=== PATIENT | male | born 1930 | race Caucasian/White ===

== ENCOUNTER 2017-07-10 10:04 | Inpatient (IN) | payer MEDICARE ==
[2017-07-10] MEDS ORDERED: Sodium Chloride 0.9% 2,000 ML IV ONE (10:42)
[2017-07-10] MEDS ORDERED: cefTRIAXone 2 GM in Sodium Chloride 0.9% 100 ML IV ONE (10:49)
--- NOTE | 2017-07-10 10:51 | ED Physician Chart ---
ED Chief Complaint/HPI - Patient Information Date Seen:: 07/10/17 Time Seen:: 10:18 Chief Complaint:: SWELLING, WARMTH AND DISCOLORATION LEFT LOWER EXTREMITY History of Present Illness:: THIS 86-YEAR-OLD MALE WAS BROUGHT TO THE EMERGENCY DEPARTMENT FOR EVALUATION OF PAIN, EDEMA, AND WARMTH IN THE LEFT LOWER EXTREMITY BELOW THE KNEE EXTENDING INTO THE FOOT. THE PATIENT IS CONFUSED AND UNABLE TO PROVIDE ANY ADDITIONAL INFORMATION REGARDING HIS CONDITION. ADDITIONAL INFORMATION WAS OBTAINED FROM A COMPANY PAPERWORK. Family MD/PCP:: SUPPLEMENTAL INFORMATION WAS OBTAINED FROM DR. SONI AND ACCOMPANYING PAPERWORK. Review:: Transfer documents Reviewed ( NURSING NOTES WHICH WERE ENTERED ONTO THE TRIAGE FORM WERE REVIEWED.) ED Past Medical History - Past Medical History Past Medical History: HTN, DM, CAD, CHF, Dementia Social History: Non Smoker, No Alcohol, No Drug Use, Single, Care Facility, Other ( INFORMATION OBTAINED FROM PAPERWORK WHICH ACCOMPANIED PATIENT.) Surgical History: None Psychiatricy History: Schizophrenia, Dementia Medication Reviewed:: SEE NURSING. Family Medical History - Family Member Father History Unknown: Yes ED Physical Exam - Physical Examination General/Constitutional: Awake, Well-developed, well-nourished, Alert Other Gen/Cons comments:: THE PATIENT HAS GENERALIZED WEAKNESS. IS NONAMBULATORY AND BARELY ABLE TO SIT UP IN BED WITH ASSISTANCE. HE DOES NOT APPEAR TO BE IN ANY ACUTE DISTRESS. Head: Atraumatic Eyes: Lids, conjuctiva normal, PERRL Other Skin comments:: THE SKIN OVER THE LOWER EXTREMITIES IS EDEMATOUS BELOW THE KNEES BILATERALLY. THERE IS SIGNIFICANT DISCOLORATION,WARMTH AND OOZING OF EDEMATOUS FLUID WHICH IS MUCH MORE PROMINENT IN THE LEFT LEG THAN THE RIGHT. THERE IS A DEFINITE INCREASE IN WARMTH OVER THE LEFT LEG THAN THE RIGHT. ON THE LEFT FOOT THERE IS A PRESSURE SORE BELOW THE HEEL. ENMT: External ears, nose nl, Nasal exam nl, Oropharynx nl, Tonsils nl Neck: Nontender, No nuchal rigidity, No mass, No stridor Other Neck comments:: JVD WAS PRESENT ON BOTH THE RIGHT AND THE LEFT SIDES OF THE NECK NO MASSES OR THYROMEGALY. +2 CAROTIDS BILATERALLY. Respiratory: Nl effort/Exclusion ( PATIENT HAD PROMINENT RALES WITH WI-FI IN THE RIGHT BASAL REGION. THE SOUNDS WERE NORMAL ELSEWHERE.) Cardio Vascular: RRR, No murmur, gallop, rubs Other Cardio Vascular comments:: DECREASED PEDAL PULSES MORE PROMINENT ON THE LEFT SIDE. GI: No tenderness/rebounding/guarding, No organomegaly, No hernia, Normal BS's, Nondistended, No mass/bruits, No McBurney tenderness Other GI comments:: RECTAL EXAMINATION DEFERRED AT MY DISCRETION. : No CVA tenderness Other Extremities comments:: MENTIONED ABOVE THE PATIENT HAS SIGNIFICANT DISCOLORATION, EDEMA, ALSO RATIONS, AND TENDERNESS IN THE LEFT LOWER EXTREMITY. THE ABNORMALITIES ARE MORE PRONOUNCED ON THE LEFT SIDE AND SUGGESTIVE OF ACUTE CELLULITIS. Neuro/Psych: Mood normal Other Neuro/Psych comments:: THE PATIENT WAS AWAKE BUT NOT A WORD FOR ORIENTED. PATIENT WAS NOT AMBULATORY AND DID NOT FOLLOW COMMANDS TO SQUEEZE MY FINGERS OR LIFT HIS LEGS OFF THE BED. ED Labs/Radiology/EKG Results - Lab Results Results: ED Visit Data Last Name: GARY Status: Transferred to Floor First Name: KATEY Priority: Middle: Condition: Stable Birthdate: 1930 Arrival Date/Time: 07/10/17 10:04 Age: 86 Arrival Mode: Ambulance Sex: M Triaged At: 07/10/17 10:21 Language: Time Seen by Provider: Stated Complaint: LEG PAIN Chief Complaint: Leg Pain ED Location: Emergency Department Area: Station: Group: ED Provider: Ray Fernandez ED Midlevel Provider: ED Nurse: Primary Care Provider: Wu Soni Other Provider: Reginald Suarez; Maximo Altamirano; Solo Agudelo; Bryant Agudelo; Julia Staley Clinical Data Date arrived to the unit 07/10/17 Time arrived to the unit 12:45 Primary Diagnosis left lower extremity cellulitis Weight (lbs) 87.543 kg Weight Source Bedscale Height 1.65 m BP 125/68 Code Status Full Code(Full Treatment) Isolation History No Hx Tuberculosis No Hx MRSA No Condition Stable Visit Reason SEPSIS, SECONDARY TO CELLULITIS Home Medications and Prescriptions Medication Instructions Recorded Confirmed Last Taken Type Acetaminophen [Tylenol Extra 500 mg PO Q6HR PRN 07/10/17 07/10/17 Unknown History Strength] Acetaminophen [Tylenol] 650 mg PO Q6HR PRN 07/10/17 07/10/17 Unknown History Aspirin [Aspirin Chewable] 81 mg PO DAILY 07/10/17 07/10/17 1 Day Ago History ~07/09/17 Benazepril [Lotensin*] 10 mg PO DAILY 07/10/17 07/10/17 1 Day Ago History ~07/09/17 Citalopram Hydrobromide 20 mg PO DAILY 07/10/17 07/10/17 1 Day Ago History [Citalopram HBr] ~07/09/17 Clonazepam [Clonazepam*] 1 mg PO HS 07/10/17 07/10/17 1 Day Ago History ~07/09/17 D10w 250 ml IV PRN PRN 07/10/17 07/10/17 Unknown History Dextrose [Glucose Gel] 15 gm PO PRN PRN 07/10/17 07/10/17 Unknown History GLUCAGON HCl [Glucagen] 1 mg IM PRN PRN 07/10/17 07/10/17 Unknown History Ibuprofen 800 mg PO BID 07/10/17 07/10/17 1 Day Ago History ~07/09/17 Insulin Glargine,Hum.rec.anlog 35 unit SQ DAILY 07/10/17 07/10/17 1 Day Ago History [Lantus Solostar] ~07/09/17 Insulin Human Regular [NovoLIN R] 0 units SUBQ DAILY 07/10/17 07/10/17 1 Day Ago History ~07/09/17 Metformin HCl [Fortamet] 850 mg PO TID 07/10/17 07/10/17 1 Day Ago History ~07/09/17 Omeprazole Magnesium [Prilosec Otc] 20 mg PO DAILY 07/10/17 07/10/17 1 Day Ago History ~07/09/17 QUEtiapine Fumarate [SEROquel] 50 mg PO HS 07/10/17 07/10/17 1 Day Ago History ~07/09/17 Sulfamethoxazole/TMP [Bactrim Ds] 1 tab PO BID 07/10/17 07/10/17 1 Day Ago History ~07/09/17 Tamsulosin [Flomax] 0.8 mg PO HS 07/10/17 07/10/17 1 Day Ago History ~07/09/17 Allergies/Adverse Reactions Allergy/AdvReac Type Severity Reaction Status Date / Time No Known Allergies Allergy Verified 07/10/17 10:20 Vital Signs Temp Pulse Resp BP Pulse Ox 03/18/18 14:40 117 22 95 07/11/17 08:05 109 130/66 07/11/17 08:00 97.8 F 109 20 130/66 94 07/11/17 06:53 98.3 F 84 97 07/11/17 04:00 98.2 F 106 18 102/61 93 07/11/17 00:00 99.2 F 96 114/67 99 07/10/17 20:00 98.4 F 98 20 116/63 96 07/10/17 16:29 97.8 F 73 20 123/72 97 07/10/17 15:54 125/68 07/10/17 14:51 20 07/10/17 13:55 98.0 F 75 20 125/68 95 07/10/17 13:00 98.0 F 75 20 125/68 95 07/10/17 12:23 98.9 F 108 16 139/85 07/10/17 10:21 98.6 F 108 23 126/64 94 Interventions Alteration GI Problem Start: 07/10/17 14: 43 Freq: QSHIFT Status: Active Document 07/10/17 14:48 RADAME (Rec: 07/10/17 14:49 RADAME [id number]) Alteration in Bowel Elimination/ GI Problems Patient Problem Identifier Actual Alteration in Bowel Elimination/ GI Incontinence Problems Alteration in Bowel Elimination/ GI Incontinence care Problems Document 07/10/17 20:00 SKURIAN (Rec: 07/10/17 22:38 SKURIAN [id number]) Alteration in Bowel Elimination/ GI Problems Patient Problem Identifier Actual Alteration in Bowel Elimination/ GI Incontinence Problems Alteration in Bowel Elimination/ GI Intake and Output Problems Skin turgor Lab results Weight Alteration in Bowel Elimination/ GI Incontinence care Problems Document 07/11/17 08:00 RADAME (Rec: 07/11/17 09:53 RADAME [id number]) Alteration in Bowel Elimination/ GI Problems Patient Problem Identifier Actual Alteration in Bowel Elimination/ GI Incontinence Problems Alteration in Bowel Elimination/ GI Intake and Output Problems Skin turgor Lab results Weight Alteration in Bowel Elimination/ GI Incontinence care Problems Altered Mental Status Start: 07/10/17 14: 43 Freq: QSHIFT Status: Active Document 07/10/17 14:48 RADAME (Rec: 07/10/17 14:49 RADAME [email or web address]) Altered Mental Status/ Psychological Concerns Patient Problem Identifier Actual Altered Mental Status/ Psychological Confusion Concerns Dementia Altered Mental Status/Psychological Alzheimer's disease Concerns Problem Comment Altered Mental Status/ Psychological [place] to reality Concerns Observe for patterns of confusion and behavior Identify possible aggravating factors Monitor neuro status Utilize items for reality Evaluate extensive sensory alteration Obtain other means of communication Document 07/10/17 20:00 SKURIAN (Rec: 07/10/17 22:38 SKURIAN [id number]) Altered Mental Status/ Psychological Concerns Patient Problem Identifier Actual Altered Mental Status/ Psychological Confusion Concerns Dementia Altered Mental Status/Psychological Alzheimer's disease Concerns Problem Comment Altered Mental Status/ Psychological [place] to reality Concerns Observe for patterns of confusion and behavior Identify possible aggravating factors Monitor neuro status Utilize items for reality Evaluate extensive sensory alteration Obtain other means of communication Document 07/11/17 08:00 RADAME (Rec: 07/11/17 09:53 RADAME [id number]) Altered Mental Status/ Psychological Concerns Patient Problem Identifier Actual Altered Mental Status/ Psychological Confusion Concerns Dementia Altered Mental Status/Psychological Alzheimer's disease Concerns Problem Comment Altered Mental Status/ Psychological [place] to reality Concerns Observe for patterns of confusion and behavior Identify possible aggravating factors Monitor neuro status Utilize items for reality Evaluate extensive sensory alteration Obtain other means of communication Anxiety Start: 07/10/17 14: 43 Freq: QSHIFT Status: Active Document 07/10/17 14:48 RADAME (Rec: 07/10/17 14:49 RADAME [email or web address]) Anxiety Patient Problem Identifier Potential Anxiety Disease Process Hospitalization Procedure(s) Anxiety Encourage to verbalize feeling and concerns Provide information regarding tests and procedures Answer questions appropriately and concisely Offer encouragement/ reassurance as appropriate Document 07/10/17 20:00 SKURIAN (Rec: 07/10/17 22:38 SKURIAN [email or web address]) Anxiety Patient Problem Identifier Potential Anxiety Disease Process Hospitalization Procedure(s) Anxiety Encourage to verbalize feeling and concerns Provide information regarding tests and procedures Answer questions appropriately and concisely Offer encouragement/ reassurance as appropriate Document 07/11/17 08:00 RADAME (Rec: 07/11/17 09:53 RADAME [email or web address]) Anxiety Patient Problem Identifier Potential Anxiety Disease Process Hospitalization Procedure(s) Anxiety Encourage to verbalize feeling and concerns Provide information regarding tests and procedures Answer questions appropriately and concisely Offer encouragement/ reassurance as appropriate CP: HIGH FALL RISK Start: 07/10/17 14: 43 Freq: QSHIFT Status: Active Document 07/10/17 14:48 TRISTAN (Rec: 07/10/17 14:49 JOANNHAILY [id number]) HIGH FALL RISK CARE PLAN Patient Problem Identifier Actual HIGH FALL RISK PROBLEMS Impaired Mobility Confusion HIGH FALL RISK INTERVENTIONS Inititate care plan [place] pt to the environment, bathroom location & use of call light Keep the hospital bed in low position when patient is resting in bed Keep top 2 side rails up Keep hospital bed brakes locked Keep nonslip, comfortable, well-fitting footwear on the patient Encourage patient/family to call for assistance as needed Keep floor surfaces clear and dry. Clean up all spills promptly Perform hourly rounds ( separate from Q15min rounds) Answer call light promptly Keep Bed in lowest position during use unless impractical Coil and secure excess electrical and telephone wires /cords Keep assistive devices within patient safe reach Identify and document patient' s fall risk factors Use SBAR sheet anytime handing off patient to someone else Apply fall risk arm band on patient Activate bed alarm when patient is resting in bed Reorient confused patient as needed Document 07/10/17 20:00 HORTENSIA (Rec: 07/10/17 22:38 SKURIAN [id number]) HIGH FALL RISK CARE PLAN Patient Problem Identifier Actual HIGH FALL RISK PROBLEMS Impaired Mobility Confusion HIGH FALL RISK INTERVENTIONS Inititate care plan [place] pt to the environment, bathroom location & use of call light Keep the hospital bed in low position when patient is resting in bed Keep top 2 side rails up Keep hospital bed brakes locked Keep nonslip, comfortable, well-fitting footwear on the patient Encourage patient/family to call for assistance as needed Keep floor surfaces clear and dry. Clean up all spills promptly Perform hourly rounds ( separate from Q15min rounds) Answer call light promptly Keep Bed in lowest position during use unless impractical Coil and secure excess electrical and telephone wires /cords Keep assistive devices within patient safe reach Identify and document patient' s fall risk factors Use SBAR sheet anytime handing off patient to someone else Apply fall risk arm band on patient Activate bed alarm when patient is resting in bed Reorient confused patient as needed Document 07/11/17 08:00 TRISTAN (Rec: 07/11/17 09:53 TRISTAN [email or web address]) HIGH FALL RISK CARE PLAN Patient Problem Identifier Actual HIGH FALL RISK PROBLEMS Impaired Mobility Confusion HIGH FALL RISK INTERVENTIONS Inititate care plan [place] pt to the environment, bathroom location & use of call light Keep the hospital bed in low position when patient is resting in bed Keep top 2 side rails up Keep hospital bed brakes locked Keep nonslip, comfortable, well-fitting footwear on the patient Encourage patient/family to call for assistance as needed Keep floor surfaces clear and dry. Clean up all spills promptly Perform hourly rounds ( separate from Q15min rounds) Answer call light promptly Keep Bed in lowest position during use unless impractical Coil and secure excess electrical and telephone wires /cords Keep assistive devices within patient safe reach Identify and document patient' s fall risk factors Use SBAR sheet anytime handing off patient to someone else Apply fall risk arm band on patient Activate bed alarm when patient is resting in bed Reorient confused patient as needed Cardio-Respiratory Assessment Start: 07/11/17 14: 06 Freq: Status: Active Document 07/11/17 14:40 PWONG (Rec: 07/11/17 14:44 PWONG [id number]) Cardio-Respiratory Assessment Diagnosis LEG SWELL Level of Consciouness Disoriented,fol command Level of Activity Non-ambulatory Respiratory Pattern Inc RR 20-25 Breath Sounds Wheezing Cough Stong,spont,non-prod Color of Secretions None/Clear Respiratory History Non Smoker Surgery History No Surgery Chest Xray Unavailable Total Points 9 Class Class 3 HR 117 Respiratory Rate 22 SaO2 95 FiO2 28 Cardio-Respiratory Notes Start: 07/11/17 14: 06 Freq: PRN Status: Active Document 07/11/17 14:40 PWONG (Rec: 07/11/17 14:44 PWONG [id number]) Cardio-Respiratory Notes Respiratory Rate 22 Pulse Rate 117 O2 Sat % 95 Post Respiratory Rate 22 Post Pulse Rate 115 Post O2 Sat % 98 Breath Sounds Wheezes Post Treatment Breath Sounds Wheezes Oxygen Delivery NC Flow LPM 2 FiO2 28 Treatment Mode HHN Respiratory Medications Duoneb Neb 3 ml Patient Assessment Confused Semi-Pichardo Pain Assessment No Adverse Reaction No Respiratory Comment HHN GIVEN VIA MASK AND TOLERATED WELL. INCREASED AERATION. Cardio-Respiratory Plan of Care Start: 07/11/17 14: 06 Freq: Q 3DAYS Status: Active Document 07/11/17 14:40 PWONG (Rec: 07/11/17 14:44 PWONG [id number]) Cardio-Respiratory Care Plan Impaired Gas Exchange Decreased SaO2 or SpO2 Ineffectived Airway Clearance Ineffective cough Abnormal breath sounds Other Patient Problems Activity Intolerance Dyspnea Knowledge Deficit Other Patient Problems Comments LEG SWELL Assess/Monitor Oxygen Saturation Oxygen Therapy Delivery Device Oxygen Dellivery Comment NC 2L Volume Expansion Therapy HHN Frequency Q6+Q2PRN Aerosolized Meds Duoneb Neb 3 ml Patient Education Patient able to understand teaching Expected Outcome Maintain adeq ventilation Establish eff breathing pattern (dec effort) and mobilize secretions Imp oxygenation as evidenced by imp dx data & clinical assessment Expected Outcome Comment RETURN TO ADL Outcome Status Improved Change of Shift Start: 07/10/17 12: 36 Freq: QSHIFT Status: Active Document 07/10/17 16:25 KTADIJE (Rec: 07/10/17 16:25 KTADIJE [email or web address]) Change of Shift Nurse TERENCE Document 07/10/17 18:23 KTADIJE (Rec: 07/10/17 18:23 KTADIJE [email or web address]) Change of Shift Nurse JENNIFER Document 07/11/17 06:07 APEREZ (Rec: 07/11/17 06:07 APEREZ [email or web address]) Change of Shift Nurse TERENCE ED Acuity Level Charge Form Start: 07/10/17 10: 14 Freq: Status: Active Document 07/10/17 12:23 CFAILLA (Rec: 07/10/17 12:26 CFAILLA [email or web address]) ED Acuity Level Charging ED Acuity Level - Point Value 5 Initial Vital Signs Labs Neuro Checks X-Ray Or Ultrasound ED Acuity Level - Point Value 10 Admit Regular Room BP Monitor Nurse EKG IV Insertion Simple IV Fluids Orders From Attending Pulse Ox(Count Only Once) Grand Total Level 115 ED Disposition & Discharge Instructions Start: 07/10/17 10: 14 Freq: Status: Active Document 07/10/17 12:23 CFAILLA (Rec: 07/10/17 12:26 CFAILLA [id number]) ED Disposition & ED Discharge Instructions Is patient going to be discharged? No Is patient going to be transferred? No Is patient going to be admitted? Yes Temperature: 98.9 F Temperature Source: Temporal Artery Scan Pulse Rate: 108 Respiratory Rate: 16 Blood Pressure: 139/85 Blood Pressure Source: Automatic Cuff Blood Pressure Position: Sitting Pain Scale Level: No Pain Pain Medications Given: No IV End Time Documented in eMAR? No Admitting Diagnosis: sepsis, cellulitis Admitting Physician: Wu Soni Admitted to Room #: 11-2 Admit Date: 07/10/17 Admit Time: 12:00 Physician Order for Admit-Date: 07/10/17 Physician Order for Admit-Time: 12:00 Taken to Room With: IV Accompanied By: RN Report Given To: RN Nursing ED Disposition Date: 07/10/17 Nursing ED Disposition Time: 12:00 Was patient education provided? 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 : ED Family Medical History Start: 07/10/17 10: 14 Freq: Status: Active Document 07/10/17 10:39 CFAILLA (Rec: 07/10/17 10:40 CFAILLA [email or web address]) Family Medical History Father History Unknown Yes ED Intake and Output Start: 07/10/17 10: 21 Freq: Status: Active Document 07/10/17 12:23 CFAILLA (Rec: 07/10/17 12:26 CFAILLA [email or web address]) Intake and Output Intake, Oral Amount 500 Intake, IV Total Amount 1,000 Total, Intake Amount 1500 Output, Urine Amount 0 Total, Output Amount 0 Weight (lbs) 97.522 kg Weight Source Estimated ED Pain Reassessment Start: 07/10/17 10: 14 Freq: Status: Active Document 07/10/17 12:23 CFAILLA (Rec: 07/10/17 12:26 CFAILLA [id number]) ED Pain Reassessment Pain Reasssessment Time 12:24 Pain Scale Level No Pain Pain Scale Used Numeric ED Physical Assessment (New) Start: 07/10/17 10: 14 Freq: Status: Active Document 07/10/17 10:35 CFAILLA (Rec: 07/10/17 10:39 CFAILLA [email or web address]) ED Physical Assessment (New) MRSA: MRSA screen done in ER Unit Is this Acute Myocardial Infarction (AMI No ) patient? Is Fibrinolytic Therapy given? No Is patient diagnosis of cardiopulmonary No arrest? Is the Patient Homeless? No Is the Patient on Restraints? No Pain Scale Level 5 Comprehension Ability Unable to Comprehend Speech Pattern Inappropriate Patient Behavior Cooperative Passive Psych WNL No Extremities WNL No Neuro Vascular Complaints left leg swelling and redness Left Leg Weak Pulse Cardiac WNL No Cardiac Symptoms Tachycardia Respiratory WNL No Respiratory Complaints rales noted in the right lobes Rales Right Middle Lobe Gastrointestinal WNL Yes Urinary WNL Yes Eyes WNL Yes Ears WNL Yes Nose WNL Yes Throat WNL Yes Dental WNL Yes Skin WNL No Skin Complaints left leg Skin Color Erythema Skin Temperature Warm Musculoskeletal WNL No Pediatric patient? 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 Altered Fluid Balance 9. Potential Infection 13. Impaired Mobility 14. Impaired Skin Integrity 16. Altered Tissue Perfusion ED Assessment Notes pt is from a SNF , sent via BLS. total assist given into the bed 3. pt is confused, and left leg r/o DVT, possible cellulitis. ED Sepsis Reassessment Screening Tool Start: 07/10/17 10: 21 Freq: Status: Active Document 07/10/17 10:21 LUTHER (Rec: 07/10/17 10:28 LUTHER [email or web address]) Sepsis Screening Tool (18 yrs & above) Does patient have documented or No confirmed infection OR compromised immune system? Select one or more of the following: Recent procedure Two (2) or more New signs of SIRS ( Yes Systemic Immune Response Syndrome)? Does patient have 1 or more NEW or ACUTE No ONSET signs of organ system dysfunction or organ failure? Severe Sepsis/Septic Shock Screen NEGATIVE Screen for Severe Sepsis or Septic Shock ED Suicide Risk/ Lethality Admission Amt Start: 07/10/17 10: 14 Freq: Status: Active Document 07/10/17 10:40 OSMANI (Rec: 07/10/17 10:40 [email or web address] ED Suicide Risk/ Lethality Admission Assessment Is there a plan? How specific are the None details of the plan and time frame? Are there means available to carry out N/A their plan? Is there a diagnosis of a serious mental No significant medical illness or significant medical illness? problems; no diagnosed mental illness Is there a diagnosis of chronic or acute None depression? How many previous attempts have been None or one with low lethality made? Are they alone? Do they have a support Friends/family present most of system? Are they alone right now? Are time;help available, they communicating their feelings? significant others Is there evidence of a significant loss No significant stress (job, significant other, health)? Is there abuse of substances? Is there Relationships, personality and current or chronic use? 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 How specific are the None details of the plan and time frame? Are there means available to carry out N/A their plan? Is there a diagnosis of a serious mental No significant medical illness or significant medical illness? problems; no diagnosed mental illness Is there a diagnosis of chronic or acute None depression? How many previous attempts have been None or one with low lethality made? Are they alone? Do they have a support Friends/family present most of system? Are they alone right now? Are time;help available, they communicating their feelings? significant others Is there evidence of a significant loss No significant stress (job, significant other, health)? Grand Total Level of Suicide 0 ED Teaching Record Start: 07/10/17 10: 14 Freq: Status: Active Document 07/10/17 12:23 OSMANI (Rec: 07/10/17 12:26 [facility] ED Teaching Teaching (Emergency Department) pt given teaching p/t the ER and admission process Teaching Recipient Patient ED Triage Assessment (New) Start: 07/10/17 10: 05 Freq: Status: Active Document 07/10/17 10:21 LUTHER (Rec: 07/10/17 10:28 LUTHER [facility]) ED Triage Assessment (New) HAVE YOU BEEN SEEN HERE WITHIN THE LAST No 48 HOURS Arrival Mode BCLS ACLS/BCLS Squad care Arrived From [facility] Facility Arrived From [facility] Mental Status Comment NA Accompanied by EMS Pre Hospital Treatment None Dressing Pre Hospital Treatment Comment PATIENT IS DIAPERED, LEFT HEEL ULCER WITH DRESSING Primary Language KOREAN Triage Level 3 - Urgent Chief Complaint Leg Pain Code Status Full Code Subjective/Objective Complaints PATIENT PRESENTS TO THE ER WITH HX OF LEFT LOWER EXTREMITY REDNESS, PAIN AND SWELLING TO TWO DAYS; NO TRAUMA, NO OTHER REMARKABLE S/ S Have you recently traveled outside the No country Have you recently traveled to the No [place], [place], and to Central or [place]? Have you recently traveled to any part No of [place]? Where did you travel to/from Coma Scale Eye Opening Spontaneous Coma Scale Motor Response Obeys Commands Coma Scale Verbal Response Confused Coma Scale Total 14 BP 126/64 BP Location Right Arm Capillary Refill < 3 seconds HR 108 RR 23 Temp 98.6 F Temperature Source Oral O2 Sat % 94 O2 Flow rate/Fio2 21 O2 Delivery Method Room Air Pain Scale Level 8 Pain Scale Used Numeric Pain Description Dull Throbbing Pain Radiation Location NA Sepsis Result 2 - High Risk for Sepsis Height 4.72 m Weight (lbs) 2.325 kg Weight (Calculated Kilograms) 2.3 Weight Source Estimated Infection Criteria Present Suspected New Infection Recent Fever No Patient Intubated No Clinical Trial Participant During This No Visit? Initial Screen Time 10:00 Suspected Infection Yes Recent Procedure No Antibiotic Therapy No Temp < 36 C (98.6 F) or > 38.8 C (101 F) No Respiratory Rate > 20 Yes Heart rate > 90 Yes SBP < 90 mmHg or > 40 mmHg Drop from No Baseline New, Acute Mental Status Changes No Time Reported to Physician 10:00 Name of Provider Notified Ray Fernandez Smoking Status Never smoker Hx Alcohol Use No Hx Drug Use No History of Chronic Illness Yes Hx Hypertension Yes Hx Diabetes Yes Hx Gastroesophageal Reflux Disease Yes Hx Surgeries Yes: UNK Other Medical History ALZHEIMERS, DYSPHAGIA, PARKINSONS, DIFFICULTY WALKING , MUSCLE WEAKNESS, BPH, DEPRESSION, ANXIETY Hx Diphtheria, Pertussis, Tetanus No Vaccination Hx Pneumococcal Vaccination No Hx Influenza Vaccination No Hx Immunizations Up to Date No Immunizations Comment NO RECORD Verbalization of intent to harm self or No others? Suspected Abuse No Controlling or Dominant Behavior No Triage Note ER #3 Ischemic Stroke-thrombolytic thpy for pts arrive w/ 2hrs of symptom onset Is this an Neurologic/Stroke patient? No Baseline State Baseline state End of Shift Review Start: 07/10/17 12: 36 Freq: QSHIFT.EOS Status: Active Document 07/10/17 18:00 TRISTAN (Rec: 07/10/17 20:05 TRISTAN [id number] ) End of Shift Review Have you reviewed/acknowledged all Yes orders? Does patient have any IV/IVPB/TITR Yes medications? Did you document IV Start/Stop/Infused Yes in eMAR? Did patient have any interventions for No Pain? Did patient fall during the shift? No Does patient have restraint? No Did any physicians seen the patient Yes during your shift? Is there any Surgical Procedure ordered No for the patient? Bed alarm checked and activated? Yes Document 07/11/17 05:42 HORTENSIA (Rec: 07/11/17 05:43 SKSARAH [id number]) End of Shift Review Have you reviewed/acknowledged all Yes orders? Does patient have any IV/IVPB/TITR Yes medications? Did you document IV Start/Stop/Infused Yes in eMAR? Did patient have any interventions for No Pain? Did you complete the Pain Reassessment? No Did patient fall during the shift? No Did you complete the Post Fall No Assessment? Does patient have restraint? No Is there an Active Restraint order? No Did you document Restraint on Care Plan No and Flowsheet? Did any physicians seen the patient No during your shift? Is there any Surgical Procedure ordered No for the patient? Was consent obtain for the Surgical No Procedure? Bed alarm checked and activated? Yes Family Medical History Start: 07/10/17 12: 36 Freq: ONCE Status: Active Document 07/10/17 14:06 RADAME (Rec: 07/10/17 14:06 RADAME [id number]) Family Medical History Father History Unknown Yes Fluid Volume/ Electrolyte Start: 07/10/17 14: 43 Freq: QSHIFT Status: Active Document 07/10/17 14:50 RADAME (Rec: 07/10/17 14:51 RADAME [id number]) Fluid Volume/ Electrolyte Balance Excess Patient Problem Identifier Actual Fluid Volume Deficit Incontinence Document 07/10/17 20:00 SKURIAN (Rec: 07/10/17 22:38 SKURIAN [id number]) Fluid Volume/ Electrolyte Balance Excess Patient Problem Identifier Actual Fluid Volume Deficit Incontinence Fluid Volume/ Electrolyte Balance Excess Vital signs Intake and Output Respiratory status Edema Lab values Daily weight Hemodynamic parameters Document 07/11/17 08:00 RADAME (Rec: 07/11/17 09:53 RADAME [email or web address]) Fluid Volume/ Electrolyte Balance Excess Patient Problem Identifier Actual Fluid Volume Deficit Incontinence Fluid Volume/ Electrolyte Balance Excess Vital signs Intake and Output Respiratory status Edema Lab values Daily weight Hemodynamic parameters IV Intake Spreadsheet Start: 07/10/17 10: 05 Freq: Status: Active Document 07/10/17 12:26 CFAILLA (Rec: 07/10/17 12:26 CFAILLA [id number]) IV Intake Spreadsheet [id number] 2 gm In Sodium Chloride 0.9% 100 ml @ 100 mls/hr IV X1 ONE Rx#: [id number] Intake, IV Amount 100 Sodium Chloride 0.9% 2,000 ml @ Wide Open IV .Q0M ONE Rx#:[id number] Intake, IV Amount 1,000 IV/invasive line Assessment Start: 07/10/17 12: 36 Freq: Q4H Status: Active Document 07/10/17 13:00 RADAME (Rec: 07/10/17 14:08 RADAME [id number]) IV/Invasive Line Assessment LEFT FOREARM Type Peripheral Gauge 20 Observation Asymptomatic Intact Patent Line Care Saline Flush Document 07/10/17 18:00 RADAME (Rec: 07/10/17 20:05 RADAME [id number] ) IV/Invasive Line Assessment LEFT FOREARM Type Peripheral Gauge 20 Observation Asymptomatic Intact Patent Line Care Saline Flush Document 07/10/17 22:00 SKURIAN (Rec: 07/10/17 22:52 SKURIAN [email or web address]) IV/Invasive Line Assessment LEFT FOREARM Type Peripheral Gauge 20 Observation Asymptomatic Intact Patent Line Care Saline Flush Document 07/11/17 02:00 SKURIAN (Rec: 07/11/17 05:38 SKURIAN [email or web address]) IV/Invasive Line Assessment LEFT FOREARM Type Peripheral Gauge 20 Observation Asymptomatic Intact Patent Line Care Saline Flush Document 07/11/17 05:37 SKURIAN (Rec: 07/11/17 05:38 SKURIAN [email or web address]) IV/Invasive Line Assessment LEFT FOREARM Type Peripheral Gauge 20 Observation Asymptomatic Intact Patent Line Care Saline Flush Document 07/11/17 10:00 RADAME (Rec: 07/11/17 10:20 RADAME [email or web address]) IV/Invasive Line Assessment LEFT FOREARM Type Peripheral Gauge 20 Observation Asymptomatic Intact Patent Line Care Saline Flush Impaired Communication Start: 07/10/17 14: 43 Freq: QSHIFT Status: Active Document 07/10/17 14:50 RADAME (Rec: 07/10/17 14:51 RADAME [email or web address]) Impaired Communication Patient Problem Identifier Actual Impaired Communication Language barrier Physical Impairment Impaired Communication Provide bilingual interpreter assistance Document 07/10/17 20:00 SKURIAN (Rec: 07/10/17 22:38 SKURIAN [email or web address]) Impaired Communication Patient Problem Identifier Actual Impaired Communication Language barrier Physical Impairment Impaired Communication Provide bilingual interpreter assistance Document 07/11/17 08:00 RADAME (Rec: 07/11/17 09:53 RADAME [id number]) Impaired Communication Patient Problem Identifier Actual Impaired Communication Language barrier Physical Impairment Impaired Communication Provide bilingual interpreter assistance Impaired Physical Mobility Start: 07/10/17 14: 43 Freq: QSHIFT Status: Active Document 07/10/17 14:50 RADAME (Rec: 07/10/17 14:51 RADAME [email or web address]) Impaired Physical Mobility Patient Problem Identifier Actual Impaired Physical Mobility Unsteady gait Weakness Mental Status Impaired Physical Mobility Assist patient with ADLs, transfers and repositioning Re-enforce instruction Administer pain meds as needed Document 07/10/17 20:00 SKURIAN (Rec: 07/10/17 22:38 SKURIAN [email or web address]) Impaired Physical Mobility Impaired Physical Mobility Unsteady gait Weakness Mental Status Impaired Physical Mobility Assist patient with ADLs, transfers and repositioning Re-enforce instruction Administer pain meds as needed Document 07/11/17 08:00 RADAME (Rec: 07/11/17 09:53 RADAME [email or web address]) Impaired Physical Mobility Patient Problem Identifier Actual Impaired Physical Mobility Unsteady gait Weakness Mental Status Impaired Physical Mobility Assist patient with ADLs, transfers and repositioning Re-enforce instruction Administer pain meds as needed Infection Start: 07/10/17 14: 43 Freq: QSHIFT Status: Active Document 07/10/17 14:50 RADAME (Rec: 07/10/17 14:51 RADAME [email or web address]) Infection Patient Problem Identifier Actual Infection Problem Comment left lower extremity cellulitis Infection Obtain Culture Perineal Care Dressing change Site change Infection Lab results Vital signs S/S of infection Document 07/10/17 20:00 SKURIAN (Rec: 07/10/17 22:38 SKURIAN [email or web address]) Infection Patient Problem Identifier Actual Infection Problem Comment left lower extremity cellulitis Infection Obtain Culture Perineal Care Dressing change Site change Infection Lab results Vital signs S/S of infection Document 07/11/17 08:00 RADAME (Rec: 07/11/17 09:53 RADAME [email or web address]) Infection Patient Problem Identifier Actual Infection Problem Comment left lower extremity cellulitis Infection Obtain Culture Perineal Care Dressing change Site change Infection Lab results Vital signs S/S of infection Intake and Output Start: 07/10/17 12: 36 Freq: QSHIFT Status: Active Document 07/10/17 13:54 SKURIAN (Rec: 07/10/17 21:43 SKURIAN [id number]) Intake and Output Piperacillin Sodium/Tazobact 3.375 gm In Sodium Chloride 0.9% 50 ml @ 100 mls/hr IV Q8HR [facility] Rx#:[id number] Intake, IV Amount 50 Total, Intake Amount 50 Document 07/10/17 18:24 RADAME (Rec: 07/10/17 20:08 RADAME [id number] ) Intake and Output Intake, Oral Amount 450 Total, Intake Amount 450 Number of Voids 2 Number of Bowel Movements 0 Weight (lbs) 87.725 kg Weight Source Bedscale Document 07/10/17 22:10 SKURIAN (Rec: 07/11/17 05:55 SKURIAN [id number]) Intake and Output Piperacillin Sodium/Tazobact 3.375 gm In Sodium Chloride 0.9% 50 ml @ 100 mls/hr IV Q8HR [facility] Rx#:[id number] Intake, IV Amount 50 Total, Intake Amount 50 Document 07/11/17 00:31 SKURIAN (Rec: 07/11/17 02:56 SKURIAN [id number]) Intake and Output Sodium Chloride 0.9% 1,000 ml @ 90 mls/hr IV .Q11H7M [facility] Rx#:[id number] Intake, IV Amount 1,000 Total, Intake Amount 1000 Document 07/11/17 05:43 SKURIAN (Rec: 07/11/17 05:44 SKURIAN [email or web address]) Intake and Output Intake, Oral Amount 100 Intake, IV Total Amount 1,080 Total, Intake Amount 1180 Number of Voids 3 Number of Bowel Movements 0 Weight (lbs) 87.543 kg Weight Source Bedscale Document 07/11/17 11:23 RADAME (Rec: 07/11/17 11:24 RADAME [id number] ) Intake and Output Piperacillin Sodium/Tazobact 3.375 gm In Sodium Chloride 0.9% 50 ml @ 100 mls/hr IV Q8HR [facility] Rx#:[id number] Intake, IV Amount 50 Total, Intake Amount 50 Knowledge Deficit Start: 07/10/17 14: 43 Freq: QSHIFT Status: Active Document 07/10/17 14:50 TRISTAN (Rec: 07/10/17 14:51 TRISTAN [email or web address]) Knowledge Deficit Patient Problem Identifier Actual Knowledge Deficit Health or disease process: Orientation of environment Patient care routine/ADLs Procedures/ Treatments: Medications/food drug interactions Pain management Equipment Wound Care Knowledge Deficit Assess pt/SO readiness to learn [place] pt/SO to room and unit Encourage pt/SO to verbalize questions and concerns Explain impending tests and / or procedures Teach medications/ food drug interactions Teach wound care Teach use of equipment Provide educational materials Document 07/10/17 20:00 HORTENSIA (Rec: 07/10/17 22:39 HORTENSIA [id number]) Knowledge Deficit Patient Problem Identifier Actual Knowledge Deficit Health or disease process: Orientation of environment Patient care routine/ADLs Procedures/ Treatments: Medications/food drug interactions Pain management Equipment Wound Care Knowledge Deficit Assess pt/SO readiness to learn [place] pt/SO to room and unit Encourage pt/SO to verbalize questions and concerns Explain impending tests and / or procedures Teach medications/ food drug interactions Teach wound care Teach use of equipment Provide educational materials Document 07/11/17 08:00 TRISTAN (Rec: 07/11/17 09:53 TRISTAN [email or web address]) Knowledge Deficit Patient Problem Identifier Actual Knowledge Deficit Health or disease process: Orientation of environment Patient care routine/ADLs Procedures/ Treatments: Medications/food drug interactions Pain management Equipment Wound Care Knowledge Deficit Assess pt/SO readiness to learn [place] pt/SO to room and unit Encourage pt/SO to verbalize questions and concerns Explain impending tests and / or procedures Teach medications/ food drug interactions Teach wound care Teach use of equipment Provide educational materials Lethality Assessment - Admission Start: 07/10/17 12: 36 Freq: ONCE Status: Active Document 07/10/17 13:00 TRISTAN (Rec: 07/10/17 14:06 TRISTAN [email or web address]) Suicide Risk/ Lethality Admission Assessment Is there a plan? How specific are the None details of the plan and time frame? Are there means available to carry out N/A their plan? Is there a diagnosis of a serious mental No significant medical illness or significant medical illness? problems; no diagnosed mental illness Is there a diagnosis of chronic or acute None depression? How many previous attempts have been None or one with low lethality made? Are they alone? Do they have a support Friends/family present most of system? Are they alone right now? Are time;help available, they communicating their feelings? significant others Is there evidence of a significant loss Daily activities continue as (job, significant other, health)? usual with little change Is there abuse of substances? Is there Relationships, personality and current or chronic use? 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 Grand Total Level of Suicide 1 Risk Level of Suicide LOW RISK Low Air-Loss Mattress Start: 07/10/17 18: 24 Freq: ONCE Status: Active Document 07/10/17 18:24 RADAME (Rec: 07/10/17 20:09 RADAME [id number] ) MRSA Screening Tool Start: 07/10/17 12: 36 Freq: ONCE Status: Active Document 07/10/17 13:00 RADAME (Rec: 07/10/17 14:06 RADAME [id number]) MRSA Screening Tool MRSA Screening Tool Patient transferred from SNF Screen per hospital policy [facility] Physical Assessment Start: 07/10/17 12: 36 Freq: Q4H Status: Active Document 07/10/17 14:51 RADAME (Rec: 07/10/17 15:05 RADAME [id number]) Critical Alarm - MSI/TELE Bed alarm checked and activated? Yes Is this patient with critical alarm? Yes MSI/TELE critical alarm: Bed alarm Neurological Assessment - [facility] Neurological System Within Normal Limits No Eye Opening Spontaneous Motor Obeys Commands Verbal Confused Coma Scale Total 14 Level Of Consciousness Awake Lethargic Disoriented Patient Orientation Person Arousable To Name Bilateral Reaction Brisk [place] PERRL bilateral lower extremity Strength Severe Weakness bilateral upper extremity Strength Mild Weakness Comprehension Ability Unable to Comprehend Speech Pattern Inappropriate Patient Behavior Cooperative Passive Asleep Mood Description Calm Relaxed HEENT Assessment HEENT Within Normal Limits No HEENT Symptoms Limited Movement Bilateral Hearing Ability Normal Ability to Follow Directions Fair Facial Expression Alert/Appropriate Facial Symmetry Symmetrical Cardiovascular Assessment: [facility] Cardiovascular Within Normal Limits Yes Left Dorsalis Pedis Rhythm Regular Strength Normal Method Palpation Right Dorsalis Pedis Rhythm Regular Strength Normal Method Palpation Right Radial Rhythm Regular Strength Normal Method Palpation Left Radial Rhythm Regular Strength Normal Method Palpation Apical Rhythm Regular Strength Normal Method Auscultation Heart Sounds S1 & S2 Patient on Telemetry No Capillary Refill < 3 seconds left leg Type Non-pitting Chest Pain Complaint No Respiratory Assessment: [facility] Respiratory System Within Normal Limits Yes Respiratory Rate 20 Effort Normal Non-Labored Retraction Type N/A Depth Normal Pattern Normal Bilateral Throughout Breath Sounds Diminished Oxygen Delivery Method Room Air FIO2 (% Oxygen) 95 Cough Present No Sputum Amount None Gastrointestinal Assessment Gastrointestinal System Within Normal No Limits All Quadrants Bowel Sound Active Abdomen Description Flat Soft Non-Tender Large Round Bowel Pattern Incontinent Gastric Tube Assessment Gastric/NG Tube Present No Tubefeeding Assessment Tube Feeding Present No Bowel Diversion (Colostomy/Ileostomy) Stoma Assessment Bowel Diversion Present No Genitourinary Assessment Genitourinary System Within Normal No Limits Genitourinary Symptoms Incontinent Bladder Pattern Incontinent Voiding Method Incontinent Urinary Catheter Assessment Urinary Catheter Present No Peritoneal/Hemodialysis Patient on Dialysis No Integumentary Assessment Integumentary System Within Normal No Limits Skin Color Normal Skin Temperature Warm Skin Moisture Dry Skin Turgor Loose Integumentary Symptoms Area of Concern right foot Problem Pressure Area Problem Stage Reddened Photo Taken of Skin Problem Yes left foot Problem Maceration Problem Stage Reddened Photo Taken of Skin Problem Yes left lower extremity Problem Stage Reddened Photo Taken of Skin Problem Yes left heel Problem Scar Decubitus Pressure Area Problem Stage Ulceration Photo Taken of Skin Problem Yes Integumentary System Comment cellulitis on the left lower extremity Document 07/10/17 20:00 HORTENSIA (Rec: 07/10/17 22:48 HORTENSIA [id number]) Critical Alarm - MSI/TELE Bed alarm checked and activated? Yes Is this patient with critical alarm? No MSI/TELE critical alarm: Bed alarm Neurological Assessment - [facility] Neurological System Within Normal Limits No Eye Opening Spontaneous Motor Obeys Commands Verbal Confused Coma Scale Total 14 Level Of Consciousness Awake Lethargic Disoriented Patient Orientation Person Arousable To Name Bilateral Reaction Brisk [place] PERRL bilateral lower extremity Strength Severe Weakness bilateral upper extremity Strength Mild Weakness Comprehension Ability Unable to Comprehend Speech Pattern Inappropriate Patient Behavior Cooperative Passive Mood Description Calm Relaxed HEENT Assessment HEENT Within Normal Limits No HEENT Symptoms Limited Movement Bilateral Visual Difficulty Far Sighted Bilateral Hearing Ability Normal Ability to Follow Directions Fair Facial Expression Alert/Appropriate Facial Symmetry Symmetrical Cardiovascular Assessment: [facility] Cardiovascular Within Normal Limits Yes Left Dorsalis Pedis Rhythm Regular Strength Normal Method Palpation Right Dorsalis Pedis Rhythm Regular Strength Normal Method Palpation Right Radial Rhythm Regular Strength Normal Method Palpation Left Radial Rhythm Regular Strength Normal Method Palpation Apical Rhythm Regular Strength Normal Method Auscultation Heart Sounds S1 & S2 Patient on Telemetry No Capillary Refill < 3 seconds left leg Type Non-pitting Chest Pain Complaint No Respiratory Assessment: [facility] Respiratory System Within Normal Limits Yes Respiratory Rate 19 Effort Normal Non-Labored Retraction Type N/A Depth Normal Pattern Normal Bilateral Throughout Breath Sounds Diminished Oxygen Delivery Method Room Air FIO2 (% Oxygen) 95 Cough Present No Sputum Amount None Gastrointestinal Assessment Gastrointestinal System Within Normal No Limits All Quadrants Bowel Sound Active Abdomen Description Flat Soft Non-Tender Large Round Bowel Pattern Incontinent Date of Last Bowel Movement 07/10/17 Gastric Tube Assessment Gastric/NG Tube Present No Tubefeeding Assessment Tube Feeding Present No Bowel Diversion (Colostomy/Ileostomy) Stoma Assessment Bowel Diversion Present No Genitourinary Assessment Genitourinary System Within Normal No Limits Genitourinary Symptoms Incontinent Bladder Pattern Incontinent Voiding Method Incontinent Urinary Catheter Assessment Urinary Catheter Present No Peritoneal/Hemodialysis Patient on Dialysis No Integumentary Assessment Integumentary System Within Normal No Limits Skin Color Normal Skin Temperature Warm Skin Moisture Dry Skin Turgor Loose Integumentary Symptoms Area of Concern right foot Problem Pressure Area Problem Stage Reddened Photo Taken of Skin Problem Yes left foot Problem Maceration Problem Stage Reddened Photo Taken of Skin Problem Yes left lower extremity Problem Stage Reddened Photo Taken of Skin Problem Yes left heel Problem Scar Decubitus Pressure Area Problem Stage Ulceration Photo Taken of Skin Problem Yes Integumentary System Comment cellulitis on the left lower extremity Document 07/11/17 08:00 TRISTAN (Rec: 07/11/17 09:57 TRISTAN [id number]) Critical Alarm - MSI/TELE Bed alarm checked and activated? Yes Is this patient with critical alarm? No MSI/TELE critical alarm: Bed alarm Neurological Assessment - [facility] Neurological System Within Normal Limits No Eye Opening Spontaneous Motor Obeys Commands Verbal Confused Coma Scale Total 14 Level Of Consciousness Awake Lethargic Disoriented Patient Orientation Person Arousable To Name Bilateral Reaction Brisk [place] PERRL bilateral lower extremity Strength Severe Weakness bilateral upper extremity Strength Mild Weakness Comprehension Ability Unable to Comprehend Speech Pattern Inappropriate Patient Behavior Cooperative Passive Mood Description Calm Relaxed HEENT Assessment HEENT Within Normal Limits No HEENT Symptoms Limited Movement Bilateral Visual Difficulty Far Sighted Bilateral Hearing Ability Normal Ability to Follow Directions Fair Facial Expression Alert/Appropriate Facial Symmetry Symmetrical Cardiovascular Assessment: [facility] Cardiovascular Within Normal Limits Yes Left Dorsalis Pedis Rhythm Regular Strength Normal Method Palpation Right Dorsalis Pedis Rhythm Regular Strength Normal Method Palpation Right Radial Rhythm Regular Strength Normal Method Palpation Left Radial Rhythm Regular Strength Normal Method Palpation Apical Rhythm Regular Strength Normal Method Auscultation Heart Sounds S1 & S2 Patient on Telemetry Yes EKG Method Telemetry EKG Rhythm Sinus Tachycardia Atrial Fibrillation Capillary Refill < 3 seconds left leg Type Non-pitting Chest Pain Complaint No Respiratory Assessment: [facility] Respiratory System Within Normal Limits Yes Respiratory Rate 20 Effort Normal Non-Labored Retraction Type N/A Depth Normal Pattern Normal Bilateral Throughout Breath Sounds Diminished Oxygen Delivery Method Room Air FIO2 (% Oxygen) 95 Cough Present No Sputum Amount None Gastrointestinal Assessment Gastrointestinal System Within Normal No Limits All Quadrants Bowel Sound Active Abdomen Description Flat Soft Non-Tender Large Round Bowel Pattern Incontinent Date of Last Bowel Movement 07/10/17 Gastric Tube Assessment Gastric/NG Tube Present No Tubefeeding Assessment Tube Feeding Present No Bowel Diversion (Colostomy/Ileostomy) Stoma Assessment Bowel Diversion Present No Genitourinary Assessment Genitourinary System Within Normal No Limits Genitourinary Symptoms Incontinent Bladder Pattern Incontinent Voiding Method Incontinent Urinary Catheter Assessment Urinary Catheter Present No Peritoneal/Hemodialysis Patient on Dialysis No Integumentary Assessment Integumentary System Within Normal No Limits Skin Color Normal Skin Temperature Warm Skin Moisture Dry Skin Turgor Loose Integumentary Symptoms Area of Concern right foot Problem Pressure Area Problem Stage Reddened Photo Taken of Skin Problem Yes left foot Problem Maceration Problem Stage Reddened Photo Taken of Skin Problem Yes left lower extremity Problem Stage Reddened Photo Taken of Skin Problem Yes left heel Problem Scar Decubitus Pressure Area Problem Stage Ulceration Photo Taken of Skin Problem Yes Integumentary System Comment cellulitis on the left lower extremity Meal/Nutrition Activity Start: 07/10/17 12: 36 Freq: QSHIFT Status: Active Document 07/10/17 18:24 TRISTAN (Rec: 07/10/17 20:08 TRISTAN [id number] ) Meal/Nutrition Activity Diet Type ccho 75 gm, mechanical soft chopped diet Lunch Yes Percent Lunch Consumed 75% Dinner Yes Percent Dinner Consumed 75% Fluids With Assist Food Taken Per With Assist Tube Feeding N/A Aspiration Risk Potential Document 07/10/17 20:00 HORTENSIA (Rec: 07/10/17 22:39 HORTENSIA [id number]) Meal/Nutrition Activity Diet Type ccho 75 gm, mechanical soft chopped diet Snack Yes Percent Snacks Consumed 75% Fluids With Assist Food Taken Per With Assist Aspiration Risk Potential Document 07/11/17 08:00 RADAME (Rec: 07/11/17 11:39 RADHAILY [id number]) Meal/Nutrition Activity Diet Type ccho 75 gm, mechanical soft chopped diet Breakfast Yes Percent Breakfast Consumed 50% Fluids With Assist Food Taken Per With Assist Aspiration Risk Potential Cortez Fall Risk Scale Start: 07/10/17 12: 36 Freq: QSHIFT Status: Active Document 07/10/17 14:26 RADAME (Rec: 07/10/17 14:30 RADHAILY [id number]) Cortez Fall Risk Scale History Of Falls No Presence of a Secondary Diagnosis Yes Use of Ambulatory Aids None/Bedrest/Nurse Assist IV Therapy or Peripheral IV Lock Yes Type Of Gait Impaired Patient Receiving Diuretics/Narcotics/ Yes Sedatives/Anesthetics Mental Status Disoriented/Forgets Cortez Fall Scale/Risk Score 70 - High Fall Risk Action Plan High Fall Risk Action Initiated (If low to high risk, Fall Prevention Initiated initiate) Document 07/10/17 20:00 LILIANURIALida (Rec: 07/10/17 22:39 HORTENSIA [id number]) Cortez Fall Risk Scale History Of Falls No Presence of a Secondary Diagnosis Yes Use of Ambulatory Aids None/Bedrest/Nurse Assist IV Therapy or Peripheral IV Lock Yes Type Of Gait Impaired Patient Receiving Diuretics/Narcotics/ Yes Sedatives/Anesthetics Mental Status Disoriented/Forgets Cortez Fall Scale/Risk Score 70 - High Fall Risk Action Plan High Fall Risk Action Initiated (If low to high risk, Fall Prevention Initiated initiate) Document 07/11/17 08:00 RADAME (Rec: 07/11/17 09:54 RADHAILY [email or web address]) Cortez Fall Risk Scale History Of Falls No Presence of a Secondary Diagnosis Yes Use of Ambulatory Aids None/Bedrest/Nurse Assist IV Therapy or Peripheral IV Lock Yes Type Of Gait Impaired Patient Receiving Diuretics/Narcotics/ Yes Sedatives/Anesthetics Mental Status Disoriented/Forgets Cortez Fall Scale/Risk Score 70 - High Fall Risk Action Plan High Fall Risk Action Initiated (If low to high risk, Fall Prevention Initiated initiate) Nursing Services - Patient Care Plan Start: 07/10/17 12: 36 Freq: QSHIFT Status: Active Document 07/10/17 14:26 RADAME (Rec: 07/10/17 14:30 RADAME [id number]) Nursing Services - Patient Care Plan Patient Problem Pain Risk for Safety/ Injury Knowledge Deficit Anxiety Impaired Communication Fluid Volume/Electrolyte Balance Excess & Fluid Volume Deficit Skin Integrity Altered Mental Status/ Psychological Concerns Altered in Bowel Elimination/ GI Problems Infection Impaired Physical Mobility Severe Sepsis/ Septic Shock High Fall Risk Document 07/10/17 20:00 SKURIAN (Rec: 07/10/17 22:48 SKURIAN [id number]) Nursing Services - Patient Care Plan Patient Problem Pain Risk for Safety/ Injury Knowledge Deficit Anxiety Impaired Communication Fluid Volume/Electrolyte Balance Excess & Fluid Volume Deficit Skin Integrity Altered Mental Status/ Psychological Concerns Altered in Bowel Elimination/ GI Problems Infection Impaired Physical Mobility Severe Sepsis/ Septic Shock High Fall Risk Document 07/11/17 08:00 RADAME (Rec: 07/11/17 09:55 RADAME [id number]) Nursing Services - Patient Care Plan Patient Problem Pain Risk for Safety/ Injury Knowledge Deficit Anxiety Impaired Communication Fluid Volume/Electrolyte Balance Excess & Fluid Volume Deficit Skin Integrity Altered Mental Status/ Psychological Concerns Altered in Bowel Elimination/ GI Problems Infection Impaired Physical Mobility Severe Sepsis/ Septic Shock High Fall Risk Nursing Services Admission Data - [facility] Start: 07/10/17 12: 36 Freq: ONCE Status: Active Document 07/10/17 13:55 RADAME (Rec: 07/10/17 14:03 RADAME [id number]) Vital Signs Temperature 98.0 F Temperature Source Temporal Artery Scan Pulse Rate 75 Respiratory Rate 20 Pulse Oximetry 95 Blood Pressure 125/68 Blood Pressure Mean 87 Source Automatic Cuff Position Supine Pain Scale Level No Pain Pain Scale Used Lea-Larson Sepsis Result 1 - Low Risk for Sepsis WBC - Last Result 16.0 Th/cmm (4.8-10.8) H Patient Admission Data Date of Arrival on Unit 07/10/17 Time of Arrival on Unit 12:45 Is this a direct admission? No Admitted blood glucose level? 326 Blood Glucose Orders 1. Save assessment 2. Click Ok to order DIETARY CONS and A1C per Hospital Protocol. 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 Is patient diagnosis of cardiopulmonary No arrest? Clinical Trial Participant During This No Visit? Management of Environment of Care ID Band Side Rails/Safety Call Light Bathroom Visiting Hours TV Bed Control Telephone Clinical Data Information Completed Yes Is there any home medications No highlighted in PURPLE from Clinical Data ? MRSA screening done w/in 24 hours of Yes admission to facility? Where was MRSA screen done? ER What was the MRSA screening result? Result unknown at this time Is it Flu Season (Jan - Jun)? Yes Influenza Inclusion/Exclusion Criteria: Patient has received influenza vaccine within the current flu season Influenza vaccine date (MM/Y) 02/09 Influenza Score 1 Is the Influenza Score equal to 0? No Pneumococcal Inclusion/Exclusion Vaccinated since 67 yrs old Criteria Pneumococcal vaccine date (MM/Y) 02/09 Age 5 - 64 yrs: High Risk Conditions Diabetes Pneumococcal Score 1 Is the Pneumococcal Score equal to 0? 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 2 - 13 lbs Have you lost weight in the last 3 No months without trying? Have you eaten poorly >1 week because of No decreased appetite? Score 2 points triggers referral to 0 Dietitian? Severe sepsis Yes Dialysis No New onset diabetes No Identified Functional Limitations Yes Physical Therapy Screening Bed-ridden Change In Gait Change In Balance Transferring Difficulties Refer To Physical Therapy Yes Refer To Speech Therapy No Vision/Hearing/Other Physical No Limitations Sleep Symptoms None Advance Directives Yes Advanced Directive on File Yes Advance Directives Information Provided Yes Mental Condition Hx of Mental Illness Are You Able To [place] With This Yes Hospitilaization? Mood/Affect Cooperative Major Life Event In Past Year None Do You Have Special Concerns During Your No Hospitialization? 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 Reading Discussion Demonstration Educational level No Formal Schooling Sensory/Cognitive Factors Cognitive Impairment Health Beliefs/Social Factors Cultural/Spiritual Belief Difficulty Reading Language Barrier Financial Barrier Age Limits Readiness To Learn Motivated To Learn Education Needs (Check All That Apply) Community Resources Diet Disease/Condition Follow-Up Care Health Maintenance Infection Control Medications Medical Equipment Rehabilitation Techniques Safety Other Past Medical History Anxiety No Depression No Significant Medical History Yes Hx Asthma No Hx Arthritis No Hx Blood Transfusion Reaction No Hx Cardiac Disease Yes Hx COPD No Hx Diabetes Yes Hx Dizziness No Hx Fainting/Syncope No Hx Eating Disorder No Hx GI Problems/Ulcer Yes Hx HTN Yes Hx Renal Disease No Hx Seizure No Hx Stroke No Bleeding Problems No TB Diagnosis In Past 2 Years No Hepatitis No MRSA No VRE No Alcohol Use No Drug Use No Hx Hospitalization Yes Hx Surgeries Yes Hx Anesthesia Reactions No Readmission Screening Patient reported literacy level: No formal schooling 1. Patient has hospitalized within the Yes 30 days or has at least one ER visit within the last 6 months. 2. Patient has some cognitive deficits, Yes such as mental retardation or dementia, which may require supervision or assist with ADLS. 3. Patient has a disease or injury which Yes significantly impacts his/her ability to perform ADLs. 4. Patient has limited or no support No system should there be a need for assistance. 5. Patient is a resident of a licensed Yes care facility such as [facility], Assisted Living, or SNF. 6. Patient has difficulty accessing No needed resources such as medical care, prescription or transportation. 7. Patient has limited means to access No food or housing, or patient is homeless. 8. Patient has Hx of substance abuse and Yes /or mental health issues. 9. Patient has a terminal or life No threatening illness. Readmission Screening Score 9 No new needs/concerns identified. Pt is No medically stable and functionally capable to return to prior living arrangements. Pt is high risk for failure per the Yes above indicated factors and/or as determined by the physician. Additional discharge planning prior to Referred to Discharge Planning discharge referred to / Case Management Pain Start: 07/10/17 14: 43 Freq: QSHIFT Status: Active Document 07/10/17 15:48 TRISTAN (Rec: 07/10/17 15:52 TRISTAN [email or web address]) Pain Patient Problem Identifier Actual Pain Immobility Other Pain Problem Comment left lower extremity cellulitis and swelling Pain Assess causative factor Monitor vital signs Assess for discomfort using pain assessment tool, as appropriate Administer PRN meds as ordered Instruct patient in pain relief options: breathing exercises Instruct patient in pain relief options: relaxation exercises Document 07/10/17 20:00 HORTENSIA (Rec: 07/10/17 22:51 SKURIAN [id number]) Pain Patient Problem Identifier Actual Pain Immobility Other Pain Problem Comment left lower extremity cellulitis and swelling Pain Assess causative factor Monitor vital signs Assess for discomfort using pain assessment tool, as appropriate Administer PRN meds as ordered Instruct patient in pain relief options: breathing exercises Instruct patient in pain relief options: relaxation exercises Document 07/11/17 08:00 RADAME (Rec: 07/11/17 09:54 RADAME [email or web address]) Pain Patient Problem Identifier Actual Pain Immobility Other Pain Problem Comment left lower extremity cellulitis and swelling Pain Assess causative factor Monitor vital signs Assess for discomfort using pain assessment tool, as appropriate Administer PRN meds as ordered Instruct patient in pain relief options: breathing exercises Instruct patient in pain relief options: relaxation exercises Pain Assessment Start: 07/10/17 12: 36 Freq: QSHIFT Status: Active Document 07/10/17 14:26 RADAME (Rec: 07/10/17 14:30 RADAME [email or web address]) Pain Assessment Pain Present No Document 07/10/17 20:00 SKURIAN (Rec: 07/10/17 22:51 SKURIAN [email or web address]) Pain Assessment Pain Present No Document 07/11/17 08:00 RADAME (Rec: 07/11/17 09:54 RADAME [email or web address]) Pain Assessment Pain Present No Pain Reassessment Start: 07/10/17 12: 36 Freq: PRN Status: Active Document 07/10/17 13:00 RADAME (Rec: 07/10/17 14:06 RADAME [email or web address]) Pain Reassessment Pain Reasssessment Time 13:00 Pain Scale Level No Pain Pain Scale Used Lea-Larson Patient Acuity System Start: 07/10/17 12: 36 Freq: QSHIFT.AL Status: Active Document 07/10/17 13:00 RADAME (Rec: 07/10/17 14:08 RADAME [email or web address]) Patient Acuity System Activity of Daily Living Complete assistance required with ADLs; frequently incontinent; Medications Moderate=PO+IM or IVPB 2/shift + IV infusion Monitoring Moderate=Vital Signs 4x daily, I & O and [place]uc[place] Treatment Routine=any 1-2 listed below Psychosocial Support/ Teaching Routine=Need behavioral, emotional support. Independent milieu Total Points 11 Acuity Level Level 2 Document 07/10/17 15:00 RADAME (Rec: 07/10/17 17:40 RADHAILY [id number] ) Patient Acuity System Activity of Daily Living Complete assistance required with ADLs; frequently incontinent; Medications Moderate=PO+IM or IVPB 2/shift + IV infusion Monitoring Moderate=Vital Signs 4x daily, I & O and Gluc[place] Treatment Moderate=3-5 listed below Psychosocial Support/ Teaching Routine=Need behavioral, emotional support. Independent milieu Total Points 12 Acuity Level Level 2 Document 07/10/17 23:59 HORTENSIA (Rec: 07/11/17 00:00 HORTENSIA JOAOJIM [facility] [email or web address]) Patient Acuity System Activity of Daily Living Complete assistance required with ADLs; frequently incontinent; Medications Moderate=PO+IM or IVPB 2/shift + IV infusion Treatment Moderate=3-5 listed below Psychosocial Support/ Teaching Complex=Need behavioral, emotional support. Moderate direction for Total Points 11 Acuity Level Level 2 Document 07/11/17 03:12 HORTENSIA (Rec: 07/11/17 03:13 HORTENSIA JOAOJIM [facility] [email or web address]) Patient Acuity System Activity of Daily Living Complete assistance required with ADLs; frequently incontinent; Medications Moderate=PO+IM or IVPB 2/shift + IV infusion Monitoring Moderate=Vital Signs 4x daily, I & O and Gluc[place] Treatment Moderate=3-5 listed below Psychosocial Support/ Teaching Complex=Need behavioral, emotional support. Moderate direction for Total Points 14 Acuity Level Level 3 Document 07/11/17 15:00 TRISTAN (Rec: 07/11/17 15:29 TRISTAN [id number] ) Patient Acuity System Activity of Daily Living Complete assistance required with ADLs; frequently incontinent; Medications Moderate=PO+IM or IVPB 2/shift + IV infusion Monitoring Complex=Vital signs Q4hr, I & O, [place]uc[place] + Cardiac or Telemetry Treatment Routine=any 1-2 listed below Psychosocial Support/ Teaching Routine=Need behavioral, emotional support. Independent milieu Total Points 12 Acuity Level Level 2 Patient Hygiene & Activity Start: 07/10/17 12: 36 Freq: QSHIFT Status: Active Document 07/10/17 14:26 TRISTAN (Rec: 07/10/17 14:30 TRISTAN JOAOJIM [facility] [email or web address]) Patient Hygiene & Activity Hygiene Care Performed PM Care Jeana Care Back Rub Bathing Type Sponge Denture Type N/A Linens changed No: new admission Patient Activity Bedrest Activity Ability 1 person assist Maximum Assistance Total Assistance Tolerates Activity Fair Document 07/10/17 20:00 HORTENSIA (Rec: 07/10/17 22:51 HORTENSIA [id number]) Patient Hygiene & Activity Hygiene Care Performed PM Care Jeana Care Back Rub Bathing Type Sponge Denture Type N/A Linens changed No: new admission Patient Activity Bedrest Activity Ability 1 person assist Maximum Assistance Total Assistance Tolerates Activity Fair Document 07/11/17 08:00 RADAME (Rec: 07/11/17 09:54 RADHAILY [email or web address]) Patient Hygiene & Activity Hygiene Care Performed AM Care Jeana Care Back Rub Bathing Type Sponge Denture Type N/A Linens changed Yes Patient Activity Bedrest Activity Ability 1 person assist Maximum Assistance Total Assistance Tolerates Activity Fair Patient Teaching Record Start: 07/10/17 12: 36 Freq: QSHIFT Status: Active Document 07/10/17 14:26 RADHAILY (Rec: 07/10/17 14:30 RADHAILY [email or web address]) Patient Teaching Record Barriers To Learning Cognitive/Verbal Cognitive/Written Physical Age related Language Cultural Learning Preferences One-on-One Instruction Group Instruction Demonstration Discussion Education Topic Diagnosis/Plan of Care Unit Orientation/Activity Fall Prevention Pain Management Hygiene/Grooming Safe Equipment Use Diet/Nutrition Medication Infection Control DC Planning Hair Assistant Community Resources Coping Skills DC Instruction Exercise/Activity Procedures/Tests Relaxation Techniques Signs & Symptoms Weight Monitoring Pertinence Diabetes Methods Discussion Demonstration Response Return demonstration Reinforcement needed Readiness To Learn Fair Recipient Patient Document 07/10/17 20:00 HORTENSIA (Rec: 07/10/17 22:51 HORTENSIA SHEPHERDJIM [facility] [email or web address]) Patient Teaching Record Barriers To Learning Cognitive/Verbal Cognitive/Written Physical Age related Language Cultural Learning Preferences One-on-One Instruction Group Instruction Demonstration Discussion Education Topic Diagnosis/Plan of Care Unit Orientation/Activity Fall Prevention Pain Management Hygiene/Grooming Safe Equipment Use Diet/Nutrition Medication Infection Control DC Planning Hair Assistant Community Resources Coping Skills DC Instruction Exercise/Activity Procedures/Tests Relaxation Techniques Signs & Symptoms Weight Monitoring Pertinence Diabetes Methods Discussion Demonstration Response Return demonstration Reinforcement needed Readiness To Learn Fair Recipient Patient Document 07/11/17 08:00 RADAME (Rec: 07/11/17 09:54 RADHAILY [email or web address]) Patient Teaching Record Barriers To Learning Cognitive/Verbal Cognitive/Written Physical Age related Language Cultural Learning Preferences One-on-One Instruction Group Instruction Demonstration Discussion Education Topic Diagnosis/Plan of Care Unit Orientation/Activity Fall Prevention Pain Management Hygiene/Grooming Safe Equipment Use Diet/Nutrition Medication Infection Control DC Planning Hair Assistant Community Resources Coping Skills DC Instruction Exercise/Activity Procedures/Tests Relaxation Techniques Signs & Symptoms Weight Monitoring Pertinence Diabetes Methods Discussion Demonstration Response Return demonstration Reinforcement needed Readiness To Learn Fair Recipient Patient Document 07/11/17 14:40 PWONG (Rec: 07/11/17 14:44 PWONG [id number]) Patient Teaching Record Barriers To Learning Auditory Cognitive/Verbal Cognitive/Written Motivation Learning Preferences One-on-One Instruction Group Instruction Education Topic Medication Treatment - RT Oxygen Therapy Methods Discussion Demonstration Response Reinforcement needed Readiness To Learn Poor Recipient Patient Family Review of Medication Renewals Start: 07/10/17 12: 36 Freq: QSHIFT Status: Active Document 07/10/17 14:26 TRISTAN (Rec: 07/10/17 14:30 TRISTAN [email or web address]) Review of Medication Renewals Any orders that need to be renewed? No Notified physician (i.e. verbal/ No telephone/written)? Document 07/10/17 20:00 HORTENSIA (Rec: 07/10/17 22:51 HORTENSIA [email or web address]) Review of Medication Renewals Any orders that need to be renewed? No Notified physician (i.e. verbal/ No telephone/written)? Document 07/11/17 08:00 TRISTAN (Rec: 07/11/17 09:54 TRISTAN [email or web address]) Review of Medication Renewals Any orders that need to be renewed? No Notified physician (i.e. verbal/ No telephone/written)? Risk for Safety/ Injury Start: 07/10/17 14: 43 Freq: QSHIFT Status: Active Document 07/10/17 15:48 RADHAILY (Rec: 07/10/17 15:52 TRISTAN [email or web address]) Risk for Safety/ Injury Patient Problem Identifier Actual Risk for Safety/ Injury Altered mobility Impaired mental status High risk for falls Risk for Safety/ Injury Assess patient's orientation to name,place,time, comprehensive ability [place] patient x4 [place] fall precaution Post "Falling Leaves" Sign Document 07/10/17 20:00 HORTENSIA (Rec: 07/10/17 22:51 SKURIAN [email or web address]) Risk for Safety/ Injury Patient Problem Identifier Actual Risk for Safety/ Injury Altered mobility Impaired mental status High risk for falls Risk for Safety/ Injury Assess patient's orientation to name,place,time, comprehensive ability [place] patient x4 [place] fall precaution Post "Falling Leaves" Sign Document 07/11/17 08:00 RADAME (Rec: 07/11/17 09:54 RADAME [email or web address]) Risk for Safety/ Injury Patient Problem Identifier Actual Risk for Safety/ Injury Altered mobility Impaired mental status High risk for falls Risk for Safety/ Injury Assess patient's orientation to name,place,time, comprehensive ability [place] patient x4 [place] fall precaution Post "Falling Leaves" Sign Safety Assessment Start: 07/10/17 12: 36 Freq: QSHIFT Status: Active Document 07/10/17 14:26 RADAME (Rec: 07/10/17 14:30 RADAME [email or web address]) Safety Assessment Name/Allergy Band Yes Bed Position Bed-Low position/Locked Call light within reach Fall Precautions Fall Risk [place] Non-skid footwear Is patient currently on Isolation? No Current Isolation Type N/A Equipment IV Pump Document 07/10/17 20:00 SKURIAN (Rec: 07/10/17 22:51 SKURIAN [email or web address]) Safety Assessment Name/Allergy Band Yes Bed Position Bed-Low position/Locked Call light within reach Fall Precautions Fall Risk [place] Non-skid footwear Is patient currently on Isolation? No Current Isolation Type N/A Equipment IV Pump Document 07/11/17 08:00 RADAME (Rec: 07/11/17 09:54 RADAME [email or web address]) Safety Assessment Name/Allergy Band Yes Bed Position Bed-Low position/Locked Call light within reach Fall Precautions Fall Risk [place] Non-skid footwear Is patient currently on Isolation? No Current Isolation Type N/A Equipment IV Pump Sepsis Screening Tool Start: 07/10/17 12: 36 Freq: QSHIFT Status: Active Document 07/10/17 14:26 RADAME (Rec: 07/10/17 14:30 RADAME [email or web address]) Sepsis Screening Tool (18 yrs & above) Does patient have documented or Yes confirmed infection OR compromised immune system? Select one or more of the following: Antibiotic therapy Two (2) or more New signs of SIRS ( No Systemic Immune Response Syndrome)? Does patient have 1 or more NEW or ACUTE No ONSET signs of organ system dysfunction or organ failure? Severe Sepsis/Septic Shock Screen POSITIVE Screen for Severe Sepsis or Septic Shock Document 07/10/17 20:00 SKURIAN (Rec: 07/10/17 22:51 HORTENSIA [email or web address]) Sepsis Screening Tool (18 yrs & above) Does patient have documented or Yes confirmed infection OR compromised immune system? Select one or more of the following: Antibiotic therapy Two (2) or more New signs of SIRS ( No Systemic Immune Response Syndrome)? Does patient have 1 or more NEW or ACUTE No ONSET signs of organ system dysfunction or organ failure? Severe Sepsis/Septic Shock Screen NEGATIVE Screen for Severe Sepsis or Septic Shock Document 07/11/17 08:00 RADAME (Rec: 07/11/17 09:54 RADAME [email or web address]) Sepsis Screening Tool (18 yrs & above) Does patient have documented or Yes confirmed infection OR compromised immune system? Select one or more of the following: Antibiotic therapy Two (2) or more New signs of SIRS ( No Systemic Immune Response Syndrome)? Does patient have 1 or more NEW or ACUTE No ONSET signs of organ system dysfunction or organ failure? Severe Sepsis/Septic Shock Screen NEGATIVE Screen for Severe Sepsis or Septic Shock Severe Sepsis/Septic Shock Start: 07/10/17 14: 43 Freq: QSHIFT Status: Active Document 07/10/17 15:48 RADAME (Rec: 07/10/17 15:52 RADAME [email or web address]) Severe Sepsis/Septic Shock Patient Problem Identifier Potential Severe Sepsis/Septic Shock Suspected infection Severe Sepsis/Septic Shock Problem high lactate Comment Severe Sepsis/Septic Shock Wash hands before and after each patient care activity Obtain cultures before initiate antibiotics Use strict aseptic technique when handling invasive lines & equipment Assess patient's HR, BP, hemodynamic parameters as needed Obtain serum lactate levels Document 07/10/17 20:00 SKURIAN (Rec: 07/10/17 22:51 SKURIAN [email or web address]) Severe Sepsis/Septic Shock Patient Problem Identifier Potential Severe Sepsis/Septic Shock Suspected infection Severe Sepsis/Septic Shock Problem high lactate Comment Severe Sepsis/Septic Shock Wash hands before and after each patient care activity Obtain cultures before initiate antibiotics Use strict aseptic technique when handling invasive lines & equipment Assess patient's HR, BP, hemodynamic parameters as needed Obtain serum lactate levels Document 07/11/17 08:00 RADAME (Rec: 07/11/17 09:54 RADAME [email or web address]) Severe Sepsis/Septic Shock Patient Problem Identifier Potential Severe Sepsis/Septic Shock Suspected infection Heart rate > 90 beats/min Severe Sepsis/Septic Shock Wash hands before and after each patient care activity Obtain cultures before initiate antibiotics Use strict aseptic technique when handling invasive lines & equipment Assess patient's HR, BP, hemodynamic parameters as needed Obtain serum lactate levels Skin Integrity Start: 07/10/17 14: 43 Freq: QSHIFT Status: Active Document 07/10/17 15:48 RADAME (Rec: 07/10/17 15:52 RADAME [email or web address]) Skin Integrity Patient Problem Identifier Actual Skin Integrity Decubitus Ulcer Wound Immobility Nutrition Skin Integrity Inititate Pre-Printed Decub Order Skin Care Wound Care Turn/Repositioning Hydration Document 07/10/17 20:00 SKURIAN (Rec: 07/10/17 22:51 SKURIAN [email or web address]) Skin Integrity Patient Problem Identifier Actual Skin Integrity Decubitus Ulcer Wound Immobility Nutrition Skin Integrity Inititate Pre-Printed Decub Order Skin Care Wound Care Turn/Repositioning Hydration Document 07/11/17 08:00 RADAME (Rec: 07/11/17 09:54 RADAME [email or web address]) Skin Integrity Patient Problem Identifier Actual Skin Integrity Decubitus Ulcer Wound Immobility Nutrition Skin Integrity Inititate Pre-Printed Decub Order Skin Care Wound Care Turn/Repositioning Hydration Skin Risk Yeyo Scale Start: 07/10/17 12: 36 Freq: QSHIFT Status: Active Document 07/10/17 14:26 RADAME (Rec: 07/10/17 14:30 RADAME [id number]) Skin Risk Yeyo Scale Moisture Risk Constantly Moist Sensory Perception Very Limited Activity Risk Bedfast Mobility Risk Very Limited Nutrition Risk Excellent Friction & Shear Risk Potential Problem Skin Risk Total Score 12 Document 07/10/17 20:00 SKURIAN (Rec: 07/10/17 22:51 SKURIAN [id number]) Skin Risk Yeyo Scale Moisture Risk Constantly Moist Sensory Perception Very Limited Activity Risk Bedfast Mobility Risk Very Limited Nutrition Risk Excellent Friction & Shear Risk Potential Problem Skin Risk Total Score 12 Document 07/11/17 08:00 RADAME (Rec: 07/11/17 09:54 RADAME [id number]) Skin Risk Yeyo Scale Moisture Risk Constantly Moist Sensory Perception Very Limited Activity Risk Bedfast Mobility Risk Very Limited Nutrition Risk Excellent Friction & Shear Risk Potential Problem Skin Risk Total Score 12 Straight Catheter Start: 07/10/17 18: 57 Freq: ONCE Status: Active Document 07/10/17 18:57 RADAME (Rec: 07/10/17 20:09 RADAME [id number] ) Turning & Reposition Start: 07/10/17 18: 23 Freq: Q2H Status: Active Document 07/10/17 13:00 RADAME (Rec: 07/10/17 20:06 RADAME [id number] ) Turning & Reposition Turning & Repositioning Supine Document 07/10/17 15:00 RADAME (Rec: 07/10/17 20:06 RADAME [id number] ) Turning & Reposition Turning & Repositioning Right Document 07/10/17 17:00 RADAME (Rec: 07/10/17 20:07 RADAME [id number] ) Turning & Reposition Turning & Repositioning Left Document 07/10/17 19:00 RADAME (Rec: 07/10/17 20:07 RADAME [id number] ) Turning & Reposition Turning & Repositioning Supine Document 07/10/17 21:00 SKURIAN (Rec: 07/10/17 22:52 SKURIAN [id number]) Turning & Reposition Turning & Repositioning Right Document 07/10/17 22:52 SKURIAN (Rec: 07/10/17 22:52 SKURIAN [id number]) Turning & Reposition Turning & Repositioning Left Document 07/11/17 01:00 SKURIAN (Rec: 07/11/17 05:37 SKURIAN [id number]) Turning & Reposition Turning & Repositioning Right Document 07/11/17 03:00 SKURIAN (Rec: 07/11/17 05:37 SKURIAN [id number]) Turning & Reposition Turning & Repositioning Left Document 07/11/17 05:00 SKURIAN (Rec: 07/11/17 05:37 SKURIAN [id number]) Turning & Reposition Turning & Repositioning Right Document 07/11/17 06:56 SKURIAN (Rec: 07/11/17 06:56 SKURIAN [id number]) Turning & Reposition Turning & Repositioning Left Document 07/11/17 07:00 RADAME (Rec: 07/11/17 09:55 RADAME [id number]) Turning & Reposition Turning & Repositioning Supine Document 07/11/17 11:00 RADAME (Rec: 07/11/17 11:02 RADAME [id number]) Turning & Reposition Turning & Repositioning Right VTE Documentation of Mechanical Device Start: 07/10/17 14: 09 Freq: ONCE Status: Active Document 07/10/17 14:09 RADAME (Rec: 07/10/17 20:09 RADAME [id number] ) Documentation of Sequential Compression Device Reason Mechanical Device Not Applied Not indicated VTE Risk Assessment Start: 07/10/17 12: 36 Freq: ONCE Status: Active Document 07/10/17 13:00 RADAME (Rec: 07/10/17 14:08 RADAME [id number]) VTE Risk Assessment Each Risk Factor represents 1 point. Arm/leg swelling,ulcers,stasis ,varicose veins Each Risk Factor represents 3 points Age 75 years or over VTE Risk Total Score ((points)) 4 VTE Risk Level High Currently Receiving Anticoagulants No Is patient having contraindication for No SCD? Reason Mechanical Device Not Applied Not indicated Vital Signs Start: 07/10/17 12: 36 Freq: Q4H Status: Active Document 07/10/17 13:00 RADAME (Rec: 07/10/17 14:06 RADAME [id number]) Vital Signs Temperature 98.0 F Temperature Source Temporal Artery Scan Pulse Rate 75 Respiratory Rate 20 Pulse Oximetry 95 Blood Pressure 125/68 Blood Pressure Mean 87 Source Manual Cuff/Doppler Position Supine Pain Scale Level No Pain Pain Scale Used Lea-Larson Sepsis Result 1 - Low Risk for Sepsis WBC - Last Result 16.0 Th/cmm (4.8-10.8) H Document 07/10/17 16:29 CWEISBROD (Rec: 07/10/17 16:30 CWEISBROD JOAO- [id number]) Vital Signs Temperature 97.8 F Temperature Source Skin Pulse Rate 73 Respiratory Rate 20 Pulse Oximetry 97 BP Location rt arm Blood Pressure 123/72 Blood Pressure Mean 89 Source Automatic Cuff Position Supine Pain Scale Level No Pain Pain Scale Used Numeric Sepsis Result 1 - Low Risk for Sepsis WBC - Last Result 16.0 Th/cmm (4.8-10.8) H Document 07/10/17 20:00 SKALISTAIRN (Rec: 07/10/17 22:52 SKURIAN [id number]) Vital Signs Temperature 98.4 F Temperature Source Temporal Artery Scan Pulse Rate 98 Respiratory Rate 20 Pulse Oximetry 96 Blood Pressure 116/63 Blood Pressure Mean 80 Source Automatic Cuff Position Supine Pain Scale Level No Pain Pain Scale Used Verbal Sepsis Result 2 - High Risk for Sepsis WBC - Last Result 16.0 Th/cmm (4.8-10.8) H Document 07/11/17 00:00 SKURIAN (Rec: 07/11/17 01:36 SKURIAN [id number]) Vital Signs Temperature 99.2 F Temperature Source Temporal Artery Scan Pulse Rate 96 Pulse Oximetry 99 Blood Pressure 114/67 Blood Pressure Mean 82 Source Automatic Cuff Position Supine Pain Scale Level No Pain Pain Scale Used Verbal Sepsis Result 2 - High Risk for Sepsis WBC - Last Result 16.0 Th/cmm (4.8-10.8) H Document 07/11/17 04:00 SKURIAN (Rec: 07/11/17 05:39 SKURIAN [id number]) Vital Signs Temperature 98.2 F Temperature Source Temporal Artery Scan Pulse Rate 106 Respiratory Rate 18 Pulse Oximetry 93 Blood Pressure 102/61 Blood Pressure Mean 74 Source Automatic Cuff Position Supine Pain Scale Level No Pain Pain Scale Used Verbal Sepsis Result 2 - High Risk for Sepsis WBC - Last Result 16.0 Th/cmm (4.8-10.8) H Document 07/11/17 06:53 SKURIAN (Rec: 07/11/17 06:53 SKURIAN [id number]) Vital Signs Temperature 98.3 F Temperature Source Temporal Artery Scan Pulse Rate 84 Pulse Oximetry 97 Pain Scale Level No Pain Pain Scale Used Verbal Sepsis Result 1 - Low Risk for Sepsis WBC - Last Result 16.0 Th/cmm (4.8-10.8) H Document 07/11/17 08:00 RADAME (Rec: 07/11/17 09:58 RADAME [id number]) Vital Signs Temperature 97.8 F Temperature Source Temporal Artery Scan Pulse Rate 109 Respiratory Rate 20 Pulse Oximetry 94 Blood Pressure 130/66 Blood Pressure Mean 87 Source Automatic Cuff Position Supine Pain Scale Level No Pain Pain Scale Used Verbal Sepsis Result 2 - High Risk for Sepsis WBC - Last Result 16.0 Th/cmm (4.8-10.8) H Nursing Notes 07/11/17 15:12 Nurse Notes by Terence Price RN notes: Seen and examined by Dr. Suarez with new orders to do a CT of the head w/o contrast, U/s venous bilateral lower extremities, chest xray, and labs. Orders noted and carried out. Bonnie charge nurse stated patient was wheezing while i was on lunch, she called Dr. Soni and he ordered a chest xray, swallow evaluation, duoneb q2hrs prn , and duoneb q6hrt, patient was put on 2L nasal cannula. patient oxygen saturation currently is 96%. and family members are at the bedside. Will continue to monitor. Initialized on 07/11/17 15:12 - END OF NOTE 07/11/17 14:43 Nurse Notes by Cody Rooney CHEST XRAY STAT WAS DUPLICATE DR. SONI MADE AWARE AND D/C CHEST XRAY STAT. PRIMARY NURSE MADE AWARE. Initialized on 07/11/17 14:43 - END OF NOTE 07/11/17 14:06 Nurse Notes by Cody Rooney Noted patient coughing and with wheezing, Head of the elevated at this time. Patient family member at bedside, requesting to be check by the speech therapist. Oxygen therapy was started, oxygen saturation of 94% noted at this time. Called Dr. Soni today and notified him regarding patient condition, ordered oxygen 2l/min, swallow eval in am, chest xray stat, albuterol and atrovent q 6 hrs and q2 hrs prn. Informed patient and family member. order noted and carried out. Initialized on 07/11/17 14:06 - END OF NOTE 07/11/17 12:50 Nurse Notes by Terence Price RN notes: Seen and examined by Dr. Staley, saw the patient with no new orders. Seen and examined by Dr. Bryant Agudelo, notify him about the tele monitor showing A fib and high pulse, he ordered an echo, ekg x2, diltiazem and start the patient on warfarin. Orders noted and carried out. Initialized on 07/11/17 12:50 - END OF NOTE 07/11/17 09:46 Nurse Notes by Terence Price Addendum entered by Terence Price 07/11/17 12:00: All consults were paged and aware that they have to see the patient. Original Note: RN notes: Seen and examined by Dr. Soni, notified him about the elevated hr and irregular rhythm, he ordered a consult with Dr. Bryant Agudelo, consult with Dr. Solo Agudelo for cellulitis and sepsis, consult with Dr. Staley, he ordered to change the patient to a telemetry status, he also signed the consent [facility]. Orders noted and carried out. Initialized on 07/11/17 09:46 - END OF NOTE 07/11/17 07:40 Nurse Notes by Terence Price Initial RN note: Received bedside report from Jennifer RN. Patient is awake, alert, confused, oriented x 2, reoriented to time and place. Lung sounds are clear, respirations are normal and unlabored on room air, no signs of cardiac or respiratory distress, no complaints of pain, IV is patent and intact infusing fluids per MD order. 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 blood sugar this morning was 207. Will give insulin. Safety precautions were implemented, bed locked and in low position, call light within reach, bed alarm on, will continue to monitor the patient. Initialized on 07/11/17 07:40 - END OF NOTE 07/11/17 06:53 Nurse Notes by Jennifer Gomez pt slept well. not in pain or distress, iv is intact and patent, morning care given, made him, comfortable,position changed, both legs elevated off load floating on pillows. . safety measures nesured, call lightwithin reach, will continue monitoring and endorse to day shift nurse. Initialized on 07/11/17 06:53 - END OF NOTE 07/10/17 23:49 Nurse Notes by Jennifer Gomez due meds given, cleane dhim, elevated both heels offload on pillows,. head end of bed raised, , pt had bed time snacks, made him comfortable on bed. will continue monitoring Initialized on 07/10/17 23:49 - END OF NOTE 07/10/17 19:55 Nurse Notes by Terence Price RN closing note: Report given to Jennifer RN. Patient remained stable throughout shift; no changes in mentation. No episodes of pain, labored breaths or cardiac distress. IV remained patent and infusing per MD's orders; dressing clean dry and intact. Safety precautions remained in place: bed locked and in low position, call light within reach; no episodes of falls, vietnamese speaking. Patient was on a mechanical soft chopped diet ccho 75 gm, tolerating foods well. All orders acknowledged. Pending urine collection for ua, straight catheter x1 ordered, endorsed to Jennifer to collect it, wound and dietary consult ordered and low air loss mattress. Medications acknowledged by Dr. Soni. Initialized on 07/10/17 19:55 - END OF NOTE 07/10/17 19:30 (created 07/10/17 23:45) Nurse Notes by Jennifer Gomez Received bed side report from Terence Li, pt is vietnamese speaking, alert awake, , iv is intact an dpatent, pt has left lower extrmity swelling and redness, also gangernes noted inbetween the toes of right leg, , also on the heels has some gangrene , pt denied pain., , safety measures ensured, call light within reach , will ocntinue monitoring Initialized on 07/10/17 23:45 - END OF NOTE 07/10/17 13:00 (created 07/10/17 16:02) Nurse Notes by Terence Price Addendum entered by Terence Price 07/10/17 19:54: Spoke with Dr. soni to ask him if he wanted to do a straight catheter to collect urine for ua, he ordered a straight catheter, he also reconciled the patient's home medications. Original Note: RN notes: Spoke with Dr. Soni to inform him about the condition of the patient, and about the elevated lactic acid and wbc, and high blood glucose, he ordered to start the patient on IV fluids normal saline at 90 cc/hr, moderate sliding scale insulin coverage, and he stated he will reconcile the medications for the patient. Orders noted and carried out. Initialized on 07/10/17 16:02 - END OF NOTE 07/10/17 12:45 (created 07/10/17 15:54) Nurse Notes by Terence Price Admission note: Received report from ER nurse Iraj. Patient admitted under Dr. Soni for sepsis 2ary to cellulitis. Patient is awake, alert, confused, oriented x 2, reoriented to time and place. Lung sounds are clear, respirations are normal and unlabored on room air, no signs of cardiac or respiratory distress, no complaints of pain, IV is patent and intact on the left forearm 20 gauge. 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 Safety precautions were implemented, bed locked and in low position, call light within reach, bed alarm on, will continue to monitor the patient. Initialized on 07/10/17 15:54 - END OF NOTE 07/10/17 11:43 Nurse Notes by Iraj Hernandez RN has spoken with MD Soni and received orders to admit. Noted and carried out. Initialized on 07/10/17 11:43 - END OF NOTE 07/10/17 11:29 Nurse Notes by Iraj Hernandez RN placed a 20g in the left forearm. RN is infusing IV fluids and Rocephin 2gm. Initialized on 07/10/17 11:29 - END OF NOTE 07/10/17 11:18 Nurse Notes by Dejah Blackwood [id number] FERNANDEZ WBC-16.0 RELAYED BY OSIEL FROM LAB. Initialized on 07/10/17 11:18 - END OF NOTE Intake and Output 07/09/17 07/10/17 07/11/17 07/12/17 06:59 06:59 06:59 06:59 Intake Total 3250 50 Output Total 0 Balance 3250 50 Weight (lbs) 87.543 kg Intake: Intake, IV Amount 2200 50 Piperacillin Sodium/ 100 50 Tazobact 3.375 gm In Sodium Chloride 0.9% 50 ml @ 100 mls/hr IV Q8HR [facility] Rx#:[id number] Sodium Chloride 0.9% 1, 1000 000 ml @ 90 mls/hr IV . Q11H7M DELORES Rx#:[id number] Sodium Chloride 0.9% 2, 1000 000 ml @ Wide Open IV . Q0M ONE Rx#:[id number] cefTRIAXone 2 gm In 100 Sodium Chloride 0.9% 100 ml @ 100 mls/hr IV X1 ONE Rx#:[id number] Oral 1050 Output: Urine 0 Other: # Voids 3 # Bowel Movements 0 Orders Category Date Time Status ADMIT ORDERS ONCE Admit 07/10/17 12:36 Active TRANSFER TO TELE ONCE Admit/[place] 07/11/17 08:33 Ordered Sequential Compression Device ONCE Care 07/10/17 14:09 Active Straight Catheter ONCE Care 07/10/17 18:57 Active DIETARY/NUTRITION [CONS] ONCE Cons 07/10/17 14:03 Active PHYSICIAN [CONS] ONCE Cons 07/10/17 19:05 Ordered PHYSICIAN [CONS] ONCE Cons 07/11/17 08:28 Ordered PHYSICIAN [CONS] ONCE Cons 07/11/17 08:37 Ordered PHYSICIAN [CONS] ONCE Cons 07/11/17 08:41 Ordered WOUND CARE [CONS] ONCE Cons 07/11/17 03:35 Ordered CCHO-75 GM [DIET] DIET 07/10/17 Lunch Active CHEST, 1 VIEW [RAD] Routine Exams 07/11/17 14:[address] HEAD W/O CONTRAST [CT] Urgent Exams 07/11/17 14:05 Ordered U/S VENOUS, BL LOWER EXTREMITY [US] Urgent Exams 07/11/17 14:09 Ordered A1C PANEL Routine Lab 07/10/17 10:49 Completed BLOOD CULTURE-JANIS Stat Lab 07/10/17 11:15 Results CBC /W AUTO DIFF Routine Lab 07/11/17 06:19 Completed CBC /W AUTO DIFF Routine Lab 07/12/17 06:00 Ordered CBC /W AUTO DIFF Stat Lab 07/10/17 10:49 Completed CBC WITH MANUAL DIFF Routine Lab 07/11/17 06:19 Completed CBC WITH MANUAL DIFF Stat Lab 07/10/17 10:49 Completed CMP (COMPLETE METABOLIC) Routine Lab 07/11/17 06:19 Completed CMP (COMPLETE METABOLIC) Routine Lab 07/12/17 06:00 Ordered CMP (COMPLETE METABOLIC) Stat Lab 07/10/17 10:49 Completed CREATININE RANDOM URINE Routine Lab 07/11/17 14:13 Uncollected EOSINOPHIL, URINE Routine Lab 07/11/17 14:13 Uncollected GLUCOSE ACCUCHECK NOVA Routine Lab 07/10/17 13:01 Completed GLUCOSE ACCUCHECK NOVA Routine Lab 07/10/17 16:43 Completed GLUCOSE ACCUCHECK NOVA Routine Lab 07/10/17 20:50 Completed GLUCOSE ACCUCHECK NOVA Routine Lab 07/11/17 06:19 Completed GLUCOSE ACCUCHECK NOVA Routine Lab 07/11/17 11:15 Completed LACTIC ACID 2 Stat Lab 07/10/17 12:55 Completed LACTIC ACID Routine Lab 07/11/17 14:30 Completed LACTIC ACID Stat Lab 07/10/17 10:49 Completed MAGNESIUM Routine Lab 07/12/17 06:00 Ordered MICROALBUMIN CREATININE PANEL Routine Lab 07/11/17 06:00 Received MRSA SCREEN [facility] Routine Lab 07/11/17 07:27 Received PHOSPHOROUS Routine Lab 07/12/17 06:00 Ordered PT [PROTIME WITH INR] DAILY Lab 07/11/17 06:19 Completed PT [PROTIME WITH INR] DAILY Lab 07/12/17 13:00 Ordered PT [PROTIME WITH INR] DAILY Lab 07/13/17 13:00 Ordered PT [PROTIME WITH INR] DAILY Lab 07/14/17 13:00 Ordered PT [PROTIME WITH INR] DAILY Lab 07/15/17 13:00 Ordered PT [PROTIME WITH INR] Stat Lab 07/10/17 20:20 Completed PT [PROTIME WITH INR] Stat Lab 07/12/17 06:00 Ordered PTT Routine Lab 07/11/17 06:19 Completed SODIUM RANDOM URINE Routine Lab 07/11/17 14:13 Uncollected TSH Routine Lab 07/11/17 06:19 Completed URINALYSIS W/ MICROSCOPIC Stat Lab 07/11/17 06:00 Completed VANCOMYCIN RANDOM Routine Lab 07/11/17 06:19 Completed VANCOMYCIN RANDOM Timed Lab 07/12/17 06:00 Ordered Acetaminophen [Tylenol] Med 07/10/17 19:01 Active 650 mg PO Q6HR PRN Albuterol/Ipratropium Neb [Duoneb Neb] Med 07/11/17 14:25 Discontinued 3 ml HHN .STK-MED ONE Albuterol/Ipratropium Neb [Duoneb Neb] Med 07/11/17 14:05 Active 3 ml HHN Q2H PRN Albuterol/Ipratropium Neb [Duoneb Neb] Med 07/11/17 19:00 Active 3 ml HHN Q6HRT Aspirin [Aspirin Chewable] Med 07/11/17 09:00 Active 81 mg PO DAILY Benazepril [Lotensin] Med 07/11/17 09:00 Active 10 mg PO DAILY Citalopram Hydrobromide [celeXA] Med 07/11/17 09:00 Active 20 mg PO DAILY Diltiazem [Cardizem] Med 07/11/17 18:00 Active 60 mg PO Q6HR Heparin Sodium [Heparin] Med 07/10/17 21:00 Discontinued 5,000 units SUBQ Q12HR Insulin Aspart Sliding Scale [NovoLOG INSULIN SLIDING Med 07/10/17 16:30 Active SCALE] 0 units SUBQ ACHS Pantoprazole [Protonix] Med 07/11/17 09:00 Active 40 mg PO DAILY Piperacillin Sodium/Tazobact [Zosyn] 3.375 gm Med 07/10/17 13:00 Active Sodium Chloride 0.9% [NaCL 0.9%] 50 ml IV Q8HR QUEtiapine Fumarate [SEROquel] Med 07/10/17 21:00 Active 50 mg PO HS Sodium Chloride 0.9% [NaCL 0.9%] 1,000 ml Med 07/10/17 13:15 Active IV 90 mls/hr Sodium Chloride 0.9% [NaCL 0.9%] 2,000 ml Med 07/10/17 10:42 Discontinued IV Wide Open Tamsulosin [Flomax] Med 07/10/17 21:00 Active 0.8 mg PO HS VTE Chem. Proph. Screen@Admit [VTE Chemical Prophylaxis Med 07/10/17 15:15 Active Screen/ Admission] 1 ea MC PRN PRN Vancomycin HCl [Vancomycin] 1.5 gm Med 07/11/17 10:00 Discontinued Sodium Chloride 0.9% [NaCL 0.9%] 500 ml IV 1000 Vancomycin HCl [Vancomycin] 1.5 gm Med 07/10/17 14:00 Discontinued Sodium Chloride 0.9% [NaCL 0.9%] 500 ml IV ONCE Vancomycin IV per Pharmacy Med 07/10/17 12:36 Active 1 ea MC PRN PRN Warfarin Sodium [Coumadin] Med 07/11/17 14:00 Discontinued 5 mg PO 1400 ONE Warfarin per Pharmacy [Coumadin per Pharmacy] Med 07/11/17 12:40 Active 1 ea MC PRN PRN cefTRIAXone [Rocephin] Med 07/10/17 11:20 Discontinued 2 gm .ROUTE .STK-MED ONE cefTRIAXone [Rocephin] 2 gm Med 07/10/17 10:49 Discontinued Sodium Chloride 0.9% [NaCL 0.9%] 100 ml IV X1 clonazePAM [klonoPIN] Med 07/10/17 21:00 Active 1 mg PO HS ECHOCARDIOGRAM Routine RT 07/12/17 09:00 Ordered EKG-ELECTROCARDIOGRAM Q8H RT 07/11/17 12:45 Completed EKG-ELECTROCARDIOGRAM Q8H RT 07/11/17 20:45 Ordered HANDHELD NEBULIZER INITIAL [RT] Routine RT 07/11/17 Completed OXYGEN SET UP INITIAL [RT] Routine RT 07/11/17 14:19 Completed PULSE OXIMETRY CHECK [RT] Routine RT 07/11/17 Completed Swallow [SWALLOW/SPEECH EVALUATION] Routine Therapy 07/11/17 14:06 Stop Req Swallow [SWALLOW/SPEECH EVALUATION] Routine Therapy 07/12/17 09:00 Ordered Transfer Order Routine Transfer 07/10/17 11:34 Completed Low Air-Loss Mattress ONCE Wound Care 07/10/17 18:24 Active Medications Generic Name Dose Route Start Last Admin Trade Name Freq PRN Reason Stop Dose Admin Aspirin 81 mg 07/11/17 09:00 07/11/17 08:05 Aspirin Chewable PO 09/09/17 08:59 81 mg DAILY DELORES Administration Benazepril HCl 10 mg 07/11/17 09:00 07/11/17 08:05 Lotensin PO 09/09/17 08:59 10 mg DAILY DELORES Administration Citalopram Hydrobromide 20 mg 07/11/17 09:00 07/11/17 08:06 Celexa PO 09/09/17 08:59 20 mg DAILY DELORES Administration Protocol Clonazepam 1 mg 07/10/17 21:00 07/10/17 22:30 Klonopin PO 09/08/17 20:59 1 mg HS DELORES Administration Piperacillin Sod/Tazobactam 50 mls @ 100 mls/hr 07/10/17 13:00 07/11/17 13:33 Sod 3.375 gm/ Sodium Chloride IV 09/08/17 12:59 100 mls/hr Q8HR DELOERS Administration Sodium Chloride 1,000 mls @ 90 mls/hr 07/10/17 13:15 07/11/17 02:56 Nacl 0.9% IV 09/08/17 13:14 90 mls/hr .Q11H7M DELORES Administration Insulin Aspart 0 units 07/10/17 16:30 07/11/17 12:23 Novolog Insulin Sliding Scale SUBQ 09/08/17 16:29 7 units ACHS DELORES Administration Protocol Pantoprazole Sodium 40 mg 07/11/17 09:00 07/11/17 08:05 Protonix PO 09/09/17 08:59 40 mg DAILY DELORES Administration Quetiapine Fumarate 50 mg 07/10/17 21:00 07/10/17 22:30 Seroquel PO 09/08/17 20:59 50 mg HS DELORES Administration Protocol Tamsulosin HCl 0.8 mg 07/10/17 21:00 07/10/17 21:40 Flomax PO 09/08/17 20:59 0.8 mg HS DELORES Administration Discontinued Medications Generic Name Dose Route Start Last Admin Trade Name Freq PRN Reason Stop Dose Admin Heparin Sodium (Porcine) 5,000 units 07/10/17 21:00 07/11/17 08:06 Heparin SUBQ 09/08/17 20:59 5,000 units Q12HR DELORES Administration Sodium Chloride 2,000 mls @ 0 mls/hr 07/10/17 10:42 07/10/17 11:19 Nacl 0.9% IV 07/10/17 10:43 999 mls/hr .Q0M ONE Administration Wide Open Ceftriaxone Sodium 2 gm/ 100 mls @ 100 mls/hr 07/10/17 10:49 07/10/17 11:21 Sodium Chloride IV 07/10/17 11:48 100 mls/hr X1 ONE Administration Vancomycin HCl 1.5 gm/ Sodium 500 mls @ 250 mls/hr 07/10/17 14:00 07/10/17 14 :13 Chloride IV 07/10/17 15:59 250 mls/hr ONCE ONE Administration Vancomycin HCl 1.5 gm/ Sodium 500 mls @ 250 mls/hr 07/11/17 10:00 07/11/17 10 :14 Chloride IV 07/11/17 11:59 250 mls/hr 1000 ONE Administration Warfarin Sodium 5 mg 07/11/17 14:00 07/11/17 13:34 Coumadin PO 07/11/17 14:01 5 mg 1400 ONE Administration Discharge ED Provider: Ray Fernandez Status: Transferred to Floor Time Seen by Provider: Condition: Stable Triaged At: 07/10/17 10:21 Other ED Providers: Reginald Suarez,Maximo Agudelo,Solo Agudelo,Julia Manning Emergency Discharge Date/Time: 07/10/17 12:26 Emergency Discharge Disposition: Acute Care w/in this hosp Clinical Impression Emergency Discharge Comment: Admit Intervention Last Done Inpatient Discharge Date/Time: Inpatient Discharge Disposition: Inpatient Discharge Comment: Instructions: Stand-Alone Forms: Patient Info and Choice Letter Prescriptions: Visit Report - Forms: - Referrals: Wu Soni (Primary Care Provider) Patient Problems Problem Status Onset Code LEFT LOWER LEG REDNESS, SWELLING PAIN Acute CBC/BMP 07/11/17 06:19 07/11/17 06:19 Laboratory 07/10/17 07/10/17 07/10/17 Range/Units 10:49 10:49 10:49 WBC 16.0 H (4.8-10.8) Th/cmm RBC 3.55 L (3.80-5.80) Mil/cmm Hgb 11.7 L (12-16) gm/dL Hct 33.2 L (41.0-60) % MCV 93.6 (80-99) fl MCH 33.0 H (27.0-31.0) pg MCHC Differential 35.2 (28.0-36.0) pg RDW 13.4 (11.5-20.0) % Plt Count 165 (150-400) Th/cmm MPV 9.5 fl Band Neutrophils % (0-10) % Neutrophils (Manual) 89 H (40-80) % Lymphocytes 9 L (20-50) % Monocytes 1 L (2-10) % Basophils 1 (0-3) % Platelet Estimate ADEQUATE (NORMAL) PT (9.5-11.5) SECONDS INR (0.5-1.4) PTT (Actin FS) (26.0-38.0) SECONDS Sodium 131 L (136-145) mEq/L Potassium 4.0 (3.5-5.1) mEq/L Chloride 102 (98-107) mEq/L Carbon Dioxide 23.1 (21.0-31.0) mEq/L Anion Gap 9.9 (7.0-16.0) BUN 49 H (7-25) mg/dL Creatinine 1.6 H (0.7-1.3) mg/dL Est GFR ( Amer) TNP Est GFR (Non-Af Amer) TNP BUN/Creatinine Ratio 30.6 Glucose 370 H (70-105) mg/dL POC Glucose (70 - 105) MG/DL Hemoglobin A1c % (4.0-6.0) % Whole Bld Lactic Acid 2.34 H* (0.60-1.99) mmol/L Calcium 9.3 (8.6-10.3) mg/dL Total Bilirubin 0.4 (0.3-1.0) mg/dL AST 12 L (13-39) U/L ALT 13 (7-52) U/L Alkaline Phosphatase 118 H (34-104) U/L Total Protein 6.8 (6.0-8.3) gm/dL Albumin 3.1 L (4.2-5.5) gm/dL Globulin 3.7 gm/dL Albumin/Globulin Ratio 0.8 L (1.0-1.8) TSH (0.34-5.60) uIU/ml Urine Source Urine Color Urine Clarity (CLEAR) Urine pH (4.6 - 8.0) Ur Specific [place] (1.005-1.030) Urine Protein (NEGATIVE) mg/dL Urine Glucose (UA) (NEGATIVE) mg/dL Urine Ketones (NEGATIVE) mg/dL Urine Blood (NEGATIVE) Urine Nitrate (NEGATIVE) Urine Bilirubin (NEGATIVE) Urine Urobilinogen (0.2 - 1.0) E.U./dL Ur Leukocyte Esterase (NEGATIVE) Urine RBC (0-5) /hpf Urine WBC (0-5) /hpf Ur Epithelial Cells (FEW) /lpf Urine Bacteria (NONE SEEN) /hpf Random Vancomycin (5.0-40.0) ug/mL 07/10/17 07/10/17 07/10/17 Range/Units 10:49 12:55 13:01 WBC (4.8-10.8) Th/cmm RBC (3.80-5.80) Mil/cmm Hgb (12-16) gm/dL Hct (41.0-60) % MCV (80-99) fl MCH (27.0-31.0) pg MCHC Differential (28.0-36.0) pg RDW (11.5-20.0) % Plt Count (150-400) Th/cmm MPV fl Band Neutrophils % (0-10) % Neutrophils (Manual) (40-80) % Lymphocytes (20-50) % Monocytes (2-10) % Basophils (0-3) % Platelet Estimate (NORMAL) PT (9.5-11.5) SECONDS INR (0.5-1.4) PTT (Actin FS) (26.0-38.0) SECONDS Sodium (136-145) mEq/L Potassium (3.5-5.1) mEq/L Chloride (98-107) mEq/L Carbon Dioxide (21.0-31.0) mEq/L Anion Gap (7.0-16.0) BUN (7-25) mg/dL Creatinine (0.7-1.3) mg/dL Est GFR ( Amer) Est GFR (Non-Af Amer) BUN/Creatinine Ratio Glucose (70-105) mg/dL POC Glucose 326 H (70 - 105) MG/DL Hemoglobin A1c % 7.6 H (4.0-6.0) % Whole Bld Lactic Acid 1.61 (0.60-1.99) mmol/L Calcium (8.6-10.3) mg/dL Total Bilirubin (0.3-1.0) mg/dL AST (13-39) U/L ALT (7-52) U/L Alkaline Phosphatase (34-104) U/L Total Protein (6.0-8.3) gm/dL Albumin (4.2-5.5) gm/dL Globulin gm/dL Albumin/Globulin Ratio (1.0-1.8) TSH (0.34-5.60) uIU/ml Urine Source Urine Color Urine Clarity (CLEAR) Urine pH (4.6 - 8.0) Ur Specific [place] (1.005-1.030) Urine Protein (NEGATIVE) mg/dL Urine Glucose (UA) (NEGATIVE) mg/dL Urine Ketones (NEGATIVE) mg/dL Urine Blood (NEGATIVE) Urine Nitrate (NEGATIVE) Urine Bilirubin (NEGATIVE) Urine Urobilinogen (0.2 - 1.0) E.U./dL Ur Leukocyte Esterase (NEGATIVE) Urine RBC (0-5) /hpf Urine WBC (0-5) /hpf Ur Epithelial Cells (FEW) /lpf Urine Bacteria (NONE SEEN) /hpf Random Vancomycin (5.0-40.0) ug/mL 07/10/17 07/10/17 07/10/17 Range/Units 16:43 20:20 20:50 WBC (4.8-10.8) Th/cmm RBC (3.80-5.80) Mil/cmm Hgb (12-16) gm/dL Hct (41.0-60) % MCV (80-99) fl MCH (27.0-31.0) pg MCHC Differential (28.0-36.0) pg RDW (11.5-20.0) % Plt Count (150-400) Th/cmm MPV fl Band Neutrophils % (0-10) % Neutrophils (Manual) (40-80) % Lymphocytes (20-50) % Monocytes (2-10) % Basophils (0-3) % Platelet Estimate (NORMAL) PT 9.2 L (9.5-11.5) SECONDS INR 0.89 (0.5-1.4) PTT (Actin FS) (26.0-38.0) SECONDS Sodium (136-145) mEq/L Potassium (3.5-5.1) mEq/L Chloride (98-107) mEq/L Carbon Dioxide (21.0-31.0) mEq/L Anion Gap (7.0-16.0) BUN (7-25) mg/dL Creatinine (0.7-1.3) mg/dL Est GFR ( Amer) Est GFR (Non-Af Amer) BUN/Creatinine Ratio Glucose (70-105) mg/dL POC Glucose 336 H 263 H (70 - 105) MG/DL Hemoglobin A1c % (4.0-6.0) % Whole Bld Lactic Acid (0.60-1.99) mmol/L Calcium (8.6-10.3) mg/dL Total Bilirubin (0.3-1.0) mg/dL AST (13-39) U/L ALT (7-52) U/L Alkaline Phosphatase (34-104) U/L Total Protein (6.0-8.3) gm/dL Albumin (4.2-5.5) gm/dL Globulin gm/dL Albumin/Globulin Ratio (1.0-1.8) TSH (0.34-5.60) uIU/ml Urine Source Urine Color Urine Clarity (CLEAR) Urine pH (4.6 - 8.0) Ur Specific [place] (1.005-1.030) Urine Protein (NEGATIVE) mg/dL Urine Glucose (UA) (NEGATIVE) mg/dL Urine Ketones (NEGATIVE) mg/dL Urine Blood (NEGATIVE) Urine Nitrate (NEGATIVE) Urine Bilirubin (NEGATIVE) Urine Urobilinogen (0.2 - 1.0) E.U./dL Ur Leukocyte Esterase (NEGATIVE) Urine RBC (0-5) /hpf Urine WBC (0-5) /hpf Ur Epithelial Cells (FEW) /lpf Urine Bacteria (NONE SEEN) /hpf Random Vancomycin (5.0-40.0) ug/mL 07/11/17 07/11/17 07/11/17 Range/Units 06:00 06:19 06:19 WBC 16.0 H (4.8-10.8) Th/cmm RBC 3.46 L (3.80-5.80) Mil/cmm Hgb 10.9 L (12-16) gm/dL Hct 33.0 L (41.0-60) % MCV 95.5 (80-99) fl MCH 31.6 H (27.0-31.0) pg MCHC Differential 33.1 (28.0-36.0) pg RDW 13.9 (11.5-20.0) % Plt Count 177 (150-400) Th/cmm MPV 9.2 fl Band Neutrophils % 4 (0-10) % Neutrophils (Manual) 88 H (40-80) % Lymphocytes 7 L (20-50) % Monocytes 1 L (2-10) % Basophils (0-3) % Platelet Estimate ADEQUATE (NORMAL) PT (9.5-11.5) SECONDS INR (0.5-1.4) PTT (Actin FS) (26.0-38.0) SECONDS Sodium (136-145) mEq/L Potassium (3.5-5.1) mEq/L Chloride (98-107) mEq/L Carbon Dioxide (21.0-31.0) mEq/L Anion Gap (7.0-16.0) BUN (7-25) mg/dL Creatinine (0.7-1.3) mg/dL Est GFR ( Amer) Est GFR (Non-Af Amer) BUN/Creatinine Ratio Glucose (70-105) mg/dL POC Glucose (70 - 105) MG/DL Hemoglobin A1c % (4.0-6.0) % Whole Bld Lactic Acid (0.60-1.99) mmol/L Calcium (8.6-10.3) mg/dL Total Bilirubin (0.3-1.0) mg/dL AST (13-39) U/L ALT (7-52) U/L Alkaline Phosphatase (34-104) U/L Total Protein (6.0-8.3) gm/dL Albumin (4.2-5.5) gm/dL Globulin gm/dL Albumin/Globulin Ratio (1.0-1.8) TSH (0.34-5.60) uIU/ml Urine Source [place] Urine Color YELLOW Urine Clarity HAZY (CLEAR) Urine pH 6.0 (4.6 - 8.0) Ur Specific [place] 1.015 (1.005-1.030) Urine Protein 100 H (NEGATIVE) mg/dL Urine Glucose (UA) NEGATIVE (NEGATIVE) mg/dL Urine Ketones TRACE (NEGATIVE) mg/dL Urine Blood TRACE (NEGATIVE) Urine Nitrate NEGATIVE (NEGATIVE) Urine Bilirubin NEGATIVE (NEGATIVE) Urine Urobilinogen 2.0 (0.2 - 1.0) E.U./dL Ur Leukocyte Esterase NEGATIVE (NEGATIVE) Urine RBC 0-2 H (0-5) /hpf Urine WBC 0-2 (0-5) /hpf Ur Epithelial Cells OCCASIONAL (FEW) /lpf Urine Bacteria FEW (NONE SEEN) /hpf Random Vancomycin 8.1 (5.0-40.0) ug/mL 07/11/17 07/11/17 07/11/17 Range/Units 06:19 06:19 06:19 WBC (4.8-10.8) Th/cmm RBC (3.80-5.80) Mil/cmm Hgb (12-16) gm/dL Hct (41.0-60) % MCV (80-99) fl MCH (27.0-31.0) pg MCHC Differential (28.0-36.0) pg RDW (11.5-20.0) % Plt Count (150-400) Th/cmm MPV fl Band Neutrophils % (0-10) % Neutrophils (Manual) (40-80) % Lymphocytes (20-50) % Monocytes (2-10) % Basophils (0-3) % Platelet Estimate (NORMAL) PT (9.5-11.5) SECONDS INR (0.5-1.4) PTT (Actin FS) 30.8 (26.0-38.0) SECONDS Sodium 137 (136-145) mEq/L Potassium 3.8 (3.5-5.1) mEq/L Chloride 106 (98-107) mEq/L Carbon Dioxide 23.9 (21.0-31.0) mEq/L Anion Gap 10.9 (7.0-16.0) BUN 37 H (7-25) mg/dL Creatinine 1.2 (0.7-1.3) mg/dL Est GFR ( Amer) TNP Est GFR (Non-Af Amer) TNP BUN/Creatinine Ratio 30.8 Glucose 208 H D (70-105) mg/dL POC Glucose (70 - 105) MG/DL Hemoglobin A1c % (4.0-6.0) % Whole Bld Lactic Acid (0.60-1.99) mmol/L Calcium 9.2 (8.6-10.3) mg/dL Total Bilirubin 0.7 (0.3-1.0) mg/dL AST 15 (13-39) U/L ALT 15 (7-52) U/L Alkaline Phosphatase 165 H (34-104) U/L Total Protein 6.6 (6.0-8.3) gm/dL Albumin 3.0 L (4.2-5.5) gm/dL Globulin 3.6 gm/dL Albumin/Globulin Ratio 0.8 L (1.0-1.8) TSH 0.20 L (0.34-5.60) uIU/ml Urine Source Urine Color Urine Clarity (CLEAR) Urine pH (4.6 - 8.0) Ur Specific [place] (1.005-1.030) Urine Protein (NEGATIVE) mg/dL Urine Glucose (UA) (NEGATIVE) mg/dL Urine Ketones (NEGATIVE) mg/dL Urine Blood (NEGATIVE) Urine Nitrate (NEGATIVE) Urine Bilirubin (NEGATIVE) Urine Urobilinogen (0.2 - 1.0) E.U./dL Ur Leukocyte Esterase (NEGATIVE) Urine RBC (0-5) /hpf Urine WBC (0-5) /hpf Ur Epithelial Cells (FEW) /lpf Urine Bacteria (NONE SEEN) /hpf Random Vancomycin (5.0-40.0) ug/mL 07/11/17 07/11/17 07/11/17 Range/Units 06:19 06:19 11:15 WBC (4.8-10.8) Th/cmm RBC (3.80-5.80) Mil/cmm Hgb (12-16) gm/dL Hct (41.0-60) % MCV (80-99) fl MCH (27.0-31.0) pg MCHC Differential (28.0-36.0) pg RDW (11.5-20.0) % Plt Count (150-400) Th/cmm MPV fl Band Neutrophils % (0-10) % Neutrophils (Manual) (40-80) % Lymphocytes (20-50) % Monocytes (2-10) % Basophils (0-3) % Platelet Estimate (NORMAL) PT 9.5 (9.5-11.5) SECONDS INR 0.91 (0.5-1.4) PTT (Actin FS) (26.0-38.0) SECONDS Sodium (136-145) mEq/L Potassium (3.5-5.1) mEq/L Chloride (98-107) mEq/L Carbon Dioxide (21.0-31.0) mEq/L Anion Gap (7.0-16.0) BUN (7-25) mg/dL Creatinine (0.7-1.3) mg/dL Est GFR ( Amer) Est GFR (Non-Af Amer) BUN/Creatinine Ratio Glucose (70-105) mg/dL POC Glucose 207 H 292 H (70 - 105) MG/DL Hemoglobin A1c % (4.0-6.0) % Whole Bld Lactic Acid (0.60-1.99) mmol/L Calcium (8.6-10.3) mg/dL Total Bilirubin (0.3-1.0) mg/dL AST (13-39) U/L ALT (7-52) U/L Alkaline Phosphatase (34-104) U/L Total Protein (6.0-8.3) gm/dL Albumin (4.2-5.5) gm/dL Globulin gm/dL Albumin/Globulin Ratio (1.0-1.8) TSH (0.34-5.60) uIU/ml Urine Source Urine Color Urine Clarity (CLEAR) Urine pH (4.6 - 8.0) Ur Specific [place] (1.005-1.030) Urine Protein (NEGATIVE) mg/dL Urine Glucose (UA) (NEGATIVE) mg/dL Urine Ketones (NEGATIVE) mg/dL Urine Blood (NEGATIVE) Urine Nitrate (NEGATIVE) Urine Bilirubin (NEGATIVE) Urine Urobilinogen (0.2 - 1.0) E.U./dL Ur Leukocyte Esterase (NEGATIVE) Urine RBC (0-5) /hpf Urine WBC (0-5) /hpf Ur Epithelial Cells (FEW) /lpf Urine Bacteria (NONE SEEN) /hpf Random Vancomycin (5.0-40.0) ug/mL 07/11/17 Range/Units 14:30 WBC (4.8-10.8) Th/cmm RBC (3.80-5.80) Mil/cmm Hgb (12-16) gm/dL Hct (41.0-60) % MCV (80-99) fl MCH (27.0-31.0) pg MCHC Differential (28.0-36.0) pg RDW (11.5-20.0) % Plt Count (150-400) Th/cmm MPV fl Band Neutrophils % (0-10) % Neutrophils (Manual) (40-80) % Lymphocytes (20-50) % Monocytes (2-10) % Basophils (0-3) % Platelet Estimate (NORMAL) PT (9.5-11.5) SECONDS INR (0.5-1.4) PTT (Actin FS) (26.0-38.0) SECONDS Sodium (136-145) mEq/L Potassium (3.5-5.1) mEq/L Chloride (98-107) mEq/L Carbon Dioxide (21.0-31.0) mEq/L Anion Gap (7.0-16.0) BUN (7-25) mg/dL Creatinine (0.7-1.3) mg/dL Est GFR ( Amer) Est GFR (Non-Af Amer) BUN/Creatinine Ratio Glucose (70-105) mg/dL POC Glucose (70 - 105) MG/DL Hemoglobin A1c % (4.0-6.0) % Whole Bld Lactic Acid 1.12 (0.60-1.99) mmol/L Calcium (8.6-10.3) mg/dL Total Bilirubin (0.3-1.0) mg/dL AST (13-39) U/L ALT (7-52) U/L Alkaline Phosphatase (34-104) U/L Total Protein (6.0-8.3) gm/dL Albumin (4.2-5.5) gm/dL Globulin gm/dL Albumin/Globulin Ratio (1.0-1.8) TSH (0.34-5.60) uIU/ml Urine Source Urine Color Urine Clarity (CLEAR) Urine pH (4.6 - 8.0) Ur Specific [place] (1.005-1.030) Urine Protein (NEGATIVE) mg/dL Urine Glucose (UA) (NEGATIVE) mg/dL Urine Ketones (NEGATIVE) mg/dL Urine Blood (NEGATIVE) Urine Nitrate (NEGATIVE) Urine Bilirubin (NEGATIVE) Urine Urobilinogen (0.2 - 1.0) E.U./dL Ur Leukocyte Esterase (NEGATIVE) Urine RBC (0-5) /hpf Urine WBC (0-5) /hpf Ur Epithelial Cells (FEW) /lpf Urine Bacteria (NONE SEEN) /hpf Random Vancomycin (5.0-40.0) ug/mL Microbiology 07/10/17 11:15 - Preliminary Blood NO GROWTH AFTER 24 HOURS 07/10/17 10:49 - Preliminary Blood NO GROWTH AFTER 24 HOURS Laboratory Results - last 24 hr 07/10/17 07/10/17 07/10/17 10:49 16:43 20:20 WBC RBC Hgb Hct MCV MCH MCHC Differential RDW Plt Count MPV Band Neutrophils % Neutrophils (Manual) Lymphocytes Monocytes Platelet Estimate PT 9.2 L INR 0.89 PTT (Actin FS) Sodium Potassium Chloride Carbon Dioxide Anion Gap BUN Creatinine Est GFR ( Amer) Est GFR (Non-Af Amer) BUN/Creatinine Ratio Glucose POC Glucose 336 H Hemoglobin A1c % 7.6 H Whole Bld Lactic Acid Calcium Total Bilirubin AST ALT Alkaline Phosphatase Total Protein Albumin Globulin Albumin/Globulin Ratio TSH Urine Source Urine Color Urine Clarity Urine pH Ur Specific [place] Urine Protein Urine Glucose (UA) Urine Ketones Urine Blood Urine Nitrate Urine Bilirubin Urine Urobilinogen Ur Leukocyte Esterase Urine RBC Urine WBC Ur Epithelial Cells Urine Bacteria Random Vancomycin 07/10/17 07/11/17 07/11/17 20:50 06:00 06:19 WBC RBC Hgb Hct MCV MCH MCHC Differential RDW Plt Count MPV Band Neutrophils % Neutrophils (Manual) Lymphocytes Monocytes Platelet Estimate PT INR PTT (Actin FS) Sodium Potassium Chloride Carbon Dioxide Anion Gap BUN Creatinine Est GFR ( Amer) Est GFR (Non-Af Amer) BUN/Creatinine Ratio Glucose POC Glucose 263 H Hemoglobin A1c % Whole Bld Lactic Acid Calcium Total Bilirubin AST ALT Alkaline Phosphatase Total Protein Albumin Globulin Albumin/Globulin Ratio TSH Urine Source [place] Urine Color YELLOW Urine Clarity HAZY Urine pH 6.0 Ur Specific [place] 1.015 Urine Protein 100 H Urine Glucose (UA) NEGATIVE Urine Ketones TRACE Urine Blood TRACE Urine Nitrate NEGATIVE Urine Bilirubin NEGATIVE Urine Urobilinogen 2.0 Ur Leukocyte Esterase NEGATIVE Urine RBC 0-2 H Urine WBC 0-2 Ur Epithelial Cells OCCASIONAL Urine Bacteria FEW Random Vancomycin 8.1 07/11/17 07/11/17 07/11/17 06:19 06:19 06:19 WBC 16.0 H RBC 3.46 L Hgb 10.9 L Hct 33.0 L MCV 95.5 MCH 31.6 H MCHC Differential 33.1 RDW 13.9 Plt Count 177 MPV 9.2 Band Neutrophils % 4 Neutrophils (Manual) 88 H Lymphocytes 7 L Monocytes 1 L Platelet Estimate ADEQUATE PT INR PTT (Actin FS) Sodium 137 Potassium 3.8 Chloride 106 Carbon Dioxide 23.9 Anion Gap 10.9 BUN 37 H Creatinine 1.2 Est GFR ( Amer) TNP Est GFR (Non-Af Amer) TNP BUN/Creatinine Ratio 30.8 Glucose 208 H D POC Glucose Hemoglobin A1c % Whole Bld Lactic Acid Calcium 9.2 Total Bilirubin 0.7 AST 15 ALT 15 Alkaline Phosphatase 165 H Total Protein 6.6 Albumin 3.0 L Globulin 3.6 Albumin/Globulin Ratio 0.8 L TSH 0.20 L Urine Source Urine Color Urine Clarity Urine pH Ur Specific [place] Urine Protein Urine Glucose (UA) Urine Ketones Urine Blood Urine Nitrate Urine Bilirubin Urine Urobilinogen Ur Leukocyte Esterase Urine RBC Urine WBC Ur Epithelial Cells Urine Bacteria Random Vancomycin 0307/11/17 07/11/17 06:19 06:19 06:19 WBC RBC Hgb Hct MCV MCH MCHC Differential RDW Plt Count MPV Band Neutrophils % Neutrophils (Manual) Lymphocytes Monocytes Platelet Estimate PT 9.5 INR 0.91 PTT (Actin FS) 30.8 Sodium Potassium Chloride Carbon Dioxide Anion Gap BUN Creatinine Est GFR ( Amer) Est GFR (Non-Af Amer) BUN/Creatinine Ratio Glucose POC Glucose 207 H Hemoglobin A1c % Whole Bld Lactic Acid Calcium Total Bilirubin AST ALT Alkaline Phosphatase Total Protein Albumin Globulin Albumin/Globulin Ratio TSH Urine Source Urine Color Urine Clarity Urine pH Ur Specific [place] Urine Protein Urine Glucose (UA) Urine Ketones Urine Blood Urine Nitrate Urine Bilirubin Urine Urobilinogen Ur Leukocyte Esterase Urine RBC Urine WBC Ur Epithelial Cells Urine Bacteria Random Vancomycin 07/11/17 07/11/17 11:15 14:30 WBC RBC Hgb Hct MCV MCH MCHC Differential RDW Plt Count MPV Band Neutrophils % Neutrophils (Manual) Lymphocytes Monocytes Platelet Estimate PT INR PTT (Actin FS) Sodium Potassium Chloride Carbon Dioxide Anion Gap BUN Creatinine Est GFR ( Amer) Est GFR (Non-Af Amer) BUN/Creatinine Ratio Glucose POC Glucose 292 H Hemoglobin A1c % Whole Bld Lactic Acid 1.12 Calcium Total Bilirubin AST ALT Alkaline Phosphatase Total Protein Albumin Globulin Albumin/Globulin Ratio TSH Urine Source Urine Color Urine Clarity Urine pH Ur Specific [place] Urine Protein Urine Glucose (UA) Urine Ketones Urine Blood Urine Nitrate Urine Bilirubin Urine Urobilinogen Ur Leukocyte Esterase Urine RBC Urine WBC Ur Epithelial Cells Urine Bacteria Random Vancomycin ED Assessment - Assessment General Assessment: CASE SUMMSRY:THIS 86-YEAR-OLD MALE WAS REFERRED TO THE EMERGENCY DEPARTMENT FOR EVALUATION OF EDEMA, ERYTHEMA, AND WARMTH IN THE THE FORMER EXTREMITY. THE CLINICAL APPEARANCE OF CELLULITIS IS NOTED. LABORATORY STUDIES SHOWED A WHITE COUNT OF 16,000 AND ELEVATION OF THE LACTIC ACID ABOVE TWO WHICH WERE SUGGESTIVE OF ACUTE SEPSIS. PATIENT WAS NOT HYPOTENSIVE. HE RECEIVED THE FLUID BOLUS OF 30 ML PER KILOGRAM AND HE WAS STARTED ON [id number] FOR TREATMENT OF CELLULITIS.PATRICA THE CASE WAS DISCUSSED WITH DR. SONI AND HE WILL ADMIT THE PATIENT TO THE HOSPITAL FOR ACUTE SEPSIS MOST LIKELY SECONDARY TO CELLULITIS. PATIENT ADMITTED IN STABLE CONDITION. MDM DDX OF REDNESS, SWELLING AND TENDERNESS IN THE LEFT LEG AND FOOT: NOT. NECROTIZING FASCIITIS BASED ON THE PHYSICAL EXAMINATION. NOT DVT BASED ON THE BILATERAL RALLYTYL THE PHYSICAL FINDINGS. ED Septic Shock - . Is Septic Shock (SBP<90, OR Lactate>4 mmol\\L) present?: No ED Discharge Plan - Patient Disposition Admit/Discharge/Transfer: Acute Care w/in this hosp Condition at Disposition: Stable
[2017-07-10 11:08] LABS: BASOPHILE ABSOLUTE 0.1 Th/cumm (0-0.2); HEMATOCRIT 33.2 % (41.0-60); HEMOGLOBIN 11.7 gm/dL (12-16); LYMPHOCYTE ABSOLUTE 0.6 Th/cmm (1.5-3.0); MANUAL DIFF REQUIRED? YES; MEAN CELL VOLUME 93.6 fl (80-99); MEAN CORPUSCULAR HGB CONC 35.2 pg (28.0-36.0); MEAN PLATELET VOLUME 9.5 fl; MONOCYTE ABSOLUTE 0.4 Th/cmm (0.3-1.0); NEUTROPHILE ABSOLUTE 14.9 Th/cmm (1.8-8.0); PLATELET COUNT 165 Th/cmm (150-400); RED BLOOD COUNT 3.55 Mil/cmm (3.80-5.80); RED CELL DISTRIBUTION WIDTH 13.4 % (11.5-20.0)
[2017-07-10 11:25] LABS: ALB/GLOB RATIO 0.8 (1.0-1.8); ALBUMIN 3.1 gm/dL (4.2-5.5); ALKALINE PHOSPHATASE 118 U/L (34-104); ANION GAP 9.9 (7.0-16.0); BILIRUBIN,TOTAL 0.4 mg/dL (0.3-1.0); BUN - UREA NITROGEN 49 mg/dL (7-25); CALCIUM SERUM 9.3 mg/dL (8.6-10.3); CARBON DIOXIDE 23.1 mEq/L (21.0-31.0); CHLORIDE 102 mEq/L (98-107); CREATININE - SERUM 1.6 mg/dL (0.7-1.3); GLUCOSE 370 mg/dL (70-105); SGOT 12 U/L (13-39); SGPT/ALT 13 U/L (7-52); SODIUM SERUM 131 mEq/L (136-145); TOTAL PROTEIN,SERUM 6.8 gm/dL (6.0-8.3)
[2017-07-10 12:08] LABS: BASOPHIL 1 % (0-3); LYMPHOCYTE 9 % (20-50); MONOCYTE 1 % (2-10); NEUTROPHILS 89 % (40-80); PLATELET ESTIMATE ADEQUATE (NORMAL); TOTAL CELLS COUNTED 100
[2017-07-10] MEDS: Sodium Chloride 0.9% 1,000 ML IV SCH (13:24)
[2017-07-10] MEDS ORDERED: Vancomycin HCl 1.5 GM in Sodium Chloride 0.9% 500 ML IV ONE (14:00)
[2017-07-10] MEDS ORDERED: VTE Chemical Prophylaxis Screen/Admission MC PRN (15:15)
[2017-07-10 15:54] VITALS: BP 125/68
[2017-07-10] MEDS: INSULIN ASPART SLIDING SCALE 100 UNITS/ML UNIT SUBQ SCH ×2 (17:51→21:40)
[2017-07-10 19:03] LABS: A1C % 7.6 % (4.0-6.0)
[2017-07-10 20:38] LABS: INR 0.89 (0.5-1.4); PROTHROMBIN TIME (TEST) 9.2 SECONDS (9.5-11.5)
[2017-07-11] MEDS: Sodium Chloride 0.9% 1,000 ML IV SCH ×2 (02:56→17:54)
[2017-07-11 07:12] LABS: URINE MICROSCOPIC INDICATED? YES; URINE SOURCE FOLEY PORT
[2017-07-11 07:18] LABS: EOSINOPHILE ABSOLUTE 0.1 Th/cmm (0.1-0.4); HEMOGLOBIN 10.9 gm/dL (12-16); LYMPHOCYTE ABSOLUTE 0.8 Th/cmm (1.5-3.0); MANUAL DIFF REQUIRED? YES; MEAN CELL VOLUME 95.5 fl (80-99); MEAN CORPUSCULAR HEMOGLOBIN 31.6 pg (27.0-31.0); MEAN CORPUSCULAR HGB CONC 33.1 pg (28.0-36.0); MEAN PLATELET VOLUME 9.2 fl; MONOCYTE ABSOLUTE 0.7 Th/cmm (0.3-1.0); NEUTROPHILE ABSOLUTE 14.4 Th/cmm (1.8-8.0); PLATELET COUNT 177 Th/cmm (150-400); RED BLOOD COUNT 3.46 Mil/cmm (3.80-5.80); RED CELL DISTRIBUTION WIDTH 13.9 % (11.5-20.0)
[2017-07-11 07:45] LABS: ALB/GLOB RATIO 0.8 (1.0-1.8); ALKALINE PHOSPHATASE 165 U/L (34-104); ANION GAP 10.9 (7.0-16.0); BILIRUBIN,TOTAL 0.7 mg/dL (0.3-1.0); BUN - UREA NITROGEN 37 mg/dL (7-25); CALCIUM SERUM 9.2 mg/dL (8.6-10.3); CARBON DIOXIDE 23.9 mEq/L (21.0-31.0); CHLORIDE 106 mEq/L (98-107); CREATININE - SERUM 1.2 mg/dL (0.7-1.3); POTASSIUM SERUM 3.8 mEq/L (3.5-5.1); SGOT 15 U/L (13-39); SGPT/ALT 15 U/L (7-52); SODIUM SERUM 137 mEq/L (136-145); TOTAL PROTEIN,SERUM 6.6 gm/dL (6.0-8.3)
[2017-07-11 07:55] LABS: GLUCOSE 208 mg/dL (70-105)
[2017-07-11] MEDS: Pantoprazole 40 mg EC Tab PO SCH (08:05)
[2017-07-11] MEDS: Aspirin 81mg Chewable Tab PO SCH (08:05)
[2017-07-11] MEDS: INSULIN ASPART SLIDING SCALE 100 UNITS/ML UNIT SUBQ SCH ×5 (08:06→22:45)
[2017-07-11 08:21] LABS: URINE BILIRUBIN NEGATIVE (NEGATIVE); URINE BLOOD TRACE (NEGATIVE); URINE GLUCOSE (UA) NEGATIVE (NEGATIVE); URINE KETONE TRACE mg/dL (NEGATIVE); URINE LEUKOCYTE ESTERASE NEGATIVE (NEGATIVE); URINE NITRATE NEGATIVE (NEGATIVE); URINE PROTEIN 100 mg/dL (NEGATIVE)
--- NOTE | 2017-07-11 08:26 | History and Physical ---
History of Present Illness - HPI Chief Complaint: Redness of both legs HPI: This is a Patient that just was assigned to my service at the [facility], I received a call stating that patient has redness of both legs, order to transferred to ER was given. 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: Report: Dementia GI: Report: No Pertinent Hx Psych: Report: Schizophrenia Musculoskeletal: Report: Weakness Rheumatologic: Report: No pertinent Hx Infectious Disease: Report: No Pertinent Hx Renal/: Report: Chronic Renal Insuff Endocrine: Report: Diabetes Dermatology: Report: Other (Redness of both legs) - Past Surgical History Past Surgical History: No pertinent Hx Family Medical History - Family Member Father History Unknown: Yes Social History Smoke: No Alcohol: None Drugs: None [place]: [place] Domestic Violence: Negative - Medications Home Medications: Home Medication Medication Instructions Recorded Type Acetaminophen [Tylenol Extra 500 mg PO Q6HR PRN 07/10/17 History Strength] Acetaminophen [Tylenol] 650 mg PO Q6HR PRN 07/10/17 History Aspirin [Aspirin Chewable] 81 mg PO DAILY 07/10/17 History Benazepril [Lotensin*] 10 mg PO DAILY 07/10/17 History Citalopram Hydrobromide 20 mg PO DAILY 07/10/17 History [Citalopram HBr] Clonazepam [Clonazepam*] 1 mg PO HS 07/10/17 History D10w 250 ml IV PRN PRN 07/10/17 History Dextrose [Glucose Gel] 15 gm PO PRN PRN 07/10/17 History GLUCAGON HCl [Glucagen] 1 mg IM PRN PRN 07/10/17 History Ibuprofen 800 mg PO BID 07/10/17 History Insulin Glargine,Hum.rec.anlog 35 unit SQ DAILY 07/10/17 History [Lantus Solostar] Insulin Human Regular [NovoLIN R] 0 units SUBQ DAILY 07/10/17 History Metformin HCl [Fortamet] 850 mg PO TID 07/10/17 History Omeprazole Magnesium [Prilosec Otc] 20 mg PO DAILY 07/10/17 History QUEtiapine Fumarate [SEROquel] 50 mg PO HS 07/10/17 History Sulfamethoxazole/TMP [Bactrim Ds] 1 tab PO BID 07/10/17 History Tamsulosin [Flomax] 0.8 mg PO HS 07/10/17 History - Allergies Allergies/Adverse Reactions: Allergies Allergy/AdvReac Type Severity Reaction Status Date / Time No Known Allergies Allergy Verified 07/10/17 10:20 Review of Systems - Review of Systems Constitutional: Report: Fever, Weakness Eyes: Report: No Significant ENT: Report: No Significant Respiratory: Report: No Significant Cardiovascular: Report: No Significant Gastrointestinal: Report: No Significant Genitourinary: Report: No Significant Musculoskeletal: Report: Leg Pain Skin: Report: Other (Redness of both legs) Neurological: Report: Weakness Physical Exam - Physical Exam HEENT: Report: Ears Nose Throat within normal limits Neck: Report: Within normal limits Cardiovascular Systems: Report: Regular, Rate and Rhythm Respiratory: Report: Breath Sounds are within normal limits Abdomen: Report: Non-tender to palpation Back: Report: Inspection of back is within normal limits. Extremities: Report: Other (Redness to the knee of both legs with some ampulas and edema) Skin: Report: Other (Redness and ampulas of both legs) Neuro/Psych: Report: Disoriented to name time or place - Lab Results All Lab Results last 24 hours: Laboratory Results - last 24 hr 07/10/17 07/10/17 07/10/17 12:55 13:01 16:43 WBC RBC Hgb Hct MCV MCH MCHC Differential RDW Plt Count MPV PT INR Sodium Potassium Chloride Carbon Dioxide Anion Gap BUN Creatinine Est GFR ( Amer) Est GFR (Non-Af Amer) BUN/Creatinine Ratio Glucose POC Glucose 326 H 336 H Whole Bld Lactic Acid 1.61 Calcium Total Bilirubin AST ALT Alkaline Phosphatase Total Protein Albumin Globulin Albumin/Globulin Ratio Random Vancomycin 07/10/17 07/10/17 07/11/17 20:20 20:50 06:19 WBC RBC Hgb Hct MCV MCH MCHC Differential RDW Plt Count MPV PT 9.2 L INR 0.89 Sodium Potassium Chloride Carbon Dioxide Anion Gap BUN Creatinine Est GFR ( Amer) Est GFR (Non-Af Amer) BUN/Creatinine Ratio Glucose POC Glucose 263 H Whole Bld Lactic Acid Calcium Total Bilirubin AST ALT Alkaline Phosphatase Total Protein Albumin Globulin Albumin/Globulin Ratio Random Vancomycin 8.1 07/11/17 07/11/17 07/11/17 06:19 06:19 06:19 WBC 16.0 H RBC 3.46 L Hgb 10.9 L Hct 33.0 L MCV 95.5 MCH 31.6 H MCHC Differential 33.1 RDW 13.9 Plt Count 177 MPV 9.2 PT INR Sodium 137 Potassium 3.8 Chloride 106 Carbon Dioxide 23.9 Anion Gap 10.9 BUN 37 H Creatinine 1.2 Est GFR ( Amer) TNP Est GFR (Non-Af Amer) TNP BUN/Creatinine Ratio 30.8 Glucose 208 H D POC Glucose 207 H Whole Bld Lactic Acid Calcium 9.2 Total Bilirubin 0.7 AST 15 ALT 15 Alkaline Phosphatase 165 H Total Protein 6.6 Albumin 3.0 L Globulin 3.6 Albumin/Globulin Ratio 0.8 L Random Vancomycin - Assessment Assessment: Current Active Problems Problem Status Onset LEFT LOWER LEG REDNESS, SWELLING PAIN Acute Patient is awake alert, calm, confused. DX: sepsis, CKF, HTN, DM, Dementia, BPH. - Plan Plan: Patient in IV NS, Vanco and sozyn, Insulin sliding scale and SNF meds. Consult with ID and Nephro requested.
[2017-07-11 09:16] LABS: URINE CLARITY HAZY (CLEAR); URINE COLOR YELLOW
[2017-07-11 09:19] LABS: URINE BACTERIA FEW /hpf (NONE SEEN); URINE EPITHELIAL CELLS OCCASIONAL /lpf (FEW); URINE RBC 0-2 /hpf (0-5); URINE WBC 0-2 /hpf (0-5)
[2017-07-11] MEDS ORDERED: Vancomycin HCl 1.5 GM in Sodium Chloride 0.9% 500 ML IV ONE (10:00)
[2017-07-11 10:32] LABS: BAND NEUTROPHILE 4 % (0-10); LYMPHOCYTE 7 % (20-50); MONOCYTE 1 % (2-10); NEUTROPHILS 88 % (40-80); PLATELET ESTIMATE ADEQUATE (NORMAL); TOTAL CELLS COUNTED 100
[2017-07-11 12:54] LABS: INR 0.91 (0.5-1.4); PROTHROMBIN TIME (TEST) 9.5 SECONDS (9.5-11.5)
[2017-07-11] MEDS ORDERED: Albuterol/Ipratropium Neb 3 ML AERS HHN ONE (14:25)
--- NOTE | 2017-07-11 16:17 | Consultation ---
Consult Note - Consult Note Service Date: 07/11/17 Referring Physician: Wu Nava Consult Note: PHYSICIAN Consultation Note: Date of Admission: 07/10/17 Purpose of Consultation: Chief Complaint: Patient KATEY VEGA was admitted to [facility] with SEPSIS, SECONDARY TO CELLULITIS. History of Present Illness: 86-year-old male with a past medical history of hypertension, diabetes mellitus type 2, artery disease, CHF, dementia [facility] for evaluation pain swelling and redness of left lower extremity up to the knee. Patient unable to give any history. As per the family patient has no new change. Patient has a DTI plaques left on posterior aspect of the left ankle. There is no discharge no erythema. It was noted that patient has some darkening of the skin of the forefoot with some ischemic wound. On initial evaluation, patient's temperature 98.6 today Fahrenheit and WBC count was 16,000. Patient was started on normal vancomycin and Zosyn and ID consult was called for antibiotic management. Now the redness has spread to about the knee. Past Medical History: hypertension, diabetes mellitus type 2, artery disease, CHF, dementia. Allergies Allergy/AdvReac Type Severity Reaction Status Date / Time No Known Allergies Allergy Verified 07/10/17 10:20 Vital Signs Temp 97.8 F 07/11/17 08:00 Pulse 117 07/11/17 14:40 Resp 22 07/11/17 14:40 BP 130/66 07/11/17 08:05 Pulse Ox 95 07/11/17 14:40 Intake & Output 07/10/17 07/11/17 07/11/17 18:59 06:59 18:59 Intake Total 2100 1150 50 Output Total 0 Balance 2100 1150 50 Weight (lbs) 87.725 kg 87.543 kg Intake: Intake, IV Amount 1150 1050 50 Piperacillin Sodium/ 50 50 50 Tazobact 3.375 gm In Sodium Chloride 0.9% 50 ml @ 100 mls/hr IV Q8HR [facility]ORES Rx#:[id number] Sodium Chloride 0.9% 1, 1000 000 ml @ 90 mls/hr IV . Q11H7M [facility]ORES Rx#:[id number] Sodium Chloride 0.9% 2, 1000 000 ml @ Wide Open IV . Q0M ONE Rx#:[id number] cefTRIAXone 2 gm In 100 Sodium Chloride 0.9% 100 ml @ 100 mls/hr IV X1 ONE Rx#:[id number] Oral 950 100 Output: Urine 0 Other: # Voids 2 3 # Bowel Movements 0 0 Laboratory Results - last 24 hr 07/10/17 07/10/17 07/10/17 16:43 20:20 20:50 WBC RBC Hgb Hct MCV MCH MCHC Differential RDW Plt Count MPV Band Neutrophils % Neutrophils (Manual) Lymphocytes Monocytes Platelet Estimate PT 9.2 L INR 0.89 PTT (Actin FS) Sodium Potassium Chloride Carbon Dioxide Anion Gap BUN Creatinine Est GFR ( Amer) Est GFR (Non-Af Amer) BUN/Creatinine Ratio Glucose POC Glucose 336 H 263 H Whole Bld Lactic Acid Calcium Total Bilirubin AST ALT Alkaline Phosphatase Total Protein Albumin Globulin Albumin/Globulin Ratio TSH Urine Source Urine Color Urine Clarity Urine pH Ur Specific [place] Urine Protein Urine Glucose (UA) Urine Ketones Urine Blood Urine Nitrate Urine Bilirubin Urine Urobilinogen Ur Leukocyte Esterase Urine RBC Urine WBC Ur Epithelial Cells Urine Bacteria Random Vancomycin 07/11/17 07/11/17 07/11/17 06:00 06:19 06:19 WBC 16.0 H RBC 3.46 L Hgb 10.9 L Hct 33.0 L MCV 95.5 MCH 31.6 H MCHC Differential 33.1 RDW 13.9 Plt Count 177 MPV 9.2 Band Neutrophils % 4 Neutrophils (Manual) 88 H Lymphocytes 7 L Monocytes 1 L Platelet Estimate ADEQUATE PT INR PTT (Actin FS) Sodium Potassium Chloride Carbon Dioxide Anion Gap BUN Creatinine Est GFR ( Amer) Est GFR (Non-Af Amer) BUN/Creatinine Ratio Glucose POC Glucose Whole Bld Lactic Acid Calcium Total Bilirubin AST ALT Alkaline Phosphatase Total Protein Albumin Globulin Albumin/Globulin Ratio TSH Urine Source [place] Urine Color YELLOW Urine Clarity HAZY Urine pH 6.0 Ur Specific [place] 1.015 Urine Protein 100 H Urine Glucose (UA) NEGATIVE Urine Ketones TRACE Urine Blood TRACE Urine Nitrate NEGATIVE Urine Bilirubin NEGATIVE Urine Urobilinogen 2.0 Ur Leukocyte Esterase NEGATIVE Urine RBC 0-2 H Urine WBC 0-2 Ur Epithelial Cells OCCASIONAL Urine Bacteria FEW Random Vancomycin 8.1 07/11/17 07/11/17 07/11/17 06:19 06:19 06:19 WBC RBC Hgb Hct MCV MCH MCHC Differential RDW Plt Count MPV Band Neutrophils % Neutrophils (Manual) Lymphocytes Monocytes Platelet Estimate PT INR PTT (Actin FS) 30.8 Sodium 137 Potassium 3.8 Chloride 106 Carbon Dioxide 23.9 Anion Gap 10.9 BUN 37 H Creatinine 1.2 Est GFR ( Amer) TNP Est GFR (Non-Af Amer) TNP BUN/Creatinine Ratio 30.8 Glucose 208 H D POC Glucose Whole Bld Lactic Acid Calcium 9.2 Total Bilirubin 0.7 AST 15 ALT 15 Alkaline Phosphatase 165 H Total Protein 6.6 Albumin 3.0 L Globulin 3.6 Albumin/Globulin Ratio 0.8 L TSH 0.20 L Urine Source Urine Color Urine Clarity Urine pH Ur Specific [place] Urine Protein Urine Glucose (UA) Urine Ketones Urine Blood Urine Nitrate Urine Bilirubin Urine Urobilinogen Ur Leukocyte Esterase Urine RBC Urine WBC Ur Epithelial Cells Urine Bacteria Random Vancomycin 07/11/17 07/11/17 07/11/17 06:19 06:19 11:15 WBC RBC Hgb Hct MCV MCH MCHC Differential RDW Plt Count MPV Band Neutrophils % Neutrophils (Manual) Lymphocytes Monocytes Platelet Estimate PT 9.5 INR 0.91 PTT (Actin FS) Sodium Potassium Chloride Carbon Dioxide Anion Gap BUN Creatinine Est GFR ( Amer) Est GFR (Non-Af Amer) BUN/Creatinine Ratio Glucose POC Glucose 207 H 292 H Whole Bld Lactic Acid Calcium Total Bilirubin AST ALT Alkaline Phosphatase Total Protein Albumin Globulin Albumin/Globulin Ratio TSH Urine Source Urine Color Urine Clarity Urine pH Ur Specific [place] Urine Protein Urine Glucose (UA) Urine Ketones Urine Blood Urine Nitrate Urine Bilirubin Urine Urobilinogen Ur Leukocyte Esterase Urine RBC Urine WBC Ur Epithelial Cells Urine Bacteria Random Vancomycin 07/11/17 14:30 WBC RBC Hgb Hct MCV MCH MCHC Differential RDW Plt Count MPV Band Neutrophils % Neutrophils (Manual) Lymphocytes Monocytes Platelet Estimate PT INR PTT (Actin FS) Sodium Potassium Chloride Carbon Dioxide Anion Gap BUN Creatinine Est GFR ( Amer) Est GFR (Non-Af Amer) BUN/Creatinine Ratio Glucose POC Glucose Whole Bld Lactic Acid 1.12 Calcium Total Bilirubin AST ALT Alkaline Phosphatase Total Protein Albumin Globulin Albumin/Globulin Ratio TSH Urine Source Urine Color Urine Clarity Urine pH Ur Specific [place] Urine Protein Urine Glucose (UA) Urine Ketones Urine Blood Urine Nitrate Urine Bilirubin Urine Urobilinogen Ur Leukocyte Esterase Urine RBC Urine WBC Ur Epithelial Cells Urine Bacteria Random Vancomycin Home Medication Medication Instructions Recorded Type Acetaminophen [Tylenol Extra 500 mg PO Q6HR PRN 07/10/17 History Strength] Acetaminophen [Tylenol] 650 mg PO Q6HR PRN 07/10/17 History Aspirin [Aspirin Chewable] 81 mg PO DAILY 07/10/17 History Benazepril [Lotensin*] 10 mg PO DAILY 07/10/17 History Citalopram Hydrobromide 20 mg PO DAILY 07/10/17 History [Citalopram HBr] Clonazepam [Clonazepam*] 1 mg PO HS 07/10/17 History D10w 250 ml IV PRN PRN 07/10/17 History Dextrose [Glucose Gel] 15 gm PO PRN PRN 07/10/17 History GLUCAGON HCl [Glucagen] 1 mg IM PRN PRN 07/10/17 History Ibuprofen 800 mg PO BID 07/10/17 History Insulin Glargine,Hum.rec.anlog 35 unit SQ DAILY 07/10/17 History [Lantus Solostar] Insulin Human Regular [NovoLIN R] 0 units SUBQ DAILY 07/10/17 History Metformin HCl [Fortamet] 850 mg PO TID 07/10/17 History Omeprazole Magnesium [Prilosec Otc] 20 mg PO DAILY 07/10/17 History QUEtiapine Fumarate [SEROquel] 50 mg PO HS 07/10/17 History Sulfamethoxazole/TMP [Bactrim Ds] 1 tab PO BID 07/10/17 History Tamsulosin [Flomax] 0.8 mg PO HS 07/10/17 History Current Medications Generic Name Dose Route Start Last Admin Trade Name Freq PRN Reason Stop Dose Admin Acetaminophen 650 mg 07/10/17 19:01 Tylenol PO 09/08/17 19:00 Q6HR PRN TEMP >100 Albuterol/Ipratropium 3 ml 07/11/17 19:00 Duoneb Neb [facility] 09/09/17 18:59 Q6HRT [facility] Albuterol/Ipratropium 3 ml 07/11/17 14:05 Duoneb Neb [facility] 09/09/17 14:14 Q2H PRN wheezing Aspirin 81 mg 07/11/17 09:00 07/11/17 08:05 Aspirin Chewable PO 09/09/17 08:59 81 mg DAILY [facility]ES Administration Benazepril HCl 10 mg 07/11/17 09:00 07/11/17 08:05 Lotensin PO 09/09/17 08:59 10 mg DAILY [facility] Administration Citalopram Hydrobromide 20 mg 07/11/17 09:00 07/11/17 08:06 Celexa PO 09/09/17 08:59 20 mg DAILY [facility] Administration Protocol Clonazepam 1 mg 07/10/17 21:00 07/10/17 22:30 Klonopin PO 09/08/17 20:59 1 mg HS [facility] Administration Diltiazem HCl 60 mg 07/11/17 18:00 Cardizem PO 09/09/17 17:59 Q6HR [facility]OR[facility] Piperacillin Sod/Tazobactam 50 mls @ 100 mls/hr 07/10/17 13:00 07/11/17 13:33 Sod 3.375 gm/ Sodium Chloride IV 09/08/17 12:59 100 mls/hr Q8HR [facility] Administration Sodium Chloride 1,000 mls @ 90 mls/hr 07/10/17 13:15 07/11/17 02:56 Nacl 0.9% IV 09/08/17 13:14 90 mls/hr .Q11H7M [facility] Administration Insulin Aspart 0 units 07/10/17 16:30 07/11/17 12:23 Novolog Insulin Sliding Scale SUBQ 09/08/17 16:29 7 units ACHS [facility] Administration Protocol Miscellaneous 1 07/10/17 12:36 Vancomycin Iv Per Pharmacy 09/08/17 12:35 PRN PRN PROTOCOL Miscellaneous 1 07/10/17 15:15 [employer] Prophylaxis Screen/ Admission 09/08/17 15:14 PRN PRN PROTOCOL Pantoprazole Sodium 40 mg 07/11/17 09:00 07/11/17 08:05 Protonix PO 09/09/17 08:59 40 mg DAILY [facility] Administration Quetiapine Fumarate 50 mg 07/10/17 21:00 07/10/17 22:30 Seroquel PO 09/08/17 20:59 50 mg HS [facility] Administration Protocol Tamsulosin HCl 0.8 mg 07/10/17 21:00 07/10/17 21:40 Flomax PO 09/08/17 20:59 0.8 mg HS [facility] Administration Warfarin Sodium 1 ea 07/11/17 12:40 Coumadin Per Pharmacy 09/09/17 12:39 PRN PRN RX MONITORING Protocol Review of Systems: A 12 point ROS was reviewed with the pertinent positive and negatives noted in the HPI. Unable to obtain. Social History Lives at nursing facility and there is no history of smoking alcohol or drug use. Family Medical History Unknown. Physical Exam: General: Comfortable, well-nourished well-developed. HEENT: Head is mostly, atraumatic. Oral cavity: Moist, pink tongue. Eyes: No pallor. No icterus. Pupil PERRLA. EOMI. Neck: Supple, no JVD. No use of accessory neck muscles. Cardio: S1 and S2 within normal limits regular rhythm. Respiratory: Vesicular breath sound no crackles no wheezing. Abdominal: Soft, nontender, nondistended, bowel sounds present. Genital/Urinary: Deferred. Extremities: Left leg is erythematous extending just above the knee to the lower leg. The left foot is some darkening of the skin on the forefoot area. Some necrotic skin. Temperature is well maintained. Left heel has a small dime -sized wound, with well defined border and Black base. There is no discharge, wound is very dry. Neurological: Unresponsive. Assessment: 1. Leukocytosis suspect sepsis. 2. Left leg cellulitis, may have peripheral artery disease. There is a chance of the skin to turn necrotic. 3. Diabetes mellitus type 2. 4. Peripheral artery disease. 5. Hypertension. 6. Severe dementia. Plan: Will continue vancomycin IV and Zosyn. Add clindamycin. Will ask for the arterial ultrasound as soon as possible. Discussed with him AND staff and I was informed that US cannot be done today. If it cannot be done then may do in am. If the issue is vascular, then antibiotics are less likely to help him. Thank you, Dr. Nava for involving me in taking care of this patient. Raya, Solo Agudelo M.D. [id number]
[2017-07-11] MEDS: Diltiazem 30 mg Tab PO SCH (17:10)
[2017-07-11] MEDS: Albuterol/Ipratropium Neb 3 ML AERS HHN SCH (19:33)
--- NOTE | 2017-07-11 21:38 | Consultation ---
DATE OF CONSULTATION: 07/11/2017 REASON FOR CONSULTATION: Worsening kidney function, electrolyte imbalance and fluid management. HISTORY OF PRESENT ILLNESS: This is an 86-year-old male with past medical history of type 2 diabetes mellitus who was brought in because of left leg edema with extensive erythema. Two days prior to admission, staff noted left lower extremity edema. This was associated with hyperpigmentation of his left foot with tire eduard across his foot, extensive erythema up to the left knee with palpable purpura, tenderness and warmth on palpation. A few hours prior to admission, his edema had worsened along with tenderness of his left lower extremity. He was then brought to the Emergency Room. He had no fever, no chills, trauma to the area, nor insect bite. However, daughter is insisting that a tire eduard of a wheelchair is evident on his right foot. Temperature was 98.2 with a white count of 16. Labs drawn at [facility] showed a BUN/creatinine of 38/1.58 and sodium of 139. However, BUN/creatinine at the Emergency Room were 49/1.6 and sodium of 131. He was started on normal saline and his sodium improved to 137, while BUN/creatinine came down to 37/1.2. No history of nausea or vomiting nor diarrhea, but poor oral intake. PAST MEDICAL HISTORY: 1. Dementia with behavioral disturbance. 2. Parkinson disease. 3. Type 2 diabetes mellitus. 4. Essential hypertension. 5. BPH. 6. GERD. 7. Dysphagia. CURRENT MEDICATIONS: He is currently on acetaminophen, aspirin, benazepril, diltiazem, pantoprazole, quetiapine, tamsulosin, vancomycin, warfarin, Zosyn. ALLERGIES: No known drug allergies. SOCIAL AND FAMILY HISTORY: I was not able to obtain from the patient because he remains stuporous. REVIEW OF SYSTEMS: Again, I was not able to decipher directly from the patient because of his depressed mental status. PHYSICAL EXAMINATION: GENERAL: As mentioned, the patient is stuporous, barely arousable; however, not in any form of distress. VITAL SIGNS: His blood pressure is 130/66, pulse is tachycardic and irregular at 109, temperature 97.8 degrees. SKIN: Poor turgor, warm. No jaundice appreciated. HEENT: Head normocephalic, atraumatic. Eyes: Unable to assess his extraocular muscles. Pupils are equal, round, reactive to light and accommodates. Anicteric sclerae. Pale conjunctivae. Nose, midline nasal septum. Mouth: Dry mucosa, adequate dentition. NECK: Supple, no adenopathy, no thyromegaly, no bruits. Trachea palpated in the midline. CHEST AND CVS: S1, S2. No rub, murmur, nor gallop appreciated. Point of maximal impulse fifth intercostal space, left midclavicular line. No abdominal or femoral bruits appreciated. LUNGS: Equal expansion. No use of accessory muscles. No supraclavicular retractions. Decreased breath sounds, scattered rhonchi, but no rales nor wheezes appreciated. ABDOMEN: Mildly globular, soft. Positive for bowel sounds. No bruits, either diastolic or systolic. RECTAL: Lax sphincter tone. GENITOURINARY: Normal appearing male genitalia. MUSCULOSKELETAL: No effusions present in his joints, but unable to assess his range of motion. EXTREMITIES: Right lower extremity, minimal edema, no erythema, no tenderness, warm to touch. However, left lower extremity, I would say +3 pitting edema, tender and warm on palpation. He has an extensive erythema from his ankle all the way up to his knee. He also has palpable purpura involving mostly his left thigh and also left lower extremity. He also has a hyperpigmentation involving his left foot. He has a tire eduard across his left foot. NEUROLOGIC: As mentioned, the patient is stuporous, so I was not able to pursue further my neuro exam. LABORATORY DATA: Sodium is 137, potassium 3.8, chloride 106, bicarb 23, BUN 37, creatinine 1.2, glucose is 208, calcium is 9.2. White count 16, hemoglobin 10.9, hematocrit 33 polys ___, platelets 177. IMPRESSION: 1. Acute kidney injury. The patient initially developed prerenal azotemia. This was supported by history of altered mental status, which led to a markedly diminished oral intake. He was also on a diuretic. Physical exam revealed dry oral mucosa with poor skin turgor. These are all suggestive of some underlying dehydration. His prerenal azotemia eventually progressed to acute tubular injury. His underlying dehydration was also supported by improvement in sodium level as well as kidney function after aggressive hydration with normal saline. He may also have developed acute interstitial nephritis secondary to overwhelming sepsis secondary to cellulitis of his left lower extremity. 2. Cellulitis, left lower extremity with edema, possible deep venous thrombosis. 3. Altered level of consciousness, possible medication induced, psychotic medications, but also the patient is currently in new onset atrial fibrillation with rapid ventricular response. Consider thromboembolic event, which could have led to cerebrovascular accident. 4. New onset atrial fibrillation with rapid ventricular rate, possibly from hyperthyroidism. 5. Hyperthyroidism. 6. Dementia with behavioral disturbance. 7. Parkinson disease. 8. Type 2 diabetes mellitus. 9. Essential hypertension. 10. Benign prostatic hypertrophy. 11. Gastroesophageal reflux disease. 12. Dysphagia. PLAN: 1. Continue IV fluids, normal saline at 90 mL per hour. 2. Duplex scan of left lower extremity for possible DVT. 3. Chest x-ray. 4. Follow up CBC. 5. CT scan of the head without IV contrast. 6. Electrolytes, CBC, urinalysis, hemoglobin A1c. 7. Agree with warfarin for his AFib. Thank you, Dr. Nava, for this consult. We will follow the patient closely with you. JOB# [id number]
[2017-07-11] MEDS ORDERED: Clindamycin 150 mg/mL 4mL Vial ONE (22:28)
[2017-07-11] MEDS: Clindamycin 600mg/50mL 600 MG/50 ML BAG IV SCH (23:51)
[2017-07-12] MEDS: Diltiazem 30 mg Tab PO SCH ×4 (00:34→17:53)
[2017-07-12] MEDS: Albuterol/Ipratropium Neb 3 ML AERS HHN SCH ×4 (01:47→19:43)
--- NOTE | 2017-07-12 02:25 | Consultation ---
DATE OF CONSULTATION: 07/11/[address] Nava. HISTORY OF PRESENT ILLNESS: This is an 86-year-old male patient who had been complaining of pain and swelling of the left lower extremity. The patient was found to have cellulitis, hence the patient is admitted. During hospital stay, the patient was found to have atrial fibrillation, possible new. Hence, cardiac consult is requested. PAST MEDICAL HISTORY: Diabetes mellitus type 2, diabetic peripheral vascular disease, hypertension, dementia, congestive heart failure, diastolic dysfunction, stable angina, BPH, and GERD. FAMILY HISTORY: Unremarkable. SOCIAL HISTORY: No history of smoking or alcohol abuse. ALLERGIES: No known allergies. PHYSICAL EXAMINATION: VITAL SIGNS: Blood pressure 130/80, pulse 88 irregular, and respirations 28. HEAD: Normocephalic. No lumps or bumps. EYES: Pupils equal, reactive to light. Fundi show AV nicking, sclerae white, conjunctivae pink. NECK: Carotid 2+. Normal upstroke. JVD 10 cm above sternal angle. Thyroid not palpable. Lymph nodes not palpable. CHEST: Shows increased AP diameter. No kyphosis, scoliosis. LUNGS: Bilateral occasional wheeze. HEART: Irregular rhythm S1, irregular S2. No S3, soft S4. ABDOMEN: Soft. Liver, spleen not palpable. No organomegaly. Bowel sounds active. NEUROLOGIC: Unremarkable. EXTREMITIES: The patient has swelling and redness of the left lower extremity up to the knee. Peripheral pulses feeble. CLINICAL IMPRESSION: Atrial fibrillation with rapid ventricular response, left leg cellulitis, diabetes mellitus type 2, diabetic peripheral vascular disease, hypertension, dementia, congestive heart failure, diastolic dysfunction, stable angina, benign prostatic hypertrophy, and gastroesophageal reflux disease. PLAN: Admit the patient. We will get echocardiogram. Anticoagulate the patient. Get a BNP level, IV antibiotics, and Infectious Disease consult. JOB# [id number]
--- NOTE | 2017-07-12 02:39 | Consultation ---
DATE OF CONSULTATION: 07/11/2017 IDENTIFYING INFORMATION: The patient is an 86-year-old male. HISTORY OF PRESENT ILLNESS: I was asked to see this patient who has a history of schizophrenia. The patient is Turkish speaking. I talked to him through a timber selector. He is confused, unable to tell me the date, his age, where he is, or why he is here. He came from a nursing facility in [place]. The patient has edema to both of his legs, was admitted here. He also has dementia. PAST PSYCHIATRIC HISTORY: Schizophrenia. PAST MEDICAL HISTORY: Chronic renal failure. Diabetes is not known. SOCIAL HISTORY: He denies any history of alcohol or drug abuse. MEDICATIONS: The patient has been on Celexa 20 mg a day, clonazepam 1 mg at bedtime, and Seroquel 50 mg at bedtime. He is on IV antibiotics. FAMILY HISTORY: Unobtainable, no information. He lives in a nursing facility. MENTAL STATUS EXAMINATION: The patient is appropriately dressed, not very well groomed, dressed in hospital gown. Both of his legs are red and edematous. He has cellulitis. He was able to talk, would talk through a timber selector. Unable to tell his age, the date, where he is, or why he is here. His long and short term memory is poor. He was unable to answer any questions on suicide, homicide, or hallucinations. Unable to test his memory; obviously, it is decreased in all aspects. His insight and judgment is impaired. IMPRESSION: AXIS I: Schizophrenia, undifferentiated, and dementia. MEDICAL DIAGNOSES: Chronic renal failure as well as cellulitis. ASSETS: He is social argumentative. RECOMMENDATIONS: Continue the Celexa and the Seroquel. If the patient is acting out, we can transfer to [facility]. Thank you very much for allowing me to participate in the care of this most interesting gentleman. JOB# [id number]
[2017-07-12 04:49] LABS: EOSINOPHIL SMEAR SOURCE URINE; EOSINOPHILS SMEAR COUNT NONE SEEN (NONE SEEN)
[2017-07-12] MEDS: Sodium Chloride 0.9% 1,000 ML IV SCH ×2 (04:59→22:51)
[2017-07-12 05:37] LABS: % BASOPHILS 0.1 % (0.0-2.0); EOSINOPHILE ABSOLUTE 0.1 Th/cmm (0.1-0.4); MONOCYTE ABSOLUTE 0.8 Th/cmm (0.3-1.0); RED BLOOD COUNT 3.17 Mil/cmm (3.80-5.80)
[2017-07-12 05:42] LABS: % EOSINOPHILS 0.4 % (0.0-5.0); % LYMPHOCYTES 6.4 % (20.0-50.0); % MONOCYTES 5.7 % (2.0-10.0); % NEUTROPHILS 87.4 % (40.0-80.0); HEMATOCRIT 30.2 % (41.0-60); HEMOGLOBIN 10.1 gm/dL (12-16); LYMPHOCYTE ABSOLUTE 0.8 Th/cmm (1.5-3.0); MEAN CORPUSCULAR HEMOGLOBIN 31.9 pg (27.0-31.0); MEAN CORPUSCULAR HGB CONC 33.6 pg (28.0-36.0); MEAN PLATELET VOLUME 9.4 fl; NEUTROPHILE ABSOLUTE 11.5 Th/cmm (1.8-8.0); PLATELET COUNT 186 Th/cmm (150-400); RED CELL DISTRIBUTION WIDTH 14.8 % (11.5-20.0)
[2017-07-12 05:47] LABS: INR 0.96 (0.5-1.4); WHITE BLOOD COUNT 13.2 Th/cmm (4.8-10.8)
[2017-07-12] MEDS: Clindamycin 600mg/50mL 600 MG/50 ML BAG IV SCH ×3 (05:48→22:46)
[2017-07-12 05:53] LABS: ALB/GLOB RATIO 0.8 (1.0-1.8); ALBUMIN 2.7 gm/dL (4.2-5.5); ALKALINE PHOSPHATASE 178 U/L (34-104); ANION GAP 11.6 (7.0-16.0); BILIRUBIN,TOTAL 0.8 mg/dL (0.3-1.0); BUN - UREA NITROGEN 37 mg/dL (7-25); CALCIUM SERUM 8.7 mg/dL (8.6-10.3); CARBON DIOXIDE 22.3 mEq/L (21.0-31.0); CHLORIDE 107 mEq/L (98-107); CREATININE - SERUM 1.2 mg/dL (0.7-1.3); GLUCOSE 261 mg/dL (70-105); MAGNESIUM 2.4 mg/dL (1.9-2.7); PHOSPHOROUS 3.5 mg/dL (2.5-5.0); POTASSIUM SERUM 3.9 mEq/L (3.5-5.1); SGOT 10 U/L (13-39); SGPT/ALT 13 U/L (7-52); SODIUM SERUM 137 mEq/L (136-145); TOTAL PROTEIN,SERUM 6.3 gm/dL (6.0-8.3)
[2017-07-12] MEDS: INSULIN ASPART SLIDING SCALE 100 UNITS/ML UNIT SUBQ SCH ×4 (08:00→22:14)
--- NOTE | 2017-07-12 08:16 | Diagnostic Imaging Report ---
Bilateral lower extremity Doppler venous ultrasound exam HISTORY: Pain/swelling Sonographic sector images were obtained through the deep venous systems of both legs. Associated Doppler data was obtained. The exam demonstrates patency of the common femoral, superficial femoral, popliteal, and posterior tibial veins bilaterally. Specifically, no thrombus is seen. There are normal compressibility and augmentation responses. IMPRESSION: Negative exam for deep vein thrombophlebitis.
--- NOTE | 2017-07-12 08:20 | Diagnostic Imaging Report ---
Bilateral lower extremity Doppler arterial ultrasound exam HISTORY: Peripheral vascular disease, pain Sonographic sector images were obtained through the arterial systems of both legs. Associated Doppler data was obtained. The exam is very limited due to lack of patient cooperation. Triphasic waveforms noted in the common femoral artery region. Biphasic waveforms are seen within the superficial femoral, popliteal, and anterior tibial arteries. Monophasic waveforms noted within the right posterior tibial and dorsalis pedis arteries. Increased velocity noted within the anterior and posterior tibial arteries. Abnormal decrease in velocity noted within the right popliteal and dorsalis pedis arteries. The patient would not allow for pressure measurements and determination of an ankle brachial index. Sonographic images demonstrate mild diffuse atherosclerotic changes. No amarilys occlusion is seen. The left leg demonstrates biphasic waveforms in the common femoral artery. Monophasic waveforms are noted through the remainder of the arterial system. Again, detail is limited. Sonographic images are suboptimal with suggestion of mild to moderate diffuse catheter is chronic change. IMPRESSION: 1. Very Limited/incomplete exam due to lack of patient cooperation. 2. No amarilys occlusion 3. Doppler data suggesting mild to moderate diffuse atherosclerotic changes. If needed, a CT angiogram study would provide additional detail.
--- NOTE | 2017-07-12 08:28 | Diagnostic Imaging Report ---
Portable chest x-ray HISTORY: Shortness of breath, pneumonia There is a very poor inspiration. The heart appears enlarged. Accentuation of interstitial markings in left lung base. This appears to be related to the poor inspiration. Faint infiltrate cannot be definitely excluded. IMPRESSION: 1. Poor inspiration with accentuation of the interstitial markings particularly in the left lung base. Faint infiltrate cannot be definitely excluded. Clinical correlation needed.
[2017-07-12] MEDS: Aspirin 81mg Chewable Tab PO SCH (08:45)
[2017-07-12] MEDS: Pantoprazole 40 mg EC Tab PO SCH (08:45)
--- NOTE | 2017-07-12 08:46 | General Progress Note ---
Subjective - Review of Systems Service Date: 07/12/17 Subjective: Patient is confused Objective - Results Result Diagrams: 07/12/17 05:05 07/12/17 05:05 Recent Labs: Laboratory Last Values WBC 13.2 Th/cmm (4.8-10.8) H 07/12/17 05:05 RBC 3.17 Mil/cmm (3.80-5.80) L 07/12/17 05:05 Hgb 10.1 gm/dL (12-16) L 07/12/17 05:05 Hct 30.2 % (41.0-60) L 07/12/17 05:05 MCV 95.0 fl (80-99) 07/12/17 05:05 MCH 31.9 pg (27.0-31.0) H 07/12/17 05:05 MCHC Differential 33.6 pg (28.0-36.0) 07/12/17 05:05 RDW 14.8 % (11.5-20.0) 07/12/17 05:05 Plt Count 186 Th/cmm (150-400) 07/12/17 05:05 MPV 9.4 fl 07/12/17 05:05 Neutrophils % 87.4 % (40.0-80.0) H 07/12/17 05:05 Band Neutrophils % 4 % (0-10) 07/11/17 06:19 Lymphocytes % 6.4 % (20.0-50.0) L 07/12/17 05:05 Monocytes % 5.7 % (2.0-10.0) 07/12/17 05:05 Eosinophils % 0.4 % (0.0-5.0) 07/12/17 05:05 Basophils % 0.1 % (0.0-2.0) 07/12/17 05:05 Neutrophils (Manual) 88 % (40-80) H 07/11/17 06:19 Lymphocytes 7 % (20-50) L 07/11/17 06:19 Monocytes 1 % (2-10) L 07/11/17 06:19 Basophils 1 % (0-3) 07/10/17 10:49 Platelet Estimate ADEQUATE (NORMAL) 07/11/17 06:19 Eos Smear Source URINE 07/12/17 00:00 Eos Smear Total Cells NONE SEEN (NONE SEEN) 07/12/17 00:00 PT 10.0 SECONDS (9.5-11.5) 07/12/17 05:05 INR 0.96 (0.5-1.4) 07/12/17 05:05 PTT (Actin FS) 30.8 SECONDS (26.0-38.0) 07/11/17 06:19 Sodium 137 mEq/L (136-145) 07/12/17 05:05 Potassium 3.9 mEq/L (3.5-5.1) 07/12/17 05:05 Chloride 107 mEq/L (98-107) 07/12/17 05:05 Carbon Dioxide 22.3 mEq/L (21.0-31.0) 07/12/17 05:05 Anion Gap 11.6 (7.0-16.0) 07/12/17 05:05 BUN 37 mg/dL (7-25) H 07/12/17 05:05 Creatinine 1.2 mg/dL (0.7-1.3) 07/12/17 05:05 Est GFR ( Amer) TNP 07/12/17 05:05 Est GFR (Non-Af Amer) TNP 07/12/17 05:05 BUN/Creatinine Ratio 30.8 07/12/17 05:05 Glucose 261 mg/dL (70-105) H 07/12/17 05:05 POC Glucose 247 MG/DL (70 - 105) H 07/12/17 06:00 Hemoglobin A1c % 7.6 % (4.0-6.0) H 07/10/17 10:49 Whole Bld Lactic Acid 1.12 mmol/L (0.60-1.99) 07/11/17 14:30 Calcium 8.7 mg/dL (8.6-10.3) 07/12/17 05:05 Phosphorus 3.5 mg/dL (2.5-5.0) 07/12/17 05:05 Magnesium 2.4 mg/dL (1.9-2.7) 07/12/17 05:05 Total Bilirubin 0.8 mg/dL (0.3-1.0) 07/12/17 05:05 AST 10 U/L (13-39) L 07/12/17 05:05 ALT 13 U/L (7-52) 07/12/17 05:05 Alkaline Phosphatase 178 U/L (34-104) H 07/12/17 05:05 Total Protein 6.3 gm/dL (6.0-8.3) 07/12/17 05:05 Albumin 2.7 gm/dL (4.2-5.5) L 07/12/17 05:05 Globulin 3.6 gm/dL 07/12/17 05:05 Albumin/Globulin Ratio 0.8 (1.0-1.8) L 07/12/17 05:05 TSH 0.20 uIU/ml (0.34-5.60) L 07/11/17 06:19 Urine Source HERR PORT 07/11/17 06:00 Urine Color YELLOW 07/11/17 06:00 Urine Clarity HAZY (CLEAR) 07/11/17 06:00 Urine pH 6.0 (4.6 - 8.0) 07/11/17 06:00 Ur Specific [place] 1.015 (1.005-1.030) 07/11/17 06:00 Urine Protein 100 mg/dL (NEGATIVE) H 07/11/17 06:00 Urine Glucose (UA) NEGATIVE mg/dL (NEGATIVE) 07/11/17 06:00 Urine Ketones TRACE mg/dL (NEGATIVE) 07/11/17 06:00 Urine Blood TRACE (NEGATIVE) 07/11/17 06:00 Urine Nitrate NEGATIVE (NEGATIVE) 07/11/17 06:00 Urine Bilirubin NEGATIVE (NEGATIVE) 07/11/17 06:00 Urine Urobilinogen 2.0 E.U./dL (0.2 - 1.0) 07/11/17 06:00 Ur Leukocyte Esterase NEGATIVE (NEGATIVE) 07/11/17 06:00 Urine RBC 0-2 /hpf (0-5) H 07/11/17 06:00 Urine WBC 0-2 /hpf (0-5) 07/11/17 06:00 Ur Epithelial Cells OCCASIONAL /lpf (FEW) 07/11/17 06:00 Urine Bacteria FEW /hpf (NONE SEEN) 07/11/17 06:00 Ur Random Sodium 22 mmol/L 07/12/17 00:00 Urine Creatinine 156.0 mg/dl (39.0-259.0) 07/12/17 00:00 Random Vancomycin 10.0 ug/mL (5.0-40.0) 07/12/17 05:05 - Physical Exam Vitals and I&O: Vital Signs Temp 97.0 F 07/12/17 07:34 Pulse 110 07/12/17 07:50 Resp 20 07/12/17 07:50 BP 122/60 07/12/17 07:34 Pulse Ox 97 07/12/17 07:50 Intake & Output 07/11/17 07/12/17 07/12/17 18:59 06:59 18:59 Intake Total 1050 2097.5 25 Balance 1050 2097.5 25 Weight (lbs) 87.543 kg 87.543 kg Intake: Intake, IV Amount 1050 1147.5 Clindamycin 600mg/50mL 50 600 mg In 50 ml @ 100 mls /hr IV Q8HR [facility] Rx#: [id number] Piperacillin Sodium/ 50 100 Tazobact 3.375 gm In Sodium Chloride 0.9% 50 ml @ 100 mls/hr IV Q8HR [facility] Rx#:[id number] Sodium Chloride 0.9% 1, 1000 997.5 000 ml @ 90 mls/hr IV . Q11H7M [facility] Rx#:[id number] Oral 950 25 Other: # Voids 2 3 # Bowel Movements 1 0 Active Medications: Current Medications Acetaminophen (Tylenol) 650 mg PO Q6HR PRN PRN Reason: TEMP >100 Stop: 09/08/17 19:00 Albuterol/Ipratropium (Duoneb Neb) 3 ml HHN Q6HRT [facility] Stop: 09/09/17 18:59 Last Admin: 07/12/17 07:47 Dose: 3 ml Albuterol/Ipratropium (Duoneb Neb) 3 ml HHN Q2H PRN PRN Reason: wheezing Stop: 09/09/17 14:14 Aspirin (Aspirin Chewable) 81 mg PO DAILY [facility] Stop: 09/09/17 08:59 Last Admin: 07/11/17 08:05 Dose: 81 mg Benazepril HCl (Lotensin) 10 mg PO DAILY [facility] Stop: 09/09/17 08:59 Last Admin: 07/11/17 08:05 Dose: 10 mg Citalopram Hydrobromide (Celexa) 20 mg PO DAILY [facility] PRN Reason: Protocol Stop: 09/09/17 08:59 Last Admin: 07/11/17 08:06 Dose: 20 mg Clonazepam (Klonopin) 1 mg PO HS [facility] Stop: 09/08/17 20:59 Last Admin: 07/11/17 22:28 Dose: 1 mg Diltiazem HCl (Cardizem) 60 mg PO Q6HR [facility] Stop: 09/09/17 17:59 Last Admin: 07/12/17 05:51 Dose: 60 mg Piperacillin Sod/Tazobactam (Sod 3.375 gm/ Sodium Chloride) 50 mls @ 100 mls/ hr IV Q8HR [facility] Stop: 09/08/17 12:59 Last Admin: 07/12/17 04:57 Dose: 100 mls/hr Sodium Chloride (Nacl 0.9%) 1,000 mls @ 90 mls/hr IV .Q11H7M [facility] Stop: 09/08/17 13:14 Last Admin: 07/12/17 04:59 Dose: 90 mls/hr Clindamycin Phosphate (Cleocin Pb) 600 mg in 50 mls @ 100 mls/hr IV Q8HR [facility] Stop: 09/09/17 20:59 Last Admin: 07/12/17 05:48 Dose: 100 mls/hr Vancomycin HCl 1 gm/ Sodium (Chloride) 250 mls @ 165 mls/hr IV Q12H [facility] Stop: 09/10/17 08:59 Insulin Aspart (Novolog Insulin Sliding Scale) 0 units SUBQ ACHS [facility] PRN Reason: Protocol Stop: 09/08/17 16:29 Last Admin: 07/11/17 22:45 Dose: 7 units Miscellaneous (Vte Chemical Prophylaxis Screen/ Admission) 1 ea PRN PRN PRN Reason: PROTOCOL Stop: 09/08/17 15:14 Miscellaneous (Vancomycin Iv Per Pharmacy) 1 ea MC PRN [facility] Stop: 09/09/17 17:29 Pantoprazole Sodium (Protonix) 40 mg PO DAILY [facility] Stop: 09/09/17 08:59 Last Admin: 07/11/17 08:05 Dose: 40 mg Quetiapine Fumarate (Seroquel) 50 mg PO HS [facility] PRN Reason: Protocol Stop: 09/08/17 20:59 Last Admin: 07/11/17 22:28 Dose: 50 mg Tamsulosin HCl (Flomax) 0.8 mg PO HS [facility] Stop: 09/08/17 20:59 Last Admin: 07/11/17 22:28 Dose: 0.8 mg Warfarin Sodium (Coumadin Per Pharmacy) 1 ea PRN PRN; Protocol PRN Reason: RX MONITORING Stop: 09/09/17 12:39 Warfarin Sodium (Coumadin) 5 mg PO ONCE ONE Stop: 07/12/17 14:01 General: Alert, Other (Confused, not oriented) HEENT: Atraumatic Neck: Supple Cardiovascular: Other (Irregular ) Lungs: Other (Rude respiration) Abdomen: Bowel sounds Extremities: Other (Redness, and edema below knee of left leg continue the same) Neurological: Other (Non ambulatory) Skin: Other (Redness of left leg below knee.) Assessment/Plan - Problem List Patient Problems: All Active Problems LEFT LOWER LEG REDNESS, SWELLING PAIN (Acute) - Assessment Assessment: Current Active Problems Problem Status Onset LEFT LOWER LEG REDNESS, SWELLING PAIN Acute Patient is awake alert, calm, confused. Redness and edema of leg leg continue the same. WBC improving. DX: sepsis, CKF, HTN, DM, Dementia, BPH, A-fib. - Plan Plan: Patient in IV NS, Vanco, Clyndomicin and sozyn, Insulin sliding scale and SNF meds. Follow by ID, Cardio, Psychiatry and Nephro. Leg US shows no DVT, Mild artherosclerosis. Will continue to monitor
--- NOTE | 2017-07-12 11:01 | Diagnostic Imaging Report ---
CT scan of the brain without intravenous contrast HISTORY: Headache, loss of consciousness Total DLP equals 694 CTDI equals 38.9 Axial sections were obtained from the base of the skull to the vertex. The exam demonstrates an approximate 4.4 x 5.6 x 4.8 cm lobulated calcified mass in the region of the corpus callosum. Extension to the right side. Peripheral hypodensity most pronounced in the left frontoparietal region adjacent to the mass may be related to a degree of edema. Additional hypodensity seen throughout the supratentorial white matter regions without mass effect. The findings may reflect underlying chronic small vessel ischemic disease. No acute intracerebral hemorrhage. 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 There is a normal overall ventricular system size for age. There is prominence of the ventricular system size along with enlargement of cerebral sulci and subarachnoid cisterns reflecting atrophy. A 5 mm calcification is noted in the cortex of the right temporal occipital region. Findings may be associated with old inflammatory disease. IMPRESSION: 1. 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 2. Cerebral atrophy 3. Supratentorial white matter changes that may reflect chronic small vessel ischemic disease.
[2017-07-12 13:23] LABS: INR 0.96 (0.5-1.4)
--- NOTE | 2017-07-12 14:19 | Infectious Disease Prog Note ---
Infectious Disease Subjective - Review of Systems Service Date: 07/12/17 Subjective: No new change, no fever. Infectious Disease Objective - Results Result Diagrams: 07/14/17 08:00 07/14/17 08:00 Recent Labs: Laboratory Last Values WBC 13.2 Th/cmm (4.8-10.8) H 07/12/17 05:05 RBC 3.17 Mil/cmm (3.80-5.80) L 07/12/17 05:05 Hgb 10.1 gm/dL (12-16) L 07/12/17 05:05 Hct 30.2 % (41.0-60) L 07/12/17 05:05 MCV 95.0 fl (80-99) 07/12/17 05:05 MCH 31.9 pg (27.0-31.0) H 07/12/17 05:05 MCHC Differential 33.6 pg (28.0-36.0) 07/12/17 05:05 RDW 14.8 % (11.5-20.0) 07/12/17 05:05 Plt Count 186 Th/cmm (150-400) 07/12/17 05:05 MPV 9.4 fl 07/12/17 05:05 Neutrophils % 87.4 % (40.0-80.0) H 07/12/17 05:05 Band Neutrophils % 4 % (0-10) 07/11/17 06:19 Lymphocytes % 6.4 % (20.0-50.0) L 07/12/17 05:05 Monocytes % 5.7 % (2.0-10.0) 07/12/17 05:05 Eosinophils % 0.4 % (0.0-5.0) 07/12/17 05:05 Basophils % 0.1 % (0.0-2.0) 07/12/17 05:05 Neutrophils (Manual) 88 % (40-80) H 07/11/17 06:19 Lymphocytes 7 % (20-50) L 07/11/17 06:19 Monocytes 1 % (2-10) L 07/11/17 06:19 Basophils 1 % (0-3) 07/10/17 10:49 Platelet Estimate ADEQUATE (NORMAL) 07/11/17 06:19 Eos Smear Source URINE 07/12/17 00:00 Eos Smear Total Cells NONE SEEN (NONE SEEN) 07/12/17 00:00 PT 10.0 SECONDS (9.5-11.5) 07/12/17 13:05 INR 0.96 (0.5-1.4) 07/12/17 13:05 PTT (Actin FS) 30.8 SECONDS (26.0-38.0) 07/11/17 06:19 Sodium 137 mEq/L (136-145) 07/12/17 05:05 Potassium 3.9 mEq/L (3.5-5.1) 07/12/17 05:05 Chloride 107 mEq/L (98-107) 07/12/17 05:05 Carbon Dioxide 22.3 mEq/L (21.0-31.0) 07/12/17 05:05 Anion Gap 11.6 (7.0-16.0) 07/12/17 05:05 BUN 37 mg/dL (7-25) H 07/12/17 05:05 Creatinine 1.2 mg/dL (0.7-1.3) 07/12/17 05:05 Est GFR ( Amer) TNP 07/12/17 05:05 Est GFR (Non-Af Amer) TNP 07/12/17 05:05 BUN/Creatinine Ratio 30.8 07/12/17 05:05 Glucose 261 mg/dL (70-105) H 07/12/17 05:05 POC Glucose 312 MG/DL (70 - 105) H 07/12/17 13:43 Hemoglobin A1c % 7.6 % (4.0-6.0) H 07/10/17 10:49 Whole Bld Lactic Acid 1.12 mmol/L (0.60-1.99) 07/11/17 14:30 Calcium 8.7 mg/dL (8.6-10.3) 07/12/17 05:05 Phosphorus 3.5 mg/dL (2.5-5.0) 07/12/17 05:05 Magnesium 2.4 mg/dL (1.9-2.7) 07/12/17 05:05 Total Bilirubin 0.8 mg/dL (0.3-1.0) 07/12/17 05:05 AST 10 U/L (13-39) L 07/12/17 05:05 ALT 13 U/L (7-52) 07/12/17 05:05 Alkaline Phosphatase 178 U/L (34-104) H 07/12/17 05:05 Total Protein 6.3 gm/dL (6.0-8.3) 07/12/17 05:05 Albumin 2.7 gm/dL (4.2-5.5) L 07/12/17 05:05 Globulin 3.6 gm/dL 07/12/17 05:05 Albumin/Globulin Ratio 0.8 (1.0-1.8) L 07/12/17 05:05 TSH 0.20 uIU/ml (0.34-5.60) L 07/11/17 06:19 Urine Source HERR PORT 07/11/17 06:00 Urine Color YELLOW 07/11/17 06:00 Urine Clarity HAZY (CLEAR) 07/11/17 06:00 Urine pH 6.0 (4.6 - 8.0) 07/11/17 06:00 Ur Specific [place] 1.015 (1.005-1.030) 07/11/17 06:00 Urine Protein 100 mg/dL (NEGATIVE) H 07/11/17 06:00 Urine Glucose (UA) NEGATIVE mg/dL (NEGATIVE) 07/11/17 06:00 Urine Ketones TRACE mg/dL (NEGATIVE) 07/11/17 06:00 Urine Blood TRACE (NEGATIVE) 07/11/17 06:00 Urine Nitrate NEGATIVE (NEGATIVE) 07/11/17 06:00 Urine Bilirubin NEGATIVE (NEGATIVE) 07/11/17 06:00 Urine Urobilinogen 2.0 E.U./dL (0.2 - 1.0) 07/11/17 06:00 Ur Leukocyte Esterase NEGATIVE (NEGATIVE) 07/11/17 06:00 Urine RBC 0-2 /hpf (0-5) H 07/11/17 06:00 Urine WBC 0-2 /hpf (0-5) 07/11/17 06:00 Ur Epithelial Cells OCCASIONAL /lpf (FEW) 07/11/17 06:00 Urine Bacteria FEW /hpf (NONE SEEN) 07/11/17 06:00 Ur Random Sodium 22 mmol/L 07/12/17 00:00 Urine Creatinine 156.0 mg/dl (39.0-259.0) 07/12/17 00:00 Random Vancomycin 10.0 ug/mL (5.0-40.0) 07/12/17 05:05 - Physical Exam Vitals and I&O: Vital Signs Temp 97.4 F 07/12/17 11:30 Pulse 81 07/12/17 13:58 Resp 20 07/12/17 13:44 BP 113/57 07/12/17 11:30 Pulse Ox 97 07/12/17 13:44 Intake & Output 07/11/17 07/12/17 07/12/17 18:59 06:59 18:59 Intake Total 1050 2097.5 425 Balance 1050 2097.5 425 Weight (lbs) 87.543 kg 87.543 kg Intake: Intake, IV Amount 1050 1147.5 400 Clindamycin 600mg/50mL 50 50 600 mg In 50 ml @ 100 mls /hr IV Q8HR [facility] Rx#: [id number] Piperacillin Sodium/ 50 100 100 Tazobact 3.375 gm In Sodium Chloride 0.9% 50 ml @ 100 mls/hr IV Q8HR [facility] Rx#:[id number] Sodium Chloride 0.9% 1, 1000 997.5 000 ml @ 90 mls/hr IV . Q11H7M [facility] Rx#:[id number] Vancomycin HCl 1 gm In 250 Sodium Chloride 0.9% 250 ml @ 165 mls/hr IV Q12H [facility] Rx#:[id number] Oral 950 25 Other: # Voids 2 3 # Bowel Movements 1 0 Active Medications: Current Medications Acetaminophen (Tylenol) 650 mg PO Q6HR PRN PRN Reason: TEMP >100 Stop: 09/08/17 19:00 Albuterol/Ipratropium (Duoneb Neb) 3 ml HHN Q6HRT [facility] Stop: 09/09/17 18:59 Last Admin: 07/12/17 13:41 Dose: 3 ml Albuterol/Ipratropium (Duoneb Neb) 3 ml HHN Q2H PRN PRN Reason: wheezing Stop: 09/09/17 14:14 Aspirin (Aspirin Chewable) 81 mg PO DAILY [facility] Stop: 09/09/17 08:59 Last Admin: 07/12/17 08:45 Dose: 81 mg Benazepril HCl (Lotensin) 10 mg PO DAILY [facility] Stop: 09/09/17 08:59 Last Admin: 07/12/17 08:46 Dose: 10 mg Citalopram Hydrobromide (Celexa) 20 mg PO DAILY [facility] PRN Reason: Protocol Stop: 09/09/17 08:59 Last Admin: 07/12/17 08:46 Dose: 20 mg Clonazepam (Klonopin) 1 mg PO HS [facility] Stop: 09/08/17 20:59 Last Admin: 07/11/17 22:28 Dose: 1 mg Diltiazem HCl (Cardizem) 60 mg PO Q6HR [facility] Stop: 09/09/17 17:59 Last Admin: 07/12/17 13:58 Dose: 60 mg Piperacillin Sod/Tazobactam (Sod 3.375 gm/ Sodium Chloride) 50 mls @ 100 mls/ hr IV Q8HR [facility] Stop: 09/08/17 12:59 Last Infusion: 07/12/17 13:00 Dose: Infused Sodium Chloride (Nacl 0.9%) 1,000 mls @ 90 mls/hr IV .Q11H7M [facility] Stop: 09/08/17 13:14 Last Admin: 07/12/17 04:59 Dose: 90 mls/hr Clindamycin Phosphate (Cleocin Pb) 600 mg in 50 mls @ 100 mls/hr IV Q8HR [facility] Stop: 09/09/17 20:59 Last Admin: 07/12/17 14:05 Dose: 100 mls/hr Vancomycin HCl 1 gm/ Sodium (Chloride) 250 mls @ 165 mls/hr IV Q12H [facility] Stop: 09/10/17 08:59 Last Infusion: 07/12/17 14:10 Dose: Infused Insulin Aspart (Novolog Insulin Sliding Scale) 0 units SUBQ ACHS [facility] PRN Reason: Protocol Stop: 09/08/17 16:29 Last Admin: 07/12/17 13:52 Dose: 6 units Miscellaneous (Vte Chemical Prophylaxis Screen/ Admission) 1 ea PRN PRN PRN Reason: PROTOCOL Stop: 09/08/17 15:14 Miscellaneous (Vancomycin Iv Per Pharmacy) 1 ea MC PRN [facility] Stop: 09/09/17 17:29 Pantoprazole Sodium (Protonix) 40 mg PO DAILY [facility] Stop: 09/09/17 08:59 Last Admin: 07/12/17 08:45 Dose: 40 mg Quetiapine Fumarate (Seroquel) 50 mg PO HS [facility] PRN Reason: Protocol Stop: 09/08/17 20:59 Last Admin: 07/11/17 22:28 Dose: 50 mg Tamsulosin HCl (Flomax) 0.8 mg PO HS [facility] Stop: 09/08/17 20:59 Last Admin: 07/11/17 22:28 Dose: 0.8 mg Warfarin Sodium (Coumadin Per Pharmacy) 1 ea PRN PRN; Protocol PRN Reason: RX MONITORING Stop: 09/09/17 12:39 General: no acute distress, well developed, well nourished HEENT: atraumatic, normocephalic, PERRLA, EOMI, moist mucous membrane Neck: supple, no thyromegaly Cardiovascular: S1S2, regular, systolic murmur Lungs: clear to auscultation bilaterally, clear to percussion, wheeze Abdomen: soft, no tender, no distended, no mass, no hepatomegaly, no ascites Extremities: edema (left leg.), other (left heel ulcer.), no cyanosis, no clubbing Skin: intact Infectious Disease Assmt/Plan - Problem List Patient Problems: All Active Problems LEFT LOWER LEG REDNESS, SWELLING PAIN (Acute) - Assessment Assessment: 1. Leukocytosis suspect sepsis. 2. Left leg cellulitis, may have peripheral artery disease. There is a chance of the skin to turn necrotic. 3. Diabetes mellitus type 2. 4. Peripheral artery disease. 5. Hypertension. 6. Severe dementia. - Plan Plan: Continue vanco IV, zosyn and clinda.
--- NOTE | 2017-07-12 14:43 | General Progress Note ---
Subjective - Review of Systems Service Date: 07/12/17 Subjective: stuporous, comfortable Objective - Results Result Diagrams: 07/12/17 05:05 07/12/17 05:05 Recent Labs: Laboratory Last Values WBC 13.2 Th/cmm (4.8-10.8) H 07/12/17 05:05 RBC 3.17 Mil/cmm (3.80-5.80) L 07/12/17 05:05 Hgb 10.1 gm/dL (12-16) L 07/12/17 05:05 Hct 30.2 % (41.0-60) L 07/12/17 05:05 MCV 95.0 fl (80-99) 07/12/17 05:05 MCH 31.9 pg (27.0-31.0) H 07/12/17 05:05 MCHC Differential 33.6 pg (28.0-36.0) 07/12/17 05:05 RDW 14.8 % (11.5-20.0) 07/12/17 05:05 Plt Count 186 Th/cmm (150-400) 07/12/17 05:05 MPV 9.4 fl 07/12/17 05:05 Neutrophils % 87.4 % (40.0-80.0) H 07/12/17 05:05 Band Neutrophils % 4 % (0-10) 07/11/17 06:19 Lymphocytes % 6.4 % (20.0-50.0) L 07/12/17 05:05 Monocytes % 5.7 % (2.0-10.0) 07/12/17 05:05 Eosinophils % 0.4 % (0.0-5.0) 07/12/17 05:05 Basophils % 0.1 % (0.0-2.0) 07/12/17 05:05 Neutrophils (Manual) 88 % (40-80) H 07/11/17 06:19 Lymphocytes 7 % (20-50) L 07/11/17 06:19 Monocytes 1 % (2-10) L 07/11/17 06:19 Basophils 1 % (0-3) 07/10/17 10:49 Platelet Estimate ADEQUATE (NORMAL) 07/11/17 06:19 Eos Smear Source URINE 07/12/17 00:00 Eos Smear Total Cells NONE SEEN (NONE SEEN) 07/12/17 00:00 PT 10.0 SECONDS (9.5-11.5) 07/12/17 13:05 INR 0.96 (0.5-1.4) 07/12/17 13:05 PTT (Actin FS) 30.8 SECONDS (26.0-38.0) 07/11/17 06:19 Sodium 137 mEq/L (136-145) 07/12/17 05:05 Potassium 3.9 mEq/L (3.5-5.1) 07/12/17 05:05 Chloride 107 mEq/L (98-107) 07/12/17 05:05 Carbon Dioxide 22.3 mEq/L (21.0-31.0) 07/12/17 05:05 Anion Gap 11.6 (7.0-16.0) 07/12/17 05:05 BUN 37 mg/dL (7-25) H 07/12/17 05:05 Creatinine 1.2 mg/dL (0.7-1.3) 07/12/17 05:05 Est GFR ( Amer) TNP 07/12/17 05:05 Est GFR (Non-Af Amer) TNP 07/12/17 05:05 BUN/Creatinine Ratio 30.8 07/12/17 05:05 Glucose 261 mg/dL (70-105) H 07/12/17 05:05 POC Glucose 312 MG/DL (70 - 105) H 07/12/17 13:43 Hemoglobin A1c % 7.6 % (4.0-6.0) H 07/10/17 10:49 Whole Bld Lactic Acid 1.12 mmol/L (0.60-1.99) 07/11/17 14:30 Calcium 8.7 mg/dL (8.6-10.3) 07/12/17 05:05 Phosphorus 3.5 mg/dL (2.5-5.0) 07/12/17 05:05 Magnesium 2.4 mg/dL (1.9-2.7) 07/12/17 05:05 Total Bilirubin 0.8 mg/dL (0.3-1.0) 07/12/17 05:05 AST 10 U/L (13-39) L 07/12/17 05:05 ALT 13 U/L (7-52) 07/12/17 05:05 Alkaline Phosphatase 178 U/L (34-104) H 07/12/17 05:05 Total Protein 6.3 gm/dL (6.0-8.3) 07/12/17 05:05 Albumin 2.7 gm/dL (4.2-5.5) L 07/12/17 05:05 Globulin 3.6 gm/dL 07/12/17 05:05 Albumin/Globulin Ratio 0.8 (1.0-1.8) L 07/12/17 05:05 TSH 0.20 uIU/ml (0.34-5.60) L 07/11/17 06:19 Urine Source [place] 07/11/17 06:00 Urine Color YELLOW 07/11/17 06:00 Urine Clarity HAZY (CLEAR) 07/11/17 06:00 Urine pH 6.0 (4.6 - 8.0) 07/11/17 06:00 Ur Specific [place] 1.015 (1.005-1.030) 07/11/17 06:00 Urine Protein 100 mg/dL (NEGATIVE) H 07/11/17 06:00 Urine Glucose (UA) NEGATIVE mg/dL (NEGATIVE) 07/11/17 06:00 Urine Ketones TRACE mg/dL (NEGATIVE) 07/11/17 06:00 Urine Blood TRACE (NEGATIVE) 07/11/17 06:00 Urine Nitrate NEGATIVE (NEGATIVE) 07/11/17 06:00 Urine Bilirubin NEGATIVE (NEGATIVE) 07/11/17 06:00 Urine Urobilinogen 2.0 E.U./dL (0.2 - 1.0) 07/11/17 06:00 Ur Leukocyte Esterase NEGATIVE (NEGATIVE) 07/11/17 06:00 Urine RBC 0-2 /hpf (0-5) H 07/11/17 06:00 Urine WBC 0-2 /hpf (0-5) 07/11/17 06:00 Ur Epithelial Cells OCCASIONAL /lpf (FEW) 07/11/17 06:00 Urine Bacteria FEW /hpf (NONE SEEN) 07/11/17 06:00 Ur Random Sodium 22 mmol/L 07/12/17 00:00 Urine Creatinine 156.0 mg/dl (39.0-259.0) 07/12/17 00:00 Random Vancomycin 10.0 ug/mL (5.0-40.0) 07/12/17 05:05 - Physical Exam Vitals and I&O: Vital Signs Temp 97.4 F 07/12/17 11:30 Pulse 81 07/12/17 13:58 Resp 20 07/12/17 13:44 BP 113/57 07/12/17 11:30 Pulse Ox 97 07/12/17 13:44 Intake & Output 07/11/17 07/12/17 07/12/17 18:59 06:59 18:59 Intake Total 1050 2097.5 425 Balance 1050 2097.5 425 Weight (lbs) 87.543 kg 87.543 kg Intake: Intake, IV Amount 1050 1147.5 400 Clindamycin 600mg/50mL 50 50 600 mg In 50 ml @ 100 mls /hr IV Q8HR [facility] Rx#: [id number] Piperacillin Sodium/ 50 100 100 Tazobact 3.375 gm In Sodium Chloride 0.9% 50 ml @ 100 mls/hr IV Q8HR [facility] Rx#:[id number] Sodium Chloride 0.9% 1, 1000 997.5 000 ml @ 90 mls/hr IV . Q11H7M [facility] Rx#:[id number] Vancomycin HCl 1 gm In 250 Sodium Chloride 0.9% 250 ml @ 165 mls/hr IV Q12H [facility] Rx#:[id number] Oral 950 25 Other: # Voids 2 3 # Bowel Movements 1 0 Active Medications: Current Medications Acetaminophen (Tylenol) 650 mg PO Q6HR PRN PRN Reason: TEMP >100 Stop: 09/08/17 19:00 Albuterol/Ipratropium (Duoneb Neb) 3 ml HHN Q6HRT [facility] Stop: 09/09/17 18:59 Last Admin: 07/12/17 13:41 Dose: 3 ml Albuterol/Ipratropium (Duoneb Neb) 3 ml HHN Q2H PRN PRN Reason: wheezing Stop: 09/09/17 14:14 Aspirin (Aspirin Chewable) 81 mg PO DAILY [facility] Stop: 09/09/17 08:59 Last Admin: 07/12/17 08:45 Dose: 81 mg Benazepril HCl (Lotensin) 10 mg PO DAILY [facility] Stop: 09/09/17 08:59 Last Admin: 07/12/17 08:46 Dose: 10 mg Citalopram Hydrobromide (Celexa) 20 mg PO DAILY [facility] PRN Reason: Protocol Stop: 09/09/17 08:59 Last Admin: 07/12/17 08:46 Dose: 20 mg Clonazepam (Klonopin) 1 mg PO HS [facility] Stop: 09/08/17 20:59 Last Admin: 07/11/17 22:28 Dose: 1 mg Diltiazem HCl (Cardizem) 60 mg PO Q6HR [facility] Stop: 09/09/17 17:59 Last Admin: 07/12/17 13:58 Dose: 60 mg Piperacillin Sod/Tazobactam (Sod 3.375 gm/ Sodium Chloride) 50 mls @ 100 mls/ hr IV Q8HR [facility] Stop: 09/08/17 12:59 Last Infusion: 07/12/17 13:00 Dose: Infused Sodium Chloride (Nacl 0.9%) 1,000 mls @ 90 mls/hr IV .Q11H7M [facility] Stop: 09/08/17 13:14 Last Admin: 07/12/17 04:59 Dose: 90 mls/hr Clindamycin Phosphate (Cleocin Pb) 600 mg in 50 mls @ 100 mls/hr IV Q8HR [facility] Stop: 09/09/17 20:59 Last Admin: 07/12/17 14:05 Dose: 100 mls/hr Vancomycin HCl 1 gm/ Sodium (Chloride) 250 mls @ 165 mls/hr IV Q12H [facility] Stop: 09/10/17 08:59 Last Infusion: 07/12/17 14:10 Dose: Infused Insulin Aspart (Novolog Insulin Sliding Scale) 0 units SUBQ ACHS [facility] PRN Reason: Protocol Stop: 09/08/17 16:29 Last Admin: 07/12/17 13:52 Dose: 6 units Miscellaneous (Vte Chemical Prophylaxis Screen/ Admission) 1 ea [facility] PRN PRN PRN Reason: PROTOCOL Stop: 09/08/17 15:14 Miscellaneous (Vancomycin Iv Per Pharmacy) 1 ea [facility] PRN [facility] Stop: 09/09/17 17:29 Pantoprazole Sodium (Protonix) 40 mg PO DAILY [facility] Stop: 09/09/17 08:59 Last Admin: 07/12/17 08:45 Dose: 40 mg Quetiapine Fumarate (Seroquel) 50 mg PO HS [facility] PRN Reason: Protocol Stop: 09/08/17 20:59 Last Admin: 07/11/17 22:28 Dose: 50 mg Tamsulosin HCl (Flomax) 0.8 mg PO HS [facility] Stop: 09/08/17 20:59 Last Admin: 07/11/17 22:28 Dose: 0.8 mg Warfarin Sodium (Coumadin Per Pharmacy) 1 ea [facility] PRN PRN; Protocol PRN Reason: RX MONITORING Stop: 09/09/17 12:39 General: No acute distress, Other (stuporous) HEENT: Atraumatic, Mucous membr. moist/pink Neck: Supple, +2 carotid pulse wo bruit Cardiovascular: Normal S1, Normal S2 (irregular), Other (Irregular ) Lungs: Other (decreased BS) Abdomen: Bowel sounds, Soft Extremities: Other (left leg edema, erythema, tender, warm) Neurological: Sensation intact, Other (Non ambulatory) Skin: no Rash Psych/Mental Status: Other (stuporous) Other physical findings: stuporous - Procedures Procedures: stuporous Assessment/Plan - Problem List Patient Problems: All Active Problems LEFT LOWER LEG REDNESS, SWELLING PAIN (Acute) - Assessment Assessment: JUSTINA Left LE Cellulitis ALOS 2/2 meds,Met Enceph, 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 ESS Htn - Plan Plan: Lab - Result Diagrams 07/12/17 05:05 07/12/17 05:05 Current Medications Acetaminophen (Tylenol) 650 mg PO Q6HR PRN PRN Reason: TEMP >100 Stop: 09/08/17 19:00 Albuterol/Ipratropium (Duoneb Neb) 3 ml HHN Q6HRT [facility] Stop: 09/09/17 18:59 Last Admin: 07/12/17 13:41 Dose: 3 ml Albuterol/Ipratropium (Duoneb Neb) 3 ml HHN Q2H PRN PRN Reason: wheezing Stop: 09/09/17 14:14 Aspirin (Aspirin Chewable) 81 mg PO DAILY [facility] Stop: 09/09/17 08:59 Last Admin: 07/12/17 08:45 Dose: 81 mg Benazepril HCl (Lotensin) 10 mg PO DAILY [facility] Stop: 09/09/17 08:59 Last Admin: 07/12/17 08:46 Dose: 10 mg Citalopram Hydrobromide (Celexa) 20 mg PO DAILY [facility] PRN Reason: Protocol Stop: 09/09/17 08:59 Last Admin: 07/12/17 08:46 Dose: 20 mg Clonazepam (Klonopin) 1 mg PO HS [facility] Stop: 09/08/17 20:59 Last Admin: 07/11/17 22:28 Dose: 1 mg Diltiazem HCl (Cardizem) 60 mg PO Q6HR [facility] Stop: 09/09/17 17:59 Last Admin: 07/12/17 13:58 Dose: 60 mg Piperacillin Sod/Tazobactam (Sod 3.375 gm/ Sodium Chloride) 50 mls @ 100 mls/ hr IV Q8HR [facility] Stop: 09/08/17 12:59 Last Infusion: 07/12/17 13:00 Dose: Infused Sodium Chloride (Nacl 0.9%) 1,000 mls @ 90 mls/hr IV .Q11H7M [facility] Stop: 09/08/17 13:14 Last Admin: 07/12/17 04:59 Dose: 90 mls/hr Clindamycin Phosphate (Cleocin Pb) 600 mg in 50 mls @ 100 mls/hr IV Q8HR [facility] Stop: 09/09/17 20:59 Last Admin: 07/12/17 14:05 Dose: 100 mls/hr Vancomycin HCl 1 gm/ Sodium (Chloride) 250 mls @ 165 mls/hr IV Q12H [facility] Stop: 09/10/17 08:59 Last Infusion: 07/12/17 14:10 Dose: Infused Insulin Aspart (Novolog Insulin Sliding Scale) 0 units SUBQ ACHS [facility] PRN Reason: Protocol Stop: 09/08/17 16:29 Last Admin: 07/12/17 13:52 Dose: 6 units Miscellaneous (Vte Chemical Prophylaxis Screen/ Admission) 1 ea PRN PRN PRN Reason: PROTOCOL Stop: 09/08/17 15:14 Miscellaneous (Vancomycin Iv Per Pharmacy) 1 ea [facility] PRN [facility] Stop: 09/09/17 17:29 Pantoprazole Sodium (Protonix) 40 mg PO DAILY [facility] Stop: 09/09/17 08:59 Last Admin: 07/12/17 08:45 Dose: 40 mg Quetiapine Fumarate (Seroquel) 50 mg PO HS [facility] PRN Reason: Protocol Stop: 09/08/17 20:59 Last Admin: 07/11/17 22:28 Dose: 50 mg Tamsulosin HCl (Flomax) 0.8 mg PO HS [facility] Stop: 09/08/17 20:59 Last Admin: 07/11/17 22:28 Dose: 0.8 mg Warfarin Sodium (Coumadin Per Pharmacy) 1 ea PRN PRN; Protocol PRN Reason: RX MONITORING Stop: 09/09/17 12:39 Lab - Result Diagrams 07/12/17 05:05 07/12/17 05:05 kidney fnc stable w/ BUN 37/Cr. 1.2 f/u cultures continue Vanco. clinda, Zosyn incidental finding brain mass f/u electrolytes, cbc
--- NOTE | 2017-07-12 23:18 | Progress Notes ---
DATE: 07/12/2017 Case was discussed with staff of the patient, reviewed records. The patient continues to be demented, confused, unable to carry on a conversation, though speaking with a retail supervisor. Continues to be unable to make safe plan for self-care, unpredictable, impulsive. He is not acting out though he is compliant with the medication with no side effects, no sedation, no nausea, no extrapyramidal symptoms. He is on Celexa 20 mg a day and Seroquel 50 mg at bedtime. Thank you very much for allowing me to participate in the care of this most interesting gentleman. JOB# [id number]
[2017-07-13] MEDS: Diltiazem 30 mg Tab PO SCH ×4 (01:14→18:08)
[2017-07-13] MEDS: Albuterol/Ipratropium Neb 3 ML AERS HHN SCH ×4 (01:19→19:42)
[2017-07-13] MEDS: Albuterol/Ipratropium Neb 3 ML AERS HHN PRN ×3 (03:41→22:41)
[2017-07-13] MEDS: Clindamycin 600mg/50mL 600 MG/50 ML BAG IV SCH ×3 (06:19→22:13)
[2017-07-13 06:25] LABS: % BASOPHILS 0.4 % (0.0-2.0); % EOSINOPHILS 1.8 % (0.0-5.0); % LYMPHOCYTES 7.3 % (20.0-50.0); % NEUTROPHILS 83.5 % (40.0-80.0); EOSINOPHILE ABSOLUTE 0.2 Th/cmm (0.1-0.4); HEMATOCRIT 28.7 % (41.0-60); LYMPHOCYTE ABSOLUTE 0.8 Th/cmm (1.5-3.0); MEAN CELL VOLUME 94.1 fl (80-99); MEAN CORPUSCULAR HEMOGLOBIN 32.7 pg (27.0-31.0); MEAN CORPUSCULAR HGB CONC 34.7 pg (28.0-36.0); MEAN PLATELET VOLUME 9.1 fl; MONOCYTE ABSOLUTE 0.7 Th/cmm (0.3-1.0); NEUTROPHILE ABSOLUTE 8.7 Th/cmm (1.8-8.0); PLATELET COUNT 255 Th/cmm (150-400); RED BLOOD COUNT 3.05 Mil/cmm (3.80-5.80); RED CELL DISTRIBUTION WIDTH 14.5 % (11.5-20.0); WHITE BLOOD COUNT 10.4 Th/cmm (4.8-10.8)
[2017-07-13 07:01] LABS: ALB/GLOB RATIO 0.8 (1.0-1.8); ALBUMIN 2.7 gm/dL (4.2-5.5); ALKALINE PHOSPHATASE 262 U/L (34-104); ANION GAP 11.2 (7.0-16.0); BILIRUBIN,TOTAL 0.6 mg/dL (0.3-1.0); BUN - UREA NITROGEN 37 mg/dL (7-25); CALCIUM SERUM 8.7 mg/dL (8.6-10.3); CARBON DIOXIDE 21.6 mEq/L (21.0-31.0); CHLORIDE 109 mEq/L (98-107); CREATININE - SERUM 1.1 mg/dL (0.7-1.3); POTASSIUM SERUM 3.8 mEq/L (3.5-5.1); SGOT 11 U/L (13-39); SGPT/ALT 13 U/L (7-52); SODIUM SERUM 138 mEq/L (136-145); TOTAL PROTEIN,SERUM 6.3 gm/dL (6.0-8.3)
[2017-07-13 07:06] LABS: GLUCOSE 285 mg/dL (70-105)
[2017-07-13] MEDS: INSULIN ASPART SLIDING SCALE 100 UNITS/ML UNIT SUBQ SCH ×4 (08:27→22:13)
--- NOTE | 2017-07-13 08:47 | General Progress Note ---
Subjective - Review of Systems Service Date: 07/13/17 Subjective: Patient is confused Objective - Results Result Diagrams: 07/13/17 05:55 07/13/17 05:55 Recent Labs: Laboratory Last Values WBC 10.4 Th/cmm (4.8-10.8) 07/13/17 05:55 RBC 3.05 Mil/cmm (3.80-5.80) L 07/13/17 05:55 Hgb 10.0 gm/dL (12-16) L 07/13/17 05:55 Hct 28.7 % (41.0-60) L 07/13/17 05:55 MCV 94.1 fl (80-99) 07/13/17 05:55 MCH 32.7 pg (27.0-31.0) H 07/13/17 05:55 MCHC Differential 34.7 pg (28.0-36.0) 07/13/17 05:55 RDW 14.5 % (11.5-20.0) 07/13/17 05:55 Plt Count 255 Th/cmm (150-400) 07/13/17 05:55 MPV 9.1 fl 07/13/17 05:55 Neutrophils % 83.5 % (40.0-80.0) H 07/13/17 05:55 Band Neutrophils % 4 % (0-10) 07/11/17 06:19 Lymphocytes % 7.3 % (20.0-50.0) L 07/13/17 05:55 Monocytes % 7.0 % (2.0-10.0) 07/13/17 05:55 Eosinophils % 1.8 % (0.0-5.0) 07/13/17 05:55 Basophils % 0.4 % (0.0-2.0) 07/13/17 05:55 Neutrophils (Manual) 88 % (40-80) H 07/11/17 06:19 Lymphocytes 7 % (20-50) L 07/11/17 06:19 Monocytes 1 % (2-10) L 07/11/17 06:19 Basophils 1 % (0-3) 07/10/17 10:49 Platelet Estimate ADEQUATE (NORMAL) 07/11/17 06:19 Eos Smear Source URINE 07/12/17 00:00 Eos Smear Total Cells NONE SEEN (NONE SEEN) 07/12/17 00:00 PT 10.0 SECONDS (9.5-11.5) 07/12/17 13:05 INR 0.96 (0.5-1.4) 07/12/17 13:05 PTT (Actin FS) 30.8 SECONDS (26.0-38.0) 07/11/17 06:19 Sodium 138 mEq/L (136-145) 07/13/17 05:55 Potassium 3.8 mEq/L (3.5-5.1) 07/13/17 05:55 Chloride 109 mEq/L (98-107) H 07/13/17 05:55 Carbon Dioxide 21.6 mEq/L (21.0-31.0) 07/13/17 05:55 Anion Gap 11.2 (7.0-16.0) 07/13/17 05:55 BUN 37 mg/dL (7-25) H 07/13/17 05:55 Creatinine 1.1 mg/dL (0.7-1.3) 07/13/17 05:55 Est GFR ( Amer) TNP 07/13/17 05:55 Est GFR (Non-Af Amer) TNP 07/13/17 05:55 BUN/Creatinine Ratio 33.6 07/13/17 05:55 Glucose 285 mg/dL (70-105) H D 07/13/17 05:55 POC Glucose 258 MG/DL (70 - 105) H 07/13/17 05:54 Hemoglobin A1c % 7.6 % (4.0-6.0) H 07/10/17 10:49 Whole Bld Lactic Acid 1.12 mmol/L (0.60-1.99) 07/11/17 14:30 Calcium 8.7 mg/dL (8.6-10.3) 07/13/17 05:55 Phosphorus 3.5 mg/dL (2.5-5.0) 07/12/17 05:05 Magnesium 2.4 mg/dL (1.9-2.7) 07/12/17 05:05 Total Bilirubin 0.6 mg/dL (0.3-1.0) 07/13/17 05:55 AST 11 U/L (13-39) L 07/13/17 05:55 ALT 13 U/L (7-52) 07/13/17 05:55 Alkaline Phosphatase 262 U/L (34-104) H 07/13/17 05:55 B-Natriuretic Peptide 355.0 pg/mL (5.0-100.0) H 07/13/17 05:55 Total Protein 6.3 gm/dL (6.0-8.3) 07/13/17 05:55 Albumin 2.7 gm/dL (4.2-5.5) L 07/13/17 05:55 Globulin 3.6 gm/dL 07/13/17 05:55 Albumin/Globulin Ratio 0.8 (1.0-1.8) L 07/13/17 05:55 TSH 0.20 uIU/ml (0.34-5.60) L 07/11/17 06:19 Urine Source [place] 07/11/17 06:00 Urine Color YELLOW 07/11/17 06:00 Urine Clarity HAZY (CLEAR) 07/11/17 06:00 Urine pH 6.0 (4.6 - 8.0) 07/11/17 06:00 Ur Specific Alpha 1.015 (1.005-1.030) 07/11/17 06:00 Urine Protein 100 mg/dL (NEGATIVE) H 07/11/17 06:00 Urine Glucose (UA) NEGATIVE mg/dL (NEGATIVE) 07/11/17 06:00 Urine Ketones TRACE mg/dL (NEGATIVE) 07/11/17 06:00 Urine Blood TRACE (NEGATIVE) 07/11/17 06:00 Urine Nitrate NEGATIVE (NEGATIVE) 07/11/17 06:00 Urine Bilirubin NEGATIVE (NEGATIVE) 07/11/17 06:00 Urine Urobilinogen 2.0 E.U./dL (0.2 - 1.0) 07/11/17 06:00 Ur Leukocyte Esterase NEGATIVE (NEGATIVE) 07/11/17 06:00 Urine RBC 0-2 /hpf (0-5) H 07/11/17 06:00 Urine WBC 0-2 /hpf (0-5) 07/11/17 06:00 Ur Epithelial Cells OCCASIONAL /lpf (FEW) 07/11/17 06:00 Urine Bacteria FEW /hpf (NONE SEEN) 07/11/17 06:00 Ur Random Sodium 22 mmol/L 07/12/17 00:00 Urine Creatinine 156.0 mg/dl (39.0-259.0) 07/12/17 00:00 Random Vancomycin 10.0 ug/mL (5.0-40.0) 07/12/17 05:05 - Physical Exam Vitals and I&O: Vital Signs Temp 97.5 F 07/13/17 07:48 Pulse 98 07/13/17 07:48 Resp 19 07/13/17 07:48 BP 141/75 07/13/17 06:00 Pulse Ox 98 07/13/17 07:48 Intake & Output 07/12/17 07/13/17 07/13/17 18:59 06:59 18:59 Intake Total 1425 400 Balance 1425 400 Weight (lbs) 87.543 kg 87.543 kg Intake: Intake, IV Amount 1400 350 Clindamycin 600mg/50mL 50 50 600 mg In 50 ml @ 100 mls /hr IV Q8HR REPLACED BY [facility] Rx#: [id number] Piperacillin Sodium/ 100 50 Tazobact 3.375 gm In Sodium Chloride 0.9% 50 ml @ 100 mls/hr IV Q8HR [facility]PLACED BY [facility] Rx#:[id number] Sodium Chloride 0.9% 1, 1000 000 ml @ 90 mls/hr IV . Q11H7M REPLACED BY [facility] Rx#:[id number] Vancomycin HCl 1 gm In 250 250 Sodium Chloride 0.9% 250 ml @ 165 mls/hr IV Q12H [facility]PLACED BY [facility] Rx#:[id number] Oral 25 50 Other: # Voids 3 3 # Bowel Movements 0 0 Active Medications: Current Medications Acetaminophen (Tylenol) 650 mg PO Q6HR PRN PRN Reason: TEMP >100 Stop: 09/08/17 19:00 Albuterol/Ipratropium (Duoneb Neb) 3 ml HHN Q6HRT [facility]PL[facility] Stop: 09/09/17 18:59 Last Admin: 07/13/17 07:11 Dose: 3 ml Albuterol/Ipratropium (Duoneb Neb) 3 ml HHN Q2H PRN PRN Reason: wheezing Stop: 09/09/17 14:14 Last Admin: 07/13/17 03:41 Dose: 3 ml Aspirin (Aspirin Chewable) 81 mg PO DAILY [facility] Stop: 09/09/17 08:59 Last Admin: 07/12/17 08:45 Dose: 81 mg Benazepril HCl (Lotensin) 10 mg PO DAILY [facility] Stop: 09/09/17 08:59 Last Admin: 07/12/17 08:46 Dose: 10 mg [place] Oil/[place] Balsam/Trypsin (Venelex) 1 appl TP DAILY [facility] Stop: 09/11/17 09:59 Citalopram Hydrobromide (Celexa) 20 mg PO DAILY [facility] PRN Reason: Protocol Stop: 09/09/17 08:59 Last Admin: 07/12/17 08:46 Dose: 20 mg Clonazepam (Klonopin) 1 mg PO HS [facility] Stop: 09/08/17 20:59 Last Admin: 07/12/17 22:14 Dose: 1 mg Diltiazem HCl (Cardizem) 60 mg PO Q6HR [facility] Stop: 09/09/17 17:59 Last Admin: 07/13/17 06:40 Dose: 60 mg Piperacillin Sod/Tazobactam (Sod 3.375 gm/ Sodium Chloride) 50 mls @ 100 mls/ hr IV Q8HR [facility] Stop: 09/08/17 12:59 Last Admin: 07/13/17 05:57 Dose: 100 mls/hr Sodium Chloride (Nacl 0.9%) 1,000 mls @ 90 mls/hr IV .Q11H7M REPLACED BY [facility] Stop: 09/08/17 13:14 Last Admin: 07/12/17 22:51 Dose: 90 mls/hr Clindamycin Phosphate (Cleocin Pb) 600 mg in 50 mls @ 100 mls/hr IV Q8HR [facility] Stop: 09/09/17 20:59 Last Admin: 07/13/17 06:19 Dose: 100 mls/hr Vancomycin HCl 1 gm/ Sodium (Chloride) 250 mls @ 165 mls/hr IV Q12H [facility] Stop: 09/10/17 08:59 Last Admin: 07/13/17 08:30 Dose: 165 mls/hr Insulin Aspart (Novolog Insulin Sliding Scale) 0 units SUBQ ACHS [facility] PRN Reason: Protocol Stop: 09/08/17 16:29 Last Admin: 07/13/17 08:27 Dose: 7 units Miscellaneous (Vte Chemical Prophylaxis Screen/ Admission) 1 ea [facility] PRN PRN PRN Reason: PROTOCOL Stop: 09/08/17 15:14 Miscellaneous (Vancomycin Iv Per Pharmacy) 1 ea MC PRN [facility] Stop: 09/09/17 17:29 Pantoprazole Sodium (Protonix) 40 mg PO DAILY [facility] Stop: 09/09/17 08:59 Last Admin: 07/12/17 08:45 Dose: 40 mg Quetiapine Fumarate (Seroquel) [address] [facility] PRN Reason: Protocol Stop: 09/08/17 20:59 Last Admin: 07/12/17 22:14 Dose: 50 mg Tamsulosin HCl (Flomax) 0.[address] [facility] Stop: 09/08/17 20:59 Last Admin: 07/12/17 22:14 Dose: 0.8 mg Warfarin Sodium (Coumadin Per Pharmacy) 1 ea PRN PRN; Protocol PRN Reason: RX MONITORING Stop: 09/09/17 12:39 General: No acute distress, Other (stuporous) HEENT: Atraumatic, Mucous membr. moist/pink Neck: Supple, +2 carotid pulse wo bruit Cardiovascular: Normal S1, Normal S2 (irregular), Other (Irregular ) Lungs: Other (decreased BS) Abdomen: Bowel sounds, Soft Extremities: Other (left leg edema, erythema, tender, warm) Neurological: Other (Non ambulatory) Skin: Other (Redness of left leg and edema), no Rash Psych/Mental Status: Other (Awake, alert, confused, not oriented) Assessment/Plan - Problem List Patient Problems: All Active Problems LEFT LOWER LEG REDNESS, SWELLING PAIN (Acute) - Assessment Assessment: Current Active Problems Problem Status Onset LEFT LOWER LEG REDNESS, SWELLING PAIN Acute Patient is awake alert, calm, confused. Redness and edema of leg leg improving. WBC and creatinine Normal, Head CT shows a cerebral mass. DX: sepsis, CKF, HTN , DM, Dementia, BPH, A-fib, Cerebral mass. - Plan Plan: Patient in IV NS, Vanco, Clyndomicin and sozyn, Insulin sliding scale and SNF meds. Follow by ID, Cardio, Psychiatry and Nephro. Leg US shows no DVT, Mild artherosclerosis. Head CT shows a mass. Case discussed with family. Will continue to monitor Nutritional Asmnt/Malnutr-PDOC - Dietary Evaluation Malnutrition Findings (Please click <Entered> for more info): Nutritional Asmnt/Malnutrition Start: 07/12/17 15: 11 Text: Status: Complete Freq: Document 07/12/17 15:11 [facility] ([facility] 07[facility]12[facility]17 [email or web address] Nutritional Asmnt/Malnutrition Patient General Information Nutritional Screening High Risk Diagnosis sepsis, secondary to cellulitis Pertinent Medical Hx/Surgical Hx CAD, CHF, HTN, dementia, schizophrenia, weakness, chronic renal insuff, DM, redness of both legs. Subjective Information Pt seen sleeping at time of visit. Per TEST MANAGER, pt ate about 50% of breakfast, very slowly. Pt had no lunch yet d/t sleeping. Per nurse note, RN feed pt with pudding and jello with milk shake in the afternoon. Per ST to put patient NPO if lethargic to avoid aspiration noted. Current Diet Order/ Nutrition Support [id number], mech soft chopped Pertinent Medications novolog, protonix, piperacillin, seroquel, nacl 0 .9%, vancomycin Pertinent Labs 3*19 BUN 37, Glucose 261, POC 247-312 3 A1c 7.6 Nutritional Hx/Data Height 1.65 m Height (Calculated Centimeters) 165.1 Current Weight (lbs) 87.543 kg Weight (Calculated Kilograms) 87.5 Weight (Calculated Grams) 20718.3 [place] Body Weight 136 Body Mass Index (BMI) 32.1 Weight Status Obese GI Symptoms GI Symptoms None Last BM Difficult in: None Skin Integrity/Comment: pressure ulcer to left heel, reddened to left lower extremity (cellulitis), maceration to left foot, pressure area to right foot Current %PO Poor (25-49%) Estimated Nutritional Goals BEE in Kcals: Adj wt of IBW Calories/Kcals/Kg 25-30 Kcals Calculated 3261-9171 Protein: Adj wt of IBW Protein g/k-1.2 Protein Calculated 68-82 Fluid: ml 1700-2040ml (1ml/kcal) Nutritional Problem 2. Problem Problem increased nutrition needs ( protein) Etiology increased metabolic demand for wound healing Signs/Symptoms: pressure ulcer 1. Problem Problem altered nutrition related labs Etiology DM Signs/Symptoms: Glucose 261, POC 247-312, A1c 7.6 Intervention/Recommendation Comments 1. Recommend nectar thickned liquid considering risk of aspiration. recommend swallow eval again when pt is more wake up. 2. Consider Boost BID to supplement nutrition. 3. Monitor PO intake, wt, labs and skin integrity 4. F/U as high risk in 2-3 days, 07/14-07/15 Expected Outcomes/Goals Expected Outcomes/Goals 1. PO intake to meet at least 75% of nutritional needs. 2. Wt stability, skin to remain intact, labs to approach WNL.
[2017-07-13] MEDS: Aspirin 81mg Chewable Tab PO SCH (09:07)
[2017-07-13] MEDS: Pantoprazole 40 mg EC Tab PO SCH (09:08)
[2017-07-13] MEDS: Sodium Chloride 0.9% 1,000 ML IV SCH (11:17)
[2017-07-13] MEDS: Venelex 60gm Tube TP SCH (11:18)
--- NOTE | 2017-07-13 13:16 | General Progress Note ---
Subjective - Review of Systems Service Date: 07/13/17 Events since last encounter: chart reviewed arterial doppler monophasic below left femoral no DVT needsCTA but BUN and Creatinine are elevated suggest local wound care and elevation of extremity Objective - Results Result Diagrams: 07/13/17 05:55 07/13/17 05:55 Recent Labs: Laboratory Last Values WBC 10.4 Th/cmm (4.8-10.8) 07/13/17 05:55 RBC 3.05 Mil/cmm (3.80-5.80) L 07/13/17 05:55 Hgb 10.0 gm/dL (12-16) L 07/13/17 05:55 Hct 28.7 % (41.0-60) L 07/13/17 05:55 MCV 94.1 fl (80-99) 07/13/17 05:55 MCH 32.7 pg (27.0-31.0) H 07/13/17 05:55 MCHC Differential 34.7 pg (28.0-36.0) 07/13/17 05:55 RDW 14.5 % (11.5-20.0) 07/13/17 05:55 Plt Count 255 Th/cmm (150-400) 07/13/17 05:55 MPV 9.1 fl 07/13/17 05:55 Neutrophils % 83.5 % (40.0-80.0) H 07/13/17 05:55 Band Neutrophils % 4 % (0-10) 07/11/17 06:19 Lymphocytes % 7.3 % (20.0-50.0) L 07/13/17 05:55 Monocytes % 7.0 % (2.0-10.0) 07/13/17 05:55 Eosinophils % 1.8 % (0.0-5.0) 07/13/17 05:55 Basophils % 0.4 % (0.0-2.0) 07/13/17 05:55 Neutrophils (Manual) 88 % (40-80) H 07/11/17 06:19 Lymphocytes 7 % (20-50) L 07/11/17 06:19 Monocytes 1 % (2-10) L 07/11/17 06:19 Basophils 1 % (0-3) 07/10/17 10:49 Platelet Estimate ADEQUATE (NORMAL) 07/11/17 06:19 Eos Smear Source URINE 07/12/17 00:00 Eos Smear Total Cells NONE SEEN (NONE SEEN) 07/12/17 00:00 PT 10.0 SECONDS (9.5-11.5) 07/12/17 13:05 INR 0.96 (0.5-1.4) 07/12/17 13:05 PTT (Actin FS) 30.8 SECONDS (26.0-38.0) 07/11/17 06:19 Sodium 138 mEq/L (136-145) 07/13/17 05:55 Potassium 3.8 mEq/L (3.5-5.1) 07/13/17 05:55 Chloride 109 mEq/L (98-107) H 07/13/17 05:55 Carbon Dioxide 21.6 mEq/L (21.0-31.0) 07/13/17 05:55 Anion Gap 11.2 (7.0-16.0) 07/13/17 05:55 BUN 37 mg/dL (7-25) H 07/13/17 05:55 Creatinine 1.1 mg/dL (0.7-1.3) 07/13/17 05:55 Est GFR ( Amer) TNP 07/13/17 05:55 Est GFR (Non-Af Amer) TNP 07/13/17 05:55 BUN/Creatinine Ratio 33.6 07/13/17 05:55 Glucose 285 mg/dL (70-105) H D 07/13/17 05:55 POC Glucose 318 MG/DL (70 - 105) H 07/13/17 12:06 Hemoglobin A1c % 7.6 % (4.0-6.0) H 07/10/17 10:49 Whole Bld Lactic Acid 1.12 mmol/L (0.60-1.99) 07/11/17 14:30 Calcium 8.7 mg/dL (8.6-10.3) 07/13/17 05:55 Phosphorus 3.5 mg/dL (2.5-5.0) 07/12/17 05:05 Magnesium 2.4 mg/dL (1.9-2.7) 07/12/17 05:05 Total Bilirubin 0.6 mg/dL (0.3-1.0) 07/13/17 05:55 AST 11 U/L (13-39) L 07/13/17 05:55 ALT 13 U/L (7-52) 07/13/17 05:55 Alkaline Phosphatase 262 U/L (34-104) H 07/13/17 05:55 B-Natriuretic Peptide 355.0 pg/mL (5.0-100.0) H 07/13/17 05:55 Total Protein 6.3 gm/dL (6.0-8.3) 07/13/17 05:55 Albumin 2.7 gm/dL (4.2-5.5) L 07/13/17 05:55 Globulin 3.6 gm/dL 07/13/17 05:55 Albumin/Globulin Ratio 0.8 (1.0-1.8) L 07/13/17 05:55 TSH 0.20 uIU/ml (0.34-5.60) L 07/11/17 06:19 Urine Source HERR PORT 07/11/17 06:00 Urine Color YELLOW 07/11/17 06:00 Urine Clarity HAZY (CLEAR) 07/11/17 06:00 Urine pH 6.0 (4.6 - 8.0) 07/11/17 06:00 Ur Specific [place] 1.015 (1.005-1.030) 07/11/17 06:00 Urine Protein 100 mg/dL (NEGATIVE) H 07/11/17 06:00 Urine Glucose (UA) NEGATIVE mg/dL (NEGATIVE) 07/11/17 06:00 Urine Ketones TRACE mg/dL (NEGATIVE) 07/11/17 06:00 Urine Blood TRACE (NEGATIVE) 07/11/17 06:00 Urine Nitrate NEGATIVE (NEGATIVE) 07/11/17 06:00 Urine Bilirubin NEGATIVE (NEGATIVE) 07/11/17 06:00 Urine Urobilinogen 2.0 E.U./dL (0.2 - 1.0) 07/11/17 06:00 Ur Leukocyte Esterase NEGATIVE (NEGATIVE) 07/11/17 06:00 Urine RBC 0-2 /hpf (0-5) H 07/11/17 06:00 Urine WBC 0-2 /hpf (0-5) 07/11/17 06:00 Ur Epithelial Cells OCCASIONAL /lpf (FEW) 07/11/17 06:00 Urine Bacteria FEW /hpf (NONE SEEN) 07/11/17 06:00 Ur Random Sodium 22 mmol/L 07/12/17 00:00 Urine Creatinine 156.0 mg/dl (39.0-259.0) 07/12/17 00:00 Random Vancomycin 10.0 ug/mL (5.0-40.0) 07/12/17 05:05 - Physical Exam Vitals and I&O: Vital Signs Temp 98 F 07/13/17 12:17 Pulse 49 07/13/17 12:17 Resp 24 07/13/17 12:17 BP 117/59 07/13/17 12:17 Pulse Ox 96 07/13/17 12:17 Intake & Output 07/12/17 07/13/17 07/13/17 18:59 06:59 18:59 Intake Total 1425 400 350 Balance 1425 400 350 Weight (lbs) 87.543 kg 87.543 kg 87.543 kg Intake: Intake, IV Amount 1400 350 350 Clindamycin 600mg/50mL 50 50 50 600 mg In 50 ml @ 100 mls /hr IV Q8HR REPLACED BY [facility] Rx#: [id number] Piperacillin Sodium/ 100 50 50 Tazobact 3.375 gm In Sodium Chloride 0.9% 50 ml @ 100 mls/hr IV Q8HR REPLACED BY [facility] Rx#:[id number] Sodium Chloride 0.9% 1, 1000 000 ml @ 90 mls/hr IV . Q11H7M REPLACED BY [facility] Rx#:[id number] Vancomycin HCl 1 gm In 250 250 250 Sodium Chloride 0.9% 250 ml @ 165 mls/hr IV Q12H REPLACED BY [facility] Rx#:[id number] Oral 25 50 Other: # Voids 3 3 # Bowel Movements 0 0 Active Medications: Current Medications Acetaminophen (Tylenol) 650 mg PO Q6HR PRN PRN Reason: TEMP >100 Stop: 09/08/17 19:00 Albuterol/Ipratropium (Duoneb Neb) 3 ml HHN Q6HRT REPLACED BY [facility] Stop: 09/09/17 18:59 Last Admin: 07/13/17 07:11 Dose: 3 ml Albuterol/Ipratropium (Duoneb Neb) 3 ml HHN Q2H PRN PRN Reason: wheezing Stop: 09/09/17 14:14 Last Admin: 07/13/17 03:41 Dose: 3 ml Aspirin (Aspirin Chewable) 81 mg PO DAILY REPLACED BY [facility] Stop: 09/09/17 08:59 Last Admin: 07/13/17 09:07 Dose: 81 mg Benazepril HCl (Lotensin) 10 mg PO DAILY [facility] Stop: 09/09/17 08:59 Last Admin: 07/13/17 09:08 Dose: 10 mg Carvedilol (Coreg) 25 mg PO DAILY [facility] Stop: 09/12/17 08:59 [place] Oil/[place] Balsam/Trypsin (Venelex) 1 appl TP DAILY [facility] Stop: 09/11/17 09:59 Last Admin: 07/13/17 11:18 Dose: 1 appl Citalopram Hydrobromide (Celexa) 20 mg PO DAILY REPLACED BY [facility] PRN Reason: Protocol Stop: 09/09/17 08:59 Last Admin: 07/13/17 09:08 Dose: 20 mg Clonazepam (Klonopin) 1 mg PO HS REPLACED BY [facility] Stop: 09/08/17 20:59 Last Admin: 07/12/17 22:14 Dose: 1 mg Diltiazem HCl (Cardizem) 60 mg PO Q6HR [facility] Stop: 09/09/17 17:59 Last Admin: 07/13/17 12:56 Dose: 60 mg Piperacillin Sod/Tazobactam (Sod 3.375 gm/ Sodium Chloride) 50 mls @ 100 mls/ hr IV Q8HR REPLACED BY [facility] Stop: 09/08/17 12:59 Last Admin: 07/13/17 12:47 Dose: 100 mls/hr Clindamycin Phosphate (Cleocin Pb) 600 mg in 50 mls @ 100 mls/hr IV Q8HR REPLACED BY [facility] Stop: 09/09/17 20:59 Last Admin: 07/13/17 13:03 Dose: 100 mls/hr Vancomycin HCl 1 gm/ Sodium (Chloride) 250 mls @ 165 mls/hr IV Q12H REPLACED BY [facility] Stop: 09/10/17 08:59 Last Infusion: 07/13/17 10:00 Dose: Infused Sodium Chloride (Nacl 0.9%) 1,000 mls @ 75 mls/hr IV .[id number] REPLACED BY [facility] Stop: 09/11/17 11:15 Last Admin: 07/13/17 11:17 Dose: 75 mls/hr Insulin Aspart (Novolog Insulin Sliding Scale) 0 units SUBQ ACHS [facility] PRN Reason: Protocol Stop: 09/08/17 16:29 Last Admin: 07/13/17 12:48 Dose: 9 units Miscellaneous (Vte Chemical Prophylaxis Screen/ Admission) 1 ea PRN PRN PRN Reason: PROTOCOL Stop: 09/08/17 15:14 Miscellaneous (Vancomycin Iv Per Pharmacy) 1 ea PRN [facility] Stop: 09/09/17 17:29 Pantoprazole Sodium (Protonix) 40 mg PO DAILY REPLACED BY [facility] Stop: 09/09/17 08:59 Last Admin: 07/13/17 09:08 Dose: 40 mg Quetiapine Fumarate (Seroquel) 50 mg PO HS REPLACED BY [facility] PRN Reason: Protocol Stop: 09/08/17 20:59 Last Admin: 07/12/17 22:14 Dose: 50 mg Tamsulosin HCl (Flomax) 0.8 mg PO HS REPLACED BY [facility] Stop: 09/08/17 20:59 Last Admin: 07/12/17 22:14 Dose: 0.8 mg Warfarin Sodium (Coumadin Per Pharmacy) 1 [facility] PRN PRN; Protocol PRN Reason: RX MONITORING Stop: 09/09/17 12:39 General: No acute distress, Other (stuporous) HEENT: Atraumatic, Mucous membr. moist/pink Neck: Supple, +2 carotid pulse wo bruit Cardiovascular: Normal S1, Normal S2 (irregular), Other (Irregular ) Lungs: Other (decreased BS) Abdomen: Bowel sounds, Soft Extremities: Other (left leg edema, erythema, tender, warm) Neurological: Other (Non ambulatory) Skin: Other (Redness of left leg and edema), no Rash Psych/Mental Status: Other (Awake, alert, confused, not oriented) Assessment/Plan - Problem List Patient Problems: All Active Problems LEFT LOWER LEG REDNESS, SWELLING PAIN (Acute) Nutritional Asmnt/Malnutr-PDOC - Dietary Evaluation Malnutrition Findings (Please click <Entered> for more info): Nutritional Asmnt/Malnutrition Start: 07/12/17 15: 11 Text: Status: Complete Freq: Document 07/12/17 15:11 [email or web address] (Rec: 07/12/17 15:24 [email or web address] [id number]) Nutritional Asmnt/Malnutrition Patient General Information Nutritional Screening High Risk Diagnosis sepsis, secondary to cellulitis Pertinent Medical Hx/Surgical Hx CAD, CHF, HTN, dementia, schizophrenia, weakness, chronic renal insuff, DM, redness of both legs. Subjective Information Pt seen sleeping at time of visit. Per [employer], pt ate about 50% of breakfast, very slowly. Pt had no lunch yet d/t sleeping. Per nurse note, RN feed pt with pudding and jello with milk shake in the afternoon. Per ST to put patient NPO if lethargic to avoid aspiration noted. Current Diet Order/ Nutrition Support [id number], mech soft chopped Pertinent Medications novolog, protonix, piperacillin, seroquel, nacl 0 .9%, vancomycin Pertinent Labs 3*19 BUN 37, Glucose 261, POC 247-312 07/10 A1c 7.6 Nutritional Hx/Data Height 1.65 m Height (Calculated Centimeters) 165.1 Current Weight (lbs) 87.543 kg Weight (Calculated Kilograms) 87.5 Weight (Calculated Grams) 99985.3 [place] Body Weight 136 Body Mass Index (BMI) 32.1 Weight Status Obese GI Symptoms GI Symptoms None Last BM Difficult in: None Skin Integrity/Comment: pressure ulcer to left heel, reddened to left lower extremity (cellulitis), maceration to left foot, pressure area to right foot Current %PO Poor (25-49%) Estimated Nutritional Goals BEE in Kcals: Adj wt of IBW Calories/Kcals/Kg 25-30 Kcals Calculated [id number] Protein: Adj wt of IBW Protein g/k-1.2 Protein Calculated 68-82 Fluid: ml 1700-2040ml (1ml/kcal) Nutritional Problem 2. Problem Problem increased nutrition needs ( protein) Etiology increased metabolic demand for wound healing Signs/Symptoms: pressure ulcer 1. Problem Problem altered nutrition related labs Etiology DM Signs/Symptoms: Glucose 261, POC 247-312, A1c 7.6 Intervention/Recommendation Comments 1. Recommend nectar thickned liquid considering risk of aspiration. recommend swallow eval again when pt is more wake up. 2. Consider Boost BID to supplement nutrition. 3. Monitor PO intake, wt, labs and skin integrity 4. F/U as high risk in 2-3 days, 07/14-07/15 Expected Outcomes/Goals Expected Outcomes/Goals 1. PO intake to meet at least 75% of nutritional needs. 2. Wt stability, skin to remain intact, labs to approach WNL.
--- NOTE | 2017-07-13 13:18 | General Progress Note ---
Subjective - Review of Systems Service Date: 07/13/17 Subjective: stuporous, comfortable Objective - Results Result Diagrams: 07/13/17 05:55 07/13/17 05:55 Recent Labs: Laboratory Last Values WBC 10.4 Th/cmm (4.8-10.8) 07/13/17 05:55 RBC 3.05 Mil/cmm (3.80-5.80) L 07/13/17 05:55 Hgb 10.0 gm/dL (12-16) L 07/13/17 05:55 Hct 28.7 % (41.0-60) L 07/13/17 05:55 MCV 94.1 fl (80-99) 07/13/17 05:55 MCH 32.7 pg (27.0-31.0) H 07/13/17 05:55 MCHC Differential 34.7 pg (28.0-36.0) 07/13/17 05:55 RDW 14.5 % (11.5-20.0) 07/13/17 05:55 Plt Count 255 Th/cmm (150-400) 07/13/17 05:55 MPV 9.1 fl 07/13/17 05:55 Neutrophils % 83.5 % (40.0-80.0) H 07/13/17 05:55 Band Neutrophils % 4 % (0-10) 07/11/17 06:19 Lymphocytes % 7.3 % (20.0-50.0) L 07/13/17 05:55 Monocytes % 7.0 % (2.0-10.0) 07/13/17 05:55 Eosinophils % 1.8 % (0.0-5.0) 07/13/17 05:55 Basophils % 0.4 % (0.0-2.0) 07/13/17 05:55 Neutrophils (Manual) 88 % (40-80) H 07/11/17 06:19 Lymphocytes 7 % (20-50) L 07/11/17 06:19 Monocytes 1 % (2-10) L 07/11/17 06:19 Basophils 1 % (0-3) 07/10/17 10:49 Platelet Estimate ADEQUATE (NORMAL) 07/11/17 06:19 Eos Smear Source URINE 07/12/17 00:00 Eos Smear Total Cells NONE SEEN (NONE SEEN) 07/12/17 00:00 PT 10.0 SECONDS (9.5-11.5) 07/12/17 13:05 INR 0.96 (0.5-1.4) 07/12/17 13:05 PTT (Actin FS) 30.8 SECONDS (26.0-38.0) 07/11/17 06:19 Sodium 138 mEq/L (136-145) 07/13/17 05:55 Potassium 3.8 mEq/L (3.5-5.1) 07/13/17 05:55 Chloride 109 mEq/L (98-107) H 07/13/17 05:55 Carbon Dioxide 21.6 mEq/L (21.0-31.0) 07/13/17 05:55 Anion Gap 11.2 (7.0-16.0) 07/13/17 05:55 BUN 37 mg/dL (7-25) H 07/13/17 05:55 Creatinine 1.1 mg/dL (0.7-1.3) 07/13/17 05:55 Est GFR ( Amer) TNP 07/13/17 05:55 Est GFR (Non-Af Amer) TNP 07/13/17 05:55 BUN/Creatinine Ratio 33.6 07/13/17 05:55 Glucose 285 mg/dL (70-105) H D 07/13/17 05:55 POC Glucose 318 MG/DL (70 - 105) H 07/13/17 12:06 Hemoglobin A1c % 7.6 % (4.0-6.0) H 07/10/17 10:49 Whole Bld Lactic Acid 1.12 mmol/L (0.60-1.99) 07/11/17 14:30 Calcium 8.7 mg/dL (8.6-10.3) 07/13/17 05:55 Phosphorus 3.5 mg/dL (2.5-5.0) 07/12/17 05:05 Magnesium 2.4 mg/dL (1.9-2.7) 07/12/17 05:05 Total Bilirubin 0.6 mg/dL (0.3-1.0) 07/13/17 05:55 AST 11 U/L (13-39) L 07/13/17 05:55 ALT 13 U/L (7-52) 07/13/17 05:55 Alkaline Phosphatase 262 U/L (34-104) H 07/13/17 05:55 B-Natriuretic Peptide 355.0 pg/mL (5.0-100.0) H 07/13/17 05:55 Total Protein 6.3 gm/dL (6.0-8.3) 07/13/17 05:55 Albumin 2.7 gm/dL (4.2-5.5) L 07/13/17 05:55 Globulin 3.6 gm/dL 07/13/17 05:55 Albumin/Globulin Ratio 0.8 (1.0-1.8) L 07/13/17 05:55 TSH 0.20 uIU/ml (0.34-5.60) L 07/11/17 06:19 Urine Source [place] 07/11/17 06:00 Urine Color YELLOW 07/11/17 06:00 Urine Clarity HAZY (CLEAR) 07/11/17 06:00 Urine pH 6.0 (4.6 - 8.0) 07/11/17 06:00 Ur Specific [place] 1.015 (1.005-1.030) 07/11/17 06:00 Urine Protein 100 mg/dL (NEGATIVE) H 07/11/17 06:00 Urine Glucose (UA) NEGATIVE mg/dL (NEGATIVE) 07/11/17 06:00 Urine Ketones TRACE mg/dL (NEGATIVE) 07/11/17 06:00 Urine Blood TRACE (NEGATIVE) 07/11/17 06:00 Urine Nitrate NEGATIVE (NEGATIVE) 07/11/17 06:00 Urine Bilirubin NEGATIVE (NEGATIVE) 07/11/17 06:00 Urine Urobilinogen 2.0 E.U./dL (0.2 - 1.0) 07/11/17 06:00 Ur Leukocyte Esterase NEGATIVE (NEGATIVE) 07/11/17 06:00 Urine RBC 0-2 /hpf (0-5) H 07/11/17 06:00 Urine WBC 0-2 /hpf (0-5) 07/11/17 06:00 Ur Epithelial Cells OCCASIONAL /lpf (FEW) 07/11/17 06:00 Urine Bacteria FEW /hpf (NONE SEEN) 07/11/17 06:00 Ur Random Sodium 22 mmol/L 07/12/17 00:00 Urine Creatinine 156.0 mg/dl (39.0-259.0) 07/12/17 00:00 Random Vancomycin 10.0 ug/mL (5.0-40.0) 07/12/17 05:05 - Physical Exam Vitals and I&O: Vital Signs Temp 98 F 07/13/17 12:17 Pulse 49 07/13/17 12:17 Resp 24 07/13/17 12:17 BP 117/59 07/13/17 12:17 Pulse Ox 96 07/13/17 12:17 Intake & Output 07/12/17 07/13/17 07/13/17 18:59 06:59 18:59 Intake Total 1425 400 350 Balance 1425 400 350 Weight (lbs) 87.543 kg 87.543 kg 87.543 kg Intake: Intake, IV Amount 1400 350 350 Clindamycin 600mg/50mL 50 50 50 600 mg In 50 ml @ 100 mls /hr IV Q8HR [facility] Rx#: [id number] Piperacillin Sodium/ 100 50 50 Tazobact 3.375 gm In Sodium Chloride 0.9% 50 ml @ 100 mls/hr IV Q8HR [facility] Rx#:[id number] Sodium Chloride 0.9% 1, 1000 000 ml @ 90 mls/hr IV . Q11H7M [facility] Rx#:[id number] Vancomycin HCl 1 gm In 250 250 250 Sodium Chloride 0.9% 250 ml @ 165 mls/hr IV Q12H [facility] Rx#:[id number] Oral 25 50 Other: # Voids 3 3 # Bowel Movements 0 0 Active Medications: Current Medications Acetaminophen (Tylenol) 650 mg PO Q6HR PRN PRN Reason: TEMP >100 Stop: 09/08/17 19:00 Albuterol/Ipratropium (Duoneb Neb) 3 ml HHN Q6HRT [facility] Stop: 09/09/17 18:59 Last Admin: 07/13/17 07:11 Dose: 3 ml Albuterol/Ipratropium (Duoneb Neb) 3 ml HHN Q2H PRN PRN Reason: wheezing Stop: 09/09/17 14:14 Last Admin: 07/13/17 03:41 Dose: 3 ml Aspirin (Aspirin Chewable) 81 mg PO DAILY [facility] Stop: 09/09/17 08:59 Last Admin: 07/13/17 09:07 Dose: 81 mg Benazepril HCl (Lotensin) 10 mg PO DAILY [facility] Stop: 09/09/17 08:59 Last Admin: 07/13/17 09:08 Dose: 10 mg Carvedilol (Coreg) 25 mg PO DAILY [facility] Stop: 09/12/17 08:59 Beatty Oil/[place] Balsam/Trypsin (Venelex) 1 appl TP DAILY [facility] Stop: 09/11/17 09:59 Last Admin: 07/13/17 11:18 Dose: 1 appl Citalopram Hydrobromide (Celexa) 20 mg PO DAILY [facility] PRN Reason: Protocol Stop: 09/09/17 08:59 Last Admin: 07/13/17 09:08 Dose: 20 mg Clonazepam (Klonopin) 1 mg PO HS [facility] Stop: 09/08/17 20:59 Last Admin: 07/12/17 22:14 Dose: 1 mg Diltiazem HCl (Cardizem) 60 mg PO Q6HR [facility] Stop: 09/09/17 17:59 Last Admin: 07/13/17 12:56 Dose: 60 mg Piperacillin Sod/Tazobactam (Sod 3.375 gm/ Sodium Chloride) 50 mls @ 100 mls/ hr IV Q8HR [facility] Stop: 09/08/17 12:59 Last Admin: 07/13/17 12:47 Dose: 100 mls/hr Clindamycin Phosphate (Cleocin Pb) 600 mg in 50 mls @ 100 mls/hr IV Q8HR [facility] Stop: 09/09/17 20:59 Last Admin: 07/13/17 13:03 Dose: 100 mls/hr Vancomycin HCl 1 gm/ Sodium (Chloride) 250 mls @ 165 mls/hr IV Q12H [facility] Stop: 09/10/17 08:59 Last Infusion: 07/13/17 10:00 Dose: Infused Sodium Chloride (Nacl 0.9%) 1,000 mls @ 75 mls/hr IV .[id number] [facility] Stop: 09/11/17 11:15 Last Admin: 07/13/17 11:17 Dose: 75 mls/hr Insulin Aspart (Novolog Insulin Sliding Scale) 0 units SUBQ ACHS [facility] PRN Reason: Protocol Stop: 09/08/17 16:29 Last Admin: 07/13/17 12:48 Dose: 9 units Miscellaneous (Vte Chemical Prophylaxis Screen/ Admission) 1 [facility] PRN PRN PRN Reason: PROTOCOL Stop: 09/08/17 15:14 Miscellaneous (Vancomycin Iv Per Pharmacy) 1 [facility] PRN [facility] Stop: 09/09/17 17:29 Pantoprazole Sodium (Protonix) 40 mg PO DAILY [facility] Stop: 09/09/17 08:59 Last Admin: 07/13/17 09:08 Dose: 40 mg Quetiapine Fumarate (Seroquel) 50 mg PO HS [facility] PRN Reason: Protocol Stop: 09/08/17 20:59 Last Admin: 07/12/17 22:14 Dose: 50 mg Tamsulosin HCl (Flomax) 0.8 mg PO HS [facility] Stop: 09/08/17 20:59 Last Admin: 07/12/17 22:14 Dose: 0.8 mg Warfarin Sodium (Coumadin Per Pharmacy) 1 [facility] PRN PRN; Protocol PRN Reason: RX MONITORING Stop: 09/09/17 12:39 General: No acute distress, Other (stuporous) HEENT: Atraumatic, Mucous membr. 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 ESS Htn - Plan Plan: Lab - Result Diagrams 07/12/17 05:05 07/12/17 05:05 Current Medications Acetaminophen (Tylenol) 650 mg PO Q6HR PRN PRN Reason: TEMP >100 Stop: 09/08/17 19:00 Albuterol/Ipratropium (Duoneb Neb) 3 ml HHN Q6HRT [facility] Stop: 09/09/17 18:59 Last Admin: 07/12/17 13:41 Dose: 3 ml Albuterol/Ipratropium (Duoneb Neb) 3 ml HHN Q2H PRN PRN Reason: wheezing Stop: 09/09/17 14:14 Aspirin (Aspirin Chewable) 81 mg PO DAILY [facility] Stop: 09/09/17 08:59 Last Admin: 07/12/17 08:45 Dose: 81 mg Benazepril HCl (Lotensin) 10 mg PO DAILY [facility] Stop: 09/09/17 08:59 Last Admin: 07/12/17 08:46 Dose: 10 mg Citalopram Hydrobromide (Celexa) 20 mg PO DAILY [facility] PRN Reason: Protocol Stop: 09/09/17 08:59 Last Admin: 07/12/17 08:46 Dose: 20 mg Clonazepam (Klonopin) 1 mg PO HS [facility] Stop: 09/08/17 20:59 Last Admin: 07/11/17 22:28 Dose: 1 mg Diltiazem HCl (Cardizem) 60 mg PO Q6HR [facility] Stop: 09/09/17 17:59 Last Admin: 07/12/17 13:58 Dose: 60 mg Piperacillin Sod/Tazobactam (Sod 3.375 gm/ Sodium Chloride) 50 mls @ 100 mls/ hr IV Q8HR [facility] Stop: 09/08/17 12:59 Last Infusion: 07/12/17 13:00 Dose: Infused Sodium Chloride (Nacl 0.9%) 1,000 mls @ 90 mls/hr IV .Q11H7M [facility] Stop: 09/08/17 13:14 Last Admin: 07/12/17 04:59 Dose: 90 mls/hr Clindamycin Phosphate (Cleocin Pb) 600 mg in 50 mls @ 100 mls/hr IV Q8HR [facility] Stop: 09/09/17 20:59 Last Admin: 07/12/17 14:05 Dose: 100 mls/hr Vancomycin HCl 1 gm/ Sodium (Chloride) 250 mls @ 165 mls/hr IV Q12H [facility] Stop: 09/10/17 08:59 Last Infusion: 07/12/17 14:10 Dose: Infused Insulin Aspart (Novolog Insulin Sliding Scale) 0 units SUBQ ACHS [facility] PRN Reason: Protocol Stop: 09/08/17 16:29 Last Admin: 07/12/17 13:52 Dose: 6 units Miscellaneous (Vte Chemical Prophylaxis Screen/ Admission) 1 [facility] PRN PRN PRN Reason: PROTOCOL Stop: 09/08/17 15:14 Miscellaneous (Vancomycin Iv Per Pharmacy) 1 [facility] PRN [facility] Stop: 09/09/17 17:29 Pantoprazole Sodium (Protonix) 40 mg PO DAILY [facility] Stop: 09/09/17 08:59 Last Admin: 07/12/17 08:45 Dose: 40 mg Quetiapine Fumarate (Seroquel) 50 mg PO HS [facility] PRN Reason: Protocol Stop: 09/08/17 20:59 Last Admin: 07/11/17 22:28 Dose: 50 mg Tamsulosin HCl (Flomax) 0.8 mg PO HS [facility] Stop: 09/08/17 20:59 Last Admin: 07/11/17 22:28 Dose: 0.8 mg Warfarin Sodium (Coumadin Per Pharmacy) 1 [facility] PRN PRN; Protocol PRN Reason: RX MONITORING Stop: 09/09/17 12:39 Lab - Result Diagrams 07/13/17 05:55 07/13/17 05:55 kidney fnc stable w/ BUN 37/Cr. 1.1 f/u cultures continue Vanco. clinda, Zosyn incidental finding brain mass f/u electrolytes, cbc Nutritional Asmnt/Malnutr-PDOC - Dietary Evaluation Malnutrition Findings (Please click <Entered> for more info): Nutritional Asmnt/Malnutrition Start: 07/12/17 15: 11 Text: Status: Complete Freq: Document 07/12/17 15:11 LCHENG (Rec: 07/12/17 15:24 [id number]) Nutritional Asmnt/Malnutrition Patient General Information Nutritional Screening High Risk Diagnosis sepsis, secondary to cellulitis Pertinent Medical Hx/Surgical Hx CAD, CHF, HTN, dementia, schizophrenia, weakness, chronic renal insuff, DM, redness of both legs. Subjective Information Pt seen sleeping at time of visit. Per PHARMACY SERVICES REPRESENTATIVE, pt ate about 50% of breakfast, very slowly. Pt had no lunch yet d/t sleeping. Per nurse note, RN feed pt with pudding and jello with milk shake in the afternoon. Per ST to put patient NPO if lethargic to avoid aspiration noted. Current Diet Order/ Nutrition Support [id number], mech soft chopped Pertinent Medications novolog, protonix, piperacillin, seroquel, nacl 0 .9%, vancomycin Pertinent Labs 3*19 BUN 37, Glucose 261, POC 247-312 07/10 A1c 7.6 Nutritional Hx/Data Height 1.65 m Height (Calculated Centimeters) 165.1 Current Weight (lbs) 87.543 kg Weight (Calculated Kilograms) 87.5 Weight (Calculated Grams) 50300.3 [place] Body Weight 136 Body Mass Index (BMI) 32.1 Weight Status Obese GI Symptoms GI Symptoms None Last BM Difficult in: None Skin Integrity/Comment: pressure ulcer to left heel, reddened to left lower extremity (cellulitis), maceration to left foot, pressure area to right foot Current %PO Poor (25-49%) Estimated Nutritional Goals BEE in Kcals: Adj wt of IBW Calories/Kcals/Kg 25-30 Kcals Calculated 2950-8803 Protein: Adj wt of IBW Protein g/k-1.2 Protein Calculated 68-82 Fluid: ml 1700-2040ml (1ml/kcal) Nutritional Problem 2. Problem Problem increased nutrition needs ( protein) Etiology increased metabolic demand for wound healing Signs/Symptoms: pressure ulcer 1. Problem Problem altered nutrition related labs Etiology DM Signs/Symptoms: Glucose 261, POC 247-312, A1c 7.6 Intervention/Recommendation Comments 1. Recommend nectar thickned liquid considering risk of aspiration. recommend swallow eval again when pt is more wake up. 2. Consider Boost BID to supplement nutrition. 3. Monitor PO intake, wt, labs and skin integrity 4. F/U as high risk in 2-3 days, 07/14-07/15 Expected Outcomes/Goals Expected Outcomes/Goals 1. PO intake to meet at least 75% of nutritional needs. 2. Wt stability, skin to remain intact, labs to approach WNL.
[2017-07-13 14:05] LABS: INR 1.41 (0.5-1.4)
--- NOTE | 2017-07-13 19:51 | Cardiology ---
07/12/2017 ECHOCARDIOGRAM REPORT The patient of Dr. Elijah Washburn. M-MODE ECHOCARDIOGRAM: Mitral valve: Anterior leaflet of mitral valve shows normal excursion, EF velocity. Posterior leaflet of the mitral valve shows normal excursion. Left ventricle posterior shows increased thickness, normal excursion. Interventricular septum shows increased thickness, normal excursion, hypertrophy of the left ventricle, ejection fraction 55%. Left atrium enlarged at 4.1 cm. Aortic root shows normal dimension, normal excursion of aortic leaflets. CONCLUSION: Hypertrophy of the left ventricle, ejection fraction, left atrial enlargement, ejection fraction 50%. 2D ECHO: Long axis view showed normal sized left ventricle with hypertrophy of the left ventricle. Left atrium enlarged. Aortic root shows normal dimension, normal excursion of aortic leaflets. Short axis view of mitral valve normal. Short axis view of aortic valve normal. Apical four chamber view shows no hypertrophy of the left ventricle, ejection fraction 50%. Left atrium enlarged. Right ventricular cavity, right atrium normal. No pericardial effusion. CONCLUSION: Hypertrophy of the left ventricle. Left atrial enlargement, ejection fraction 50%. Doppler study shows prominent A wave consistent with poor compliance of left ventricle, trace mitral regurgitation, trace tricuspid regurgitation. [facility]# [id number]
[2017-07-13] MEDS ORDERED: Diltiazem 30 mg Tab PO STA (21:08)
[2017-07-13] MEDS: methylPREDNISolone SS 40 mg Vial IVP SCH (21:42)
--- NOTE | 2017-07-13 22:03 | Progress Notes ---
DATE: 07/13/2017 Case was discussed with staff of the patient, reviewed records. The patient continues to be confused. He is demented. He is sleeping most of the time. Unable to participate in meaningful conversation, make safe plan for self-care, even with a predictive maintenance specialist. He has been compliant with the medication with no side effects. He is suffering with cellulitis of his leg and he will continue with the Seroquel and Celexa with no side effects, no sedation, no nausea and no extrapyramidal symptoms. Thank you very much for allowing me to participate in the care of this most interesting gentleman. JOB# [id number]
--- NOTE | 2017-07-13 22:26 | Infectious Disease Prog Note ---
Infectious Disease Subjective - Review of Systems Service Date: 07/13/17 Subjective: No new change, no fever. Infectious Disease Objective - Results Result Diagrams: 07/13/17 05:55 07/13/17 05:55 Recent Labs: Laboratory Last Values WBC 10.4 Th/cmm (4.8-10.8) 07/13/17 05:55 RBC 3.05 Mil/cmm (3.80-5.80) L 07/13/17 05:55 Hgb 10.0 gm/dL (12-16) L 07/13/17 05:55 Hct 28.7 % (41.0-60) L 07/13/17 05:55 MCV 94.1 fl (80-99) 07/13/17 05:55 MCH 32.7 pg (27.0-31.0) H 07/13/17 05:55 MCHC Differential 34.7 pg (28.0-36.0) 07/13/17 05:55 RDW 14.5 % (11.5-20.0) 07/13/17 05:55 Plt Count 255 Th/cmm (150-400) 07/13/17 05:55 MPV 9.1 fl 07/13/17 05:55 Neutrophils % 83.5 % (40.0-80.0) H 07/13/17 05:55 Band Neutrophils % 4 % (0-10) 07/11/17 06:19 Lymphocytes % 7.3 % (20.0-50.0) L 07/13/17 05:55 Monocytes % 7.0 % (2.0-10.0) 07/13/17 05:55 Eosinophils % 1.8 % (0.0-5.0) 07/13/17 05:55 Basophils % 0.4 % (0.0-2.0) 07/13/17 05:55 Neutrophils (Manual) 88 % (40-80) H 07/11/17 06:19 Lymphocytes 7 % (20-50) L 07/11/17 06:19 Monocytes 1 % (2-10) L 07/11/17 06:19 Basophils 1 % (0-3) 07/10/17 10:49 Platelet Estimate ADEQUATE (NORMAL) 07/11/17 06:19 Eos Smear Source URINE 07/12/17 00:00 Eos Smear Total Cells NONE SEEN (NONE SEEN) 07/12/17 00:00 PT 15.0 SECONDS (9.5-11.5) H 07/13/17 13:15 INR 1.41 (0.5-1.4) H 07/13/17 13:15 PTT (Actin FS) 30.8 SECONDS (26.0-38.0) 07/11/17 06:19 Sodium 138 mEq/L (136-145) 07/13/17 05:55 Potassium 3.8 mEq/L (3.5-5.1) 07/13/17 05:55 Chloride 109 mEq/L (98-107) H 07/13/17 05:55 Carbon Dioxide 21.6 mEq/L (21.0-31.0) 07/13/17 05:55 Anion Gap 11.2 (7.0-16.0) 07/13/17 05:55 BUN 37 mg/dL (7-25) H 07/13/17 05:55 Creatinine 1.1 mg/dL (0.7-1.3) 07/13/17 05:55 Est GFR ( Amer) TNP 07/13/17 05:55 Est GFR (Non-Af Amer) TNP 07/13/17 05:55 BUN/Creatinine Ratio 33.6 07/13/17 05:55 Glucose 285 mg/dL (70-105) H D 07/13/17 05:55 POC Glucose 348 MG/DL (70 - 105) H 07/13/17 21:51 Hemoglobin A1c % 7.6 % (4.0-6.0) H 07/10/17 10:49 Whole Bld Lactic Acid 1.12 mmol/L (0.60-1.99) 07/11/17 14:30 Calcium 8.7 mg/dL (8.6-10.3) 07/13/17 05:55 Phosphorus 3.5 mg/dL (2.5-5.0) 07/12/17 05:05 Magnesium 2.4 mg/dL (1.9-2.7) 07/12/17 05:05 Total Bilirubin 0.6 mg/dL (0.3-1.0) 07/13/17 05:55 AST 11 U/L (13-39) L 07/13/17 05:55 ALT 13 U/L (7-52) 07/13/17 05:55 Alkaline Phosphatase 262 U/L (34-104) H 07/13/17 05:55 B-Natriuretic Peptide 355.0 pg/mL (5.0-100.0) H 07/13/17 05:55 Total Protein 6.3 gm/dL (6.0-8.3) 07/13/17 05:55 Albumin 2.7 gm/dL (4.2-5.5) L 07/13/17 05:55 Globulin 3.6 gm/dL 07/13/17 05:55 Albumin/Globulin Ratio 0.8 (1.0-1.8) L 07/13/17 05:55 TSH 0.20 uIU/ml (0.34-5.60) L 07/11/17 06:19 Urine Source [place] 07/11/17 06:00 Urine Color YELLOW 07/11/17 06:00 Urine Clarity HAZY (CLEAR) 07/11/17 06:00 Urine pH 6.0 (4.6 - 8.0) 07/11/17 06:00 Ur Specific [place] 1.015 (1.005-1.030) 07/11/17 06:00 Urine Protein 100 mg/dL (NEGATIVE) H 07/11/17 06:00 Urine Glucose (UA) NEGATIVE mg/dL (NEGATIVE) 07/11/17 06:00 Urine Ketones TRACE mg/dL (NEGATIVE) 07/11/17 06:00 Urine Blood TRACE (NEGATIVE) 07/11/17 06:00 Urine Nitrate NEGATIVE (NEGATIVE) 07/11/17 06:00 Urine Bilirubin NEGATIVE (NEGATIVE) 07/11/17 06:00 Urine Urobilinogen 2.0 E.U./dL (0.2 - 1.0) 07/11/17 06:00 Ur Leukocyte Esterase NEGATIVE (NEGATIVE) 07/11/17 06:00 Urine RBC 0-2 /hpf (0-5) H 07/11/17 06:00 Urine WBC 0-2 /hpf (0-5) 07/11/17 06:00 Ur Epithelial Cells OCCASIONAL /lpf (FEW) 07/11/17 06:00 Urine Bacteria FEW /hpf (NONE SEEN) 07/11/17 06:00 Ur Random Sodium 22 mmol/L 07/12/17 00:00 Urine Creatinine 156.0 mg/dl (39.0-259.0) 07/12/17 00:00 Random Vancomycin 10.0 ug/mL (5.0-40.0) 07/12/17 05:05 - Physical Exam Vitals and I&O: Vital Signs Temp 98.6 F 07/13/17 20:00 Pulse 130 07/13/17 21:42 Resp 24 07/13/17 20:50 BP 152/83 07/13/17 20:00 Pulse Ox 96 07/13/17 20:50 Intake & Output 07/13/17 07/13/17 07/14/17 06:59 18:59 06:59 Intake Total 400 450 700 Balance 400 450 700 Weight (lbs) 87.543 kg 87.543 kg 87.543 kg Intake: Intake, IV Amount 350 450 Clindamycin 600mg/50mL 50 100 600 mg In 50 ml @ 100 mls /hr IV Q8HR [facility] Rx#: [id number] Piperacillin Sodium/ 50 100 Tazobact 3.375 gm In Sodium Chloride 0.9% 50 ml @ 100 mls/hr IV Q8HR [facility] Rx#:[id number] Vancomycin HCl 1 gm In 250 250 Sodium Chloride 0.9% 250 ml @ 165 mls/hr IV Q12H [facility] Rx#:[id number] Oral 50 400 Other 300 Other: # Voids 3 3 # Bowel Movements 0 1 Active Medications: Current Medications Acetaminophen (Tylenol) 650 mg PO Q6HR PRN PRN Reason: TEMP >100 Stop: 09/08/17 19:00 Albuterol/Ipratropium (Duoneb Neb) 3 ml HHN Q6HRT [facility] Stop: 09/09/17 18:59 Last Admin: 07/13/17 19:42 Dose: 3 ml Albuterol/Ipratropium (Duoneb Neb) 3 ml HHN Q2H PRN PRN Reason: wheezing Stop: 09/09/17 14:14 Last Admin: 07/13/17 20:50 Dose: 3 ml Aspirin (Aspirin Chewable) 81 mg PO DAILY [facility] Stop: 09/09/17 08:59 Last Admin: 07/13/17 09:07 Dose: 81 mg Benazepril HCl (Lotensin) 10 mg PO DAILY [facility] Stop: 09/09/17 08:59 Last Admin: 07/13/17 09:08 Dose: 10 mg Carvedilol (Coreg) 25 mg PO DAILY [facility] Stop: 09/12/17 08:59 [place] Oil/[place] Balsam/Trypsin (Venelex) 1 appl TP DAILY [facility] Stop: 09/11/17 09:59 Last Admin: 07/13/17 11:18 Dose: 1 appl Citalopram Hydrobromide (Celexa) 20 mg PO DAILY [facility] PRN Reason: Protocol Stop: 09/09/17 08:59 Last Admin: 07/13/17 09:08 Dose: 20 mg Clonazepam (Klonopin) 1 mg PO HS [facility] Stop: 09/08/17 20:59 Last Admin: 07/13/17 20:40 Dose: 1 mg Piperacillin Sod/Tazobactam (Sod 3.375 gm/ Sodium Chloride) 50 mls @ 100 mls/ hr IV Q8HR [facility] Stop: 09/08/17 12:59 Last Admin: 07/13/17 20:39 Dose: 100 mls/hr Clindamycin Phosphate (Cleocin Pb) 600 mg in 50 mls @ 100 mls/hr IV Q8HR [facility] Stop: 09/09/17 20:59 Last Admin: 07/13/17 22:13 Dose: 100 mls/hr Vancomycin HCl 1 gm/ Sodium (Chloride) 250 mls @ 165 mls/hr IV Q12H [facility] Stop: 09/10/17 08:59 Last Infusion: 07/13/17 10:00 Dose: Infused Sodium Chloride (Nacl 0.9%) 1,000 mls @ 75 mls/hr IV .[id number] [facility] Stop: 09/11/17 11:15 Last Admin: 07/13/17 11:17 Dose: 75 mls/hr Insulin Aspart (Novolog Insulin Sliding Scale) 0 units SUBQ ACHS [facility] PRN Reason: Protocol Stop: 09/08/17 16:29 Last Admin: 07/13/17 22:13 Dose: 9 units Methylprednisolone Sodium Succinate (Solu-Medrol) 40 mg IVP DAILY [facility] Stop: 09/11/17 21:14 Last Admin: 07/13/17 21:42 Dose: 40 mg Miscellaneous (Vte Chemical Prophylaxis Screen/ Admission) 1 [facility] PRN PRN PRN Reason: PROTOCOL Stop: 09/08/17 15:14 Miscellaneous (Vancomycin Iv Per Pharmacy) 1 [facility] PRN [facility] Stop: 09/09/17 17:29 Pantoprazole Sodium (Protonix) 40 mg PO DAILY [facility] Stop: 09/09/17 08:59 Last Admin: 07/13/17 09:08 Dose: 40 mg Quetiapine Fumarate (Seroquel) 50 mg PO HS [facility] PRN Reason: Protocol Stop: 09/08/17 20:59 Last Admin: 07/13/17 20:40 Dose: 50 mg Tamsulosin HCl (Flomax) 0.8 mg PO HS [facility] Stop: 09/08/17 20:59 Last Admin: 07/13/17 20:40 Dose: 0.8 mg Warfarin Sodium (Coumadin Per Pharmacy) 1 [facility] PRN PRN; Protocol PRN Reason: RX MONITORING Stop: 09/09/17 12:39 General: no acute distress, well developed, well nourished HEENT: atraumatic, normocephalic, PERRLA, EOMI Neck: supple, no thyromegaly Cardiovascular: S1S2, regular Lungs: clear to auscultation bilaterally, clear to percussion Abdomen: soft, no tender, no distended Extremities: other (swollen left leg with darkening of the left foot.), no cyanosis, no clubbing Neurological: awake, alert Skin: intact, other (sacral; wound, needs aggressive wound care.) Infectious Disease Assmt/Plan - Problem List Patient Problems: All Active Problems LEFT LOWER LEG REDNESS, SWELLING PAIN (Acute) - Assessment Assessment: 1. Leukocytosis suspect sepsis. 2. Left leg cellulitis, may have peripheral artery disease. There is a chance of the skin to turn necrotic. 3. Diabetes mellitus type 2. 4. Peripheral artery disease. 5. Hypertension. 6. Severe dementia. - Plan Plan: Continue vancO IV, Zosyn IV and clindamycin iv. Nutritional Asmnt/Malnutr-PDOC - Dietary Evaluation Malnutrition Findings (Please click <Entered> for more info): Nutritional Asmnt/Malnutrition Start: 07/12/17 15: 11 Text: Status: Complete Freq: Document 07/12/17 15:11 ARJUN (Rec: 07/12/17 15:24 ARJUN [id number]) Nutritional Asmnt/Malnutrition Patient General Information Nutritional Screening High Risk Diagnosis sepsis, secondary to cellulitis Pertinent Medical Hx/Surgical Hx CAD, CHF, HTN, dementia, schizophrenia, weakness, chronic renal insuff, DM, redness of both legs. Subjective Information Pt seen sleeping at time of visit. Per AMMONIA PRINT OPERATOR, pt ate about 50% of breakfast, very slowly. Pt had no lunch yet d/t sleeping. Per nurse note, RN feed pt with pudding and jello with milk shake in the afternoon. Per ST to put patient NPO if lethargic to avoid aspiration noted. Current Diet Order/ Nutrition Support [id number], mech soft chopped Pertinent Medications novolog, protonix, piperacillin, seroquel, nacl 0 .9%, vancomycin Pertinent Labs 3* BUN 37, Glucose 261, POC 247-312 3 A1c 7.6 Nutritional Hx/Data Height 1.65 m Height (Calculated Centimeters) 165.1 Current Weight (lbs) 87.543 kg Weight (Calculated Kilograms) 87.5 Weight (Calculated Grams) 12518.3 [place] Body Weight 136 Body Mass Index (BMI) 32.1 Weight Status Obese GI Symptoms GI Symptoms None Last BM Difficult in: None Skin Integrity/Comment: pressure ulcer to left heel, reddened to left lower extremity (cellulitis), maceration to left foot, pressure area to right foot Current %PO Poor (25-49%) Estimated Nutritional Goals BEE in Kcals: Adj wt of IBW Calories/Kcals/Kg 25-30 Kcals Calculated 0714-6948 Protein: Adj wt of IBW Protein g/k-1.2 Protein Calculated 68-82 Fluid: ml 1700-2040ml (1ml/kcal) Nutritional Problem 2. Problem Problem increased nutrition needs ( protein) Etiology increased metabolic demand for wound healing Signs/Symptoms: pressure ulcer 1. Problem Problem altered nutrition related labs Etiology DM Signs/Symptoms: Glucose 261, POC 247-312, A1c 7.6 Intervention/Recommendation Comments 1. Recommend nectar thickned liquid considering risk of aspiration. recommend swallow eval again when pt is more wake up. 2. Consider Boost BID to supplement nutrition. 3. Monitor PO intake, wt, labs and skin integrity 4. F/U as high risk in 2-3 days, 07/14-07/15 Expected Outcomes/Goals Expected Outcomes/Goals 1. PO intake to meet at least 75% of nutritional needs. 2. Wt stability, skin to remain intact, labs to approach WNL.
[2017-07-14] MEDS: Diltiazem 30 mg Tab PO SCH ×4 (00:23→17:00)
[2017-07-14] MEDS: Albuterol/Ipratropium Neb 3 ML AERS HHN SCH ×4 (01:14→19:53)
[2017-07-14] MEDS: Sodium Chloride 0.9% 1,000 ML IV SCH ×2 (06:23→16:11)
[2017-07-14] MEDS: Clindamycin 600mg/50mL 600 MG/50 ML BAG IV SCH ×3 (06:25→20:30)
[2017-07-14] MEDS: INSULIN ASPART SLIDING SCALE 100 UNITS/ML UNIT SUBQ SCH ×4 (06:46→21:38)
[2017-07-14 08:15] LABS: HEMATOCRIT 28.2 % (41.0-60); HEMOGLOBIN 9.5 gm/dL (12-16); LYMPHOCYTE ABSOLUTE 0.3 Th/cmm (1.5-3.0); MEAN CELL VOLUME 93.7 fl (80-99); MEAN CORPUSCULAR HEMOGLOBIN 31.6 pg (27.0-31.0); MEAN CORPUSCULAR HGB CONC 33.7 pg (28.0-36.0); MEAN PLATELET VOLUME 8.6 fl; MONOCYTE ABSOLUTE 0.1 Th/cmm (0.3-1.0); NEUTROPHILE ABSOLUTE 8.5 Th/cmm (1.8-8.0); PLATELET COUNT 258 Th/cmm (150-400); RED BLOOD COUNT 3.01 Mil/cmm (3.80-5.80); RED CELL DISTRIBUTION WIDTH 14.7 % (11.5-20.0); WHITE BLOOD COUNT 8.9 Th/cmm (4.8-10.8)
[2017-07-14 08:32] LABS: % EOSINOPHILS 0.1 % (0.0-5.0); % LYMPHOCYTES 3.7 % (20.0-50.0); % MONOCYTES 1.5 % (2.0-10.0); % NEUTROPHILS 94.7 % (40.0-80.0)
[2017-07-14 08:36] LABS: ALB/GLOB RATIO 0.7 (1.0-1.8); ALBUMIN 2.6 gm/dL (4.2-5.5); ALKALINE PHOSPHATASE 293 U/L (34-104); ANION GAP 11.5 (7.0-16.0); BILIRUBIN,TOTAL 0.5 mg/dL (0.3-1.0); BUN - UREA NITROGEN 31 mg/dL (7-25); CALCIUM SERUM 8.7 mg/dL (8.6-10.3); CARBON DIOXIDE 20.1 mEq/L (21.0-31.0); CHLORIDE 111 mEq/L (98-107); GLUCOSE 382 mg/dL (70-105); POTASSIUM SERUM 4.6 mEq/L (3.5-5.1); SGOT 21 U/L (13-39); SGPT/ALT 18 U/L (7-52); SODIUM SERUM 138 mEq/L (136-145); TOTAL PROTEIN,SERUM 6.3 gm/dL (6.0-8.3)
[2017-07-14] MEDS ORDERED: methylPREDNISolone SS 40 mg Vial IVP SCH ×2 (09:00→21:04)
--- NOTE | 2017-07-14 09:08 | General Progress Note ---
Subjective - Review of Systems Service Date: 07/14/17 Subjective: Patient is confused Objective - Results Result Diagrams: 07/14/17 08:00 07/14/17 08:00 Recent Labs: Laboratory Last Values WBC 8.9 Th/cmm (4.8-10.8) 07/14/17 08:00 RBC 3.01 Mil/cmm (3.80-5.80) L 07/14/17 08:00 Hgb 9.5 gm/dL (12-16) L 07/14/17 08:00 Hct 28.2 % (41.0-60) L 07/14/17 08:00 MCV 93.7 fl (80-99) 07/14/17 08:00 MCH 31.6 pg (27.0-31.0) H 07/14/17 08:00 MCHC Differential 33.7 pg (28.0-36.0) 07/14/17 08:00 RDW 14.7 % (11.5-20.0) 07/14/17 08:00 Plt Count 258 Th/cmm (150-400) 07/14/17 08:00 MPV 8.6 fl 07/14/17 08:00 Neutrophils % 94.7 % (40.0-80.0) H 07/14/17 08:00 Band Neutrophils % 4 % (0-10) 07/11/17 06:19 Lymphocytes % 3.7 % (20.0-50.0) L 07/14/17 08:00 Monocytes % 1.5 % (2.0-10.0) L 07/14/17 08:00 Eosinophils % 0.1 % (0.0-5.0) 07/14/17 08:00 Basophils % 0.0 % (0.0-2.0) 07/14/17 08:00 Neutrophils (Manual) 88 % (40-80) H 07/11/17 06:19 Lymphocytes 7 % (20-50) L 07/11/17 06:19 Monocytes 1 % (2-10) L 07/11/17 06:19 Basophils 1 % (0-3) 07/10/17 10:49 Platelet Estimate ADEQUATE (NORMAL) 07/11/17 06:19 Eos Smear Source URINE 07/12/17 00:00 Eos Smear Total Cells NONE SEEN (NONE SEEN) 07/12/17 00:00 PT 15.0 SECONDS (9.5-11.5) H 07/13/17 13:15 INR 1.41 (0.5-1.4) H 07/13/17 13:15 PTT (Actin FS) 30.8 SECONDS (26.0-38.0) 07/11/17 06:19 Sodium 138 mEq/L (136-145) 07/14/17 08:00 Potassium 4.6 mEq/L (3.5-5.1) 07/14/17 08:00 Chloride 111 mEq/L (98-107) H 07/14/17 08:00 Carbon Dioxide 20.1 mEq/L (21.0-31.0) L 07/14/17 08:00 Anion Gap 11.5 (7.0-16.0) 07/14/17 08:00 BUN 31 mg/dL (7-25) H 07/14/17 08:00 Creatinine 1.0 mg/dL (0.7-1.3) 07/14/17 08:00 Est GFR ( Amer) TNP 07/14/17 08:00 Est GFR (Non-Af Amer) TNP 07/14/17 08:00 BUN/Creatinine Ratio 31.0 07/14/17 08:00 Glucose 382 mg/dL (70-105) H 07/14/17 08:00 POC Glucose 385 MG/DL (70 - 105) H 07/14/17 06:31 Hemoglobin A1c % 7.6 % (4.0-6.0) H 07/10/17 10:49 Whole Bld Lactic Acid 1.12 mmol/L (0.60-1.99) 07/11/17 14:30 Calcium 8.7 mg/dL (8.6-10.3) 07/14/17 08:00 Phosphorus 3.5 mg/dL (2.5-5.0) 07/12/17 05:05 Magnesium 2.4 mg/dL (1.9-2.7) 07/12/17 05:05 Total Bilirubin 0.5 mg/dL (0.3-1.0) 07/14/17 08:00 AST 21 U/L (13-39) 07/14/17 08:00 ALT 18 U/L (7-52) 07/14/17 08:00 Alkaline Phosphatase 293 U/L (34-104) H 07/14/17 08:00 B-Natriuretic Peptide 355.0 pg/mL (5.0-100.0) H 07/13/17 05:55 Total Protein 6.3 gm/dL (6.0-8.3) 07/14/17 08:00 Albumin 2.6 gm/dL (4.2-5.5) L 07/14/17 08:00 Globulin 3.7 gm/dL 07/14/17 08:00 Albumin/Globulin Ratio 0.7 (1.0-1.8) L 07/14/17 08:00 TSH 0.20 uIU/ml (0.34-5.60) L 07/11/17 06:19 Urine Source [place] 07/11/17 06:00 Urine Color YELLOW 07/11/17 06:00 Urine Clarity HAZY (CLEAR) 07/11/17 06:00 Urine pH 6.0 (4.6 - 8.0) 07/11/17 06:00 Ur Specific [place] 1.015 (1.005-1.030) 07/11/17 06:00 Urine Protein 100 mg/dL (NEGATIVE) H 07/11/17 06:00 Urine Glucose (UA) NEGATIVE mg/dL (NEGATIVE) 07/11/17 06:00 Urine Ketones TRACE mg/dL (NEGATIVE) 07/11/17 06:00 Urine Blood TRACE (NEGATIVE) 07/11/17 06:00 Urine Nitrate NEGATIVE (NEGATIVE) 07/11/17 06:00 Urine Bilirubin NEGATIVE (NEGATIVE) 07/11/17 06:00 Urine Urobilinogen 2.0 E.U./dL (0.2 - 1.0) 07/11/17 06:00 Ur Leukocyte Esterase NEGATIVE (NEGATIVE) 07/11/17 06:00 Urine RBC 0-2 /hpf (0-5) H 07/11/17 06:00 Urine WBC 0-2 /hpf (0-5) 07/11/17 06:00 Ur Epithelial Cells OCCASIONAL /lpf (FEW) 07/11/17 06:00 Urine Bacteria FEW /hpf (NONE SEEN) 07/11/17 06:00 Ur Random Sodium 22 mmol/L 07/12/17 00:00 Urine Creatinine 156.0 mg/dl (39.0-259.0) 07/12/17 00:00 Vancomycin Trough 17.1 ug/mL (10-20) 07/14/17 08:00 Random Vancomycin 10.0 ug/mL (5.0-40.0) 07/12/17 05:05 - Physical Exam Vitals and I&O: Vital Signs Temp 97.7 F 07/14/17 00:41 Pulse 119 07/14/17 07:04 Resp 22 07/14/17 07:04 BP 137/80 07/14/17 00:41 Pulse Ox 97 07/14/17 07:04 Intake & Output 07/13/17 07/14/17 07/14/17 18:59 06:59 18:59 Intake Total 450 1825 Balance 450 1825 Weight (lbs) 87.543 kg 87.543 kg Intake: Intake, IV Amount 450 1100 Clindamycin 600mg/50mL 100 50 600 mg In 50 ml @ 100 mls /hr IV Q8HR [facility] Rx#: [id number] Piperacillin Sodium/ 100 50 Tazobact 3.375 gm In Sodium Chloride 0.9% 50 ml @ 100 mls/hr IV Q8HR [facility] Rx#:[id number] Sodium Chloride 0.9% 1, 1000 000 ml @ 75 mls/hr IV . [id number] [facility] Rx#:[id number] Vancomycin HCl 1 gm In 250 Sodium Chloride 0.9% 250 ml @ 165 mls/hr IV Q12H [facility] Rx#:[id number] Oral 425 Other 300 Other: # Voids 3 # Bowel Movements 0 Active Medications: Current Medications Acetaminophen (Tylenol) 650 mg PO Q6HR PRN PRN Reason: TEMP >100 Stop: 09/08/17 19:00 Albuterol/Ipratropium (Duoneb Neb) 3 ml HHN Q6HRT [facility] Stop: 09/09/17 18:59 Last Admin: 07/14/17 07:03 Dose: 3 ml Albuterol/Ipratropium (Duoneb Neb) 3 ml HHN Q2H PRN PRN Reason: wheezing Stop: 09/09/17 14:14 Last Admin: 07/13/17 22:41 Dose: 3 ml Aspirin (Aspirin Chewable) 81 mg PO DAILY [facility] Stop: 09/09/17 08:59 Last Admin: 07/13/17 09:07 Dose: 81 mg Benazepril HCl (Lotensin) 10 mg PO DAILY [facility] Stop: 09/09/17 08:59 Last Admin: 07/13/17 09:08 Dose: 10 mg Carvedilol (Coreg) 25 mg PO DAILY [facility] Stop: 09/12/17 08:59 [place] Oil/[place] Balsam/Trypsin (Venelex) 1 appl TP DAILY [facility] Stop: 09/11/17 09:59 Last Admin: 07/13/17 11:18 Dose: 1 appl Citalopram Hydrobromide (Celexa) 20 mg PO DAILY [facility] PRN Reason: Protocol Stop: 09/09/17 08:59 Last Admin: 07/13/17 09:08 Dose: 20 mg Clonazepam (Klonopin) 1 mg PO HS [facility] Stop: 09/08/17 20:59 Last Admin: 07/13/17 20:40 Dose: 1 mg Diltiazem HCl (Cardizem) 60 mg PO Q6HR [facility] Stop: 09/12/17 00:00 Last Admin: 07/14/17 06:23 Dose: 60 mg Piperacillin Sod/Tazobactam (Sod 3.375 gm/ Sodium Chloride) 50 mls @ 100 mls/ hr IV Q8HR [facility] Stop: 09/08/17 12:59 Last Admin: 07/14/17 05:46 Dose: 100 mls/hr Clindamycin Phosphate (Cleocin Pb) 600 mg in 50 mls @ 100 mls/hr IV Q8HR [facility] Stop: 09/09/17 20:59 Last Admin: 07/14/17 06:25 Dose: 100 mls/hr Vancomycin HCl 1 gm/ Sodium (Chloride) 250 mls @ 165 mls/hr IV Q12H [facility] Stop: 09/10/17 08:59 Last Admin: 07/13/17 23:24 Dose: 165 mls/hr Sodium Chloride (Nacl 0.9%) 1,000 mls @ 75 mls/hr IV .[id number] [facility] Stop: 09/11/17 11:15 Last Admin: 07/14/17 06:23 Dose: 75 mls/hr Insulin Aspart (Novolog Insulin Sliding Scale) 0 units SUBQ ACHS [facility] PRN Reason: Protocol Stop: 09/08/17 16:29 Last Admin: 07/14/17 06:46 Dose: 11 units Methylprednisolone Sodium Succinate (Solu-Medrol) 40 mg IVP DAILY [facility] Stop: 09/11/17 21:14 Last Admin: 07/13/17 21:42 Dose: 40 mg Miscellaneous (Vte Chemical Prophylaxis Screen/ Admission) 1 [facility] PRN PRN PRN Reason: PROTOCOL Stop: 09/08/17 15:14 Miscellaneous (Vancomycin Iv Per Pharmacy) 1 [facility] PRN [facility] Stop: 09/09/17 17:29 Pantoprazole Sodium (Protonix) 40 mg PO DAILY [facility] Stop: 09/09/17 08:59 Last Admin: 07/13/17 09:08 Dose: 40 mg Quetiapine Fumarate (Seroquel) 50 mg PO HS [facility] PRN Reason: Protocol Stop: 09/08/17 20:59 Last Admin: 07/13/17 20:40 Dose: 50 mg Tamsulosin HCl (Flomax) 0.8 mg PO HS [facility] Stop: 09/08/17 20:59 Last Admin: 07/13/17 20:40 Dose: 0.8 mg Warfarin Sodium (Coumadin Per Pharmacy) 1 [facility] PRN PRN; Protocol PRN Reason: RX MONITORING Stop: 09/09/17 12:39 General: No acute distress, Other (stuporous) HEENT: Atraumatic, Mucous membr. moist/pink Neck: Supple, +2 carotid pulse wo bruit Cardiovascular: Normal S1, Normal S2 (irregular), Other (Irregular ) Lungs: Other (decreased BS) Abdomen: Bowel sounds, Soft Extremities: Other (left leg edema, erythema, tender, warm, with some ampulas and decoloration) Neurological: Other (Non ambulatory) Skin: Other (Redness of left leg and edema), no Rash Psych/Mental Status: Other ( confused, not oriented) Assessment/Plan - Problem List Patient Problems: All Active Problems LEFT LOWER LEG REDNESS, SWELLING PAIN (Acute) - Assessment Assessment: Current Active Problems Problem Status Onset LEFT LOWER LEG REDNESS, SWELLING PAIN Acute Patient is awake alert, calm, confused. Redness and edema of leg leg improving. WBC and creatinine Normal, Head CT shows a cerebral mass. DX: sepsis, CKF, HTN , CHF, DM, Dementia, BPH, A-fib, Cerebral mass. - Plan Plan: Patient in IV NS, Vanco, Clyndomicin and sozyn, Insulin sliding scale and SNF meds. Follow by ID, Cardio, Psychiatry and Nephro. Leg US shows no DVT, Mild artherosclerosis. Head CT shows a mass. Case discussed with son (Adriel Bell) , and was explain that there is possibility of skin necrosis due to poor leg circulation, and was explain that despite that WBC is improving condition still critical due to the A-Fib, CHF. and poor general response. It was explain that possible transfer to LTAC facility. Will continue to monitor Nutritional Asmnt/Malnutr-PDOC - Dietary Evaluation Malnutrition Findings (Please click <Entered> for more info): Nutritional Asmnt/Malnutrition Start: 07/12/17 15: 11 Text: Status: Complete Freq: Document 07/12/17 15:11 [facility] (Rec: 07/12/17 15:24 [email or web address]) Nutritional Asmnt/Malnutrition Patient General Information Nutritional Screening High Risk Diagnosis sepsis, secondary to cellulitis Pertinent Medical Hx/Surgical Hx CAD, CHF, HTN, dementia, schizophrenia, weakness, chronic renal insuff, DM, redness of both legs. Subjective Information Pt seen sleeping at time of visit. 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 Pt had no lunch yet d/t sleeping. Per nurse note, RN feed pt with pudding and jello with milk shake in the afternoon. Per ST to put patient NPO if lethargic to avoid aspiration noted. Current Diet Order/ Nutrition Support [id number], mech soft chopped Pertinent Medications novolog, protonix, piperacillin, seroquel, nacl 0 .9%, vancomycin Pertinent Labs 3*19 BUN 37, Glucose 261, POC 247-312 3/ A1c 7.6 Nutritional Hx/Data Height 1.65 m Height (Calculated Centimeters) 165.1 Current Weight (lbs) 87.543 kg Weight (Calculated Kilograms) 87.5 Weight (Calculated Grams) 16926.3 [place] Body Weight 136 Body Mass Index (BMI) 32.1 Weight Status Obese GI Symptoms GI Symptoms None Last BM Difficult in: None Skin Integrity/Comment: pressure ulcer to left heel, reddened to left lower extremity (cellulitis), maceration to left foot, pressure area to right foot Current %PO Poor (25-49%) Estimated Nutritional Goals BEE in Kcals: Adj wt of IBW Calories/Kcals/Kg 25-30 Kcals Calculated 8382-0305 Protein: Adj wt of IBW Protein g/k-1.2 Protein Calculated 68-82 Fluid: ml 1700-2040ml (1ml/kcal) Nutritional Problem 2. Problem Problem increased nutrition needs ( protein) Etiology increased metabolic demand for wound healing Signs/Symptoms: pressure ulcer 1. Problem Problem altered nutrition related labs Etiology DM Signs/Symptoms: Glucose 261, POC 247-312, A1c 7.6 Intervention/Recommendation Comments 1. Recommend nectar thickned liquid considering risk of aspiration. recommend swallow eval again when pt is more wake up. 2. Consider Boost BID to supplement nutrition. 3. Monitor PO intake, wt, labs and skin integrity 4. F/U as high risk in 2-3 days, 07/14-07/15 Expected Outcomes/Goals Expected Outcomes/Goals 1. PO intake to meet at least 75% of nutritional needs. 2. Wt stability, skin to remain intact, labs to approach WNL.
--- NOTE | 2017-07-14 09:12 | Diagnostic Imaging Report ---
CHEST X-RAY: AP view INDICATION: Bilateral wheezing COMPARISON: 07/11/2017 FINDINGS: Worsening CHF is seen with small bilateral effusions and bilateral hazy infiltrates. Mild cardiomegaly is noted. Gas distended stomach is noted. IMPRESSION: Worsening CHF with bilateral hazy infiltrates and small effusions. Cardiomegaly.
[2017-07-14] MEDS: Venelex 60gm Tube TP SCH (09:47)
[2017-07-14] MEDS: methylPREDNISolone SS 40 mg Vial IVP SCH (09:50)
[2017-07-14] MEDS: Pantoprazole 40 mg EC Tab PO SCH (09:50)
[2017-07-14] MEDS: Aspirin 81mg Chewable Tab PO SCH (09:51)
[2017-07-14 11:23] LABS: INR 1.98 (0.5-1.4); PROTHROMBIN TIME (TEST) 21.3 SECONDS (9.5-11.5)
--- NOTE | 2017-07-14 15:34 | General Progress Note ---
Subjective - Review of Systems Service Date: 07/14/17 Subjective: more interactive, comfortable Objective - Results Result Diagrams: 07/14/17 08:00 07/14/17 08:00 Recent Labs: Laboratory Last Values WBC 8.9 Th/cmm (4.8-10.8) 07/14/17 08:00 RBC 3.01 Mil/cmm (3.80-5.80) L 07/14/17 08:00 Hgb 9.5 gm/dL (12-16) L 07/14/17 08:00 Hct 28.2 % (41.0-60) L 07/14/17 08:00 MCV 93.7 fl (80-99) 07/14/17 08:00 MCH 31.6 pg (27.0-31.0) H 07/14/17 08:00 MCHC Differential 33.7 pg (28.0-36.0) 07/14/17 08:00 RDW 14.7 % (11.5-20.0) 07/14/17 08:00 Plt Count 258 Th/cmm (150-400) 07/14/17 08:00 MPV 8.6 fl 07/14/17 08:00 Neutrophils % 94.7 % (40.0-80.0) H 07/14/17 08:00 Band Neutrophils % 4 % (0-10) 07/11/17 06:19 Lymphocytes % 3.7 % (20.0-50.0) L 07/14/17 08:00 Monocytes % 1.5 % (2.0-10.0) L 07/14/17 08:00 Eosinophils % 0.1 % (0.0-5.0) 07/14/17 08:00 Basophils % 0.0 % (0.0-2.0) 07/14/17 08:00 Neutrophils (Manual) 88 % (40-80) H 07/11/17 06:19 Lymphocytes 7 % (20-50) L 07/11/17 06:19 Monocytes 1 % (2-10) L 07/11/17 06:19 Basophils 1 % (0-3) 07/10/17 10:49 Platelet Estimate ADEQUATE (NORMAL) 07/11/17 06:19 Eos Smear Source URINE 07/12/17 00:00 Eos Smear Total Cells NONE SEEN (NONE SEEN) 07/12/17 00:00 PT 21.3 SECONDS (9.5-11.5) H 07/14/17 08:00 INR 1.98 (0.5-1.4) H 07/14/17 08:00 PTT (Actin FS) 30.8 SECONDS (26.0-38.0) 07/11/17 06:19 Sodium 138 mEq/L (136-145) 07/14/17 08:00 Potassium 4.6 mEq/L (3.5-5.1) 07/14/17 08:00 Chloride 111 mEq/L (98-107) H 07/14/17 08:00 Carbon Dioxide 20.1 mEq/L (21.0-31.0) L 07/14/17 08:00 Anion Gap 11.5 (7.0-16.0) 07/14/17 08:00 BUN 31 mg/dL (7-25) H 07/14/17 08:00 Creatinine 1.0 mg/dL (0.7-1.3) 07/14/17 08:00 Est GFR ( Amer) TNP 07/14/17 08:00 Est GFR (Non-Af Amer) TNP 07/14/17 08:00 BUN/Creatinine Ratio 31.0 07/14/17 08:00 Glucose 382 mg/dL (70-105) H 07/14/17 08:00 POC Glucose 377 MG/DL (70 - 105) H 07/14/17 12:33 Hemoglobin A1c % 7.6 % (4.0-6.0) H 07/10/17 10:49 Whole Bld Lactic Acid 1.12 mmol/L (0.60-1.99) 07/11/17 14:30 Calcium 8.7 mg/dL (8.6-10.3) 07/14/17 08:00 Phosphorus 3.5 mg/dL (2.5-5.0) 07/12/17 05:05 Magnesium 2.4 mg/dL (1.9-2.7) 07/12/17 05:05 Total Bilirubin 0.5 mg/dL (0.3-1.0) 07/14/17 08:00 AST 21 U/L (13-39) 07/14/17 08:00 ALT 18 U/L (7-52) 07/14/17 08:00 Alkaline Phosphatase 293 U/L (34-104) H 07/14/17 08:00 B-Natriuretic Peptide 355.0 pg/mL (5.0-100.0) H 07/13/17 05:55 Total Protein 6.3 gm/dL (6.0-8.3) 07/14/17 08:00 Albumin 2.6 gm/dL (4.2-5.5) L 07/14/17 08:00 Globulin 3.7 gm/dL 07/14/17 08:00 Albumin/Globulin Ratio 0.7 (1.0-1.8) L 07/14/17 08:00 TSH 0.20 uIU/ml (0.34-5.60) L 07/11/17 06:19 Urine Source HERR PORT 07/11/17 06:00 Urine Color YELLOW 07/11/17 06:00 Urine Clarity HAZY (CLEAR) 07/11/17 06:00 Urine pH 6.0 (4.6 - 8.0) 07/11/17 06:00 Ur Specific Soso 1.015 (1.005-1.030) 07/11/17 06:00 Urine Protein 100 mg/dL (NEGATIVE) H 07/11/17 06:00 Urine Glucose (UA) NEGATIVE mg/dL (NEGATIVE) 07/11/17 06:00 Urine Ketones TRACE mg/dL (NEGATIVE) 07/11/17 06:00 Urine Blood TRACE (NEGATIVE) 07/11/17 06:00 Urine Nitrate NEGATIVE (NEGATIVE) 07/11/17 06:00 Urine Bilirubin NEGATIVE (NEGATIVE) 07/11/17 06:00 Urine Urobilinogen 2.0 E.U./dL (0.2 - 1.0) 07/11/17 06:00 Ur Leukocyte Esterase NEGATIVE (NEGATIVE) 07/11/17 06:00 Urine RBC 0-2 /hpf (0-5) H 07/11/17 06:00 Urine WBC 0-2 /hpf (0-5) 07/11/17 06:00 Ur Epithelial Cells OCCASIONAL /lpf (FEW) 07/11/17 06:00 Urine Bacteria FEW /hpf (NONE SEEN) 07/11/17 06:00 Ur Random Sodium 22 mmol/L 07/12/17 00:00 Urine Creatinine 156.0 mg/dl (39.0-259.0) 07/12/17 00:00 Vancomycin Trough 17.1 ug/mL (10-20) 07/14/17 08:00 Random Vancomycin 10.0 ug/mL (5.0-40.0) 07/12/17 05:05 - Physical Exam Vitals and I&O: Vital Signs Temp 97.7 F 07/14/17 12:00 Pulse 76 07/14/17 12:56 Resp 22 07/14/17 12:42 BP 106/54 07/14/17 12:00 Pulse Ox 97 07/14/17 12:42 Intake & Output 07/13/17 07/14/17 07/14/17 18:59 06:59 18:59 Intake Total 450 2175 Balance 450 2175 Weight (lbs) 87.543 kg 87.543 kg Intake: Intake, IV Amount 450 1450 Clindamycin 600mg/50mL 100 100 600 mg In 50 ml @ 100 mls /hr IV Q8HR [facility] Rx#: [id number] Piperacillin Sodium/ 100 100 Tazobact 3.375 gm In Sodium Chloride 0.9% 50 ml @ 100 mls/hr IV Q8HR [facility] Rx#:[id number] Sodium Chloride 0.9% 1, 1000 000 ml @ 75 mls/hr IV . [id number] [facility] Rx#:[id number] Vancomycin HCl 1 gm In 250 250 Sodium Chloride 0.9% 250 ml @ 165 mls/hr IV Q12H [facility] Rx#:[id number] Oral 425 Other 300 Other: # Voids 3 # Bowel Movements 0 Active Medications: Current Medications Acetaminophen (Tylenol) 650 mg PO Q6HR PRN PRN Reason: TEMP >100 Stop: 09/08/17 19:00 Albuterol/Ipratropium (Duoneb Neb) 3 ml HHN Q6HRT [facility] Stop: 09/09/17 18:59 Last Admin: 07/14/17 12:41 Dose: 3 ml Albuterol/Ipratropium (Duoneb Neb) 3 ml HHN Q2H PRN PRN Reason: wheezing Stop: 09/09/17 14:14 Last Admin: 07/13/17 22:41 Dose: 3 ml Aspirin (Aspirin Chewable) 81 mg PO DAILY [facility] Stop: 09/09/17 08:59 Last Admin: 07/14/17 09:51 Dose: 81 mg Benazepril HCl (Lotensin) 10 mg PO DAILY [facility] Stop: 09/09/17 08:59 Last Admin: 07/14/17 09:50 Dose: 10 mg Carvedilol (Coreg) 25 mg PO DAILY [facility] Stop: 09/12/17 08:59 Last Admin: 07/14/17 09:51 Dose: 25 mg Brooten Oil/Lithuanian Balsam/Trypsin (Venelex) 1 appl TP DAILY [facility] Stop: 09/11/17 09:59 Last Admin: 07/14/17 09:47 Dose: 1 appl Citalopram Hydrobromide (Celexa) 20 mg PO DAILY [facility] PRN Reason: Protocol Stop: 09/09/17 08:59 Last Admin: 07/14/17 09:51 Dose: 20 mg Clonazepam (Klonopin) 1 mg PO HS [facility] Stop: 09/08/17 20:59 Last Admin: 07/13/17 20:40 Dose: 1 mg Diltiazem HCl (Cardizem) 60 mg PO Q6HR [facility] Stop: 09/12/17 00:00 Last Admin: 07/14/17 12:56 Dose: 60 mg Furosemide (Lasix) 40 mg IVP NOW STA Stop: 07/14/17 15:30 Piperacillin Sod/Tazobactam (Sod 3.375 gm/ Sodium Chloride) 50 mls @ 100 mls/ hr IV Q8HR [facility] Stop: 09/08/17 12:59 Last Admin: 07/14/17 12:57 Dose: 100 mls/hr Clindamycin Phosphate (Cleocin Pb) 600 mg in 50 mls @ 100 mls/hr IV Q8HR [facility] Stop: 09/09/17 20:59 Last Admin: 07/14/17 12:53 Dose: 100 mls/hr Vancomycin HCl 1 gm/ Sodium (Chloride) 250 mls @ 165 mls/hr IV Q12H [facility] Stop: 09/10/17 08:59 Last Admin: 07/14/17 09:47 Dose: 165 mls/hr Sodium Chloride (Nacl 0.9%) 1,000 mls @ 30 mls/hr IV .Q24H [facility] Stop: 09/12/17 15:27 Insulin Aspart (Novolog Insulin Sliding Scale) 0 units SUBQ ACHS [facility] PRN Reason: Protocol Stop: 09/08/17 16:29 Last Admin: 07/14/17 12:46 Dose: 11 units Insulin Detemir (Levemir Insulin) 14 units SUBQ HS [facility] PRN Reason: Protocol Stop: 09/12/17 20:59 Methylprednisolone Sodium Succinate (Solu-Medrol) 40 mg IVP DAILY [facility] Stop: 09/11/17 21:14 Last Admin: 07/14/17 09:50 Dose: 40 mg Miscellaneous (Vte Chemical Prophylaxis Screen/ Admission) 1 ea PRN PRN PRN Reason: PROTOCOL Stop: 09/08/17 15:14 Miscellaneous (Vancomycin Iv Per Pharmacy) 1 [facility] PRN [facility] Stop: 09/09/17 17:29 Pantoprazole Sodium (Protonix) 40 mg PO DAILY [facility] Stop: 09/09/17 08:59 Last Admin: 07/14/17 09:50 Dose: 40 mg Quetiapine Fumarate (Seroquel) 50 mg PO HS [facility] PRN Reason: Protocol Stop: 09/08/17 20:59 Last Admin: 07/13/17 20:40 Dose: 50 mg Tamsulosin HCl (Flomax) 0.8 mg PO HS [facility] Stop: 09/08/17 20:59 Last Admin: 07/13/17 20:40 Dose: 0.8 mg Warfarin Sodium (Coumadin Per Pharmacy) 1 [facility] PRN PRN; Protocol PRN Reason: RX MONITORING Stop: 09/09/17 12:39 General: No acute distress, Other (stuporous) HEENT: Atraumatic, Mucous membr. moist/pink Neck: Supple, +2 carotid pulse wo bruit Cardiovascular: Normal S1, Normal S2 (irregular), Other (Irregular ) Lungs: Other (scattered rhonchi, some fine wheezes) Abdomen: Bowel sounds, Soft Extremities: Other (left leg edema, erythema, tender, warm, with some ampulas and decoloration) Neurological: Other (Non ambulatory) Skin: Other (Redness of left leg and edema), no Rash Psych/Mental Status: Other ( confused, not oriented) Assessment/Plan - Problem List Patient Problems: All Active Problems LEFT LOWER LEG REDNESS, SWELLING PAIN (Acute) - Assessment Assessment: JUSTINA Left LE Cellulitis ALOS 2/2 meds,Met Enceph, 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 ESS Htn - Plan Plan: Lab - Result Diagrams 07/12/17 05:05 07/12/17 05:05 Current Medications Acetaminophen (Tylenol) 650 mg PO Q6HR PRN PRN Reason: TEMP >100 Stop: 09/08/17 19:00 Albuterol/Ipratropium (Duoneb Neb) 3 ml HHN Q6HRT [facility] Stop: 09/09/17 18:59 Last Admin: 07/12/17 13:41 Dose: 3 ml Albuterol/Ipratropium (Duoneb Neb) 3 ml HHN Q2H PRN PRN Reason: wheezing Stop: 09/09/17 14:14 Aspirin (Aspirin Chewable) 81 mg PO DAILY [facility] Stop: 09/09/17 08:59 Last Admin: 07/12/17 08:45 Dose: 81 mg Benazepril HCl (Lotensin) 10 mg PO DAILY [facility] Stop: 09/09/17 08:59 Last Admin: 07/12/17 08:46 Dose: 10 mg Citalopram Hydrobromide (Celexa) 20 mg PO DAILY [facility] PRN Reason: Protocol Stop: 09/09/17 08:59 Last Admin: 07/12/17 08:46 Dose: 20 mg Clonazepam (Klonopin) 1 mg PO HS [facility] Stop: 09/08/17 20:59 Last Admin: 07/11/17 22:28 Dose: 1 mg Diltiazem HCl (Cardizem) 60 mg PO Q6HR [facility] Stop: 09/09/17 17:59 Last Admin: 07/12/17 13:58 Dose: 60 mg Piperacillin Sod/Tazobactam (Sod 3.375 gm/ Sodium Chloride) 50 mls @ 100 mls/ hr IV Q8HR [facility] Stop: 09/08/17 12:59 Last Infusion: 07/12/17 13:00 Dose: Infused Sodium Chloride (Nacl 0.9%) 1,000 mls @ 90 mls/hr IV .Q11H7M [facility] Stop: 09/08/17 13:14 Last Admin: 07/12/17 04:59 Dose: 90 mls/hr Clindamycin Phosphate (Cleocin Pb) 600 mg in 50 mls @ 100 mls/hr IV Q8HR [facility] Stop: 09/09/17 20:59 Last Admin: 07/12/17 14:05 Dose: 100 mls/hr Vancomycin HCl 1 gm/ Sodium (Chloride) 250 mls @ 165 mls/hr IV Q12H [facility] Stop: 09/10/17 08:59 Last Infusion: 07/12/17 14:10 Dose: Infused Insulin Aspart (Novolog Insulin Sliding Scale) 0 units SUBQ ACHS [facility] PRN Reason: Protocol Stop: 09/08/17 16:29 Last Admin: 07/12/17 13:52 Dose: 6 units Miscellaneous (Vte Chemical Prophylaxis Screen/ Admission) 1 ea PRN PRN PRN Reason: PROTOCOL Stop: 09/08/17 15:14 Miscellaneous (Vancomycin Iv Per Pharmacy) 1 [facility] PRN [facility] Stop: 09/09/17 17:29 Pantoprazole Sodium (Protonix) 40 mg PO DAILY [facility] Stop: 09/09/17 08:59 Last Admin: 07/12/17 08:45 Dose: 40 mg Quetiapine Fumarate (Seroquel) 50 mg PO HS [facility] PRN Reason: Protocol Stop: 09/08/17 20:59 Last Admin: 07/11/17 22:28 Dose: 50 mg Tamsulosin HCl (Flomax) 0.8 mg PO HS [facility] Stop: 09/08/17 20:59 Last Admin: 07/11/17 22:28 Dose: 0.8 mg Warfarin Sodium (Coumadin Per Pharmacy) 1 [facility] PRN PRN; Protocol PRN Reason: RX MONITORING Stop: 09/09/17 12:39 Lab - Result Diagrams 07/14/17 08:00 07/14/17 08:00 kidney fnc stable w/ BUN 31/Cr. 1 f/u cultures continue Vanco. clinda, Zosyn incidental finding brain mass f/u electrolytes, cbc now has wheezing CXR shows CHF decrease IVF, lasix x 1 Nutritional Asmnt/Malnutr-PDOC - Dietary Evaluation Malnutrition Findings (Please click <Entered> for more info): Nutritional Asmnt/Malnutrition Start: 07/12/17 15: 11 Text: Status: Complete Freq: Document 07/12/17 15:11 LCHENG (Rec: 07/12/17 15:24 [email or web address] [id number]) Nutritional Asmnt/Malnutrition Patient General Information Nutritional Screening High Risk Diagnosis sepsis, secondary to cellulitis Pertinent Medical Hx/Surgical Hx CAD, CHF, HTN, dementia, schizophrenia, weakness, chronic renal insuff, DM, redness of both legs. Subjective Information Pt seen sleeping at time of visit. Per [employer], pt ate about 50% of breakfast, very slowly. Pt had no lunch yet d/t sleeping. Per nurse note, RN feed pt with pudding and jello with milk shake in the afternoon. Per ST to put patient NPO if lethargic to avoid aspiration noted. Current Diet Order/ Nutrition Support [id number], mech soft chopped Pertinent Medications novolog, protonix, piperacillin, seroquel, nacl 0 .9%, vancomycin Pertinent Labs 3* BUN 37, Glucose 261, POC 247-312 3 A1c 7.6 Nutritional Hx/Data Height 1.65 m Height (Calculated Centimeters) 165.1 Current Weight (lbs) 87.543 kg Weight (Calculated Kilograms) 87.5 Weight (Calculated Grams) 41378.3 [place] Body Weight 136 Body Mass Index (BMI) 32.1 Weight Status Obese GI Symptoms GI Symptoms None Last BM Difficult in: None Skin Integrity/Comment: pressure ulcer to left heel, reddened to left lower extremity (cellulitis), maceration to left foot, pressure area to right foot Current %PO Poor (25-49%) Estimated Nutritional Goals BEE in Kcals: Adj wt of IBW Calories/Kcals/Kg 25-30 Kcals Calculated [id number] Protein: Adj wt of IBW Protein g/k-1.2 Protein Calculated 68-82 Fluid: ml 1700-2040ml (1ml/kcal) Nutritional Problem 2. Problem Problem increased nutrition needs ( protein) Etiology increased metabolic demand for wound healing Signs/Symptoms: pressure ulcer 1. Problem Problem altered nutrition related labs Etiology DM Signs/Symptoms: Glucose 261, POC 247-312, A1c 7.6 Intervention/Recommendation Comments 1. Recommend nectar thickned liquid considering risk of aspiration. recommend swallow eval again when pt is more wake up. 2. Consider Boost BID to supplement nutrition. 3. Monitor PO intake, wt, labs and skin integrity 4. F/U as high risk in 2-3 days, 07/14-07/15 Expected Outcomes/Goals Expected Outcomes/Goals 1. PO intake to meet at least 75% of nutritional needs. 2. Wt stability, skin to remain intact, labs to approach WNL.
--- NOTE | 2017-07-14 15:55 | Infectious Disease Prog Note ---
Infectious Disease Subjective - Review of Systems Service Date: 07/14/17 Subjective: No new change, no fever. Short of breath. Congested. Infectious Disease Objective - Results Result Diagrams: 07/14/17 08:00 07/14/17 08:00 Recent Labs: Laboratory Last Values WBC 8.9 Th/cmm (4.8-10.8) 07/14/17 08:00 RBC 3.01 Mil/cmm (3.80-5.80) L 07/14/17 08:00 Hgb 9.5 gm/dL (12-16) L 07/14/17 08:00 Hct 28.2 % (41.0-60) L 07/14/17 08:00 MCV 93.7 fl (80-99) 07/14/17 08:00 MCH 31.6 pg (27.0-31.0) H 07/14/17 08:00 MCHC Differential 33.7 pg (28.0-36.0) 07/14/17 08:00 RDW 14.7 % (11.5-20.0) 07/14/17 08:00 Plt Count 258 Th/cmm (150-400) 07/14/17 08:00 MPV 8.6 fl 07/14/17 08:00 Neutrophils % 94.7 % (40.0-80.0) H 07/14/17 08:00 Band Neutrophils % 4 % (0-10) 07/11/17 06:19 Lymphocytes % 3.7 % (20.0-50.0) L 07/14/17 08:00 Monocytes % 1.5 % (2.0-10.0) L 07/14/17 08:00 Eosinophils % 0.1 % (0.0-5.0) 07/14/17 08:00 Basophils % 0.0 % (0.0-2.0) 07/14/17 08:00 Neutrophils (Manual) 88 % (40-80) H 07/11/17 06:19 Lymphocytes 7 % (20-50) L 07/11/17 06:19 Monocytes 1 % (2-10) L 07/11/17 06:19 Basophils 1 % (0-3) 07/10/17 10:49 Platelet Estimate ADEQUATE (NORMAL) 07/11/17 06:19 Eos Smear Source URINE 07/12/17 00:00 Eos Smear Total Cells NONE SEEN (NONE SEEN) 07/12/17 00:00 PT 21.3 SECONDS (9.5-11.5) H 07/14/17 08:00 INR 1.98 (0.5-1.4) H 07/14/17 08:00 PTT (Actin FS) 30.8 SECONDS (26.0-38.0) 07/11/17 06:19 Sodium 138 mEq/L (136-145) 07/14/17 08:00 Potassium 4.6 mEq/L (3.5-5.1) 07/14/17 08:00 Chloride 111 mEq/L (98-107) H 07/14/17 08:00 Carbon Dioxide 20.1 mEq/L (21.0-31.0) L 07/14/17 08:00 Anion Gap 11.5 (7.0-16.0) 07/14/17 08:00 BUN 31 mg/dL (7-25) H 07/14/17 08:00 Creatinine 1.0 mg/dL (0.7-1.3) 07/14/17 08:00 Est GFR ( Amer) TNP 07/14/17 08:00 Est GFR (Non-Af Amer) TNP 07/14/17 08:00 BUN/Creatinine Ratio 31.0 07/14/17 08:00 Glucose 382 mg/dL (70-105) H 07/14/17 08:00 POC Glucose 377 MG/DL (70 - 105) H 07/14/17 12:33 Hemoglobin A1c % 7.6 % (4.0-6.0) H 07/10/17 10:49 Whole Bld Lactic Acid 1.12 mmol/L (0.60-1.99) 07/11/17 14:30 Calcium 8.7 mg/dL (8.6-10.3) 07/14/17 08:00 Phosphorus 3.5 mg/dL (2.5-5.0) 07/12/17 05:05 Magnesium 2.4 mg/dL (1.9-2.7) 07/12/17 05:05 Total Bilirubin 0.5 mg/dL (0.3-1.0) 07/14/17 08:00 AST 21 U/L (13-39) 07/14/17 08:00 ALT 18 U/L (7-52) 07/14/17 08:00 Alkaline Phosphatase 293 U/L (34-104) H 07/14/17 08:00 B-Natriuretic Peptide 355.0 pg/mL (5.0-100.0) H 07/13/17 05:55 Total Protein 6.3 gm/dL (6.0-8.3) 07/14/17 08:00 Albumin 2.6 gm/dL (4.2-5.5) L 07/14/17 08:00 Globulin 3.7 gm/dL 07/14/17 08:00 Albumin/Globulin Ratio 0.7 (1.0-1.8) L 07/14/17 08:00 TSH 0.20 uIU/ml (0.34-5.60) L 07/11/17 06:19 Urine Source [place] 07/11/17 06:00 Urine Color YELLOW 07/11/17 06:00 Urine Clarity HAZY (CLEAR) 07/11/17 06:00 Urine pH 6.0 (4.6 - 8.0) 07/11/17 06:00 Ur Specific [place] 1.015 (1.005-1.030) 07/11/17 06:00 Urine Protein 100 mg/dL (NEGATIVE) H 07/11/17 06:00 Urine Glucose (UA) NEGATIVE mg/dL (NEGATIVE) 07/11/17 06:00 Urine Ketones TRACE mg/dL (NEGATIVE) 07/11/17 06:00 Urine Blood TRACE (NEGATIVE) 07/11/17 06:00 Urine Nitrate NEGATIVE (NEGATIVE) 07/11/17 06:00 Urine Bilirubin NEGATIVE (NEGATIVE) 07/11/17 06:00 Urine Urobilinogen 2.0 E.U./dL (0.2 - 1.0) 07/11/17 06:00 Ur Leukocyte Esterase NEGATIVE (NEGATIVE) 07/11/17 06:00 Urine RBC 0-2 /hpf (0-5) H 07/11/17 06:00 Urine WBC 0-2 /hpf (0-5) 07/11/17 06:00 Ur Epithelial Cells OCCASIONAL /lpf (FEW) 07/11/17 06:00 Urine Bacteria FEW /hpf (NONE SEEN) 07/11/17 06:00 Ur Random Sodium 22 mmol/L 07/12/17 00:00 Urine Creatinine 156.0 mg/dl (39.0-259.0) 07/12/17 00:00 Vancomycin Trough 17.1 ug/mL (10-20) 07/14/17 08:00 Random Vancomycin 10.0 ug/mL (5.0-40.0) 07/12/17 05:05 - Physical Exam Vitals and I&O: Vital Signs Temp 97.7 F 07/14/17 12:00 Pulse 76 07/14/17 12:56 Resp 22 07/14/17 12:42 BP 106/54 07/14/17 12:00 Pulse Ox 97 07/14/17 12:42 Intake & Output 07/13/17 07/14/17 07/14/17 18:59 06:59 18:59 Intake Total 450 2175 Balance 450 2175 Weight (lbs) 87.543 kg 87.543 kg Intake: Intake, IV Amount 450 1450 Clindamycin 600mg/50mL 100 100 600 mg In 50 ml @ 100 mls /hr IV Q8HR [facility] Rx#: [id number] Piperacillin Sodium/ 100 100 Tazobact 3.375 gm In Sodium Chloride 0.9% 50 ml @ 100 mls/hr IV Q8HR [facility] Rx#:[id number] Sodium Chloride 0.9% 1, 1000 000 ml @ 75 mls/hr IV . [id number] [facility] Rx#:[id number] Vancomycin HCl 1 gm In 250 250 Sodium Chloride 0.9% 250 ml @ 165 mls/hr IV Q12H [facility] Rx#:[id number] Oral 425 Other 300 Other: # Voids 3 # Bowel Movements 0 Active Medications: Current Medications Acetaminophen (Tylenol) 650 mg PO Q6HR PRN PRN Reason: TEMP >100 Stop: 09/08/17 19:00 Albuterol/Ipratropium (Duoneb Neb) 3 ml HHN Q6HRT [facility] Stop: 09/09/17 18:59 Last Admin: 07/14/17 12:41 Dose: 3 ml Albuterol/Ipratropium (Duoneb Neb) 3 ml HHN Q2H PRN PRN Reason: wheezing Stop: 09/09/17 14:14 Last Admin: 07/13/17 22:41 Dose: 3 ml Aspirin (Aspirin Chewable) 81 mg PO DAILY [facility] Stop: 09/09/17 08:59 Last Admin: 07/14/17 09:51 Dose: 81 mg Benazepril HCl (Lotensin) 10 mg PO DAILY [facility] Stop: 09/09/17 08:59 Last Admin: 07/14/17 09:50 Dose: 10 mg Carvedilol (Coreg) 25 mg PO DAILY [facility] Stop: 09/12/17 08:59 Last Admin: 07/14/17 09:51 Dose: 25 mg [place] Oil/[place] Balsam/Trypsin (Venelex) 1 appl TP DAILY [facility] Stop: 09/11/17 09:59 Last Admin: 07/14/17 09:47 Dose: 1 appl Citalopram Hydrobromide (Celexa) 20 mg PO DAILY [facility] PRN Reason: Protocol Stop: 09/09/17 08:59 Last Admin: 07/14/17 09:51 Dose: 20 mg Clonazepam (Klonopin) 1 mg PO HS [facility] Stop: 09/08/17 20:59 Last Admin: 07/13/17 20:40 Dose: 1 mg Diltiazem HCl (Cardizem) 60 mg PO Q6HR [facility] Stop: 09/12/17 00:00 Last Admin: 07/14/17 12:56 Dose: 60 mg Piperacillin Sod/Tazobactam (Sod 3.375 gm/ Sodium Chloride) 50 mls @ 100 mls/ hr IV Q8HR [facility] Stop: 09/08/17 12:59 Last Admin: 07/14/17 12:57 Dose: 100 mls/hr Clindamycin Phosphate (Cleocin Pb) 600 mg in 50 mls @ 100 mls/hr IV Q8HR [facility] Stop: 09/09/17 20:59 Last Admin: 07/14/17 12:53 Dose: 100 mls/hr Vancomycin HCl 1 gm/ Sodium (Chloride) 250 mls @ 165 mls/hr IV Q12H [facility] Stop: 09/10/17 08:59 Last Admin: 07/14/17 09:47 Dose: 165 mls/hr Sodium Chloride (Nacl 0.9%) 1,000 mls @ 30 mls/hr IV .Q24H [facility] Stop: 09/12/17 15:27 Insulin Aspart (Novolog Insulin Sliding Scale) 0 units SUBQ ACHS [facility] PRN Reason: Protocol Stop: 09/08/17 16:29 Last Admin: 07/14/17 12:46 Dose: 11 units Insulin Detemir (Levemir Insulin) 14 units SUBQ [facility] PRN Reason: Protocol Stop: 09/12/17 20:59 Methylprednisolone Sodium Succinate (Solu-Medrol) 40 mg IVP DAILY [facility] Stop: 09/11/17 21:14 Last Admin: 07/14/17 09:50 Dose: 40 mg Miscellaneous (Vte Chemical Prophylaxis Screen/ Admission) 1 [facility] PRN PRN PRN Reason: PROTOCOL Stop: 09/08/17 15:14 Miscellaneous (Vancomycin Iv Per Pharmacy) 1 [facility] PRN [facility] Stop: 09/09/17 17:29 Pantoprazole Sodium (Protonix) 40 mg PO DAILY [facility] Stop: 09/09/17 08:59 Last Admin: 07/14/17 09:50 Dose: 40 mg Quetiapine Fumarate (Seroquel) 50 mg PO [facility] PRN Reason: Protocol Stop: 09/08/17 20:59 Last Admin: 07/13/17 20:40 Dose: 50 mg Tamsulosin HCl (Flomax) 0.8 mg PO HS [facility] Stop: 09/08/17 20:59 Last Admin: 07/13/17 20:40 Dose: 0.8 mg Warfarin Sodium (Coumadin Per Pharmacy) 1 [facility] PRN PRN; Protocol PRN Reason: RX MONITORING Stop: 09/09/17 12:39 General: no acute distress, well developed, well nourished HEENT: atraumatic, normocephalic, PERRLA, EOMI Neck: supple, no thyromegaly, no lymphadenopathy Cardiovascular: S1S2, regular Lungs: clear to percussion, crackles Abdomen: soft, no tender, no distended, no rebound Extremities: other (left leg is swollen and erythematous proximally, up to distal thigh and distally to the foot. There is some sloughing of the skin of the leg. There is no significant improvement clinically.), no cyanosis, no clubbing, no edema Skin: intact Infectious Disease Assmt/Plan - Problem List Patient Problems: All Active Problems LEFT LOWER LEG REDNESS, SWELLING PAIN (Acute) - Assessment Assessment: 1. Leukocytosis suspect sepsis. 2. Left leg cellulitis, may have peripheral artery disease. There is a chance of the skin to turn necrotic. 3. Diabetes mellitus type 2. 4. Peripheral artery disease. 5. Hypertension. 6. Severe dementia. 7. COPD. 8. CHF. - Plan Plan: Continue vanco IV, zosyn and clinda. As for the vascular surgery consult with Dr. May. Cut down IV Fluid and Give Lasix. Breathing Treatment. Chest x-ray BNP Nutritional Asmnt/Malnutr-PDOC - Dietary Evaluation Malnutrition Findings (Please click <Entered> for more info): Nutritional Asmnt/Malnutrition Start: 07/12/17 15: 11 Text: Status: Complete Freq: Document 07/12/17 15:11 [facility] (Rec: 07/12/17 15:24 HEN [id number]) Nutritional Asmnt/Malnutrition Patient General Information Nutritional Screening High Risk Diagnosis sepsis, secondary to cellulitis Pertinent Medical Hx/Surgical Hx CAD, CHF, HTN, dementia, schizophrenia, weakness, chronic renal insuff, DM, redness of both legs. Subjective Information Pt seen sleeping at time of visit. Per [employer], pt ate about 50% of breakfast, very slowly. Pt had no lunch yet d/t sleeping. Per nurse note, RN feed pt with pudding and jello with milk shake in the afternoon. Per ST to put patient NPO if lethargic to avoid aspiration noted. Current Diet Order/ Nutrition Support [id number], [facility] soft chopped Pertinent Medications novolog, protonix, piperacillin, seroquel, nacl 0 .9%, vancomycin Pertinent Labs 3*19 BUN 37, Glucose 261, POC 247-312 3/17 A1c 7.6 Nutritional Hx/Data Height 1.65 m Height (Calculated Centimeters) 165.1 Current Weight (lbs) 87.543 kg Weight (Calculated Kilograms) 87.5 Weight (Calculated Grams) 03102.3 [place] Body Weight 136 Body Mass Index (BMI) 32.1 Weight Status Obese GI Symptoms GI Symptoms None Last BM Difficult in: None Skin Integrity/Comment: pressure ulcer to left heel, reddened to left lower extremity (cellulitis), maceration to left foot, pressure area to right foot Current %PO Poor (25-49%) Estimated Nutritional Goals BEE in Kcals: Adj wt of IBW Calories/Kcals/Kg 25-30 Kcals Calculated 0421-0219 Protein: Adj wt of IBW Protein g/k-1.2 Protein Calculated 68-82 Fluid: ml 1700-2040ml (1ml/kcal) Nutritional Problem 2. Problem Problem increased nutrition needs ( protein) Etiology increased metabolic demand for wound healing Signs/Symptoms: pressure ulcer 1. Problem Problem altered nutrition related labs Etiology DM Signs/Symptoms: Glucose 261, POC 247-312, A1c 7.6 Intervention/Recommendation Comments 1. Recommend nectar thickned liquid considering risk of aspiration. recommend swallow eval again when pt is more wake up. 2. Consider Boost BID to supplement nutrition. 3. Monitor PO intake, wt, labs and skin integrity 4. F/U as high risk in 2-3 days, 07/14-07/15 Expected Outcomes/Goals Expected Outcomes/Goals 1. PO intake to meet at least 75% of nutritional needs. 2. Wt stability, skin to remain intact, labs to approach WNL.
[2017-07-14 18:31] LABS: CREATININEURINE 97.5 mg/dl
[2017-07-14 18:32] LABS: MICROALBUMIN RANDOM RUINE 50.6
[2017-07-14] MEDS: Insulin Detemir 100 units/mL 10mL Vial SUBQ SCH (21:40)
[2017-07-15] MEDS: Diltiazem 30 mg Tab PO SCH ×5 (00:23→17:57)
[2017-07-15] MEDS: Sodium Chloride 0.9% 1,000 ML IV SCH (00:40)
--- NOTE | 2017-07-15 00:49 | Progress Notes ---
DATE: 07/14/2017 SUBJECTIVE: Case was discussed with staff of the patient and reviewed records. The patient continues to be somewhat confused, demented. He has swollen legs. He continues to need help with his ADLs, unable to make safe plan for self-care or participate in meaningful conversation and no side effects of the medication and the patient could need follow up with the psychiatrist upon discharge. Thank you very much for allowing me to participate in the care of this most interesting gentleman. JOB# [id number]
[2017-07-15] MEDS: Albuterol/Ipratropium Neb 3 ML AERS HHN SCH ×4 (01:42→20:14)
[2017-07-15] MEDS: Clindamycin 600mg/50mL 600 MG/50 ML BAG IV SCH ×3 (04:25→20:45)
[2017-07-15 05:52] LABS: HEMATOCRIT 29.8 % (41.0-60); HEMOGLOBIN 9.9 gm/dL (12-16); LYMPHOCYTE ABSOLUTE 0.8 Th/cmm (1.5-3.0); MANUAL DIFF REQUIRED? YES; MEAN CELL VOLUME 95.2 fl (80-99); MEAN CORPUSCULAR HEMOGLOBIN 31.6 pg (27.0-31.0); MEAN CORPUSCULAR HGB CONC 33.3 pg (28.0-36.0); MEAN PLATELET VOLUME 9.2 fl; MONOCYTE ABSOLUTE 0.6 Th/cmm (0.3-1.0); NEUTROPHILE ABSOLUTE 13.4 Th/cmm (1.8-8.0); PLATELET COUNT 292 Th/cmm (150-400); RED BLOOD COUNT 3.13 Mil/cmm (3.80-5.80)
[2017-07-15 06:03] LABS: INR 3.35 (0.5-1.4); PROTHROMBIN TIME (TEST) 37.1 SECONDS (9.5-11.5)
[2017-07-15 06:05] LABS: ALB/GLOB RATIO 0.7 (1.0-1.8); ALBUMIN 2.4 gm/dL (4.2-5.5); ALKALINE PHOSPHATASE 254 U/L (34-104); ANION GAP 12.8 (7.0-16.0); BILIRUBIN,TOTAL 0.5 mg/dL (0.3-1.0); BUN - UREA NITROGEN 55 mg/dL (7-25); CALCIUM SERUM 8.6 mg/dL (8.6-10.3); CARBON DIOXIDE 17.7 mEq/L (21.0-31.0); CHLORIDE 112 mEq/L (98-107); POTASSIUM SERUM 4.5 mEq/L (3.5-5.1); SGOT 72 U/L (13-39); SGPT/ALT 48 U/L (7-52); SODIUM SERUM 138 mEq/L (136-145); TOTAL PROTEIN,SERUM 5.9 gm/dL (6.0-8.3)
[2017-07-15 06:08] LABS: GLUCOSE 252 mg/dL (70-105)
[2017-07-15 07:20] LABS: WHITE BLOOD COUNT 14.8 Th/cmm (4.8-10.8)
[2017-07-15 07:34] LABS: BAND NEUTROPHILE 1 % (0-10); LYMPHOCYTE 3 % (20-50); MONOCYTE 3 % (2-10); NEUTROPHILS 93 % (40-80); PLATELET ESTIMATE ADEQUATE (NORMAL); TOTAL CELLS COUNTED 100
[2017-07-15] MEDS: INSULIN ASPART SLIDING SCALE 100 UNITS/ML UNIT SUBQ SCH ×4 (08:27→22:00)
--- NOTE | 2017-07-15 08:43 | Diagnostic Imaging Report ---
Exam: Chest portable HISTORY: Congestive heart failure Findings: Portable examination of the chest at 0747 hours reviewed compatible prior study day earlier. The study states cardiomegaly with increased congestive fat failure. Again noted basilar infiltrates with superimposed right pleural effusion. Bony thorax intact. The aortic arch calcified. IMPRESSION: Increased congestion Bilateral basilar pneumonia superimposed right pleural effusion.
--- NOTE | 2017-07-15 08:59 | General Progress Note ---
Subjective - Review of Systems Service Date: 07/15/17 Subjective: Patient is awake, confused Objective - Results Result Diagrams: 07/15/17 05:20 07/15/17 05:20 Recent Labs: Laboratory Last Values WBC 14.8 Th/cmm (4.8-10.8) H D 07/15/17 05:20 RBC 3.13 Mil/cmm (3.80-5.80) L 07/15/17 05:20 Hgb 9.9 gm/dL (12-16) L 07/15/17 05:20 Hct 29.8 % (41.0-60) L 07/15/17 05:20 MCV 95.2 fl (80-99) 07/15/17 05:20 MCH 31.6 pg (27.0-31.0) H 07/15/17 05:20 MCHC Differential 33.3 pg (28.0-36.0) 07/15/17 05:20 RDW 15.0 % (11.5-20.0) 07/15/17 05:20 Plt Count 292 Th/cmm (150-400) 07/15/17 05:20 MPV 9.2 fl 07/15/17 05:20 Neutrophils % 94.7 % (40.0-80.0) H 07/14/17 08:00 Band Neutrophils % 1 % (0-10) 07/15/17 05:20 Lymphocytes % 3.7 % (20.0-50.0) L 07/14/17 08:00 Monocytes % 1.5 % (2.0-10.0) L 07/14/17 08:00 Eosinophils % 0.1 % (0.0-5.0) 07/14/17 08:00 Basophils % 0.0 % (0.0-2.0) 07/14/17 08:00 Neutrophils (Manual) 93 % (40-80) H 07/15/17 05:20 Lymphocytes 3 % (20-50) L 07/15/17 05:20 Monocytes 3 % (2-10) 07/15/17 05:20 Basophils 1 % (0-3) 07/10/17 10:49 Platelet Estimate ADEQUATE (NORMAL) 07/15/17 05:20 Eos Smear Source URINE 07/12/17 00:00 Eos Smear Total Cells NONE SEEN (NONE SEEN) 07/12/17 00:00 PT 37.1 SECONDS (9.5-11.5) H 07/15/17 05:20 INR 3.35 (0.5-1.4) H 07/15/17 05:20 PTT (Actin FS) 30.8 SECONDS (26.0-38.0) 07/11/17 06:19 Sodium 138 mEq/L (136-145) 07/15/17 05:20 Potassium 4.5 mEq/L (3.5-5.1) 07/15/17 05:20 Chloride 112 mEq/L (98-107) H 07/15/17 05:20 Carbon Dioxide 17.7 mEq/L (21.0-31.0) L 07/15/17 05:20 Anion Gap 12.8 (7.0-16.0) 07/15/17 05:20 BUN 55 mg/dL (7-25) H 07/15/17 05:20 Creatinine 2.0 mg/dL (0.7-1.3) H 07/15/17 05:20 Est GFR ( Amer) TNP 07/15/17 05:20 Est GFR (Non-Af Amer) TNP 07/15/17 05:20 BUN/Creatinine Ratio 27.5 07/15/17 05:20 Glucose 252 mg/dL (70-105) H D 07/15/17 05:20 POC Glucose 248 MG/DL (70 - 105) H 07/15/17 06:22 Hemoglobin A1c % 7.6 % (4.0-6.0) H 07/10/17 10:49 Whole Bld Lactic Acid 1.12 mmol/L (0.60-1.99) 07/11/17 14:30 Calcium 8.6 mg/dL (8.6-10.3) 07/15/17 05:20 Phosphorus 3.5 mg/dL (2.5-5.0) 07/12/17 05:05 Magnesium 2.4 mg/dL (1.9-2.7) 07/12/17 05:05 Total Bilirubin 0.5 mg/dL (0.3-1.0) 07/15/17 05:20 AST 72 U/L (13-39) H 07/15/17 05:20 ALT 48 U/L (7-52) 07/15/17 05:20 Alkaline Phosphatase 254 U/L (34-104) H 07/15/17 05:20 B-Natriuretic Peptide 944.0 pg/mL (5.0-100.0) H 07/15/17 05:20 Total Protein 5.9 gm/dL (6.0-8.3) L 07/15/17 05:20 Albumin 2.4 gm/dL (4.2-5.5) L 07/15/17 05:20 Globulin 3.5 gm/dL 07/15/17 05:20 Albumin/Globulin Ratio 0.7 (1.0-1.8) L 07/15/17 05:20 TSH 0.20 uIU/ml (0.34-5.60) L 07/11/17 06:19 Urine Source H[place] 07/11/17 06:00 Urine Color YELLOW 07/11/17 06:00 Urine Clarity HAZY (CLEAR) 07/11/17 06:00 Urine pH 6.0 (4.6 - 8.0) 07/11/17 06:00 Ur Specific [place] 1.015 (1.005-1.030) 07/11/17 06:00 Urine Protein 100 mg/dL (NEGATIVE) H 07/11/17 06:00 Urine Glucose (UA) NEGATIVE mg/dL (NEGATIVE) 07/11/17 06:00 Urine Ketones TRACE mg/dL (NEGATIVE) 07/11/17 06:00 Urine Blood TRACE (NEGATIVE) 07/11/17 06:00 Urine Nitrate NEGATIVE (NEGATIVE) 07/11/17 06:00 Urine Bilirubin NEGATIVE (NEGATIVE) 07/11/17 06:00 Urine Urobilinogen 2.0 E.U./dL (0.2 - 1.0) 07/11/17 06:00 Ur Leukocyte Esterase NEGATIVE (NEGATIVE) 07/11/17 06:00 Urine RBC 0-2 /hpf (0-5) H 07/11/17 06:00 Urine WBC 0-2 /hpf (0-5) 07/11/17 06:00 Ur Epithelial Cells OCCASIONAL /lpf (FEW) 07/11/17 06:00 Urine Bacteria FEW /hpf (NONE SEEN) 07/11/17 06:00 Ur Random Sodium 22 mmol/L 07/12/17 00:00 Urine Creatinine 156.0 mg/dl (39.0-259.0) 07/12/17 00:00 Urine Microalbumin 50.6 07/11/17 06:00 Microalb/Creat Ratio 51.9 07/11/17 06:00 Vancomycin Trough 17.1 ug/mL (10-20) 07/14/17 08:00 Random Vancomycin 10.0 ug/mL (5.0-40.0) 07/12/17 05:05 - Physical Exam Vitals and I&O: Vital Signs Temp 96.8 F 07/15/17 04:00 Pulse 66 07/15/17 07:18 Resp 20 07/15/17 07:18 BP 134/68 07/15/17 04:00 Pulse Ox 96 07/15/17 07:18 Intake & Output 07/14/17 07/15/17 07/15/17 18:59 06:59 18:59 Intake Total 450 704.5 Balance 450 704.5 Weight (lbs) 96.615 kg Intake: Intake, IV Amount 350 704.5 Clindamycin 600mg/50mL 50 100 600 mg In 50 ml @ 100 mls /hr IV Q8HR [facility] Rx#: [id number] Piperacillin Sodium/ 50 100 Tazobact 3.375 gm In Sodium Chloride 0.9% 50 ml @ 100 mls/hr IV Q8HR [facility] Rx#:[id number] Sodium Chloride 0.9% 1, 254.5 000 ml @ 30 mls/hr IV . Q24H [facility] Rx#:[id number] Vancomycin HCl 1 gm In 250 250 Sodium Chloride 0.9% 250 ml @ 165 mls/hr IV Q12H [facility] Rx#:[id number] Oral 100 Tube Feeding 0 Other: # Voids 3 # Bowel Movements 2 Stool Characteristics Soft Brown Active Medications: Current Medications Acetaminophen (Tylenol) 650 mg PO Q6HR PRN PRN Reason: TEMP >100 Stop: 09/08/17 19:00 Albuterol/Ipratropium (Duoneb Neb) 3 ml HHN Q6HRT [facility] Stop: 09/09/17 18:59 Last Admin: 07/15/17 07:18 Dose: 3 ml Albuterol/Ipratropium (Duoneb Neb) 3 ml HHN Q2H PRN PRN Reason: wheezing Stop: 09/09/17 14:14 Last Admin: 07/13/17 22:41 Dose: 3 ml Aspirin (Aspirin Chewable) 81 mg PO DAILY [facility] Stop: 09/09/17 08:59 Last Admin: 07/14/17 09:51 Dose: 81 mg Benazepril HCl (Lotensin) 10 mg PO DAILY [facility] Stop: 09/09/17 08:59 Last Admin: 07/14/17 09:50 Dose: 10 mg Carvedilol (Coreg) 25 mg PO DAILY [facility] Stop: 09/12/17 08:59 Last Admin: 07/14/17 09:51 Dose: 25 mg [place] Oil/Romanian Balsam/Trypsin (Venelex) 1 appl TP DAILY [facility] Stop: 09/11/17 09:59 Last Admin: 07/14/17 09:47 Dose: 1 appl Citalopram Hydrobromide (Celexa) 20 mg PO DAILY [facility] PRN Reason: Protocol Stop: 09/09/17 08:59 Last Admin: 07/14/17 09:51 Dose: 20 mg Clonazepam (Klonopin) 1 mg PO HS [facility] Stop: 09/08/17 20:59 Last Admin: 07/14/17 21:00 Dose: 1 mg Diltiazem HCl (Cardizem) 60 mg PO Q6HR [facility] Stop: 09/12/17 00:00 Last Admin: 07/15/17 06:31 Dose: Not Given Piperacillin Sod/Tazobactam (Sod 3.375 gm/ Sodium Chloride) 50 mls @ 100 mls/ hr IV Q8HR [facility] Stop: 09/08/17 12:59 Last Infusion: 07/15/17 05:44 Dose: Infused Clindamycin Phosphate (Cleocin Pb) 600 mg in 50 mls @ 100 mls/hr IV Q8HR [facility] Stop: 09/09/17 20:59 Last Infusion: 07/15/17 04:55 Dose: Infused Vancomycin HCl 1 gm/ Sodium (Chloride) 250 mls @ 165 mls/hr IV Q12H [facility] Stop: 09/10/17 08:59 Last Infusion: 07/14/17 23:53 Dose: Infused Sodium Chloride (Nacl 0.9%) 1,000 mls @ 30 mls/hr IV .Q24H [facility] Stop: 09/12/17 15:27 Last Admin: 07/15/17 00:40 Dose: 30 mls/hr Insulin Aspart (Novolog Insulin Sliding Scale) 0 units SUBQ ACHS [facility] PRN Reason: Protocol Stop: 09/08/17 16:29 Last Admin: 07/15/17 08:27 Dose: 5 units Insulin Detemir (Levemir Insulin) 14 units SUBQ HS [facility] PRN Reason: Protocol Stop: 09/12/17 20:59 Last Admin: 07/14/17 21:40 Dose: 14 units Methylprednisolone Sodium Succinate (Solu-Medrol) 40 mg IVP DAILY [facility] Stop: 09/11/17 21:14 Last Admin: 07/14/17 09:50 Dose: 40 mg Miscellaneous (Vte Chemical Prophylaxis Screen/ Admission) 1 [facility] PRN PRN PRN Reason: PROTOCOL Stop: 09/08/17 15:14 Miscellaneous (Vancomycin Iv Per Pharmacy) 1 [facility] PRN [facility] Stop: 09/09/17 17:29 Pantoprazole Sodium (Protonix) 40 mg PO DAILY [facility] Stop: 09/09/17 08:59 Last Admin: 07/14/17 09:50 Dose: 40 mg Quetiapine Fumarate (Seroquel) 50 mg PO HS [facility] PRN Reason: Protocol Stop: 09/08/17 20:59 Last Admin: 07/14/17 21:00 Dose: 50 mg Tamsulosin HCl (Flomax) 0.8 mg PO HS [facility] Stop: 09/08/17 20:59 Last Admin: 07/14/17 21:00 Dose: 0.8 mg Warfarin Sodium (Coumadin Per Pharmacy) 1 [facility] PRN PRN; Protocol PRN Reason: RX MONITORING Stop: 09/09/17 12:39 General: No acute distress, Other (Awake, confused) HEENT: Atraumatic, Mucous membr. moist/pink Neck: Supple, +2 carotid pulse wo bruit Cardiovascular: Normal S1, Normal S2 (irregular), Other (Irregular ) Lungs: Other (scattered rhonchi, some fine wheezes, Rude respiration) Abdomen: Bowel sounds, Soft Extremities: Other (left leg edema, erythema, tender, warm, with some ampulas and decoloration) Neurological: Other (Non ambulatory) Skin: Other (Redness of left leg, edema, apulalas and decoloration of skin), no Rash Psych/Mental Status: Other ( confused, not oriented) Assessment/Plan - Problem List Patient Problems: All Active Problems LEFT LOWER LEG REDNESS, SWELLING PAIN (Acute) - Assessment Assessment: Current Active Problems Problem Status Onset LEFT LOWER LEG REDNESS, SWELLING PAIN Acute Patient is awake alert, calm, confused. Redness and edema not improving, there are some ampulas. WBC, BNP and creatinine increased. CXR shows increased of bilateral lung infiltrate DX: sepsis, AKF over CKF, HTN, CHF, DM, Dementia, BPH , A-fib, Dhysphagia, Cerebral mass. - Plan Plan: Patient in IV NS, Vanco, Clyndomicin and sozyn, Insulin sliding scale and SNF meds. Follow by ID, Cardio, Psychiatry and Nephro. Leg US shows no DVT, and lower extremities Mild artherosclerosis. Head CT shows a mass. Case discussed with son (Adriel Bell), and was explain that there is possibility of skin necrosis due to poor leg circulation, I explained that patient is not responding to treatment, I asked him about the possibility of place a G-Tube and intubation and he was agree, he will pass to sign consent for G-tube. I explained him that condition is getting worse, that patient is not responding to treatment. It was explain that possible transfer to LTAC facility. Will continue to monitor Nutritional Asmnt/Malnutr-PDOC - Dietary Evaluation Malnutrition Findings (Please click <Entered> for more info): Nutritional Asmnt/Malnutrition Start: 07/12/17 15: 11 Text: Status: Complete Freq: Document 07/12/17 15:11 HEN (Rec: 07/12/17 15:24 [id number]) Nutritional Asmnt/Malnutrition Patient General Information Nutritional Screening High Risk Diagnosis sepsis, secondary to cellulitis Pertinent Medical Hx/Surgical Hx CAD, CHF, HTN, dementia, schizophrenia, weakness, chronic renal insuff, DM, redness of both legs. Subjective Information Pt seen sleeping at time of visit. Per [employer]TE[employer]EC[employer]IVE, pt ate about 50% of breakfast, very slowly. Pt had no lunch yet d/t sleeping. Per nurse note, RN feed pt with pudding and jello with milk shake in the afternoon. Per ST to put patient NPO if lethargic to avoid aspiration noted. Current Diet Order/ Nutrition Support [id number], [facility] soft chopped Pertinent Medications novolog, protonix, piperacillin, seroquel, nacl 0 .9%, vancomycin Pertinent Labs 3*19 BUN 37, Glucose 261, POC 247-312 3 A1c 7.6 Nutritional Hx/Data Height 1.65 m Height (Calculated Centimeters) 165.1 Current Weight (lbs) 87.543 kg Weight (Calculated Kilograms) 87.5 Weight (Calculated Grams) 76247.3 [place] Body Weight 136 Body Mass Index (BMI) 32.1 Weight Status Obese GI Symptoms GI Symptoms None Last BM Difficult in: None Skin Integrity/Comment: pressure ulcer to left heel, reddened to left lower extremity (cellulitis), maceration to left foot, pressure area to right foot Current %PO Poor (25-49%) Estimated Nutritional Goals BEE in Kcals: Adj wt of IBW Calories/Kcals/Kg 25-30 Kcals Calculated 5546-4133 Protein: Adj wt of IBW Protein g/k-1.2 Protein Calculated 68-82 Fluid: ml 1700-2040ml (1ml/kcal) Nutritional Problem 2. Problem Problem increased nutrition needs ( protein) Etiology increased metabolic demand for wound healing Signs/Symptoms: pressure ulcer 1. Problem Problem altered nutrition related labs Etiology DM Signs/Symptoms: Glucose 261, POC 247-312, A1c 7.6 Intervention/Recommendation Comments 1. Recommend nectar thickned liquid considering risk of aspiration. recommend swallow eval again when pt is more wake up. 2. Consider Boost BID to supplement nutrition. 3. Monitor PO intake, wt, labs and skin integrity 4. F/U as high risk in 2-3 days, 07/14-07/15 Expected Outcomes/Goals Expected Outcomes/Goals 1. PO intake to meet at least 75% of nutritional needs. 2. Wt stability, skin to remain intact, labs to approach WNL.
[2017-07-15] MEDS: Aspirin 81mg Chewable Tab PO SCH ×3 (09:00→13:06)
[2017-07-15] MEDS: Pantoprazole 40 mg EC Tab PO SCH ×3 (09:00→13:07)
[2017-07-15] MEDS: Venelex 60gm Tube TP SCH (09:14)
[2017-07-15] MEDS ORDERED: Vancomycin HCl 500 MG in Sodium Chloride 0.9% 100 ML IV ONE (11:00)
[2017-07-15] MEDS ORDERED: Probiotic Screen MC PRN (12:00)
[2017-07-15] MEDS ORDERED: Albumin 25% 12.5gm/50mL 12.5 GM/50 ML BTL IV ONE (12:58)
--- NOTE | 2017-07-15 13:05 | General Progress Note ---
Subjective - Review of Systems Service Date: 07/15/17 Subjective: stuporous today, comfortable Objective - Results Result Diagrams: 07/15/17 05:20 07/15/17 05:20 Recent Labs: Laboratory Last Values WBC 14.8 Th/cmm (4.8-10.8) H D 07/15/17 05:20 RBC 3.13 Mil/cmm (3.80-5.80) L 07/15/17 05:20 Hgb 9.9 gm/dL (12-16) L 07/15/17 05:20 Hct 29.8 % (41.0-60) L 07/15/17 05:20 MCV 95.2 fl (80-99) 07/15/17 05:20 MCH 31.6 pg (27.0-31.0) H 07/15/17 05:20 MCHC Differential 33.3 pg (28.0-36.0) 07/15/17 05:20 RDW 15.0 % (11.5-20.0) 07/15/17 05:20 Plt Count 292 Th/cmm (150-400) 07/15/17 05:20 MPV 9.2 fl 07/15/17 05:20 Neutrophils % 94.7 % (40.0-80.0) H 07/14/17 08:00 Band Neutrophils % 1 % (0-10) 07/15/17 05:20 Lymphocytes % 3.7 % (20.0-50.0) L 07/14/17 08:00 Monocytes % 1.5 % (2.0-10.0) L 07/14/17 08:00 Eosinophils % 0.1 % (0.0-5.0) 07/14/17 08:00 Basophils % 0.0 % (0.0-2.0) 07/14/17 08:00 Neutrophils (Manual) 93 % (40-80) H 07/15/17 05:20 Lymphocytes 3 % (20-50) L 07/15/17 05:20 Monocytes 3 % (2-10) 07/15/17 05:20 Basophils 1 % (0-3) 07/10/17 10:49 Platelet Estimate ADEQUATE (NORMAL) 07/15/17 05:20 Eos Smear Source URINE 07/12/17 00:00 Eos Smear Total Cells NONE SEEN (NONE SEEN) 07/12/17 00:00 PT 37.1 SECONDS (9.5-11.5) H 07/15/17 05:20 INR 3.35 (0.5-1.4) H 07/15/17 05:20 PTT (Actin FS) 30.8 SECONDS (26.0-38.0) 07/11/17 06:19 Sodium 138 mEq/L (136-145) 07/15/17 05:20 Potassium 4.5 mEq/L (3.5-5.1) 07/15/17 05:20 Chloride 112 mEq/L (98-107) H 07/15/17 05:20 Carbon Dioxide 17.7 mEq/L (21.0-31.0) L 07/15/17 05:20 Anion Gap 12.8 (7.0-16.0) 07/15/17 05:20 BUN 55 mg/dL (7-25) H 07/15/17 05:20 Creatinine 2.0 mg/dL (0.7-1.3) H 07/15/17 05:20 Est GFR ( Amer) TNP 07/15/17 05:20 Est GFR (Non-Af Amer) TNP 07/15/17 05:20 BUN/Creatinine Ratio 27.5 07/15/17 05:20 Glucose 252 mg/dL (70-105) H D 07/15/17 05:20 POC Glucose 216 MG/DL (70 - 105) H 07/15/17 11:24 Hemoglobin A1c % 7.6 % (4.0-6.0) H 07/10/17 10:49 Whole Bld Lactic Acid 1.12 mmol/L (0.60-1.99) 07/11/17 14:30 Calcium 8.6 mg/dL (8.6-10.3) 07/15/17 05:20 Phosphorus 3.5 mg/dL (2.5-5.0) 07/12/17 05:05 Magnesium 2.4 mg/dL (1.9-2.7) 07/12/17 05:05 Total Bilirubin 0.5 mg/dL (0.3-1.0) 07/15/17 05:20 AST 72 U/L (13-39) H 07/15/17 05:20 ALT 48 U/L (7-52) 07/15/17 05:20 Alkaline Phosphatase 254 U/L (34-104) H 07/15/17 05:20 B-Natriuretic Peptide 944.0 pg/mL (5.0-100.0) H 07/15/17 05:20 Total Protein 5.9 gm/dL (6.0-8.3) L 07/15/17 05:20 Albumin 2.4 gm/dL (4.2-5.5) L 07/15/17 05:20 Globulin 3.5 gm/dL 07/15/17 05:20 Albumin/Globulin Ratio 0.7 (1.0-1.8) L 07/15/17 05:20 TSH 0.20 uIU/ml (0.34-5.60) L 07/11/17 06:19 Urine Source [place] 07/11/17 06:00 Urine Color YELLOW 07/11/17 06:00 Urine Clarity HAZY (CLEAR) 07/11/17 06:00 Urine pH 6.0 (4.6 - 8.0) 07/11/17 06:00 Ur Specific [place] 1.015 (1.005-1.030) 07/11/17 06:00 Urine Protein 100 mg/dL (NEGATIVE) H 07/11/17 06:00 Urine Glucose (UA) NEGATIVE mg/dL (NEGATIVE) 07/11/17 06:00 Urine Ketones TRACE mg/dL (NEGATIVE) 07/11/17 06:00 Urine Blood TRACE (NEGATIVE) 07/11/17 06:00 Urine Nitrate NEGATIVE (NEGATIVE) 07/11/17 06:00 Urine Bilirubin NEGATIVE (NEGATIVE) 07/11/17 06:00 Urine Urobilinogen 2.0 E.U./dL (0.2 - 1.0) 07/11/17 06:00 Ur Leukocyte Esterase NEGATIVE (NEGATIVE) 07/11/17 06:00 Urine RBC 0-2 /hpf (0-5) H 07/11/17 06:00 Urine WBC 0-2 /hpf (0-5) 07/11/17 06:00 Ur Epithelial Cells OCCASIONAL /lpf (FEW) 07/11/17 06:00 Urine Bacteria FEW /hpf (NONE SEEN) 07/11/17 06:00 Ur Random Sodium 22 mmol/L 07/12/17 00:00 Urine Creatinine 156.0 mg/dl (39.0-259.0) 07/12/17 00:00 Urine Microalbumin 50.6 07/11/17 06:00 Microalb/Creat Ratio 51.9 07/11/17 06:00 Vancomycin Trough 17.1 ug/mL (10-20) 07/14/17 08:00 Random Vancomycin 29.4 ug/mL (5.0-40.0) 07/15/17 05:20 - Physical Exam Vitals and I&O: Vital Signs Temp 96.0 F 07/15/17 08:00 Pulse 65 07/15/17 12:43 Resp 18 07/15/17 08:00 BP 121/70 07/15/17 09:14 Pulse Ox 97 07/15/17 08:00 Intake & Output 07/14/17 07/15/17 07/15/17 18:59 06:59 18:59 Intake Total 450 704.5 Balance 450 704.5 Weight (lbs) 96.615 kg Intake: Intake, IV Amount 350 704.5 Clindamycin 600mg/50mL 50 100 600 mg In 50 ml @ 100 mls /hr IV Q8HR [facility] Rx#: [id number] Piperacillin Sodium/ 50 100 Tazobact 3.375 gm In Sodium Chloride 0.9% 50 ml @ 100 mls/hr IV Q8HR [facility] Rx#:[id number] Sodium Chloride 0.9% 1, 254.5 000 ml @ 30 mls/hr IV . Q24H [facility] Rx#:[id number] Vancomycin HCl 1 gm In 250 250 Sodium Chloride 0.9% 250 ml @ 165 mls/hr IV Q12H [facility] Rx#:[id number] Oral 100 Tube Feeding 0 Other: # Voids 3 # Bowel Movements 2 Stool Characteristics Soft Soft Brown Brown Active Medications: Current Medications Acetaminophen (Tylenol) 650 mg PO Q6HR PRN PRN Reason: TEMP >100 Stop: 09/08/17 19:00 Albuterol/Ipratropium (Duoneb Neb) 3 ml HHN Q6HRT [facility] Stop: 09/09/17 18:59 Last Admin: 07/15/17 07:18 Dose: 3 ml Albuterol/Ipratropium (Duoneb Neb) 3 ml HHN Q2H PRN PRN Reason: wheezing Stop: 09/09/17 14:14 Last Admin: 07/13/17 22:41 Dose: 3 ml Aspirin (Aspirin Chewable) 81 mg PO DAILY [facility] Stop: 09/09/17 08:59 Last Admin: 07/15/17 09:13 Dose: 81 mg Benazepril HCl (Lotensin) 10 mg PO DAILY [facility] Stop: 09/09/17 08:59 Last Admin: 07/15/17 09:14 Dose: 10 mg Carvedilol (Coreg) 25 mg PO DAILY [facility] Stop: 09/12/17 08:59 Last Admin: 07/15/17 09:14 Dose: 25 mg [place] Oil/[place] Balsam/Trypsin (Venelex) 1 appl TP DAILY [facility] Stop: 09/11/17 09:59 Last Admin: 07/15/17 09:14 Dose: 1 appl Citalopram Hydrobromide (Celexa) 20 mg PO DAILY [facility] PRN Reason: Protocol Stop: 09/09/17 08:59 Last Admin: 07/15/17 09:14 Dose: 20 mg Clonazepam (Klonopin) 1 mg PO HS [facility] Stop: 09/08/17 20:59 Last Admin: 07/14/17 21:00 Dose: 1 mg Diltiazem HCl (Cardizem) 60 mg PO Q6HR [facility] Stop: 09/12/17 00:00 Last Admin: 07/15/17 12:43 Dose: Not Given Piperacillin Sod/Tazobactam (Sod 3.375 gm/ Sodium Chloride) 50 mls @ 100 mls/ hr IV Q8HR [facility] Stop: 09/08/17 12:59 Last Admin: 07/15/17 12:42 Dose: 100 mls/hr Clindamycin Phosphate (Cleocin Pb) 600 mg in 50 mls @ 100 mls/hr IV Q8HR [facility] Stop: 09/09/17 20:59 Last Admin: 07/15/17 12:42 Dose: 100 mls/hr Sodium Chloride (Nacl 0.9%) 1,000 mls @ 30 mls/hr IV .Q24H [facility] Stop: 09/12/17 15:27 Last Admin: 07/15/17 00:40 Dose: 30 mls/hr Furosemide 100 mg/ Sodium (Chloride) 100 mls @ 5 mls/hr IV TITR [facility] Stop: 09/13/17 12:59 Albumin Human (Albutein 25%) 12.5 gm in 50 mls @ 50 mls/hr IV TID ONE Stop: 07/15/17 13:57 Insulin Aspart (Novolog Insulin Sliding Scale) 0 units SUBQ ACHS [facility] PRN Reason: Protocol Stop: 09/08/17 16:29 Last Admin: 07/15/17 12:49 Dose: 5 units Insulin Detemir (Levemir Insulin) 14 units SUBQ HS [facility] PRN Reason: Protocol Stop: 09/12/17 20:59 Last Admin: 07/14/17 21:40 Dose: 14 units Lactobacillus Rhamnosus (Culturelle 15b) 1 each PO DAILY [facility] Stop: 09/14/17 08:59 Miscellaneous (Vte Chemical Prophylaxis Screen/ Admission) 1 ea PRN PRN PRN Reason: PROTOCOL Stop: 09/08/17 15:14 Miscellaneous (Vancomycin Iv Per Pharmacy) 1 [facility] PRN [facility] Stop: 09/09/17 17:29 Miscellaneous (Probiotic Screen) 1 [facility] PRN PRN PRN Reason: PROTOCOL Stop: 09/13/17 11:59 Pantoprazole Sodium (Protonix) 40 mg PO DAILY [facility] Stop: 09/09/17 08:59 Last Admin: 07/15/17 09:13 Dose: 40 mg Quetiapine Fumarate (Seroquel) 50 mg PO HS [facility] PRN Reason: Protocol Stop: 09/08/17 20:59 Last Admin: 07/14/17 21:00 Dose: 50 mg Tamsulosin HCl (Flomax) 0.8 mg PO HS [facility] Stop: 09/08/17 20:59 Last Admin: 07/14/17 21:00 Dose: 0.8 mg Warfarin Sodium (Coumadin Per Pharmacy) 1 [facility] PRN PRN; Protocol PRN Reason: RX MONITORING Stop: 09/09/17 12:39 General: Mild distress, Other (Awake, confused) HEENT: Atraumatic, Mucous membr. moist/pink Neck: Supple, +2 carotid pulse wo bruit Cardiovascular: Regular rate, Normal S1, Normal S2 (irregular), Other ( Irregular ) Lungs: Other (scattered rhonchi, some fine wheezes, Rude respiration) Abdomen: Bowel sounds, Soft Extremities: Other (left leg edema, erythema, tender, warm, with some ampulas and decoloration) Neurological: Sensation intact, Other (Non ambulatory) Skin: Other (Redness of left leg, edema, apulalas and decoloration of skin), no Rash Psych/Mental Status: Other ( confused, not oriented) Assessment/Plan - Problem List Patient Problems: All Active Problems LEFT LOWER LEG REDNESS, SWELLING PAIN (Acute) - Assessment Assessment: JUSTINA Left LE Cellulitis ALOS 2/2 meds,Met Enceph, 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 ESS Htn decomp CHF - Plan Plan: Lab - Result Diagrams 07/12/17 05:05 07/12/17 05:05 Current Medications Acetaminophen (Tylenol) 650 mg PO Q6HR PRN PRN Reason: TEMP >100 Stop: 09/08/17 19:00 Albuterol/Ipratropium (Duoneb Neb) 3 ml HHN Q6HRT [facility] Stop: 09/09/17 18:59 Last Admin: 07/12/17 13:41 Dose: 3 ml Albuterol/Ipratropium (Duoneb Neb) 3 ml HHN Q2H PRN PRN Reason: wheezing Stop: 09/09/17 14:14 Aspirin (Aspirin Chewable) 81 mg PO DAILY [facility] Stop: 09/09/17 08:59 Last Admin: 07/12/17 08:45 Dose: 81 mg Benazepril HCl (Lotensin) 10 mg PO DAILY [facility] Stop: 09/09/17 08:59 Last Admin: 07/12/17 08:46 Dose: 10 mg Citalopram Hydrobromide (Celexa) 20 mg PO DAILY [facility] PRN Reason: Protocol Stop: 09/09/17 08:59 Last Admin: 07/12/17 08:46 Dose: 20 mg Clonazepam (Klonopin) 1 mg PO HS [facility] Stop: 09/08/17 20:59 Last Admin: 07/11/17 22:28 Dose: 1 mg Diltiazem HCl (Cardizem) 60 mg PO Q6HR [facility] Stop: 09/09/17 17:59 Last Admin: 07/12/17 13:58 Dose: 60 mg Piperacillin Sod/Tazobactam (Sod 3.375 gm/ Sodium Chloride) 50 mls @ 100 mls/ hr IV Q8HR [facility] Stop: 09/08/17 12:59 Last Infusion: 07/12/17 13:00 Dose: Infused Sodium Chloride (Nacl 0.9%) 1,000 mls @ 90 mls/hr IV .Q11H7M [facility] Stop: 09/08/17 13:14 Last Admin: 07/12/17 04:59 Dose: 90 mls/hr Clindamycin Phosphate (Cleocin Pb) 600 mg in 50 mls @ 100 mls/hr IV Q8HR [facility] Stop: 09/09/17 20:59 Last Admin: 07/12/17 14:05 Dose: 100 mls/hr Vancomycin HCl 1 gm/ Sodium (Chloride) 250 mls @ 165 mls/hr IV Q12H [facility] Stop: 09/10/17 08:59 Last Infusion: 07/12/17 14:10 Dose: Infused Insulin Aspart (Novolog Insulin Sliding Scale) 0 units SUBQ ACHS [facility] PRN Reason: Protocol Stop: 09/08/17 16:29 Last Admin: 07/12/17 13:52 Dose: 6 units Miscellaneous (Vte Chemical Prophylaxis Screen/ Admission) 1 ea PRN PRN PRN Reason: PROTOCOL Stop: 09/08/17 15:14 Miscellaneous (Vancomycin Iv Per Pharmacy) 1 ea PRN [facility] Stop: 09/09/17 17:29 Pantoprazole Sodium (Protonix) 40 mg PO DAILY [facility] Stop: 09/09/17 08:59 Last Admin: 07/12/17 08:45 Dose: 40 mg Quetiapine Fumarate (Seroquel) 50 mg PO HS [facility] PRN Reason: Protocol Stop: 09/08/17 20:59 Last Admin: 07/11/17 22:28 Dose: 50 mg Tamsulosin HCl (Flomax) 0.8 mg PO HS [facility] Stop: 09/08/17 20:59 Last Admin: 07/11/17 22:28 Dose: 0.8 mg Warfarin Sodium (Coumadin Per Pharmacy) 1 [facility] PRN PRN; Protocol PRN Reason: RX MONITORING Stop: 09/09/17 12:39 Lab - Result Diagrams 07/15/17 05:20 07/15/17 05:20 kidney fnc worse @ 55/2 f/u cultures continue Vanco. clinda, Zosyn incidental finding brain mass f/u electrolytes, cbc now has wheezing CXR shows worsening CHF decrease IVF switch to Lasix drip plus albumin infusion BNP increased from 584 to 944 will need cardiac echo Nutritional Asmnt/Malnutr-PDOC - Dietary Evaluation Malnutrition Findings (Please click <Entered> for more info): Nutritional Asmnt/Malnutrition Start: 07/12/17 15: 11 Text: Status: Complete Freq: Document 07/12/17 15:11 LUCAS (Rec: 07/12/17 15:24 [id number] Nutritional Asmnt/Malnutrition Patient General Information Nutritional Screening High Risk Diagnosis sepsis, secondary to cellulitis Pertinent Medical Hx/Surgical Hx CAD, CHF, HTN, dementia, schizophrenia, weakness, chronic renal insuff, DM, redness of both legs. Subjective Information Pt seen sleeping at time of visit. Per [employer], pt ate about 50% of breakfast, very slowly. Pt had no lunch yet d/t sleeping. Per nurse note, RN feed pt with pudding and jello with milk shake in the afternoon. Per ST to put patient NPO if lethargic to avoid aspiration noted. Current Diet Order/ Nutrition Support [id number], mech soft chopped Pertinent Medications novolog, protonix, piperacillin, seroquel, nacl 0 .9%, vancomycin Pertinent Labs 3*19 BUN 37, Glucose 261, POC 247-312 3/ A1c 7.6 Nutritional Hx/Data Height 1.65 m Height (Calculated Centimeters) 165.1 Current Weight (lbs) 87.543 kg Weight (Calculated Kilograms) 87.5 Weight (Calculated Grams) 47312.3 [place] Body Weight 136 Body Mass Index (BMI) 32.1 Weight Status Obese GI Symptoms GI Symptoms None Last BM Difficult in: None Skin Integrity/Comment: pressure ulcer to left heel, reddened to left lower extremity (cellulitis), maceration to left foot, pressure area to right foot Current %PO Poor (25-49%) Estimated Nutritional Goals BEE in Kcals: Adj wt of IBW Calories/Kcals/Kg 25-30 Kcals Calculated [id number] Protein: Adj wt of IBW Protein g/k-1.2 Protein Calculated 68-82 Fluid: ml 1700-2040ml (1ml/kcal) Nutritional Problem 2. Problem Problem increased nutrition needs ( protein) Etiology increased metabolic demand for wound healing Signs/Symptoms: pressure ulcer 1. Problem Problem altered nutrition related labs Etiology DM Signs/Symptoms: Glucose 261, POC 247-312, A1c 7.6 Intervention/Recommendation Comments 1. Recommend nectar thickned liquid considering risk of aspiration. recommend swallow eval again when pt is more wake up. 2. Consider Boost BID to supplement nutrition. 3. Monitor PO intake, wt, labs and skin integrity 4. F/U as high risk in 2-3 days, 07/14-07/15 Expected Outcomes/Goals Expected Outcomes/Goals 1. PO intake to meet at least 75% of nutritional needs. 2. Wt stability, skin to remain intact, labs to approach WNL.
[2017-07-15 13:28] LABS: INR 3.54 (0.5-1.4); PROTHROMBIN TIME (TEST) 39.3 SECONDS (9.5-11.5)
[2017-07-15] MEDS: Furosemide 100 MG in Sodium Chloride 0.9% 90 ML IV SCH (15:42)
--- NOTE | 2017-07-15 15:59 | Infectious Disease Prog Note ---
Infectious Disease Subjective - Review of Systems Service Date: 07/15/17 Subjective: No new change, no fever. Short of breath. Congested. Infectious Disease Objective - Results Result Diagrams: 07/15/17 05:20 07/15/17 05:20 Recent Labs: Laboratory Last Values WBC 14.8 Th/cmm (4.8-10.8) H D 07/15/17 05:20 RBC 3.13 Mil/cmm (3.80-5.80) L 07/15/17 05:20 Hgb 9.9 gm/dL (12-16) L 07/15/17 05:20 Hct 29.8 % (41.0-60) L 07/15/17 05:20 MCV 95.2 fl (80-99) 07/15/17 05:20 MCH 31.6 pg (27.0-31.0) H 07/15/17 05:20 MCHC Differential 33.3 pg (28.0-36.0) 07/15/17 05:20 RDW 15.0 % (11.5-20.0) 07/15/17 05:20 Plt Count 292 Th/cmm (150-400) 07/15/17 05:20 MPV 9.2 fl 07/15/17 05:20 Neutrophils % 94.7 % (40.0-80.0) H 07/14/17 08:00 Band Neutrophils % 1 % (0-10) 07/15/17 05:20 Lymphocytes % 3.7 % (20.0-50.0) L 07/14/17 08:00 Monocytes % 1.5 % (2.0-10.0) L 07/14/17 08:00 Eosinophils % 0.1 % (0.0-5.0) 07/14/17 08:00 Basophils % 0.0 % (0.0-2.0) 07/14/17 08:00 Neutrophils (Manual) 93 % (40-80) H 07/15/17 05:20 Lymphocytes 3 % (20-50) L 07/15/17 05:20 Monocytes 3 % (2-10) 07/15/17 05:20 Basophils 1 % (0-3) 07/10/17 10:49 Platelet Estimate ADEQUATE (NORMAL) 07/15/17 05:20 Eos Smear Source URINE 07/12/17 00:00 Eos Smear Total Cells NONE SEEN (NONE SEEN) 07/12/17 00:00 PT 39.3 SECONDS (9.5-11.5) H 07/15/17 13:00 INR 3.54 (0.5-1.4) H 07/15/17 13:00 PTT (Actin FS) 30.8 SECONDS (26.0-38.0) 07/11/17 06:19 Sodium 138 mEq/L (136-145) 07/15/17 05:20 Potassium 4.5 mEq/L (3.5-5.1) 07/15/17 05:20 Chloride 112 mEq/L (98-107) H 07/15/17 05:20 Carbon Dioxide 17.7 mEq/L (21.0-31.0) L 07/15/17 05:20 Anion Gap 12.8 (7.0-16.0) 07/15/17 05:20 BUN 55 mg/dL (7-25) H 07/15/17 05:20 Creatinine 2.0 mg/dL (0.7-1.3) H 07/15/17 05:20 Est GFR ( Amer) TNP 07/15/17 05:20 Est GFR (Non-Af Amer) TNP 07/15/17 05:20 BUN/Creatinine Ratio 27.5 07/15/17 05:20 Glucose 252 mg/dL (70-105) H D 07/15/17 05:20 POC Glucose 216 MG/DL (70 - 105) H 07/15/17 11:24 Hemoglobin A1c % 7.6 % (4.0-6.0) H 07/10/17 10:49 Whole Bld Lactic Acid 1.12 mmol/L (0.60-1.99) 07/11/17 14:30 Calcium 8.6 mg/dL (8.6-10.3) 07/15/17 05:20 Phosphorus 3.5 mg/dL (2.5-5.0) 07/12/17 05:05 Magnesium 2.4 mg/dL (1.9-2.7) 07/12/17 05:05 Total Bilirubin 0.5 mg/dL (0.3-1.0) 07/15/17 05:20 AST 72 U/L (13-39) H 07/15/17 05:20 ALT 48 U/L (7-52) 07/15/17 05:20 Alkaline Phosphatase 254 U/L (34-104) H 07/15/17 05:20 B-Natriuretic Peptide 944.0 pg/mL (5.0-100.0) H 07/15/17 05:20 Total Protein 5.9 gm/dL (6.0-8.3) L 07/15/17 05:20 Albumin 2.4 gm/dL (4.2-5.5) L 07/15/17 05:20 Globulin 3.5 gm/dL 07/15/17 05:20 Albumin/Globulin Ratio 0.7 (1.0-1.8) L 07/15/17 05:20 TSH 0.20 uIU/ml (0.34-5.60) L 07/11/17 06:19 Urine Source HERR PORT 07/11/17 06:00 Urine Color YELLOW 07/11/17 06:00 Urine Clarity HAZY (CLEAR) 07/11/17 06:00 Urine pH 6.0 (4.6 - 8.0) 07/11/17 06:00 Ur Specific [place] 1.015 (1.005-1.030) 07/11/17 06:00 Urine Protein 100 mg/dL (NEGATIVE) H 07/11/17 06:00 Urine Glucose (UA) NEGATIVE mg/dL (NEGATIVE) 07/11/17 06:00 Urine Ketones TRACE mg/dL (NEGATIVE) 07/11/17 06:00 Urine Blood TRACE (NEGATIVE) 07/11/17 06:00 Urine Nitrate NEGATIVE (NEGATIVE) 07/11/17 06:00 Urine Bilirubin NEGATIVE (NEGATIVE) 07/11/17 06:00 Urine Urobilinogen 2.0 E.U./dL (0.2 - 1.0) 07/11/17 06:00 Ur Leukocyte Esterase NEGATIVE (NEGATIVE) 07/11/17 06:00 Urine RBC 0-2 /hpf (0-5) H 07/11/17 06:00 Urine WBC 0-2 /hpf (0-5) 07/11/17 06:00 Ur Epithelial Cells OCCASIONAL /lpf (FEW) 07/11/17 06:00 Urine Bacteria FEW /hpf (NONE SEEN) 07/11/17 06:00 Ur Random Sodium 22 mmol/L 07/12/17 00:00 Urine Creatinine 156.0 mg/dl (39.0-259.0) 07/12/17 00:00 Urine Microalbumin 50.6 07/11/17 06:00 Microalb/Creat Ratio 51.9 07/11/17 06:00 Vancomycin Trough 17.1 ug/mL (10-20) 07/14/17 08:00 Random Vancomycin 29.4 ug/mL (5.0-40.0) 07/15/17 05:20 - Physical Exam Vitals and I&O: Vital Signs Temp 96.0 F 07/15/17 08:00 Pulse 65 07/15/17 13:36 Resp 20 07/15/17 13:36 BP 100/59 07/15/17 15:42 Pulse Ox 96 07/15/17 13:36 Intake & Output 07/14/17 07/15/17 07/15/17 18:59 06:59 18:59 Intake Total 450 704.5 Balance 450 704.5 Weight (lbs) 96.615 kg Intake: Intake, IV Amount 350 704.5 Clindamycin 600mg/50mL 50 100 600 mg In 50 ml @ 100 mls /hr IV Q8HR [facility] Rx#: [id number] Piperacillin Sodium/ 50 100 Tazobact 3.375 gm In Sodium Chloride 0.9% 50 ml @ 100 mls/hr IV Q8HR [facility] Rx#:[id number] Sodium Chloride 0.9% 1, 254.5 000 ml @ 30 mls/hr IV . Q24H [facility] Rx#:[id number] Vancomycin HCl 1 gm In 250 250 Sodium Chloride 0.9% 250 ml @ 165 mls/hr IV Q12H [facility] Rx#:[id number] Oral 100 Tube Feeding 0 Other: # Voids 3 # Bowel Movements 2 Stool Characteristics Soft Soft [place] Brown Active Medications: Current Medications Acetaminophen (Tylenol) 650 mg PO Q6HR PRN PRN Reason: TEMP >100 Stop: 09/08/17 19:00 Albuterol/Ipratropium (Duoneb Neb) 3 ml HHN Q6HRT [facility] Stop: 09/09/17 18:59 Last Admin: 07/15/17 13:36 Dose: 3 ml Albuterol/Ipratropium (Duoneb Neb) 3 ml HHN Q2H PRN PRN Reason: wheezing Stop: 09/09/17 14:14 Last Admin: 07/13/17 22:41 Dose: 3 ml Aspirin (Aspirin Chewable) 81 mg PO DAILY [facility] Stop: 09/09/17 08:59 Last Admin: 07/15/17 13:06 Dose: Not Given Benazepril HCl (Lotensin) 10 mg PO DAILY [facility] Stop: 09/09/17 08:59 Last Admin: 07/15/17 13:06 Dose: Not Given Carvedilol (Coreg) 25 mg PO DAILY [facility] Stop: 09/12/17 08:59 Last Admin: 07/15/17 13:07 Dose: Not Given [place] Oil/[place] Balsam/Trypsin (Venelex) 1 appl TP DAILY [facility] Stop: 09/11/17 09:59 Last Admin: 07/15/17 09:14 Dose: 1 appl Citalopram Hydrobromide (Celexa) 20 mg PO DAILY [facility] PRN Reason: Protocol Stop: 09/09/17 08:59 Last Admin: 07/15/17 13:07 Dose: Not Given Clonazepam (Klonopin) 1 mg PO HS [facility] Stop: 09/08/17 20:59 Last Admin: 07/14/17 21:00 Dose: 1 mg Diltiazem HCl (Cardizem) 60 mg PO Q6HR [facility] Stop: 09/12/17 00:00 Last Admin: 07/15/17 12:43 Dose: Not Given Piperacillin Sod/Tazobactam (Sod 3.375 gm/ Sodium Chloride) 50 mls @ 100 mls/ hr IV Q8HR [facility] Stop: 09/08/17 12:59 Last Admin: 07/15/17 12:42 Dose: 100 mls/hr Clindamycin Phosphate (Cleocin Pb) 600 mg in 50 mls @ 100 mls/hr IV Q8HR [facility] Stop: 09/09/17 20:59 Last Admin: 07/15/17 12:42 Dose: 100 mls/hr Sodium Chloride (Nacl 0.9%) 1,000 mls @ 30 mls/hr IV .Q24H [facility] Stop: 09/12/17 15:27 Last Admin: 07/15/17 00:40 Dose: 30 mls/hr Furosemide 100 mg/ Sodium (Chloride) 100 mls @ 5 mls/hr IV TITR [facility] Stop: 09/13/17 12:59 Last Admin: 07/15/17 15:42 Dose: 5 mls/hr Insulin Aspart (Novolog Insulin Sliding Scale) 0 units SUBQ ACHS [facility] PRN Reason: Protocol Stop: 09/08/17 16:29 Last Admin: 07/15/17 12:49 Dose: 5 units Insulin Detemir (Levemir Insulin) 14 units SUBQ HS [facility] PRN Reason: Protocol Stop: 09/12/17 20:59 Last Admin: 07/14/17 21:40 Dose: 14 units Lactobacillus Rhamnosus (Culturelle 15b) 1 each PO DAILY [facility] Stop: 09/14/17 08:59 Miscellaneous (Vte Chemical Prophylaxis Screen/ Admission) 1 ea PRN PRN PRN Reason: PROTOCOL Stop: 09/08/17 15:14 Miscellaneous (Vancomycin Iv Per Pharmacy) 1 ea PRN [facility] Stop: 09/09/17 17:29 Miscellaneous (Probiotic Screen) 1 ea PRN PRN PRN Reason: PROTOCOL Stop: 09/13/17 11:59 Pantoprazole Sodium (Protonix) 40 mg PO DAILY [facility] Stop: 09/09/17 08:59 Last Admin: 07/15/17 13:07 Dose: Not Given Quetiapine Fumarate (Seroquel) 50 mg PO HS [facility] PRN Reason: Protocol Stop: 09/08/17 20:59 Last Admin: 07/14/17 21:00 Dose: 50 mg Tamsulosin HCl (Flomax) 0.8 mg PO HS [facility] Stop: 09/08/17 20:59 Last Admin: 07/14/17 21:00 Dose: 0.8 mg Warfarin Sodium (Coumadin Per Pharmacy) 1 [facility] PRN PRN; Protocol PRN Reason: RX MONITORING Stop: 09/09/17 12:39 General: no acute distress, well developed, well nourished HEENT: atraumatic, normocephalic, PERRLA, EOMI Neck: supple, no thyromegaly Cardiovascular: S1S2, regular Lungs: clear to auscultation bilaterally, clear to percussion Abdomen: soft, no tender, no distended, no mass Extremities: other (left leg swollen and red, there is some sloughing of skin nad blister formations. pustules present.), no cyanosis, no clubbing Neurological: awake, alert, oriented Infectious Disease Assmt/Plan - Problem List Patient Problems: All Active Problems LEFT LOWER LEG REDNESS, SWELLING PAIN (Acute) - Assessment Assessment: 1. Leukocytosis suspect sepsis. 2. Left leg cellulitis, may have peripheral artery disease. There is a chance of the skin to turn necrotic. 3. Diabetes mellitus type 2. 4. Peripheral artery disease. 5. Hypertension. 6. Severe dementia. 7. COPD. 8. CHF. 9. pneumonia. - Plan Plan: Continue vanco IV, zosyn and clinda. MRI of the right foot. Nutritional Asmnt/Malnutr-PDOC - Dietary Evaluation Malnutrition Findings (Please click <Entered> for more info): Nutritional Asmnt/Malnutrition Start: 07/12/17 15: 11 Text: Status: Complete Freq: Document 07/12/17 15:11 HEN (Rec: 07/12/17 15:24 [facility] [id number]) Nutritional Asmnt/Malnutrition Patient General Information Nutritional Screening High Risk Diagnosis sepsis, secondary to cellulitis Pertinent Medical Hx/Surgical Hx CAD, CHF, HTN, dementia, schizophrenia, weakness, chronic renal insuff, DM, redness of both legs. Subjective Information Pt seen sleeping at time of visit. Per [employer], pt ate about 50% of breakfast, very slowly. Pt had no lunch yet d/t sleeping. Per nurse note, RN feed pt with pudding and jello with milk shake in the afternoon. Per ST to put patient NPO if lethargic to avoid aspiration noted. Current Diet Order/ Nutrition Support [address], [facility] soft chopped Pertinent Medications novolog, protonix, piperacillin, seroquel, nacl 0 .9%, vancomycin Pertinent Labs 3*19 BUN 37, Glucose 261, POC 247-312 3/ A1c 7.6 Nutritional Hx/Data Height 1.65 m Height (Calculated Centimeters) 165.1 Current Weight (lbs) 87.543 kg Weight (Calculated Kilograms) 87.5 Weight (Calculated Grams) 58140.3 [place] Body Weight 136 Body Mass Index (BMI) 32.1 Weight Status Obese GI Symptoms GI Symptoms None Last BM Difficult in: None Skin Integrity/Comment: pressure ulcer to left heel, reddened to left lower extremity (cellulitis), maceration to left foot, pressure area to right foot Current %PO Poor (25-49%) Estimated Nutritional Goals BEE in Kcals: Adj wt of IBW Calories/Kcals/Kg 25-30 Kcals Calculated 5326-4477 Protein: Adj wt of IBW Protein g/k-1.2 Protein Calculated 68-82 Fluid: ml 1700-2040ml (1ml/kcal) Nutritional Problem 2. Problem Problem increased nutrition needs ( protein) Etiology increased metabolic demand for wound healing Signs/Symptoms: pressure ulcer 1. Problem Problem altered nutrition related labs Etiology DM Signs/Symptoms: Glucose 261, POC 247-312, A1c 7.6 Intervention/Recommendation Comments 1. Recommend nectar thickned liquid considering risk of aspiration. recommend swallow eval again when pt is more wake up. 2. Consider Boost BID to supplement nutrition. 3. Monitor PO intake, wt, labs and skin integrity 4. F/U as high risk in 2-3 days, 07/14-07/15 Expected Outcomes/Goals Expected Outcomes/Goals 1. PO intake to meet at least 75% of nutritional needs. 2. Wt stability, skin to remain intact, labs to approach WNL.
[2017-07-15] MEDS: Insulin Detemir 100 units/mL 10mL Vial SUBQ SCH (22:01)
[2017-07-16] MEDS: Albuterol/Ipratropium Neb 3 ML AERS HHN SCH ×4 (01:10→18:54)
--- NOTE | 2017-07-16 01:32 | Progress Notes ---
DATE: 07/15/2017 Case was discussed with staff of the patient, reviewed records. The patient continues to be confused, demented, swollen legs, staying in bed most of the time, somewhat sedated, unable to carry any conversation or make safe plan for self-care. He is sleeping well. He continues to be unpredictable, impulsive; however, because of his dementia and with history of psychosis. No side effects of the medication, no sedation, no nausea. Thank you very much for allowing me to participate in the care of this most interesting gentleman. JOB# [id number]
[2017-07-16] MEDS: Clindamycin 600mg/50mL 600 MG/50 ML BAG IV SCH ×3 (05:03→20:32)
[2017-07-16 06:09] LABS: % BASOPHILS 1.2 % (0.0-2.0); % EOSINOPHILS 0.9 % (0.0-5.0); % LYMPHOCYTES 6.5 % (20.0-50.0); % MONOCYTES 5.6 % (2.0-10.0); % NEUTROPHILS 85.8 % (40.0-80.0); BASOPHILE ABSOLUTE 0.1 Th/cumm (0-0.2); EOSINOPHILE ABSOLUTE 0.1 Th/cmm (0.1-0.4); HEMATOCRIT 32.5 % (41.0-60); HEMOGLOBIN 10.7 gm/dL (12-16); LYMPHOCYTE ABSOLUTE 0.7 Th/cmm (1.5-3.0); MEAN CELL VOLUME 95.5 fl (80-99); MEAN CORPUSCULAR HEMOGLOBIN 31.4 pg (27.0-31.0); MEAN CORPUSCULAR HGB CONC 32.9 pg (28.0-36.0); MEAN PLATELET VOLUME 8.9 fl; MONOCYTE ABSOLUTE 0.6 Th/cmm (0.3-1.0); NEUTROPHILE ABSOLUTE 9.3 Th/cmm (1.8-8.0); PLATELET COUNT 323 Th/cmm (150-400); RED BLOOD COUNT 3.41 Mil/cmm (3.80-5.80); RED CELL DISTRIBUTION WIDTH 14.5 % (11.5-20.0); WHITE BLOOD COUNT 10.8 Th/cmm (4.8-10.8)
[2017-07-16 06:20] LABS: INR 1.43 (0.5-1.4); PROTHROMBIN TIME (TEST) 15.2 SECONDS (9.5-11.5)
[2017-07-16 06:28] LABS: ALB/GLOB RATIO 0.8 (1.0-1.8); ALBUMIN 2.7 gm/dL (4.2-5.5); ALKALINE PHOSPHATASE 199 U/L (34-104); BILIRUBIN,TOTAL 0.5 mg/dL (0.3-1.0); BUN - UREA NITROGEN 68 mg/dL (7-25); CARBON DIOXIDE 20.9 mEq/L (21.0-31.0); CHLORIDE 110 mEq/L (98-107); CREATININE - SERUM 2.8 mg/dL (0.7-1.3); GLUCOSE 165 mg/dL (70-105); POTASSIUM SERUM 3.9 mEq/L (3.5-5.1); SGOT 26 U/L (13-39); SGPT/ALT 38 U/L (7-52); SODIUM SERUM 141 mEq/L (136-145); TOTAL PROTEIN,SERUM 6.2 gm/dL (6.0-8.3)
[2017-07-16] MEDS: INSULIN ASPART SLIDING SCALE 100 UNITS/ML UNIT SUBQ SCH ×4 (08:39→21:07)
[2017-07-16] MEDS: Venelex 60gm Tube TP SCH ×2 (08:40→09:01)
[2017-07-16] MEDS: Aspirin 81mg Chewable Tab PO SCH (08:40)
[2017-07-16] MEDS: Lactobacillus Rhamnosus GG 15 Billion CFU CAP.SPRINK PO SCH (08:41)
[2017-07-16] MEDS: Pantoprazole 40 mg EC Tab PO SCH (08:41)
--- NOTE | 2017-07-16 08:48 | General Progress Note ---
Subjective - Review of Systems Service Date: 07/16/17 Subjective: Patient is more awake today, confused, not oriented, responding question. Objective - Results Result Diagrams: 07/16/17 05:45 07/16/17 05:45 Recent Labs: Laboratory Last Values WBC 10.8 Th/cmm (4.8-10.8) 07/16/17 05:45 RBC 3.41 Mil/cmm (3.80-5.80) L 07/16/17 05:45 Hgb 10.7 gm/dL (12-16) L 07/16/17 05:45 Hct 32.5 % (41.0-60) L 07/16/17 05:45 MCV 95.5 fl (80-99) 07/16/17 05:45 MCH 31.4 pg (27.0-31.0) H 07/16/17 05:45 MCHC Differential 32.9 pg (28.0-36.0) 07/16/17 05:45 RDW 14.5 % (11.5-20.0) 07/16/17 05:45 Plt Count 323 Th/cmm (150-400) 07/16/17 05:45 MPV 8.9 fl 07/16/17 05:45 Neutrophils % 85.8 % (40.0-80.0) H 07/16/17 05:45 Band Neutrophils % 1 % (0-10) 07/15/17 05:20 Lymphocytes % 6.5 % (20.0-50.0) L 07/16/17 05:45 Monocytes % 5.6 % (2.0-10.0) 07/16/17 05:45 Eosinophils % 0.9 % (0.0-5.0) 07/16/17 05:45 Basophils % 1.2 % (0.0-2.0) 07/16/17 05:45 Neutrophils (Manual) 93 % (40-80) H 07/15/17 05:20 Lymphocytes 3 % (20-50) L 07/15/17 05:20 Monocytes 3 % (2-10) 07/15/17 05:20 Basophils 1 % (0-3) 07/10/17 10:49 Platelet Estimate ADEQUATE (NORMAL) 07/15/17 05:20 Eos Smear Source URINE 07/12/17 00:00 Eos Smear Total Cells NONE SEEN (NONE SEEN) 07/12/17 00:00 PT 15.2 SECONDS (9.5-11.5) H 07/16/17 05:45 INR 1.43 (0.5-1.4) H 07/16/17 05:45 PTT (Actin FS) 28.1 SECONDS (26.0-38.0) 07/16/17 05:45 Sodium 141 mEq/L (136-145) 07/16/17 05:45 Potassium 3.9 mEq/L (3.5-5.1) 07/16/17 05:45 Chloride 110 mEq/L (98-107) H 07/16/17 05:45 Carbon Dioxide 20.9 mEq/L (21.0-31.0) L 07/16/17 05:45 Anion Gap 14.0 (7.0-16.0) 07/16/17 05:45 BUN 68 mg/dL (7-25) H 07/16/17 05:45 Creatinine 2.8 mg/dL (0.7-1.3) H 07/16/17 05:45 Est GFR ( Amer) TNP 07/16/17 05:45 Est GFR (Non-Af Amer) TNP 07/16/17 05:45 BUN/Creatinine Ratio 24.3 07/16/17 05:45 Glucose 165 mg/dL (70-105) H 07/16/17 05:45 POC Glucose 151 MG/DL (70 - 105) H 07/16/17 06:17 Hemoglobin A1c % 7.6 % (4.0-6.0) H 07/10/17 10:49 Whole Bld Lactic Acid 1.12 mmol/L (0.60-1.99) 07/11/17 14:30 Calcium 9.0 mg/dL (8.6-10.3) 07/16/17 05:45 Phosphorus 3.5 mg/dL (2.5-5.0) 07/12/17 05:05 Magnesium 2.4 mg/dL (1.9-2.7) 07/12/17 05:05 Total Bilirubin 0.5 mg/dL (0.3-1.0) 07/16/17 05:45 AST 26 U/L (13-39) 07/16/17 05:45 ALT 38 U/L (7-52) 07/16/17 05:45 Alkaline Phosphatase 199 U/L (34-104) H 07/16/17 05:45 B-Natriuretic Peptide 944.0 pg/mL (5.0-100.0) H 07/15/17 05:20 Total Protein 6.2 gm/dL (6.0-8.3) 07/16/17 05:45 Albumin 2.7 gm/dL (4.2-5.5) L 07/16/17 05:45 Globulin 3.5 gm/dL 07/16/17 05:45 Albumin/Globulin Ratio 0.8 (1.0-1.8) L 07/16/17 05:45 TSH 0.20 uIU/ml (0.34-5.60) L 07/11/17 06:19 Urine Source HERR PORT 07/11/17 06:00 Urine Color YELLOW 07/11/17 06:00 Urine Clarity HAZY (CLEAR) 07/11/17 06:00 Urine pH 6.0 (4.6 - 8.0) 07/11/17 06:00 Ur Specific [place] 1.015 (1.005-1.030) 07/11/17 06:00 Urine Protein 100 mg/dL (NEGATIVE) H 07/11/17 06:00 Urine Glucose (UA) NEGATIVE mg/dL (NEGATIVE) 07/11/17 06:00 Urine Ketones TRACE mg/dL (NEGATIVE) 07/11/17 06:00 Urine Blood TRACE (NEGATIVE) 07/11/17 06:00 Urine Nitrate NEGATIVE (NEGATIVE) 07/11/17 06:00 Urine Bilirubin NEGATIVE (NEGATIVE) 07/11/17 06:00 Urine Urobilinogen 2.0 E.U./dL (0.2 - 1.0) 07/11/17 06:00 Ur Leukocyte Esterase NEGATIVE (NEGATIVE) 07/11/17 06:00 Urine RBC 0-2 /hpf (0-5) H 07/11/17 06:00 Urine WBC 0-2 /hpf (0-5) 07/11/17 06:00 Ur Epithelial Cells OCCASIONAL /lpf (FEW) 07/11/17 06:00 Urine Bacteria FEW /hpf (NONE SEEN) 07/11/17 06:00 Ur Random Sodium 22 mmol/L 07/12/17 00:00 Urine Creatinine 156.0 mg/dl (39.0-259.0) 07/12/17 00:00 Urine Microalbumin 50.6 07/11/17 06:00 Microalb/Creat Ratio 51.9 07/11/17 06:00 Vancomycin Trough 17.1 ug/mL (10-20) 07/14/17 08:00 Random Vancomycin 32.7 ug/mL (5.0-40.0) 07/16/17 05:45 - Physical Exam Vitals and I&O: Vital Signs Temp 97.0 F 07/16/17 04:00 Pulse 79 07/16/17 08:41 Resp 18 07/16/17 07:22 BP 128/58 07/16/17 08:41 Pulse Ox 97 07/16/17 07:22 Intake & Output 07/15/17 07/16/17 07/16/17 18:59 06:59 18:59 Intake Total 120 150 Output Total 3 Balance 120 147 Weight (lbs) 96.615 kg 93.95 kg Intake: Intake, IV Amount 150 Clindamycin 600mg/50mL 100 600 mg In 50 ml @ 100 mls /hr IV Q8HR [facility] Rx#: [id number] Piperacillin Sodium/ 50 Tazobact 3.375 gm In Sodium Chloride 0.9% 50 ml @ 100 mls/hr IV Q8HR [facility] Rx#:[id number] Oral 120 Output: Urine/Stool Mix 3 Other: # Voids 3 # Bowel Movements 0 Stool Characteristics Soft Brown Active Medications: Current Medications Acetaminophen (Tylenol) 650 mg PO Q6HR PRN PRN Reason: TEMP >100 Stop: 09/08/17 19:00 Albuterol/Ipratropium (Duoneb Neb) 3 ml HHN Q6HRT [facility] Stop: 09/09/17 18:59 Last Admin: 07/16/17 07:22 Dose: 3 ml Albuterol/Ipratropium (Duoneb Neb) 3 ml HHN Q2H PRN PRN Reason: wheezing Stop: 09/09/17 14:14 Last Admin: 07/13/17 22:41 Dose: 3 ml Aspirin (Aspirin Chewable) 81 mg PO DAILY [facility] Stop: 09/09/17 08:59 Last Admin: 07/16/17 08:40 Dose: Not Given Benazepril HCl (Lotensin) 10 mg PO DAILY [facility] Stop: 09/09/17 08:59 Last Admin: 07/16/17 08:40 Dose: Not Given Carvedilol (Coreg) 25 mg PO DAILY [facility] Stop: 09/12/17 08:59 Last Admin: 07/16/17 08:41 Dose: Not Given [place] Oil/[place] Balsam/Trypsin (Venelex) 1 appl TP DAILY [facility] Stop: 09/11/17 09:59 Last Admin: 07/15/17 09:14 Dose: 1 appl Citalopram Hydrobromide (Celexa) 20 mg PO DAILY [facility] PRN Reason: Protocol Stop: 09/09/17 08:59 Last Admin: 07/16/17 08:41 Dose: Not Given Clonazepam (Klonopin) 1 mg PO HS [facility] Stop: 09/08/17 20:59 Last Admin: 07/15/17 21:13 Dose: Not Given Diltiazem HCl (Cardizem) 60 mg PO Q6HR [facility] Stop: 09/12/17 00:00 Last Admin: 07/15/17 17:57 Dose: Not Given Piperacillin Sod/Tazobactam (Sod 3.375 gm/ Sodium Chloride) 50 mls @ 100 mls/ hr IV Q8HR [facility] Stop: 09/08/17 12:59 Last Admin: 07/16/17 00:00 Dose: 100 mls/hr Clindamycin Phosphate (Cleocin Pb) 600 mg in 50 mls @ 100 mls/hr IV Q8HR [facility] Stop: 09/09/17 20:59 Last Admin: 07/16/17 05:03 Dose: 100 mls/hr Sodium Chloride (Nacl 0.9%) 1,000 mls @ 30 mls/hr IV .Q24H [facility] Stop: 09/12/17 15:27 Last Admin: 07/15/17 00:40 Dose: 30 mls/hr Furosemide 100 mg/ Sodium (Chloride) 100 mls @ 5 mls/hr IV TITR [facility] Stop: 09/13/17 12:59 Last Admin: 07/15/17 15:42 Dose: 5 mls/hr Insulin Aspart (Novolog Insulin Sliding Scale) 0 units SUBQ ACHS [facility] PRN Reason: Protocol Stop: 09/08/17 16:29 Last Admin: 07/16/17 08:39 Dose: Not Given Insulin Detemir (Levemir Insulin) 14 units SUBQ HS [facility] PRN Reason: Protocol Stop: 09/12/17 20:59 Last Admin: 07/15/17 22:01 Dose: Not Given Lactobacillus Rhamnosus (Culturelle 15b) 1 each PO DAILY [facility] Stop: 09/14/17 08:59 Last Admin: 07/16/17 08:41 Dose: Not Given Miscellaneous (Vte Chemical Prophylaxis Screen/ Admission) 1 ea PRN PRN PRN Reason: PROTOCOL Stop: 09/08/17 15:14 Miscellaneous (Vancomycin Iv Per Pharmacy) 1 ea PRN [facility] Stop: 09/09/17 17:29 Miscellaneous (Probiotic Screen) 1 [facility] PRN PRN PRN Reason: PROTOCOL Stop: 09/13/17 11:59 Pantoprazole Sodium (Protonix) 40 mg PO DAILY [facility] Stop: 09/09/17 08:59 Last Admin: 07/16/17 08:41 Dose: Not Given Quetiapine Fumarate (Seroquel) 50 mg PO HS [facility] PRN Reason: Protocol Stop: 09/08/17 20:59 Last Admin: 07/15/17 21:13 Dose: Not Given Tamsulosin HCl (Flomax) 0.8 mg PO HS [facility] Stop: 09/08/17 20:59 Last Admin: 07/15/17 21:13 Dose: Not Given Warfarin Sodium (Coumadin Per Pharmacy) 1 [facility] PRN PRN; Protocol PRN Reason: RX MONITORING Stop: 09/09/17 12:39 General: No acute distress, Other (Awake, confused) HEENT: Atraumatic, Mucous membr. moist/pink Neck: Supple, +2 carotid pulse wo bruit Cardiovascular: Regular rate, Normal S1, Normal S2 (irregular), Other ( Irregular ) Lungs: Other (scattered rhonchi, some fine wheezes, Rude respiration, but improving) Abdomen: Bowel sounds, Soft Extremities: Other (Improving redness and edema of left leg, with some blister and papulas.) Neurological: Sensation intact, Other (Non ambulatory) Skin: Other (Redness of left leg, edema, papulalas and decoloration of skin), no Rash Psych/Mental Status: Other ( confused, not oriented) Assessment/Plan - Problem List Patient Problems: All Active Problems LEFT LOWER LEG REDNESS, SWELLING PAIN (Acute) - Assessment Assessment: Current Active Problems Problem Status Onset LEFT LOWER LEG REDNESS, SWELLING PAIN Acute Patient is more awake today, calm, confused. Redness and edema of leg improving , there are some blister, papulas, and skin breaking. today WBC is normal, creatinine increased. Lungs sound less congested. DX: sepsis, AKF over CKF, HTN , CHF, DM, Dementia, BPH, A-fib, Dhysphagia, Cerebral mass. - Plan Plan: Patient in IV NS, Vanco, Clyndomicin and sozyn, Insulin sliding scale and SNF meds. Lasix drip and albumin started. Follow by ID, Cardio, Psychiatry and Nephro. Patient is in NPO due that he did not pass swallow evaluation, Possible PEG placement today. Leg MRI requested. Tomorrow I will have a metting with all family to explain patient's condition. Will continue to monitor Nutritional Asmnt/Malnutr-PDOC - Dietary Evaluation Malnutrition Findings (Please click <Entered> for more info): Nutritional Asmnt/Malnutrition Start: 07/12/17 15: 11 Text: Status: Complete Freq: Document 07/12/17 15:11 HEN (Rec: 07/12/17 15:24 LCHEN [id number]) Nutritional Asmnt/Malnutrition Patient General Information Nutritional Screening High Risk Diagnosis sepsis, secondary to cellulitis Pertinent Medical Hx/Surgical Hx CAD, CHF, HTN, dementia, schizophrenia, weakness, chronic renal insuff, DM, redness of both legs. Subjective Information Pt seen sleeping at time of visit. Per [employer], pt ate about 50% of breakfast, very slowly. Pt had no lunch yet d/t sleeping. Per nurse note, RN feed pt with pudding and jello with milk shake in the afternoon. Per ST to put patient NPO if lethargic to avoid aspiration noted. Current Diet Order/ Nutrition Support [id number], mech soft chopped Pertinent Medications novolog, protonix, piperacillin, seroquel, nacl 0 .9%, vancomycin Pertinent Labs 3*19 BUN 37, Glucose 261, POC 247-312 3 A1c 7.6 Nutritional Hx/Data Height 1.65 m Height (Calculated Centimeters) 165.1 Current Weight (lbs) 87.543 kg Weight (Calculated Kilograms) 87.5 Weight (Calculated Grams) 66364.3 [place] Body Weight 136 Body Mass Index (BMI) 32.1 Weight Status Obese GI Symptoms GI Symptoms None Last BM Difficult in: None Skin Integrity/Comment: pressure ulcer to left heel, reddened to left lower extremity (cellulitis), maceration to left foot, pressure area to right foot Current %PO Poor (25-49%) Estimated Nutritional Goals BEE in Kcals: Adj wt of IBW Calories/Kcals/Kg 25-30 Kcals Calculated 1613-8131 Protein: Adj wt of IBW Protein g/k-1.2 Protein Calculated 68-82 Fluid: ml 1700-2040ml (1ml/kcal) Nutritional Problem 2. Problem Problem increased nutrition needs ( protein) Etiology increased metabolic demand for wound healing Signs/Symptoms: pressure ulcer 1. Problem Problem altered nutrition related labs Etiology DM Signs/Symptoms: Glucose 261, POC 247-312, A1c 7.6 Intervention/Recommendation Comments 1. Recommend nectar thickned liquid considering risk of aspiration. recommend swallow eval again when pt is more wake up. 2. Consider Boost BID to supplement nutrition. 3. Monitor PO intake, wt, labs and skin integrity 4. F/U as high risk in 2-3 days, 07/14-07/15 Expected Outcomes/Goals Expected Outcomes/Goals 1. PO intake to meet at least 75% of nutritional needs. 2. Wt stability, skin to remain intact, labs to approach WNL.
[2017-07-16] MEDS: Diltiazem 30 mg Tab PO SCH ×2 (11:24→17:30)
--- NOTE | 2017-07-16 14:13 | Operative Report ---
DATE OF SURGERY: 07/16/2017 INPATIENT GASTROINTESTINAL PROCEDURE NAME OF PROCEDURE: PEG tube placement. REFERRING PHYSICIAN: Dr. Elijah Washburn. REASON FOR PROCEDURE: Anorexia, dysphagia. CONSENT: Risks, benefits, alternatives, nature, indication, possible outcomes were discussed. Mentioned bleeding, infection, perforation, , disability, cardiopulmonary distress and arrest, missed lesions and cancers, need for surgery, cellulitis, malfunctioning of the feeding tube, patient pulling out the feeding tube. The patient's family expressed understanding and provided informed consent. PREOPERATIVE DIAGNOSIS: Dysphagia. POSTOPERATIVE DIAGNOSIS: New PEG tube placement. MEDICATIONS: Provided by anesthesiologist because the patient is confused. The patient is also on IV antibiotics with clindamycin, vancomycin and Zosyn. DESCRIPTION OF PROCEDURE: The patient was placed on his back. Upper endoscope was advanced from the mouth and second portion of duodenum. Scope brought back in the stomach. Retroflexion view of fundus, cardia, and lesser curvature. Scope was straightened. Stomach was insufflated with air. Transillumination seen in left upper quadrant. The area was prepped in the usual sterile fashion 1:1 transposition of external wall forces were noted. 3 mL of 1% lidocaine were used to anesthetize the area. Trocar was advanced from the anterior abdominal wall, entering into stomach lumen. On endoscope view, wire was passed through the trocar, captured with a snare, pulled out of the oral end of the patient. PEG tube was attached to the oral end of the wire. Small lateral incision was made at the entry site of the trocar. Wire was then pulled into position pulling along with it, the PEG tube. Gastroscope was readvanced back into the stomach where the bumper was seen in satisfactory position. Scope was then removed. COMPLICATIONS: None. FINDINGS: New PEG tube placement. RECOMMENDATIONS: 1. Use G-tube in 8 hours. Check residuals in 6 hours and hold if greater than 100 mL. 2. Abdominal binder to protect the G-tube. Thank you for allowing me to participate. Please call me if any questions. JOB# [id number]
--- NOTE | 2017-07-16 14:50 | Infectious Disease Prog Note ---
Infectious Disease Subjective - Review of Systems Service Date: 07/16/17 Subjective: No new change, no fever. Short of breath. Congested. G tube was placed in today, so MRI could not be performed. Infectious Disease Objective - Results Result Diagrams: 07/16/17 05:45 07/16/17 05:45 Recent Labs: Laboratory Last Values WBC 10.8 Th/cmm (4.8-10.8) 07/16/17 05:45 RBC 3.41 Mil/cmm (3.80-5.80) L 07/16/17 05:45 Hgb 10.7 gm/dL (12-16) L 07/16/17 05:45 Hct 32.5 % (41.0-60) L 07/16/17 05:45 MCV 95.5 fl (80-99) 07/16/17 05:45 MCH 31.4 pg (27.0-31.0) H 07/16/17 05:45 MCHC Differential 32.9 pg (28.0-36.0) 07/16/17 05:45 RDW 14.5 % (11.5-20.0) 07/16/17 05:45 Plt Count 323 Th/cmm (150-400) 07/16/17 05:45 MPV 8.9 fl 07/16/17 05:45 Neutrophils % 85.8 % (40.0-80.0) H 07/16/17 05:45 Band Neutrophils % 1 % (0-10) 07/15/17 05:20 Lymphocytes % 6.5 % (20.0-50.0) L 07/16/17 05:45 Monocytes % 5.6 % (2.0-10.0) 07/16/17 05:45 Eosinophils % 0.9 % (0.0-5.0) 07/16/17 05:45 Basophils % 1.2 % (0.0-2.0) 07/16/17 05:45 Neutrophils (Manual) 93 % (40-80) H 07/15/17 05:20 Lymphocytes 3 % (20-50) L 07/15/17 05:20 Monocytes 3 % (2-10) 07/15/17 05:20 Basophils 1 % (0-3) 07/10/17 10:49 Platelet Estimate ADEQUATE (NORMAL) 07/15/17 05:20 Eos Smear Source URINE 07/12/17 00:00 Eos Smear Total Cells NONE SEEN (NONE SEEN) 07/12/17 00:00 PT 15.2 SECONDS (9.5-11.5) H 07/16/17 05:45 INR 1.43 (0.5-1.4) H 07/16/17 05:45 PTT (Actin FS) 28.1 SECONDS (26.0-38.0) 07/16/17 05:45 Sodium 141 mEq/L (136-145) 07/16/17 05:45 Potassium 3.9 mEq/L (3.5-5.1) 07/16/17 05:45 Chloride 110 mEq/L (98-107) H 07/16/17 05:45 Carbon Dioxide 20.9 mEq/L (21.0-31.0) L 07/16/17 05:45 Anion Gap 14.0 (7.0-16.0) 07/16/17 05:45 BUN 68 mg/dL (7-25) H 07/16/17 05:45 Creatinine 2.8 mg/dL (0.7-1.3) H 07/16/17 05:45 Est GFR ( Amer) TNP 07/16/17 05:45 Est GFR (Non-Af Amer) TNP 07/16/17 05:45 BUN/Creatinine Ratio 24.3 07/16/17 05:45 Glucose 165 mg/dL (70-105) H 07/16/17 05:45 POC Glucose 179 MG/DL (70 - 105) H 07/16/17 11:17 Hemoglobin A1c % 7.6 % (4.0-6.0) H 07/10/17 10:49 Whole Bld Lactic Acid 1.12 mmol/L (0.60-1.99) 07/11/17 14:30 Calcium 9.0 mg/dL (8.6-10.3) 07/16/17 05:45 Phosphorus 3.5 mg/dL (2.5-5.0) 07/12/17 05:05 Magnesium 2.4 mg/dL (1.9-2.7) 07/12/17 05:05 Total Bilirubin 0.5 mg/dL (0.3-1.0) 07/16/17 05:45 AST 26 U/L (13-39) 07/16/17 05:45 ALT 38 U/L (7-52) 07/16/17 05:45 Alkaline Phosphatase 199 U/L (34-104) H 07/16/17 05:45 B-Natriuretic Peptide 944.0 pg/mL (5.0-100.0) H 07/15/17 05:20 Total Protein 6.2 gm/dL (6.0-8.3) 07/16/17 05:45 Albumin 2.7 gm/dL (4.2-5.5) L 07/16/17 05:45 Globulin 3.5 gm/dL 07/16/17 05:45 Albumin/Globulin Ratio 0.8 (1.0-1.8) L 07/16/17 05:45 TSH 0.20 uIU/ml (0.34-5.60) L 07/11/17 06:19 Urine Source [place] 07/11/17 06:00 Urine Color YELLOW 07/11/17 06:00 Urine Clarity HAZY (CLEAR) 07/11/17 06:00 Urine pH 6.0 (4.6 - 8.0) 07/11/17 06:00 Ur Specific [place] 1.015 (1.005-1.030) 07/11/17 06:00 Urine Protein 100 mg/dL (NEGATIVE) H 07/11/17 06:00 Urine Glucose (UA) NEGATIVE mg/dL (NEGATIVE) 07/11/17 06:00 Urine Ketones TRACE mg/dL (NEGATIVE) 07/11/17 06:00 Urine Blood TRACE (NEGATIVE) 07/11/17 06:00 Urine Nitrate NEGATIVE (NEGATIVE) 07/11/17 06:00 Urine Bilirubin NEGATIVE (NEGATIVE) 07/11/17 06:00 Urine Urobilinogen 2.0 E.U./dL (0.2 - 1.0) 07/11/17 06:00 Ur Leukocyte Esterase NEGATIVE (NEGATIVE) 07/11/17 06:00 Urine RBC 0-2 /hpf (0-5) H 07/11/17 06:00 Urine WBC 0-2 /hpf (0-5) 07/11/17 06:00 Ur Epithelial Cells OCCASIONAL /lpf (FEW) 07/11/17 06:00 Urine Bacteria FEW /hpf (NONE SEEN) 07/11/17 06:00 Ur Random Sodium 22 mmol/L 07/12/17 00:00 Urine Creatinine 156.0 mg/dl (39.0-259.0) 07/12/17 00:00 Urine Microalbumin 50.6 07/11/17 06:00 Microalb/Creat Ratio 51.9 07/11/17 06:00 Vancomycin Trough 17.1 ug/mL (10-20) 07/14/17 08:00 Random Vancomycin 32.7 ug/mL (5.0-40.0) 07/16/17 05:45 - Physical Exam Vitals and I&O: Vital Signs Temp 96.4 F 07/16/17 08:00 Pulse 80 07/16/17 12:56 Resp 18 07/16/17 12:56 BP 128/58 07/16/17 08:41 Pulse Ox 98 07/16/17 12:56 Intake & Output 07/15/17 07/16/17 07/16/17 18:59 06:59 18:59 Intake Total 120 250 50 Output Total 3 Balance 120 247 50 Weight (lbs) 96.615 kg 93.95 kg Intake: Intake, IV Amount 250 50 Clindamycin 600mg/50mL 150 600 mg In 50 ml @ 100 mls /hr IV Q8HR [facility] Rx#: [id number] Piperacillin Sodium/ 100 50 Tazobact 3.375 gm In Sodium Chloride 0.9% 50 ml @ 100 mls/hr IV Q8HR [facility] Rx#:[id number] Oral 120 Output: Urine/Stool Mix 3 Other: # Voids 3 # Bowel Movements 0 Stool Characteristics Soft Soft Brown Brown Active Medications: Current Medications Acetaminophen (Tylenol) 650 mg PO Q6HR PRN PRN Reason: TEMP >100 Stop: 09/08/17 19:00 Albuterol/Ipratropium (Duoneb Neb) 3 ml HHN Q6HRT [facility] Stop: 09/09/17 18:59 Last Admin: 07/16/17 12:56 Dose: 3 ml Albuterol/Ipratropium (Duoneb Neb) 3 ml HHN Q2H PRN PRN Reason: wheezing Stop: 09/09/17 14:14 Last Admin: 07/13/17 22:41 Dose: 3 ml Aspirin (Aspirin Chewable) 81 mg PO DAILY [facility] Stop: 09/09/17 08:59 Last Admin: 07/16/17 08:40 Dose: Not Given Benazepril HCl (Lotensin) 10 mg PO DAILY [facility] Stop: 09/09/17 08:59 Last Admin: 07/16/17 08:40 Dose: Not Given Carvedilol (Coreg) 25 mg PO DAILY [facility] Stop: 09/12/17 08:59 Last Admin: 07/16/17 08:41 Dose: Not Given [place] Oil/[place] Balsam/Trypsin (Venelex) 1 appl TP DAILY [facility] Stop: 09/11/17 09:59 Last Admin: 07/16/17 09:01 Dose: 1 appl Citalopram Hydrobromide (Celexa) 20 mg PO DAILY [facility] PRN Reason: Protocol Stop: 09/09/17 08:59 Last Admin: 07/16/17 08:41 Dose: Not Given Clonazepam (Klonopin) 1 mg PO HS [facility] Stop: 09/08/17 20:59 Last Admin: 07/15/17 21:13 Dose: Not Given Diltiazem HCl (Cardizem) 60 mg PO Q6HR [facility] Stop: 09/12/17 00:00 Last Admin: 07/16/17 11:24 Dose: Not Given Piperacillin Sod/Tazobactam (Sod 3.375 gm/ Sodium Chloride) 50 mls @ 100 mls/ hr IV Q8HR [facility] Stop: 09/08/17 12:59 Last Admin: 07/16/17 13:36 Dose: 100 mls/hr Clindamycin Phosphate (Cleocin Pb) 600 mg in 50 mls @ 100 mls/hr IV Q8HR [facility] Stop: 09/09/17 20:59 Last Admin: 07/16/17 12:01 Dose: 100 mls/hr Sodium Chloride (Nacl 0.9%) 1,000 mls @ 30 mls/hr IV .Q24H [facility] Stop: 09/12/17 15:27 Last Admin: 07/15/17 00:40 Dose: 30 mls/hr Furosemide 100 mg/ Sodium (Chloride) 100 mls @ 5 mls/hr IV TITR [facility] Stop: 09/13/17 12:59 Last Admin: 07/15/17 15:42 Dose: 5 mls/hr Insulin Aspart (Novolog Insulin Sliding Scale) 0 units SUBQ ACHS [facility] PRN Reason: Protocol Stop: 09/08/17 16:29 Last Admin: 07/16/17 11:23 Dose: Not Given Insulin Detemir (Levemir Insulin) 14 units SUBQ HS [facility] PRN Reason: Protocol Stop: 09/12/17 20:59 Last Admin: 07/15/17 22:01 Dose: Not Given Lactobacillus Rhamnosus (Culturelle 15b) 1 each PO DAILY [facility] Stop: 09/14/17 08:59 Last Admin: 07/16/17 08:41 Dose: Not Given Miscellaneous (Vte Chemical Prophylaxis Screen/ Admission) 1 ea PRN PRN PRN Reason: PROTOCOL Stop: 09/08/17 15:14 Miscellaneous (Vancomycin Iv Per Pharmacy) 1 ea PRN [facility] Stop: 09/09/17 17:29 Miscellaneous (Probiotic Screen) 1 ea PRN PRN PRN Reason: PROTOCOL Stop: 09/13/17 11:59 Pantoprazole Sodium (Protonix) 40 mg PO DAILY [facility] Stop: 09/09/17 08:59 Last Admin: 07/16/17 08:41 Dose: Not Given Quetiapine Fumarate (Seroquel) 50 mg PO HS [facility] PRN Reason: Protocol Stop: 09/08/17 20:59 Last Admin: 07/15/17 21:13 Dose: Not Given Tamsulosin HCl (Flomax) 0.8 mg PO HS [facility] Stop: 09/08/17 20:59 Last Admin: 07/15/17 21:13 Dose: Not Given Warfarin Sodium (Coumadin Per Pharmacy) 1 [facility] PRN PRN; Protocol PRN Reason: RX MONITORING Stop: 09/09/17 12:39 General: no acute distress, well developed, well nourished HEENT: atraumatic, normocephalic, PERRLA Neck: supple, no thyromegaly Cardiovascular: S1S2, regular Lungs: clear to percussion, rhonchi Abdomen: soft, no tender, no distended, no rebound Extremities: no clubbing, no edema Neurological: awake, alert, oriented Skin: intact Infectious Disease Assmt/Plan - Problem List Patient Problems: All Active Problems LEFT LOWER LEG REDNESS, SWELLING PAIN (Acute) - Assessment Assessment: 1. Leukocytosis suspect sepsis. 2. Left leg cellulitis, may have peripheral artery disease. There is a chance of the skin to turn necrotic. 3. Diabetes mellitus type 2. 4. Peripheral artery disease. 5. Hypertension. 6. Severe dementia. 7. COPD. 8. CHF. 9. pneumonia. - Plan Plan: Continue vanco IV, zosyn and clinda. MRI of the right foot and leg Nutritional Asmnt/Malnutr-PDOC - Dietary Evaluation Malnutrition Findings (Please click <Entered> for more info): Nutritional Asmnt/Malnutrition Start: 07/12/17 15: 11 Text: Status: Complete Freq: Document 07/12/17 15:11 HEN (Rec: 07/12/17 15:24 [id number] Nutritional Asmnt/Malnutrition Patient General Information Nutritional Screening High Risk Diagnosis sepsis, secondary to cellulitis Pertinent Medical Hx/Surgical Hx CAD, CHF, HTN, dementia, schizophrenia, weakness, chronic renal insuff, DM, redness of both legs. Subjective Information Pt seen sleeping at time of visit. Per [employer], pt ate about 50% of breakfast, very slowly. Pt had no lunch yet d/t sleeping. Per nurse note, RN feed pt with pudding and jello with milk shake in the afternoon. Per ST to put patient NPO if lethargic to avoid aspiration noted. Current Diet Order/ Nutrition Support [id number], mech soft chopped Pertinent Medications novolog, protonix, piperacillin, seroquel, nacl 0 .9%, vancomycin Pertinent Labs 3*19 BUN 37, Glucose 261, POC 247-312 3/17 A1c 7.6 Nutritional Hx/Data Height 1.65 m Height (Calculated Centimeters) 165.1 Current Weight (lbs) 87.543 kg Weight (Calculated Kilograms) 87.5 Weight (Calculated Grams) 15702.3 [place] Body Weight 136 Body Mass Index (BMI) 32.1 Weight Status Obese GI Symptoms GI Symptoms None Last BM Difficult in: None Skin Integrity/Comment: pressure ulcer to left heel, reddened to left lower extremity (cellulitis), maceration to left foot, pressure area to right foot Current %PO Poor (25-49%) Estimated Nutritional Goals BEE in Kcals: Adj wt of IBW Calories/Kcals/Kg 25-30 Kcals Calculated [id number] Protein: Adj wt of IBW Protein g/k-1.2 Protein Calculated 68-82 Fluid: ml 1700-2040ml (1ml/kcal) Nutritional Problem 2. Problem Problem increased nutrition needs ( protein) Etiology increased metabolic demand for wound healing Signs/Symptoms: pressure ulcer 1. Problem Problem altered nutrition related labs Etiology DM Signs/Symptoms: Glucose 261, POC 247-312, A1c 7.6 Intervention/Recommendation Comments 1. Recommend nectar thickned liquid considering risk of aspiration. recommend swallow eval again when pt is more wake up. 2. Consider Boost BID to supplement nutrition. 3. Monitor PO intake, wt, labs and skin integrity 4. F/U as high risk in 2-3 days, 07/14-07/15 Expected Outcomes/Goals Expected Outcomes/Goals 1. PO intake to meet at least 75% of nutritional needs. 2. Wt stability, skin to remain intact, labs to approach WNL.
--- NOTE | 2017-07-16 14:59 | General Progress Note ---
Subjective - Review of Systems Service Date: 07/16/17 Subjective: more awake, comfortable Objective - Results Result Diagrams: 07/16/17 05:45 07/16/17 05:45 Recent Labs: Laboratory Last Values WBC 10.8 Th/cmm (4.8-10.8) 07/16/17 05:45 RBC 3.41 Mil/cmm (3.80-5.80) L 07/16/17 05:45 Hgb 10.7 gm/dL (12-16) L 07/16/17 05:45 Hct 32.5 % (41.0-60) L 07/16/17 05:45 MCV 95.5 fl (80-99) 07/16/17 05:45 MCH 31.4 pg (27.0-31.0) H 07/16/17 05:45 MCHC Differential 32.9 pg (28.0-36.0) 07/16/17 05:45 RDW 14.5 % (11.5-20.0) 07/16/17 05:45 Plt Count 323 Th/cmm (150-400) 07/16/17 05:45 MPV 8.9 fl 07/16/17 05:45 Neutrophils % 85.8 % (40.0-80.0) H 07/16/17 05:45 Band Neutrophils % 1 % (0-10) 07/15/17 05:20 Lymphocytes % 6.5 % (20.0-50.0) L 07/16/17 05:45 Monocytes % 5.6 % (2.0-10.0) 07/16/17 05:45 Eosinophils % 0.9 % (0.0-5.0) 07/16/17 05:45 Basophils % 1.2 % (0.0-2.0) 07/16/17 05:45 Neutrophils (Manual) 93 % (40-80) H 07/15/17 05:20 Lymphocytes 3 % (20-50) L 07/15/17 05:20 Monocytes 3 % (2-10) 07/15/17 05:20 Basophils 1 % (0-3) 07/10/17 10:49 Platelet Estimate ADEQUATE (NORMAL) 07/15/17 05:20 Eos Smear Source URINE 07/12/17 00:00 Eos Smear Total Cells NONE SEEN (NONE SEEN) 07/12/17 00:00 PT 15.2 SECONDS (9.5-11.5) H 07/16/17 05:45 INR 1.43 (0.5-1.4) H 07/16/17 05:45 PTT (Actin FS) 28.1 SECONDS (26.0-38.0) 07/16/17 05:45 Sodium 141 mEq/L (136-145) 07/16/17 05:45 Potassium 3.9 mEq/L (3.5-5.1) 07/16/17 05:45 Chloride 110 mEq/L (98-107) H 07/16/17 05:45 Carbon Dioxide 20.9 mEq/L (21.0-31.0) L 07/16/17 05:45 Anion Gap 14.0 (7.0-16.0) 07/16/17 05:45 BUN 68 mg/dL (7-25) H 07/16/17 05:45 Creatinine 2.8 mg/dL (0.7-1.3) H 07/16/17 05:45 Est GFR ( Amer) TNP 07/16/17 05:45 Est GFR (Non-Af Amer) TNP 07/16/17 05:45 BUN/Creatinine Ratio 24.3 07/16/17 05:45 Glucose 165 mg/dL (70-105) H 07/16/17 05:45 POC Glucose 179 MG/DL (70 - 105) H 07/16/17 11:17 Hemoglobin A1c % 7.6 % (4.0-6.0) H 07/10/17 10:49 Whole Bld Lactic Acid 1.12 mmol/L (0.60-1.99) 07/11/17 14:30 Calcium 9.0 mg/dL (8.6-10.3) 07/16/17 05:45 Phosphorus 3.5 mg/dL (2.5-5.0) 07/12/17 05:05 Magnesium 2.4 mg/dL (1.9-2.7) 07/12/17 05:05 Total Bilirubin 0.5 mg/dL (0.3-1.0) 07/16/17 05:45 AST 26 U/L (13-39) 07/16/17 05:45 ALT 38 U/L (7-52) 07/16/17 05:45 Alkaline Phosphatase 199 U/L (34-104) H 07/16/17 05:45 B-Natriuretic Peptide 944.0 pg/mL (5.0-100.0) H 07/15/17 05:20 Total Protein 6.2 gm/dL (6.0-8.3) 07/16/17 05:45 Albumin 2.7 gm/dL (4.2-5.5) L 07/16/17 05:45 Globulin 3.5 gm/dL 07/16/17 05:45 Albumin/Globulin Ratio 0.8 (1.0-1.8) L 07/16/17 05:45 TSH 0.20 uIU/ml (0.34-5.60) L 07/11/17 06:19 Urine Source HERR PORT 07/11/17 06:00 Urine Color YELLOW 07/11/17 06:00 Urine Clarity HAZY (CLEAR) 07/11/17 06:00 Urine pH 6.0 (4.6 - 8.0) 07/11/17 06:00 Ur Specific Coulter 1.015 (1.005-1.030) 07/11/17 06:00 Urine Protein 100 mg/dL (NEGATIVE) H 07/11/17 06:00 Urine Glucose (UA) NEGATIVE mg/dL (NEGATIVE) 07/11/17 06:00 Urine Ketones TRACE mg/dL (NEGATIVE) 07/11/17 06:00 Urine Blood TRACE (NEGATIVE) 07/11/17 06:00 Urine Nitrate NEGATIVE (NEGATIVE) 07/11/17 06:00 Urine Bilirubin NEGATIVE (NEGATIVE) 07/11/17 06:00 Urine Urobilinogen 2.0 E.U./dL (0.2 - 1.0) 07/11/17 06:00 Ur Leukocyte Esterase NEGATIVE (NEGATIVE) 07/11/17 06:00 Urine RBC 0-2 /hpf (0-5) H 07/11/17 06:00 Urine WBC 0-2 /hpf (0-5) 07/11/17 06:00 Ur Epithelial Cells OCCASIONAL /lpf (FEW) 07/11/17 06:00 Urine Bacteria FEW /hpf (NONE SEEN) 07/11/17 06:00 Ur Random Sodium 22 mmol/L 07/12/17 00:00 Urine Creatinine 156.0 mg/dl (39.0-259.0) 07/12/17 00:00 Urine Microalbumin 50.6 07/11/17 06:00 Microalb/Creat Ratio 51.9 07/11/17 06:00 Vancomycin Trough 17.1 ug/mL (10-20) 07/14/17 08:00 Random Vancomycin 32.7 ug/mL (5.0-40.0) 07/16/17 05:45 - Physical Exam Vitals and I&O: Vital Signs Temp 96.4 F 07/16/17 08:00 Pulse 80 07/16/17 12:56 Resp 18 07/16/17 12:56 BP 128/58 07/16/17 08:41 Pulse Ox 98 07/16/17 12:56 Intake & Output 07/15/17 07/16/17 07/16/17 18:59 06:59 18:59 Intake Total 120 250 50 Output Total 3 Balance 120 247 50 Weight (lbs) 96.615 kg 93.95 kg Intake: Intake, IV Amount 250 50 Clindamycin 600mg/50mL 150 600 mg In 50 ml @ 100 mls /hr IV Q8HR [facility] Rx#: [id number] Piperacillin Sodium/ 100 50 Tazobact 3.375 gm In Sodium Chloride 0.9% 50 ml @ 100 mls/hr IV Q8HR [facility] Rx#:[id number] Oral 120 Output: Urine/Stool Mix 3 Other: # Voids 3 # Bowel Movements 0 Stool Characteristics Soft Soft Brown Brown Active Medications: Current Medications Acetaminophen (Tylenol) 650 mg PO Q6HR PRN PRN Reason: TEMP >100 Stop: 09/08/17 19:00 Albuterol/Ipratropium (Duoneb Neb) 3 ml HHN Q6HRT [facility] Stop: 09/09/17 18:59 Last Admin: 07/16/17 12:56 Dose: 3 ml Albuterol/Ipratropium (Duoneb Neb) 3 ml HHN Q2H PRN PRN Reason: wheezing Stop: 09/09/17 14:14 Last Admin: 07/13/17 22:41 Dose: 3 ml Aspirin (Aspirin Chewable) 81 mg PO DAILY [facility] Stop: 09/09/17 08:59 Last Admin: 07/16/17 08:40 Dose: Not Given Carvedilol (Coreg) 25 mg PO DAILY [facility] Stop: 09/12/17 08:59 Last Admin: 07/16/17 08:41 Dose: Not Given [place] Oil/British Balsam/Trypsin (Venelex) 1 appl TP DAILY [facility] Stop: 09/11/17 09:59 Last Admin: 07/16/17 09:01 Dose: 1 appl Citalopram Hydrobromide (Celexa) 20 mg PO DAILY [facility] PRN Reason: Protocol Stop: 09/09/17 08:59 Last Admin: 07/16/17 08:41 Dose: Not Given Clonazepam (Klonopin) 1 mg PO HS [facility] Stop: 09/08/17 20:59 Last Admin: 07/15/17 21:13 Dose: Not Given Diltiazem HCl (Cardizem) 60 mg PO Q6HR [facility] Stop: 09/12/17 00:00 Last Admin: 07/16/17 11:24 Dose: Not Given Piperacillin Sod/Tazobactam (Sod 3.375 gm/ Sodium Chloride) 50 mls @ 100 mls/ hr IV Q8HR [facility] Stop: 09/08/17 12:59 Last Admin: 07/16/17 13:36 Dose: 100 mls/hr Clindamycin Phosphate (Cleocin Pb) 600 mg in 50 mls @ 100 mls/hr IV Q8HR [facility] Stop: 09/09/17 20:59 Last Admin: 07/16/17 12:01 Dose: 100 mls/hr Sodium Chloride (Nacl 0.9%) 1,000 mls @ 30 mls/hr IV .Q24H [facility] Stop: 09/12/17 15:27 Last Admin: 07/15/17 00:40 Dose: 30 mls/hr Furosemide 100 mg/ Sodium (Chloride) 100 mls @ 5 mls/hr IV TITR [facility] Stop: 09/13/17 12:59 Last Admin: 07/15/17 15:42 Dose: 5 mls/hr Insulin Aspart (Novolog Insulin Sliding Scale) 0 units SUBQ ACHS [facility] PRN Reason: Protocol Stop: 09/08/17 16:29 Last Admin: 07/16/17 11:23 Dose: Not Given Insulin Detemir (Levemir Insulin) 14 units SUBQ HS [facility] PRN Reason: Protocol Stop: 09/12/17 20:59 Last Admin: 07/15/17 22:01 Dose: Not Given Lactobacillus Rhamnosus (Culturelle 15b) 1 each PO DAILY [facility] Stop: 09/14/17 08:59 Last Admin: 07/16/17 08:41 Dose: Not Given Miscellaneous (Vte Chemical Prophylaxis Screen/ Admission) 1 [facility] PRN PRN PRN Reason: PROTOCOL Stop: 09/08/17 15:14 Miscellaneous (Vancomycin Iv Per Pharmacy) 1 [facility] PRN [facility] Stop: 09/09/17 17:29 Miscellaneous (Probiotic Screen) 1 [facility] PRN PRN PRN Reason: PROTOCOL Stop: 09/13/17 11:59 Pantoprazole Sodium (Protonix) 40 mg PO DAILY [facility] Stop: 09/09/17 08:59 Last Admin: 07/16/17 08:41 Dose: Not Given Quetiapine Fumarate (Seroquel) 50 mg PO HS [facility] PRN Reason: Protocol Stop: 09/08/17 20:59 Last Admin: 07/15/17 21:13 Dose: Not Given Tamsulosin HCl (Flomax) 0.8 mg PO HS [facility] Stop: 09/08/17 20:59 Last Admin: 07/15/17 21:13 Dose: Not Given Warfarin Sodium (Coumadin Per Pharmacy) 1 [facility] PRN PRN; Protocol PRN Reason: RX MONITORING Stop: 09/09/17 12:39 General: No acute distress, Other (Awake, confused) HEENT: Atraumatic, Mucous membr. moist/pink Neck: Supple, +2 carotid pulse wo bruit Cardiovascular: Regular rate, Normal S1, Normal S2 (irregular), Other ( Irregular ) Lungs: Other (scattered rhonchi, some fine wheezes) Abdomen: Bowel sounds, Soft Extremities: Edema, Other (Improving redness and edema of left leg, with some blister and papulas.) Neurological: Sensation intact, Other (Non ambulatory) Skin: Other (Redness of left leg, edema, papulalas and decoloration of skin), no Rash Psych/Mental Status: Other ( confused, not oriented) Assessment/Plan - Problem List Patient Problems: All Active Problems LEFT LOWER LEG REDNESS, SWELLING PAIN (Acute) - Assessment Assessment: JUSTINA Left LE Cellulitis ALOS 2/2 meds,Met Enceph, 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 ESS Htn decomp CHF - Plan Plan: Lab - Result Diagrams 07/12/17 05:05 07/12/17 05:05 Current Medications Acetaminophen (Tylenol) 650 mg PO Q6HR PRN PRN Reason: TEMP >100 Stop: 09/08/17 19:00 Albuterol/Ipratropium (Duoneb Neb) 3 ml HHN Q6HRT [facility] Stop: 09/09/17 18:59 Last Admin: 07/12/17 13:41 Dose: 3 ml Albuterol/Ipratropium (Duoneb Neb) 3 ml HHN Q2H PRN PRN Reason: wheezing Stop: 09/09/17 14:14 Aspirin (Aspirin Chewable) 81 mg PO DAILY [facility] Stop: 09/09/17 08:59 Last Admin: 07/12/17 08:45 Dose: 81 mg Benazepril HCl (Lotensin) 10 mg PO DAILY [facility] Stop: 09/09/17 08:59 Last Admin: 07/12/17 08:46 Dose: 10 mg Citalopram Hydrobromide (Celexa) 20 mg PO DAILY [facility] PRN Reason: Protocol Stop: 09/09/17 08:59 Last Admin: 07/12/17 08:46 Dose: 20 mg Clonazepam (Klonopin) 1 mg PO HS [facility] Stop: 09/08/17 20:59 Last Admin: 07/11/17 22:28 Dose: 1 mg Diltiazem HCl (Cardizem) 60 mg PO Q6HR [facility] Stop: 09/09/17 17:59 Last Admin: 07/12/17 13:58 Dose: 60 mg Piperacillin Sod/Tazobactam (Sod 3.375 gm/ Sodium Chloride) 50 mls @ 100 mls/ hr IV Q8HR [facility] Stop: 09/08/17 12:59 Last Infusion: 07/12/17 13:00 Dose: Infused Sodium Chloride (Nacl 0.9%) 1,000 mls @ 90 mls/hr IV .Q11H7M [facility] Stop: 09/08/17 13:14 Last Admin: 07/12/17 04:59 Dose: 90 mls/hr Clindamycin Phosphate (Cleocin Pb) 600 mg in 50 mls @ 100 mls/hr IV Q8HR [facility] Stop: 09/09/17 20:59 Last Admin: 07/12/17 14:05 Dose: 100 mls/hr Vancomycin HCl 1 gm/ Sodium (Chloride) 250 mls @ 165 mls/hr IV Q12H [facility] Stop: 09/10/17 08:59 Last Infusion: 07/12/17 14:10 Dose: Infused Insulin Aspart (Novolog Insulin Sliding Scale) 0 units SUBQ ACHS [facility] PRN Reason: Protocol Stop: 09/08/17 16:29 Last Admin: 07/12/17 13:52 Dose: 6 units Miscellaneous (Vte Chemical Prophylaxis Screen/ Admission) 1 [facility] PRN PRN PRN Reason: PROTOCOL Stop: 09/08/17 15:14 Miscellaneous (Vancomycin Iv Per Pharmacy) 1 [facility] PRN [facility] Stop: 09/09/17 17:29 Pantoprazole Sodium (Protonix) 40 mg PO DAILY [facility] Stop: 09/09/17 08:59 Last Admin: 07/12/17 08:45 Dose: 40 mg Quetiapine Fumarate (Seroquel) 50 mg PO HS [facility] PRN Reason: Protocol Stop: 09/08/17 20:59 Last Admin: 07/11/17 22:28 Dose: 50 mg Tamsulosin HCl (Flomax) 0.8 mg PO HS [facility] Stop: 09/08/17 20:59 Last Admin: 07/11/17 22:28 Dose: 0.8 mg Warfarin Sodium (Coumadin Per Pharmacy) 1 [facility] PRN PRN; Protocol PRN Reason: RX MONITORING Stop: 09/09/17 12:39 Lab - Result Diagrams 07/16/17 05:45 07/16/17 05:45 kidney fnc worse @ 68/2.8; request US, UA f/u cultures continue Vanco. clinda, Zosyn incidental finding brain mass f/u electrolytes, cbc now has wheezing CXR shows worsening CHF decrease IVF switch to Lasix drip plus albumin infusion BNP increased from 584 to 944 will need cardiac echo Nutritional Asmnt/Malnutr-PDOC - Dietary Evaluation Malnutrition Findings (Please click <Entered> for more info): Nutritional Asmnt/Malnutrition Start: 07/12/17 15: 11 Text: Status: Complete Freq: Document 07/12/17 15:11 LCHENG (Rec: 07/12/17 15:24 [email or web address] [id number]) Nutritional Asmnt/Malnutrition Patient General Information Nutritional Screening High Risk Diagnosis sepsis, secondary to cellulitis Pertinent Medical Hx/Surgical Hx CAD, CHF, HTN, dementia, schizophrenia, weakness, chronic renal insuff, DM, redness of both legs. Subjective Information Pt seen sleeping at time of visit. Per [employer], pt ate about 50% of breakfast, very slowly. Pt had no lunch yet d/t sleeping. Per nurse note, RN feed pt with pudding and jello with milk shake in the afternoon. Per ST to put patient NPO if lethargic to avoid aspiration noted. Current Diet Order/ Nutrition Support [id number], mech soft chopped Pertinent Medications novolog, protonix, piperacillin, seroquel, nacl 0 .9%, vancomycin Pertinent Labs 3 BUN 37, Glucose 261, POC 247-312 07/10 A1c 7.6 Nutritional Hx/Data Height 1.65 m Height (Calculated Centimeters) 165.1 Current Weight (lbs) 87.543 kg Weight (Calculated Kilograms) 87.5 Weight (Calculated Grams) 11762.3 Ward Body Weight 136 Body Mass Index (BMI) 32.1 Weight Status Obese GI Symptoms GI Symptoms None Last BM Difficult in: None Skin Integrity/Comment: pressure ulcer to left heel, reddened to left lower extremity (cellulitis), maceration to left foot, pressure area to right foot Current %PO Poor (25-49%) Estimated Nutritional Goals BEE in Kcals: Adj wt of IBW Calories/Kcals/Kg 25-30 Kcals Calculated 6519-6870 Protein: Adj wt of IBW Protein g/k-1.2 Protein Calculated 68-82 Fluid: ml 1700-2040ml (1ml/kcal) Nutritional Problem 2. Problem Problem increased nutrition needs ( protein) Etiology increased metabolic demand for wound healing Signs/Symptoms: pressure ulcer 1. Problem Problem altered nutrition related labs Etiology DM Signs/Symptoms: Glucose 261, POC 247-312, A1c 7.6 Intervention/Recommendation Comments 1. Recommend nectar thickned liquid considering risk of aspiration. recommend swallow eval again when pt is more wake up. 2. Consider Boost BID to supplement nutrition. 3. Monitor PO intake, wt, labs and skin integrity 4. F/U as high risk in 2-3 days, 07/14-07/15 Expected Outcomes/Goals Expected Outcomes/Goals 1. PO intake to meet at least 75% of nutritional needs. 2. Wt stability, skin to remain intact, labs to approach WNL.
--- NOTE | 2017-07-16 18:33 | General Progress Note ---
Subjective - Review of Systems Service Date: 07/16/17 Events since last encounter: has bullae left foot and dry necrotic skin both feel and heels will debride on 07/19/17 Objective - Results Result Diagrams: 07/16/17 05:45 07/16/17 05:45 Recent Labs: Laboratory Last Values WBC 10.8 Th/cmm (4.8-10.8) 07/16/17 05:45 RBC 3.41 Mil/cmm (3.80-5.80) L 07/16/17 05:45 Hgb 10.7 gm/dL (12-16) L 07/16/17 05:45 Hct 32.5 % (41.0-60) L 07/16/17 05:45 MCV 95.5 fl (80-99) 07/16/17 05:45 MCH 31.4 pg (27.0-31.0) H 07/16/17 05:45 MCHC Differential 32.9 pg (28.0-36.0) 07/16/17 05:45 RDW 14.5 % (11.5-20.0) 07/16/17 05:45 Plt Count 323 Th/cmm (150-400) 07/16/17 05:45 MPV 8.9 fl 07/16/17 05:45 Neutrophils % 85.8 % (40.0-80.0) H 07/16/17 05:45 Band Neutrophils % 1 % (0-10) 07/15/17 05:20 Lymphocytes % 6.5 % (20.0-50.0) L 07/16/17 05:45 Monocytes % 5.6 % (2.0-10.0) 07/16/17 05:45 Eosinophils % 0.9 % (0.0-5.0) 07/16/17 05:45 Basophils % 1.2 % (0.0-2.0) 07/16/17 05:45 Neutrophils (Manual) 93 % (40-80) H 07/15/17 05:20 Lymphocytes 3 % (20-50) L 07/15/17 05:20 Monocytes 3 % (2-10) 07/15/17 05:20 Basophils 1 % (0-3) 07/10/17 10:49 Platelet Estimate ADEQUATE (NORMAL) 07/15/17 05:20 Eos Smear Source URINE 07/12/17 00:00 Eos Smear Total Cells NONE SEEN (NONE SEEN) 07/12/17 00:00 PT 15.2 SECONDS (9.5-11.5) H 07/16/17 05:45 INR 1.43 (0.5-1.4) H 07/16/17 05:45 PTT (Actin FS) 28.1 SECONDS (26.0-38.0) 07/16/17 05:45 Sodium 141 mEq/L (136-145) 07/16/17 05:45 Potassium 3.9 mEq/L (3.5-5.1) 07/16/17 05:45 Chloride 110 mEq/L (98-107) H 07/16/17 05:45 Carbon Dioxide 20.9 mEq/L (21.0-31.0) L 07/16/17 05:45 Anion Gap 14.0 (7.0-16.0) 07/16/17 05:45 BUN 68 mg/dL (7-25) H 07/16/17 05:45 Creatinine 2.8 mg/dL (0.7-1.3) H 07/16/17 05:45 Est GFR ( Amer) TNP 07/16/17 05:45 Est GFR (Non-Af Amer) TNP 07/16/17 05:45 BUN/Creatinine Ratio 24.3 07/16/17 05:45 Glucose 165 mg/dL (70-105) H 07/16/17 05:45 POC Glucose 179 MG/DL (70 - 105) H 07/16/17 11:17 Hemoglobin A1c % 7.6 % (4.0-6.0) H 07/10/17 10:49 Whole Bld Lactic Acid 1.12 mmol/L (0.60-1.99) 07/11/17 14:30 Calcium 9.0 mg/dL (8.6-10.3) 07/16/17 05:45 Phosphorus 3.5 mg/dL (2.5-5.0) 07/12/17 05:05 Magnesium 2.4 mg/dL (1.9-2.7) 07/12/17 05:05 Total Bilirubin 0.5 mg/dL (0.3-1.0) 07/16/17 05:45 AST 26 U/L (13-39) 07/16/17 05:45 ALT 38 U/L (7-52) 07/16/17 05:45 Alkaline Phosphatase 199 U/L (34-104) H 07/16/17 05:45 B-Natriuretic Peptide 944.0 pg/mL (5.0-100.0) H 07/15/17 05:20 Total Protein 6.2 gm/dL (6.0-8.3) 07/16/17 05:45 Albumin 2.7 gm/dL (4.2-5.5) L 07/16/17 05:45 Globulin 3.5 gm/dL 07/16/17 05:45 Albumin/Globulin Ratio 0.8 (1.0-1.8) L 07/16/17 05:45 TSH 0.20 uIU/ml (0.34-5.60) L 07/11/17 06:19 Urine Source [place] 07/11/17 06:00 Urine Color YELLOW 07/11/17 06:00 Urine Clarity HAZY (CLEAR) 07/11/17 06:00 Urine pH 6.0 (4.6 - 8.0) 07/11/17 06:00 Ur Specific [place] 1.015 (1.005-1.030) 07/11/17 06:00 Urine Protein 100 mg/dL (NEGATIVE) H 07/11/17 06:00 Urine Glucose (UA) NEGATIVE mg/dL (NEGATIVE) 07/11/17 06:00 Urine Ketones TRACE mg/dL (NEGATIVE) 07/11/17 06:00 Urine Blood TRACE (NEGATIVE) 07/11/17 06:00 Urine Nitrate NEGATIVE (NEGATIVE) 07/11/17 06:00 Urine Bilirubin NEGATIVE (NEGATIVE) 07/11/17 06:00 Urine Urobilinogen 2.0 E.U./dL (0.2 - 1.0) 07/11/17 06:00 Ur Leukocyte Esterase NEGATIVE (NEGATIVE) 07/11/17 06:00 Urine RBC 0-2 /hpf (0-5) H 07/11/17 06:00 Urine WBC 0-2 /hpf (0-5) 07/11/17 06:00 Ur Epithelial Cells OCCASIONAL /lpf (FEW) 07/11/17 06:00 Urine Bacteria FEW /hpf (NONE SEEN) 07/11/17 06:00 Ur Random Sodium 22 mmol/L 07/12/17 00:00 Urine Creatinine 156.0 mg/dl (39.0-259.0) 07/12/17 00:00 Urine Microalbumin 50.6 07/11/17 06:00 Microalb/Creat Ratio 51.9 07/11/17 06:00 Vancomycin Trough 17.1 ug/mL (10-20) 07/14/17 08:00 Random Vancomycin 32.7 ug/mL (5.0-40.0) 07/16/17 05:45 - Physical Exam Vitals and I&O: Vital Signs Temp 96.6 F 07/16/17 16:00 Pulse 81 07/16/17 17:30 Resp 20 07/16/17 16:00 BP 142/76 07/16/17 16:00 Pulse Ox 96 07/16/17 16:00 Intake & Output 07/15/17 07/16/17 07/16/17 18:59 06:59 18:59 Intake Total 120 250 50 Output Total 3 Balance 120 247 50 Weight (lbs) 96.615 kg 93.95 kg Intake: Intake, IV Amount 250 50 Clindamycin 600mg/50mL 150 600 mg In 50 ml @ 100 mls /hr IV Q8HR [facility] Rx#: [id number] Piperacillin Sodium/ 100 50 Tazobact 3.375 gm In Sodium Chloride 0.9% 50 ml @ 100 mls/hr IV Q8HR [facility] Rx#:[id number] Oral 120 Output: Urine/Stool Mix 3 Other: # Voids 3 # Bowel Movements 0 Stool Characteristics Soft Soft Brown Brown Weight Source Bedscale Bedscale Active Medications: Current Medications Acetaminophen (Tylenol) 650 mg PO Q6HR PRN PRN Reason: TEMP >100 Stop: 09/08/17 19:00 Albuterol/Ipratropium (Duoneb Neb) 3 ml HHN Q6HRT [facility] Stop: 09/09/17 18:59 Last Admin: 07/16/17 12:56 Dose: 3 ml Albuterol/Ipratropium (Duoneb Neb) 3 ml HHN Q2H PRN PRN Reason: wheezing Stop: 09/09/17 14:14 Last Admin: 07/13/17 22:41 Dose: 3 ml Aspirin (Aspirin Chewable) 81 mg PO DAILY [facility] Stop: 09/09/17 08:59 Last Admin: 07/16/17 08:40 Dose: Not Given Carvedilol (Coreg) 25 mg PO DAILY [facility] Stop: 09/12/17 08:59 Last Admin: 07/16/17 08:41 Dose: Not Given [place] Oil/[place] Balsam/Trypsin (Venelex) 1 appl TP DAILY [facility] Stop: 09/11/17 09:59 Last Admin: 07/16/17 09:01 Dose: 1 appl Citalopram Hydrobromide (Celexa) 20 mg PO DAILY [facility] PRN Reason: Protocol Stop: 09/09/17 08:59 Last Admin: 07/16/17 08:41 Dose: Not Given Clonazepam (Klonopin) 1 mg PO HS [facility] Stop: 09/08/17 20:59 Last Admin: 07/15/17 21:13 Dose: Not Given Diltiazem HCl (Cardizem) 60 mg PO Q6HR [facility] Stop: 09/12/17 00:00 Last Admin: 07/16/17 17:30 Dose: Not Given Piperacillin Sod/Tazobactam (Sod 3.375 gm/ Sodium Chloride) 50 mls @ 100 mls/ hr IV Q8HR [facility] Stop: 09/08/17 12:59 Last Admin: 07/16/17 13:36 Dose: 100 mls/hr Clindamycin Phosphate (Cleocin Pb) 600 mg in 50 mls @ 100 mls/hr IV Q8HR [facility] Stop: 09/09/17 20:59 Last Admin: 07/16/17 12:01 Dose: 100 mls/hr Sodium Chloride (Nacl 0.9%) 1,000 mls @ 30 mls/hr IV .Q24H [facility] Stop: 09/12/17 15:27 Last Admin: 07/15/17 00:40 Dose: 30 mls/hr Furosemide 100 mg/ Sodium (Chloride) 100 mls @ 5 mls/hr IV TITR [facility] Stop: 09/13/17 12:59 Last Admin: 07/15/17 15:42 Dose: 5 mls/hr Insulin Aspart (Novolog Insulin Sliding Scale) 0 units SUBQ ACHS [facility] PRN Reason: Protocol Stop: 09/08/17 16:29 Last Admin: 07/16/17 17:28 Dose: Not Given Insulin Detemir (Levemir Insulin) 14 units SUBQ HS [facility] PRN Reason: Protocol Stop: 09/12/17 20:59 Last Admin: 07/15/17 22:01 Dose: Not Given Lactobacillus Rhamnosus (Culturelle 15b) 1 each PO DAILY [facility] Stop: 09/14/17 08:59 Last Admin: 07/16/17 08:41 Dose: Not Given Miscellaneous (Vte Chemical Prophylaxis Screen/ Admission) 1 [facility] PRN PRN PRN Reason: PROTOCOL Stop: 09/08/17 15:14 Miscellaneous (Vancomycin Iv Per Pharmacy) 1 [facility] PRN [facility] Stop: 09/09/17 17:29 Miscellaneous (Probiotic Screen) 1 [facility] PRN PRN PRN Reason: PROTOCOL Stop: 09/13/17 11:59 Pantoprazole Sodium (Protonix) 40 mg PO DAILY [facility] Stop: 09/09/17 08:59 Last Admin: 07/16/17 08:41 Dose: Not Given Quetiapine Fumarate (Seroquel) 50 mg PO HS [facility] PRN Reason: Protocol Stop: 09/08/17 20:59 Last Admin: 07/15/17 21:13 Dose: Not Given Tamsulosin HCl (Flomax) 0.8 mg PO HS [facility] Stop: 09/08/17 20:59 Last Admin: 07/15/17 21:13 Dose: Not Given Warfarin Sodium (Coumadin Per Pharmacy) 1 [facility] PRN PRN; Protocol PRN Reason: RX MONITORING Stop: 09/09/17 12:39 General: No acute distress, Other (Awake, confused) HEENT: Atraumatic, Mucous membr. moist/pink Neck: Supple, +2 carotid pulse wo bruit Cardiovascular: Regular rate, Normal S1, Normal S2 (irregular), Other ( Irregular ) Lungs: Other (scattered rhonchi, some fine wheezes) Abdomen: Bowel sounds, Soft Extremities: Edema, Other (Improving redness and edema of left leg, with some blister and papulas.) Neurological: Sensation intact, Other (Non ambulatory) Skin: Other (Redness of left leg, edema, papulalas and decoloration of skin), no Rash Psych/Mental Status: Other ( confused, not oriented) Assessment/Plan - Problem List Patient Problems: All Active Problems LEFT LOWER LEG REDNESS, SWELLING PAIN (Acute) Nutritional Asmnt/Malnutr-PDOC - Dietary Evaluation Malnutrition Findings (Please click <Entered> for more info): Nutritional Asmnt/Malnutrition Start: 07/12/17 15: 11 Text: Status: Complete Freq: Document 07/12/17 15:11 BERNARDO (Rec: 07/12/17 15:24 LUCASHipolito [email or web address]) Nutritional Asmnt/Malnutrition Patient General Information Nutritional Screening High Risk Diagnosis sepsis, secondary to cellulitis Pertinent Medical Hx/Surgical Hx CAD, CHF, HTN, dementia, schizophrenia, weakness, chronic renal insuff, DM, redness of both legs. Subjective Information Pt seen sleeping at time of visit. Per OVENS SUPERVISOR, pt ate about 50% of breakfast, very slowly. Pt had no lunch yet d/t sleeping. Per nurse note, RN feed pt with pudding and jello with milk shake in the afternoon. Per ST to put patient NPO if lethargic to avoid aspiration noted. Current Diet Order/ Nutrition Support [id number], mech soft chopped Pertinent Medications novolog, protonix, piperacillin, seroquel, nacl 0 .9%, vancomycin Pertinent Labs 3*19 BUN 37, Glucose 261, POC 247-312 3 A1c 7.6 Nutritional Hx/Data Height 1.65 m Height (Calculated Centimeters) 165.1 Current Weight (lbs) 87.543 kg Weight (Calculated Kilograms) 87.5 Weight (Calculated Grams) 27041.3 [place] Body Weight 136 Body Mass Index (BMI) 32.1 Weight Status Obese GI Symptoms GI Symptoms None Last BM 3/48 Difficult in: None Skin Integrity/Comment: pressure ulcer to left heel, reddened to left lower extremity (cellulitis), maceration to left foot, pressure area to right foot Current %PO Poor (25-49%) Estimated Nutritional Goals BEE in Kcals: Adj wt of IBW Calories/Kcals/Kg 25-30 Kcals Calculated 2150-7813 Protein: Adj wt of IBW Protein g/k-1.2 Protein Calculated 68-82 Fluid: ml 1700-2040ml (1ml/kcal) Nutritional Problem 2. Problem Problem increased nutrition needs ( protein) Etiology increased metabolic demand for wound healing Signs/Symptoms: pressure ulcer 1. Problem Problem altered nutrition related labs Etiology DM Signs/Symptoms: Glucose 261, POC 247-312, A1c 7.6 Intervention/Recommendation Comments 1. Recommend nectar thickned liquid considering risk of aspiration. recommend swallow eval again when pt is more wake up. 2. Consider Boost BID to supplement nutrition. 3. Monitor PO intake, wt, labs and skin integrity 4. F/U as high risk in 2-3 days, 07/14-07/15 Expected Outcomes/Goals Expected Outcomes/Goals 1. PO intake to meet at least 75% of nutritional needs. 2. Wt stability, skin to remain intact, labs to approach WNL.
[2017-07-16 20:13] LABS: URINE BILIRUBIN NEGATIVE (NEGATIVE); URINE BLOOD MODERATE (NEGATIVE); URINE GLUCOSE (UA) NEGATIVE (NEGATIVE); URINE KETONE NEGATIVE (NEGATIVE); URINE LEUKOCYTE ESTERASE NEGATIVE (NEGATIVE); URINE MICROSCOPIC INDICATED? YES; URINE NITRATE NEGATIVE (NEGATIVE); URINE PH 5.5 (4.6 - 8.0); URINE PROTEIN NEGATIVE (NEGATIVE); URINE SOURCE MIDSTREAM; URINE UROBILINOGEN 0.2 E.U./dL (0.2 - 1.0)
[2017-07-16 20:22] LABS: URINE CLARITY HAZY (CLEAR); URINE COLOR YELLOW
[2017-07-16 20:24] LABS: URINE BACTERIA NONE SEEN /hpf (NONE SEEN); URINE EPITHELIAL CELLS OCCASIONAL /lpf (FEW); URINE WBC 0-2 /hpf (0-5)
[2017-07-16] MEDS: Insulin Detemir 100 units/mL 10mL Vial SUBQ SCH (21:09)
[2017-07-17] MEDS: Albuterol/Ipratropium Neb 3 ML AERS HHN SCH ×4 (00:29→18:25)
--- NOTE | 2017-07-17 01:15 | Progress Notes ---
DATE: 07/16/2017 The patient is on the medical floor. The patient continues to be confused. His legs are swelling. He continues to be unable to carry on a conversation, demented, and confused. He has been on psychotropic medication with no side effects, so he needs to continue with that. Thank you very much for allowing me to participate in the care of this most interesting gentleman. JOB# [id number]
[2017-07-17] MEDS: Diltiazem 30 mg Tab PO SCH ×4 (01:46→17:46)
[2017-07-17] MEDS: Clindamycin 600mg/50mL 600 MG/50 ML BAG IV SCH ×3 (05:50→21:36)
[2017-07-17 07:07] LABS: % EOSINOPHILS 1.2 % (0.0-5.0); % LYMPHOCYTES 8.9 % (20.0-50.0); % MONOCYTES 7.2 % (2.0-10.0); % NEUTROPHILS 82.7 % (40.0-80.0); EOSINOPHILE ABSOLUTE 0.1 Th/cmm (0.1-0.4); HEMATOCRIT 32.5 % (41.0-60); LYMPHOCYTE ABSOLUTE 0.7 Th/cmm (1.5-3.0); MEAN CORPUSCULAR HEMOGLOBIN 31.9 pg (27.0-31.0); MEAN CORPUSCULAR HGB CONC 33.9 pg (28.0-36.0); MEAN PLATELET VOLUME 8.8 fl; MONOCYTE ABSOLUTE 0.6 Th/cmm (0.3-1.0); NEUTROPHILE ABSOLUTE 6.4 Th/cmm (1.8-8.0); PLATELET COUNT 340 Th/cmm (150-400); RED BLOOD COUNT 3.46 Mil/cmm (3.80-5.80); WHITE BLOOD COUNT 7.8 Th/cmm (4.8-10.8)
[2017-07-17 07:12] LABS: INR 1.12 (0.5-1.4); PROTHROMBIN TIME (TEST) 11.7 SECONDS (9.5-11.5)
[2017-07-17 07:24] LABS: ALB/GLOB RATIO 0.8 (1.0-1.8); ALBUMIN 2.7 gm/dL (4.2-5.5); ALKALINE PHOSPHATASE 166 U/L (34-104); ANION GAP 14.8 (7.0-16.0); BILIRUBIN,TOTAL 0.6 mg/dL (0.3-1.0); BUN - UREA NITROGEN 76 mg/dL (7-25); CALCIUM SERUM 8.7 mg/dL (8.6-10.3); CARBON DIOXIDE 22.3 mEq/L (21.0-31.0); CHLORIDE 112 mEq/L (98-107); CREATININE - SERUM 3.2 mg/dL (0.7-1.3); GLUCOSE 191 mg/dL (70-105); POTASSIUM SERUM 4.1 mEq/L (3.5-5.1); SGOT 14 U/L (13-39); SGPT/ALT 29 U/L (7-52); SODIUM SERUM 145 mEq/L (136-145); TOTAL PROTEIN,SERUM 6.3 gm/dL (6.0-8.3)
--- NOTE | 2017-07-17 08:39 | General Progress Note ---
Subjective - Review of Systems Service Date: 07/17/17 Subjective: Patient is more awake today, confused, not oriented, responding question. Objective - Results Result Diagrams: 07/17/17 06:23 07/17/17 06:23 Recent Labs: Laboratory Last Values WBC 7.8 Th/cmm (4.8-10.8) 07/17/17 06:23 RBC 3.46 Mil/cmm (3.80-5.80) L 07/17/17 06:23 Hgb 11.0 gm/dL (12-16) L 07/17/17 06:23 Hct 32.5 % (41.0-60) L 07/17/17 06:23 MCV 94.0 fl (80-99) 07/17/17 06:23 MCH 31.9 pg (27.0-31.0) H 07/17/17 06:23 MCHC Differential 33.9 pg (28.0-36.0) 07/17/17 06:23 RDW 15.0 % (11.5-20.0) 07/17/17 06:23 Plt Count 340 Th/cmm (150-400) 07/17/17 06:23 MPV 8.8 fl 07/17/17 06:23 Neutrophils % 82.7 % (40.0-80.0) H 07/17/17 06:23 Band Neutrophils % 1 % (0-10) 07/15/17 05:20 Lymphocytes % 8.9 % (20.0-50.0) L 07/17/17 06:23 Monocytes % 7.2 % (2.0-10.0) 07/17/17 06:23 Eosinophils % 1.2 % (0.0-5.0) 07/17/17 06:23 Basophils % 0.0 % (0.0-2.0) 07/17/17 06:23 Neutrophils (Manual) 93 % (40-80) H 07/15/17 05:20 Lymphocytes 3 % (20-50) L 07/15/17 05:20 Monocytes 3 % (2-10) 07/15/17 05:20 Basophils 1 % (0-3) 07/10/17 10:49 Platelet Estimate ADEQUATE (NORMAL) 07/15/17 05:20 Eos Smear Source URINE 07/12/17 00:00 Eos Smear Total Cells NONE SEEN (NONE SEEN) 07/12/17 00:00 PT 11.7 SECONDS (9.5-11.5) H 07/17/17 06:23 INR 1.12 (0.5-1.4) 07/17/17 06:23 PTT (Actin FS) 28.1 SECONDS (26.0-38.0) 07/16/17 05:45 Sodium 145 mEq/L (136-145) 07/17/17 06:23 Potassium 4.1 mEq/L (3.5-5.1) 07/17/17 06:23 Chloride 112 mEq/L (98-107) H 07/17/17 06:23 Carbon Dioxide 22.3 mEq/L (21.0-31.0) 07/17/17 06:23 Anion Gap 14.8 (7.0-16.0) 07/17/17 06:23 BUN 76 mg/dL (7-25) H 07/17/17 06:23 Creatinine 3.2 mg/dL (0.7-1.3) H 07/17/17 06:23 Est GFR ( Amer) TNP 07/17/17 06:23 Est GFR (Non-Af Amer) TNP 07/17/17 06:23 BUN/Creatinine Ratio 23.8 07/17/17 06:23 Glucose 191 mg/dL (70-105) H 07/17/17 06:23 POC Glucose 191 MG/DL (70 - 105) H 07/17/17 06:22 Hemoglobin A1c % 7.6 % (4.0-6.0) H 07/10/17 10:49 Whole Bld Lactic Acid 1.12 mmol/L (0.60-1.99) 07/11/17 14:30 Calcium 8.7 mg/dL (8.6-10.3) 07/17/17 06:23 Phosphorus 3.5 mg/dL (2.5-5.0) 07/12/17 05:05 Magnesium 2.4 mg/dL (1.9-2.7) 07/12/17 05:05 Total Bilirubin 0.6 mg/dL (0.3-1.0) 07/17/17 06:23 AST 14 U/L (13-39) 07/17/17 06:23 ALT 29 U/L (7-52) 07/17/17 06:23 Alkaline Phosphatase 166 U/L (34-104) H 07/17/17 06:23 B-Natriuretic Peptide 944.0 pg/mL (5.0-100.0) H 07/15/17 05:20 Total Protein 6.3 gm/dL (6.0-8.3) 07/17/17 06:23 Albumin 2.7 gm/dL (4.2-5.5) L 07/17/17 06:23 Globulin 3.6 gm/dL 07/17/17 06:23 Albumin/Globulin Ratio 0.8 (1.0-1.8) L 07/17/17 06:23 TSH 0.20 uIU/ml (0.34-5.60) L 07/11/17 06:19 Urine Source [place] 07/16/17 17:00 Urine Color YELLOW 07/16/17 17:00 Urine Clarity HAZY (CLEAR) 07/16/17 17:00 Urine pH 5.5 (4.6 - 8.0) 07/16/17 17:00 Ur Specific [place] 1.010 (1.005-1.030) 07/16/17 17:00 Urine Protein NEGATIVE mg/dL (NEGATIVE) 07/16/17 17:00 Urine Glucose (UA) NEGATIVE mg/dL (NEGATIVE) 07/16/17 17:00 Urine Ketones NEGATIVE mg/dL (NEGATIVE) 07/16/17 17:00 Urine Blood MODERATE (NEGATIVE) H 07/16/17 17:00 Urine Nitrate NEGATIVE (NEGATIVE) 07/16/17 17:00 Urine Bilirubin NEGATIVE (NEGATIVE) 07/16/17 17:00 Urine Urobilinogen 0.2 E.U./dL (0.2 - 1.0) 07/16/17 17:00 Ur Leukocyte Esterase NEGATIVE (NEGATIVE) 07/16/17 17:00 Urine RBC 5-10 /hpf (0-5) H 07/16/17 17:00 Urine WBC 0-2 /hpf (0-5) 07/16/17 17:00 Ur Epithelial Cells OCCASIONAL /lpf (FEW) 07/16/17 17:00 Urine Bacteria NONE SEEN /hpf (NONE SEEN) 07/16/17 17:00 Ur Random Sodium 22 mmol/L 07/12/17 00:00 Urine Creatinine 156.0 mg/dl (39.0-259.0) 07/12/17 00:00 Urine Microalbumin 50.6 07/11/17 06:00 Microalb/Creat Ratio 51.9 07/11/17 06:00 Vancomycin Trough 17.1 ug/mL (10-20) 07/14/17 08:00 Random Vancomycin 32.7 ug/mL (5.0-40.0) 07/16/17 05:45 - Physical Exam Vitals and I&O: Vital Signs Temp 97.2 F 07/17/17 04:00 Pulse 92 07/17/17 06:31 Resp 18 07/17/17 04:00 BP 152/70 07/17/17 04:00 Pulse Ox 98 07/17/17 04:00 Intake & Output 07/16/17 07/17/17 07/17/17 18:59 06:59 18:59 Intake Total 150 150 Balance 150 150 Intake: Intake, IV Amount 150 150 Clindamycin 600mg/50mL 50 50 600 mg In 50 ml @ 100 mls /hr IV Q8HR [facility] Rx#: [id number] Piperacillin Sodium/ 100 100 Tazobact 3.375 gm In Sodium Chloride 0.9% 50 ml @ 100 mls/hr IV Q8HR [facility] Rx#:[id number] Other: Stool Characteristics Soft Soft Brown Brown Active Medications: Current Medications Acetaminophen (Tylenol) 650 mg PO Q6HR PRN PRN Reason: TEMP >100 Stop: 09/08/17 19:00 Albuterol/Ipratropium (Duoneb Neb) 3 ml HHN Q6HRT [facility] Stop: 09/09/17 18:59 Last Admin: 07/17/17 07:02 Dose: 3 ml Albuterol/Ipratropium (Duoneb Neb) 3 ml HHN Q2H PRN PRN Reason: wheezing Stop: 09/09/17 14:14 Last Admin: 07/13/17 22:41 Dose: 3 ml Aspirin (Aspirin Chewable) 81 mg PO DAILY [facility] Stop: 09/09/17 08:59 Last Admin: 07/16/17 08:40 Dose: Not Given Carvedilol (Coreg) 25 mg PO DAILY [facility] Stop: 09/12/17 08:59 Last Admin: 07/16/17 08:41 Dose: Not Given Alpha Oil/[place] Balsam/Trypsin (Venelex) 1 appl TP DAILY [facility] Stop: 09/11/17 09:59 Last Admin: 07/16/17 09:01 Dose: 1 appl Citalopram Hydrobromide (Celexa) 20 mg PO DAILY [facility] PRN Reason: Protocol Stop: 09/09/17 08:59 Last Admin: 07/16/17 08:41 Dose: Not Given Clonazepam (Klonopin) 1 mg PO HS [facility] Stop: 09/08/17 20:59 Last Admin: 07/17/17 00:17 Dose: 1 mg Diltiazem HCl (Cardizem) 60 mg PO Q6HR [facility] Stop: 09/12/17 00:00 Last Admin: 07/17/17 06:31 Dose: 60 mg Piperacillin Sod/Tazobactam (Sod 3.375 gm/ Sodium Chloride) 50 mls @ 100 mls/ hr IV Q8HR [facility] Stop: 09/08/17 12:59 Last Infusion: 07/17/17 05:39 Dose: Infused Clindamycin Phosphate (Cleocin Pb) 600 mg in 50 mls @ 100 mls/hr IV Q8HR [facility] Stop: 09/09/17 20:59 Last Admin: 07/17/17 05:50 Dose: 100 mls/hr Sodium Chloride (Nacl 0.9%) 1,000 mls @ 30 mls/hr IV .Q24H [facility] Stop: 09/12/17 15:27 Last Admin: 07/15/17 00:40 Dose: 30 mls/hr Furosemide 100 mg/ Sodium (Chloride) 100 mls @ 5 mls/hr IV TITR [facility] Stop: 09/13/17 12:59 Last Admin: 07/15/17 15:42 Dose: 5 mls/hr Insulin Aspart (Novolog Insulin Sliding Scale) 0 units SUBQ ACHS [facility] PRN Reason: Protocol Stop: 09/08/17 16:29 Last Admin: 07/16/17 21:07 Dose: 5 units Insulin Detemir (Levemir Insulin) 14 units SUBQ HS [facility] PRN Reason: Protocol Stop: 09/12/17 20:59 Last Admin: 07/16/17 21:09 Dose: 14 units Lactobacillus Rhamnosus (Culturelle 15b) 1 each PO DAILY [facility] Stop: 09/14/17 08:59 Last Admin: 07/16/17 08:41 Dose: Not Given Miscellaneous (Vte Chemical Prophylaxis Screen/ Admission) 1 [facility] PRN PRN PRN Reason: PROTOCOL Stop: 09/08/17 15:14 Miscellaneous (Vancomycin Iv Per Pharmacy) 1 [facility] PRN [facility] Stop: 09/09/17 17:29 Miscellaneous (Probiotic Screen) 1 [facility] PRN PRN PRN Reason: PROTOCOL Stop: 09/13/17 11:59 Pantoprazole Sodium (Protonix) 40 mg PO DAILY [facility] Stop: 09/09/17 08:59 Last Admin: 07/16/17 08:41 Dose: Not Given Quetiapine Fumarate (Seroquel) 50 mg PO HS [facility] PRN Reason: Protocol Stop: 09/08/17 20:59 Last Admin: 07/17/17 00:18 Dose: 50 mg Tamsulosin HCl (Flomax) 0.8 mg PO HS [facility] Stop: 09/08/17 20:59 Last Admin: 07/17/17 00:17 Dose: 0.8 mg Warfarin Sodium (Coumadin Per Pharmacy) 1 [facility] PRN PRN; Protocol PRN Reason: RX MONITORING Stop: 09/09/17 12:39 Warfarin Sodium (Coumadin) 3 mg PO C [facility] Stop: 07/17/17 23:00 General: No acute distress, Other (Awake, confused) HEENT: Atraumatic, Mucous membr. moist/pink Neck: Supple, +2 carotid pulse wo bruit Cardiovascular: Regular rate, Normal S1, Normal S2 (irregular), Other ( Irregular ) Lungs: Other (scattered rhonchi, some fine wheezes) Abdomen: Bowel sounds, Soft Extremities: Edema, Other (Improving redness and edema of left leg, with some blister and papulas.) Neurological: Sensation intact, Other (Non ambulatory) Skin: Other (Redness of left leg, edema, papulalas and decoloration of skin), no Rash Psych/Mental Status: Other ( confused, not oriented) Assessment/Plan - Problem List Patient Problems: All Active Problems LEFT LOWER LEG REDNESS, SWELLING PAIN (Acute) - Assessment Assessment: Current Active Problems Problem Status Onset LEFT LOWER LEG REDNESS, SWELLING PAIN Acute Patient is more awake today, calm, confused. Redness and edema of leg improving , there are some blister, papulas, necrotic tissue and skin breaking. today WBC is normal, creatinine continue increasing. Lungs sound less congested. DX: sepsis, AKF over CKF, HTN, CHF, DM, Dementia, BPH, A-fib, Dhysphagia, Cerebral mass. - Plan Plan: Patient in IV NS, Vanco, Clyndomicin and sozyn, Insulin sliding scale and SNF meds. Lasix drip and albumin. PEG in place. Follow by ID, Cardio, Psychiatry, GI, Pulmonology, and Nephro. Patient is in NPO due that he did not pass swallow evaluation, PEG was placed yesterday. Leg MRI requested. Today I will have a metting with all family to explain patient's condition and prognosis. Will continue to monitor Nutritional Asmnt/Malnutr-PDOC - Dietary Evaluation Malnutrition Findings (Please click <Entered> for more info): Nutritional Asmnt/Malnutrition Start: 07/12/17 15: 11 Text: Status: Complete Freq: Document 07/12/17 15:11 ARJUN (Rec: 07/12/17 15:24 [email or web address] Nutritional Asmnt/Malnutrition Patient General Information Nutritional Screening High Risk Diagnosis sepsis, secondary to cellulitis Pertinent Medical Hx/Surgical Hx CAD, CHF, HTN, dementia, schizophrenia, weakness, chronic renal insuff, DM, redness of both legs. Subjective Information Pt seen sleeping at time of visit. Per IP ARCHITECT, pt ate about 50% of breakfast, very slowly. Pt had no lunch yet d/t sleeping. Per nurse note, RN feed pt with pudding and jello with milk shake in the afternoon. Per ST to put patient NPO if lethargic to avoid aspiration noted. Current Diet Order/ Nutrition Support [id number], [facility] soft chopped Pertinent Medications novolog, protonix, piperacillin, seroquel, nacl 0 .9%, vancomycin Pertinent Labs 3*19 BUN 37, Glucose 261, POC 247-312 3/ A1c 7.6 Nutritional Hx/Data Height 1.65 m Height (Calculated Centimeters) 165.1 Current Weight (lbs) 87.543 kg Weight (Calculated Kilograms) 87.5 Weight (Calculated Grams) 11837.3 [place] Body Weight 136 Body Mass Index (BMI) 32.1 Weight Status Obese GI Symptoms GI Symptoms None Last BM Difficult in: None Skin Integrity/Comment: pressure ulcer to left heel, reddened to left lower extremity (cellulitis), maceration to left foot, pressure area to right foot Current %PO Poor (25-49%) Estimated Nutritional Goals BEE in Kcals: Adj wt of IBW Calories/Kcals/Kg 25-30 Kcals Calculated 0801-4287 Protein: Adj wt of IBW Protein g/k-1.2 Protein Calculated 68-82 Fluid: ml 1700-2040ml (1ml/kcal) Nutritional Problem 2. Problem Problem increased nutrition needs ( protein) Etiology increased metabolic demand for wound healing Signs/Symptoms: pressure ulcer 1. Problem Problem altered nutrition related labs Etiology DM Signs/Symptoms: Glucose 261, POC 247-312, A1c 7.6 Intervention/Recommendation Comments 1. Recommend nectar thickned liquid considering risk of aspiration. recommend swallow eval again when pt is more wake up. 2. Consider Boost BID to supplement nutrition. 3. Monitor PO intake, wt, labs and skin integrity 4. F/U as high risk in 2-3 days, 07/14-07/15 Expected Outcomes/Goals Expected Outcomes/Goals 1. PO intake to meet at least 75% of nutritional needs. 2. Wt stability, skin to remain intact, labs to approach WNL.
--- NOTE | 2017-07-17 08:44 | GI Progress Note ---
Subjective - Review of Systems Service Date: 07/17/17 Subjective: GI NOTE Events noted. Objective - Results Result Diagrams: 07/17/17 06:23 07/17/17 06:23 Recent Labs: Laboratory Last Values WBC 7.8 Th/cmm (4.8-10.8) 07/17/17 06:23 RBC 3.46 Mil/cmm (3.80-5.80) L 07/17/17 06:23 Hgb 11.0 gm/dL (12-16) L 07/17/17 06:23 Hct 32.5 % (41.0-60) L 07/17/17 06:23 MCV 94.0 fl (80-99) 07/17/17 06:23 MCH 31.9 pg (27.0-31.0) H 07/17/17 06:23 MCHC Differential 33.9 pg (28.0-36.0) 07/17/17 06:23 RDW 15.0 % (11.5-20.0) 07/17/17 06:23 Plt Count 340 Th/cmm (150-400) 07/17/17 06:23 MPV 8.8 fl 07/17/17 06:23 Neutrophils % 82.7 % (40.0-80.0) H 07/17/17 06:23 Band Neutrophils % 1 % (0-10) 07/15/17 05:20 Lymphocytes % 8.9 % (20.0-50.0) L 07/17/17 06:23 Monocytes % 7.2 % (2.0-10.0) 07/17/17 06:23 Eosinophils % 1.2 % (0.0-5.0) 07/17/17 06:23 Basophils % 0.0 % (0.0-2.0) 07/17/17 06:23 Neutrophils (Manual) 93 % (40-80) H 07/15/17 05:20 Lymphocytes 3 % (20-50) L 07/15/17 05:20 Monocytes 3 % (2-10) 07/15/17 05:20 Basophils 1 % (0-3) 07/10/17 10:49 Platelet Estimate ADEQUATE (NORMAL) 07/15/17 05:20 Eos Smear Source URINE 07/12/17 00:00 Eos Smear Total Cells NONE SEEN (NONE SEEN) 07/12/17 00:00 PT 11.7 SECONDS (9.5-11.5) H 07/17/17 06:23 INR 1.12 (0.5-1.4) 07/17/17 06:23 PTT (Actin FS) 28.1 SECONDS (26.0-38.0) 07/16/17 05:45 Sodium 145 mEq/L (136-145) 07/17/17 06:23 Potassium 4.1 mEq/L (3.5-5.1) 07/17/17 06:23 Chloride 112 mEq/L (98-107) H 07/17/17 06:23 Carbon Dioxide 22.3 mEq/L (21.0-31.0) 07/17/17 06:23 Anion Gap 14.8 (7.0-16.0) 07/17/17 06:23 BUN 76 mg/dL (7-25) H 07/17/17 06:23 Creatinine 3.2 mg/dL (0.7-1.3) H 07/17/17 06:23 Est GFR ( Amer) TNP 07/17/17 06:23 Est GFR (Non-Af Amer) TNP 07/17/17 06:23 BUN/Creatinine Ratio 23.8 07/17/17 06:23 Glucose 191 mg/dL (70-105) H 07/17/17 06:23 POC Glucose 191 MG/DL (70 - 105) H 07/17/17 06:22 Hemoglobin A1c % 7.6 % (4.0-6.0) H 07/10/17 10:49 Whole Bld Lactic Acid 1.12 mmol/L (0.60-1.99) 07/11/17 14:30 Calcium 8.7 mg/dL (8.6-10.3) 07/17/17 06:23 Phosphorus 3.5 mg/dL (2.5-5.0) 07/12/17 05:05 Magnesium 2.4 mg/dL (1.9-2.7) 07/12/17 05:05 Total Bilirubin 0.6 mg/dL (0.3-1.0) 07/17/17 06:23 AST 14 U/L (13-39) 07/17/17 06:23 ALT 29 U/L (7-52) 07/17/17 06:23 Alkaline Phosphatase 166 U/L (34-104) H 07/17/17 06:23 B-Natriuretic Peptide 944.0 pg/mL (5.0-100.0) H 07/15/17 05:20 Total Protein 6.3 gm/dL (6.0-8.3) 07/17/17 06:23 Albumin 2.7 gm/dL (4.2-5.5) L 07/17/17 06:23 Globulin 3.6 gm/dL 07/17/17 06:23 Albumin/Globulin Ratio 0.8 (1.0-1.8) L 07/17/17 06:23 TSH 0.20 uIU/ml (0.34-5.60) L 07/11/17 06:19 Urine Source MIDSTREAM 07/16/17 17:00 Urine Color YELLOW 07/16/17 17:00 Urine Clarity HAZY (CLEAR) 07/16/17 17:00 Urine pH 5.5 (4.6 - 8.0) 07/16/17 17:00 Ur Specific [place] 1.010 (1.005-1.030) 07/16/17 17:00 Urine Protein NEGATIVE mg/dL (NEGATIVE) 07/16/17 17:00 Urine Glucose (UA) NEGATIVE mg/dL (NEGATIVE) 07/16/17 17:00 Urine Ketones NEGATIVE mg/dL (NEGATIVE) 07/16/17 17:00 Urine Blood MODERATE (NEGATIVE) H 07/16/17 17:00 Urine Nitrate NEGATIVE (NEGATIVE) 07/16/17 17:00 Urine Bilirubin NEGATIVE (NEGATIVE) 07/16/17 17:00 Urine Urobilinogen 0.2 E.U./dL (0.2 - 1.0) 07/16/17 17:00 Ur Leukocyte Esterase NEGATIVE (NEGATIVE) 07/16/17 17:00 Urine RBC 5-10 /hpf (0-5) H 07/16/17 17:00 Urine WBC 0-2 /hpf (0-5) 07/16/17 17:00 Ur Epithelial Cells OCCASIONAL /lpf (FEW) 07/16/17 17:00 Urine Bacteria NONE SEEN /hpf (NONE SEEN) 07/16/17 17:00 Ur Random Sodium 22 mmol/L 07/12/17 00:00 Urine Creatinine 156.0 mg/dl (39.0-259.0) 07/12/17 00:00 Urine Microalbumin 50.6 07/11/17 06:00 Microalb/Creat Ratio 51.9 07/11/17 06:00 Vancomycin Trough 17.1 ug/mL (10-20) 07/14/17 08:00 Random Vancomycin 32.7 ug/mL (5.0-40.0) 07/16/17 05:45 - Physical Exam Vitals and I&O: Vital Signs Temp 97.2 F 07/17/17 04:00 Pulse 92 07/17/17 06:31 Resp 18 07/17/17 04:00 BP 152/70 07/17/17 04:00 Pulse Ox 98 07/17/17 04:00 Intake & Output 07/16/17 07/17/17 07/17/17 18:59 06:59 18:59 Intake Total 150 150 Balance 150 150 Intake: Intake, IV Amount 150 150 Clindamycin 600mg/50mL 50 50 600 mg In 50 ml @ 100 mls /hr IV Q8HR [facility] Rx#: [id number] Piperacillin Sodium/ 100 100 Tazobact 3.375 gm In Sodium Chloride 0.9% 50 ml @ 100 mls/hr IV Q8HR [facility] Rx#:[id number] Other: Stool Characteristics Soft Soft Brown Brown Active Medications: Current Medications Acetaminophen (Tylenol) 650 mg PO Q6HR PRN PRN Reason: TEMP >100 Stop: 09/08/17 19:00 Albuterol/Ipratropium (Duoneb Neb) 3 ml HHN Q6HRT [facility] Stop: 09/09/17 18:59 Last Admin: 07/17/17 07:02 Dose: 3 ml Albuterol/Ipratropium (Duoneb Neb) 3 ml HHN Q2H PRN PRN Reason: wheezing Stop: 09/09/17 14:14 Last Admin: 07/13/17 22:41 Dose: 3 ml Aspirin (Aspirin Chewable) 81 mg PO DAILY [facility] Stop: 09/09/17 08:59 Last Admin: 07/16/17 08:40 Dose: Not Given Carvedilol (Coreg) 25 mg PO DAILY [facility] Stop: 09/12/17 08:59 Last Admin: 07/16/17 08:41 Dose: Not Given [place] Oil/[place] Balsam/Trypsin (Venelex) 1 appl TP DAILY [facility] Stop: 09/11/17 09:59 Last Admin: 07/16/17 09:01 Dose: 1 appl Citalopram Hydrobromide (Celexa) 20 mg PO DAILY [facility] PRN Reason: Protocol Stop: 09/09/17 08:59 Last Admin: 07/16/17 08:41 Dose: Not Given Clonazepam (Klonopin) 1 mg PO HS [facility] Stop: 09/08/17 20:59 Last Admin: 07/17/17 00:17 Dose: 1 mg Diltiazem HCl (Cardizem) 60 mg PO Q6HR [facility] Stop: 09/12/17 00:00 Last Admin: 07/17/17 06:31 Dose: 60 mg Piperacillin Sod/Tazobactam (Sod 3.375 gm/ Sodium Chloride) 50 mls @ 100 mls/ hr IV Q8HR [facility] Stop: 09/08/17 12:59 Last Infusion: 07/17/17 05:39 Dose: Infused Clindamycin Phosphate (Cleocin Pb) 600 mg in 50 mls @ 100 mls/hr IV Q8HR [facility] Stop: 09/09/17 20:59 Last Admin: 07/17/17 05:50 Dose: 100 mls/hr Sodium Chloride (Nacl 0.9%) 1,000 mls @ 30 mls/hr IV .Q24H [facility] Stop: 09/12/17 15:27 Last Admin: 07/15/17 00:40 Dose: 30 mls/hr Furosemide 100 mg/ Sodium (Chloride) 100 mls @ 5 mls/hr IV TITR [facility] Stop: 09/13/17 12:59 Last Admin: 07/15/17 15:42 Dose: 5 mls/hr Insulin Aspart (Novolog Insulin Sliding Scale) 0 units SUBQ ACHS [facility] PRN Reason: Protocol Stop: 09/08/17 16:29 Last Admin: 07/16/17 21:07 Dose: 5 units Insulin Detemir (Levemir Insulin) 14 units SUBQ HS [facility] PRN Reason: Protocol Stop: 09/12/17 20:59 Last Admin: 07/16/17 21:09 Dose: 14 units Lactobacillus Rhamnosus (Culturelle 15b) 1 each PO DAILY [facility] Stop: 09/14/17 08:59 Last Admin: 07/16/17 08:41 Dose: Not Given Miscellaneous (Vte Chemical Prophylaxis Screen/ Admission) 1 [facility] PRN PRN PRN Reason: PROTOCOL Stop: 09/08/17 15:14 Miscellaneous (Vancomycin Iv Per Pharmacy) 1 [facility] PRN [facility] Stop: 09/09/17 17:29 Miscellaneous (Probiotic Screen) 1 [facility] PRN PRN PRN Reason: PROTOCOL Stop: 09/13/17 11:59 Pantoprazole Sodium (Protonix) 40 mg PO DAILY [facility] Stop: 09/09/17 08:59 Last Admin: 07/16/17 08:41 Dose: Not Given Quetiapine Fumarate (Seroquel) 50 mg PO HS [facility] PRN Reason: Protocol Stop: 09/08/17 20:59 Last Admin: 07/17/17 00:18 Dose: 50 mg Tamsulosin HCl (Flomax) 0.8 mg PO HS [facility] Stop: 09/08/17 20:59 Last Admin: 07/17/17 00:17 Dose: 0.8 mg Warfarin Sodium (Coumadin Per Pharmacy) 1 [facility] PRN PRN; Protocol PRN Reason: RX MONITORING Stop: 09/09/17 12:39 Warfarin Sodium (Coumadin) 3 mg PO C [facility] Stop: 07/17/17 23:00 General: No acute distress HEENT: Atraumatic Neck: Supple Cardiovascular: Regular rate Lungs: Clear to auscultation Abdomen: Bowel sounds, Soft, Other (intact GT) Assessment/Plan - Problem List Patient Problems: All Active Problems LEFT LOWER LEG REDNESS, SWELLING PAIN (Acute) - Assessment Assessment: IMPRESSION: 1. Dysphagia/anorexia - s/p PEG insertion. 2. Dementia. RECS: 1. Advance GT feeds as conrado. 2. GT care. 3. Continue meds. 4. Monitor labs.
--- NOTE | 2017-07-17 09:21 | Diagnostic Imaging Report ---
Exam: Frontal chest x-ray HISTORY: Congestive heart failure. Findings: Frontal examination of chest was reviewed compared to prior study of 07/13/2017 demonstrates cardiomegaly congestion, bilateral pneumonia and effusions. Bony thorax intact the aortic arch calcified. The heart is prominent. IMPRESSION: Cardiomegaly, congestive heart failure. Basilar pneumonia superimposed effusions increase in left base follow-up examination recommended.
--- NOTE | 2017-07-17 09:36 | Consultation ---
DATE OF CONSULTATION: 07/16/2017 INPATIENT GI CONSULT CONSULTING PHYSICIAN: Dr. Barrett. REASON FOR CONSULTATION: G-tube placement. HISTORY OF PRESENT ILLNESS: The patient is an 86-year-old male who has been admitted to the hospital since 07/11/2017 suffering from a lower extremity cellulitis, has been complicated by renal failure and dysphagia. The patient has been admitted since 07/11/2017, and since that time has been on broad spectrum antibiotics, being treated for lower extremity cellulitis. Additionally, he has had altered mental status during the course of his admission, which was thought to be possibly due to his underlying Parkinson disease, but also possibly from his ongoing sepsis. He has failed swallow evaluation. He is not able to take adequate nutrition by mouth, and the GI was asked for G tube. Incidentally, the patient had a head CT scan that noted a mass in his brain that is suspicious for a neoplastic etiology. This is still undergoing workup. The patient also was noted to have new onset atrial fibrillation and was on Coumadin for this, but was given vitamin K ____ in preparation for a G-tube. PAST MEDICAL HISTORY: Parkinson's disease, type 2 diabetes, hypertension, GERD, and obesity. PAST SURGICAL HISTORY: No history of abdominal surgeries as per the chart review. FAMILY HISTORY: Noncontributory. SOCIAL HISTORY: No documented history of alcohol, no tobacco use. REVIEW OF SYSTEMS: Not possible given the patient's reduced mental status. CURRENT MEDICATIONS: Tylenol, albuterol, aspirin, Lotensin, carvedilol, castor oil, clindamycin, clonazepam, diltiazem, Lasix, vancomycin, probiotic, Zosyn, Coumadin, and Flomax. PHYSICAL EXAMINATION: VITAL SIGNS: Blood pressure is 128/58, pulse 79 beats per minute, respiratory rate of 18, and oxygenation 97%. GENERAL: The patient is sitting upright in bed. He is alert and oriented x1. He does appear to be in a mild amount of distress. HEENT: Normocephalic, atraumatic appearing head. Pupils are equal and reactive to light. Extraocular muscles appear to be intact. Moist mucous membranes. NECK: Supple. There is JVD. No thyromegaly is noted. CHEST: Crackles at the bases. CARDIOVASCULAR: S1, S2 present, irregularly irregular rhythm. ABDOMEN: Obese, soft, nontender to palpation. No guarding, no rebound. Mild distention. EXTREMITIES: The left leg shows edema, bullous changes, erythema consistent with cellulitis. Right leg is edematous as well, but not as bad as the . LABORATORY DATA: White blood cell count is 10.8, hemoglobin is 10.7, and platelet count is 323. INR 1.4. Sodium 141, BUN 68, creatinine 2.8, total bilirubin is 0.5, AST 26, ALT 38, and alkaline phosphatase is 199. No recent abdominal imaging has been performed. IMPRESSION: This is an 86-year-old male with history of Parkinson's disease, dementia, type 2 diabetes, hypertension, GERD, left lower extremity cellulitis causing sepsis as well as recent finding of an intracranial mass. 1. Dysphagia with failed swallow evaluation. 2. Intracranial lesion. 3. Left lower leg cellulitis with sepsis. 4. Parkinson's disease with dementia. 5. Type 2 diabetes. DISCUSSION: Unclear what the exact etiology of the patient's worsening dementia is or dysphagia, however, it has become obvious that he is not able to take an adequate nutrition by mouth and he has failed swallow evaluation. Contributing factors may be his ongoing sepsis, intracranial mass lesion, or Parkinson's disease itself. Regardless, the patient will require enteral feeding and thus G-tube is appropriate. The patient was on Coumadin for atrial fibrillation with INR 3.5 yesterday; however, he was given vitamin K overnight, INR has returned to 1.4 today. RECOMMENDATIONS: 1. We will plan for G-tube placement now that the INR is improved. 2. The patient should be given 1 gram of Ancef prior to the procedure. 3. Keep n.p.o. 4. Further recommendations to follow G-tube placement. Thank you for allowing me to participate in your patient's care. Please call me with any further questions. JOB# [id number]
[2017-07-17] MEDS: Aspirin 81mg Chewable Tab PO SCH (09:46)
[2017-07-17] MEDS: Lactobacillus Rhamnosus GG 15 Billion CFU CAP.SPRINK PO SCH (09:46)
[2017-07-17] MEDS: Pantoprazole 40 mg EC Tab PO SCH (09:46)
[2017-07-17] MEDS: Venelex 60gm Tube TP SCH (09:46)
[2017-07-17] MEDS: INSULIN ASPART SLIDING SCALE 100 UNITS/ML UNIT SUBQ SCH ×4 (09:50→21:54)
[2017-07-17] MEDS: Furosemide 100 MG in Sodium Chloride 0.9% 90 ML IV SCH (09:51)
--- NOTE | 2017-07-17 16:05 | Consultation ---
DATE OF CONSULTATION: 07/15/2017 REFERRING PHYSICIAN: Dr. Nava. REASON FOR CONSULTATION: Cellulitis of both lower extremities. Thank you for referring this patient to me. HISTORY OF PRESENT ILLNESS: This is an 86-year-old male, resident of a long-term, was noted to have cellulitis of both legs, which prompted admission through the Emergency Room. Past history Includes coronary artery disease, CHF, hypertension, dementia, and diabetes. LABORATORY DATA: On admission, the laboratory studies show the WBC at 14,800, hemoglobin of 9.9, neutrophils was 93%. PT was markedly elevated to 37.1 seconds with INR of 3.35. BUN was 55, creatinine of 2.0. The BNP is elevated to 944. The patient underwent vascular lab study, which showed severe peripheral vascular disease involving both lower extremities. PHYSICAL EXAMINATION: The patient is a poorly oriented, unable to give any meaningful information. Both lower extremities exhibit cellulitis with skin loss at the upper leg just below the knee on the left side and areas of black ulcerations in both feet, particularly ____. Also, areas of black skin in between the toes. RECOMMENDATIONS: Ideally, the patient will need CT angiogram, but in view of the BUN and creatinine is elevated, this will not be done. Local wound care will be recommended and will schedule for surgery. Thank you Dr. May. JOB# [id number]
--- NOTE | 2017-07-17 16:47 | General Progress Note ---
Subjective - Review of Systems Service Date: 07/17/17 Subjective: more awake, interacting, comfortable Objective - Results Result Diagrams: 07/17/17 06:23 07/17/17 06:23 Recent Labs: Laboratory Last Values WBC 7.8 Th/cmm (4.8-10.8) 07/17/17 06:23 RBC 3.46 Mil/cmm (3.80-5.80) L 07/17/17 06:23 Hgb 11.0 gm/dL (12-16) L 07/17/17 06:23 Hct 32.5 % (41.0-60) L 07/17/17 06:23 MCV 94.0 fl (80-99) 07/17/17 06:23 MCH 31.9 pg (27.0-31.0) H 07/17/17 06:23 MCHC Differential 33.9 pg (28.0-36.0) 07/17/17 06:23 RDW 15.0 % (11.5-20.0) 07/17/17 06:23 Plt Count 340 Th/cmm (150-400) 07/17/17 06:23 MPV 8.8 fl 07/17/17 06:23 Neutrophils % 82.7 % (40.0-80.0) H 07/17/17 06:23 Band Neutrophils % 1 % (0-10) 07/15/17 05:20 Lymphocytes % 8.9 % (20.0-50.0) L 07/17/17 06:23 Monocytes % 7.2 % (2.0-10.0) 07/17/17 06:23 Eosinophils % 1.2 % (0.0-5.0) 07/17/17 06:23 Basophils % 0.0 % (0.0-2.0) 07/17/17 06:23 Neutrophils (Manual) 93 % (40-80) H 07/15/17 05:20 Lymphocytes 3 % (20-50) L 07/15/17 05:20 Monocytes 3 % (2-10) 07/15/17 05:20 Basophils 1 % (0-3) 07/10/17 10:49 Platelet Estimate ADEQUATE (NORMAL) 07/15/17 05:20 Eos Smear Source URINE 07/12/17 00:00 Eos Smear Total Cells NONE SEEN (NONE SEEN) 07/12/17 00:00 PT 11.7 SECONDS (9.5-11.5) H 07/17/17 06:23 INR 1.12 (0.5-1.4) 07/17/17 06:23 PTT (Actin FS) 28.1 SECONDS (26.0-38.0) 07/16/17 05:45 Sodium 145 mEq/L (136-145) 07/17/17 06:23 Potassium 4.1 mEq/L (3.5-5.1) 07/17/17 06:23 Chloride 112 mEq/L (98-107) H 07/17/17 06:23 Carbon Dioxide 22.3 mEq/L (21.0-31.0) 07/17/17 06:23 Anion Gap 14.8 (7.0-16.0) 07/17/17 06:23 BUN 76 mg/dL (7-25) H 07/17/17 06:23 Creatinine 3.2 mg/dL (0.7-1.3) H 07/17/17 06:23 Est GFR ( Amer) TNP 07/17/17 06:23 Est GFR (Non-Af Amer) TNP 07/17/17 06:23 BUN/Creatinine Ratio 23.8 07/17/17 06:23 Glucose 191 mg/dL (70-105) H 07/17/17 06:23 POC Glucose 202 MG/DL (70 - 105) H 07/17/17 11:41 Hemoglobin A1c % 7.6 % (4.0-6.0) H 07/10/17 10:49 Whole Bld Lactic Acid 1.12 mmol/L (0.60-1.99) 07/11/17 14:30 Calcium 8.7 mg/dL (8.6-10.3) 07/17/17 06:23 Phosphorus 3.5 mg/dL (2.5-5.0) 07/12/17 05:05 Magnesium 2.4 mg/dL (1.9-2.7) 07/12/17 05:05 Total Bilirubin 0.6 mg/dL (0.3-1.0) 07/17/17 06:23 AST 14 U/L (13-39) 07/17/17 06:23 ALT 29 U/L (7-52) 07/17/17 06:23 Alkaline Phosphatase 166 U/L (34-104) H 07/17/17 06:23 B-Natriuretic Peptide 944.0 pg/mL (5.0-100.0) H 07/15/17 05:20 Total Protein 6.3 gm/dL (6.0-8.3) 07/17/17 06:23 Albumin 2.7 gm/dL (4.2-5.5) L 07/17/17 06:23 Globulin 3.6 gm/dL 07/17/17 06:23 Albumin/Globulin Ratio 0.8 (1.0-1.8) L 07/17/17 06:23 TSH 0.20 uIU/ml (0.34-5.60) L 07/11/17 06:19 Urine Source MIDSTREAM 07/16/17 17:00 Urine Color YELLOW 07/16/17 17:00 Urine Clarity HAZY (CLEAR) 07/16/17 17:00 Urine pH 5.5 (4.6 - 8.0) 07/16/17 17:00 Ur Specific [place] 1.010 (1.005-1.030) 07/16/17 17:00 Urine Protein NEGATIVE mg/dL (NEGATIVE) 07/16/17 17:00 Urine Glucose (UA) NEGATIVE mg/dL (NEGATIVE) 07/16/17 17:00 Urine Ketones NEGATIVE mg/dL (NEGATIVE) 07/16/17 17:00 Urine Blood MODERATE (NEGATIVE) H 07/16/17 17:00 Urine Nitrate NEGATIVE (NEGATIVE) 07/16/17 17:00 Urine Bilirubin NEGATIVE (NEGATIVE) 07/16/17 17:00 Urine Urobilinogen 0.2 E.U./dL (0.2 - 1.0) 07/16/17 17:00 Ur Leukocyte Esterase NEGATIVE (NEGATIVE) 07/16/17 17:00 Urine RBC 5-10 /hpf (0-5) H 07/16/17 17:00 Urine WBC 0-2 /hpf (0-5) 07/16/17 17:00 Ur Epithelial Cells OCCASIONAL /lpf (FEW) 07/16/17 17:00 Urine Bacteria NONE SEEN /hpf (NONE SEEN) 07/16/17 17:00 Ur Random Sodium 22 mmol/L 07/12/17 00:00 Urine Creatinine 156.0 mg/dl (39.0-259.0) 07/12/17 00:00 Urine Microalbumin 50.6 07/11/17 06:00 Microalb/Creat Ratio 51.9 07/11/17 06:00 Vancomycin Trough 17.1 ug/mL (10-20) 07/14/17 08:00 Random Vancomycin 32.7 ug/mL (5.0-40.0) 07/16/17 05:45 - Physical Exam Vitals and I&O: Vital Signs Temp 96.8 F 07/17/17 08:00 Pulse 73 07/17/17 12:43 Resp 18 07/17/17 13:38 BP 144/77 07/17/17 09:46 Pulse Ox 100 07/17/17 12:43 Intake & Output 07/16/17 07/17/17 07/17/17 18:59 06:59 18:59 Intake Total 250 200 Balance 250 200 Intake: Intake, IV Amount 250 200 Clindamycin 600mg/50mL 50 100 600 mg In 50 ml @ 100 mls /hr IV Q8HR [facility] Rx#: [id number] Furosemide 100 mg In 100 Sodium Chloride 0.9% 90 ml @ 5 mls/hr IV TITR [facility] Rx#:[id number] Piperacillin Sodium/ 100 100 Tazobact 3.375 gm In Sodium Chloride 0.9% 50 ml @ 100 mls/hr IV Q8HR [facility] Rx#:[id number] Other: Stool Characteristics Soft Soft Soft Brown Brown Brown Active Medications: Current Medications Acetaminophen (Tylenol) 650 mg PO Q6HR PRN PRN Reason: TEMP >100 Stop: 09/08/17 19:00 Albuterol/Ipratropium (Duoneb Neb) 3 ml HHN Q6HRT [facility] Stop: 09/09/17 18:59 Last Admin: 07/17/17 12:37 Dose: 3 ml Albuterol/Ipratropium (Duoneb Neb) 3 ml HHN Q2H PRN PRN Reason: wheezing Stop: 09/09/17 14:14 Last Admin: 07/13/17 22:41 Dose: 3 ml Aspirin (Aspirin Chewable) 81 mg PO DAILY [facility] Stop: 09/09/17 08:59 Last Admin: 07/17/17 09:46 Dose: 81 mg Carvedilol (Coreg) 25 mg PO DAILY [facility] Stop: 09/12/17 08:59 Last Admin: 07/17/17 09:46 Dose: 25 mg [place] Oil/[place]ij[place] Balsam/Trypsin (Venelex) 1 appl TP DAILY [facility] Stop: 09/11/17 09:59 Last Admin: 07/17/17 09:46 Dose: 1 appl Citalopram Hydrobromide (Celexa) 20 mg PO DAILY [facility] PRN Reason: Protocol Stop: 09/09/17 08:59 Last Admin: 07/17/17 09:46 Dose: 20 mg Clonazepam (Klonopin) 1 mg PO HS [facility] Stop: 09/08/17 20:59 Last Admin: 07/17/17 00:17 Dose: 1 mg Diltiazem HCl (Cardizem) 60 mg PO Q6HR [facility] Stop: 09/12/17 00:00 Last Admin: 07/17/17 11:59 Dose: Not Given Piperacillin Sod/Tazobactam (Sod 3.375 gm/ Sodium Chloride) 50 mls @ 100 mls/ hr IV Q8HR [facility] Stop: 09/08/17 12:59 Last Infusion: 07/17/17 05:39 Dose: Infused Clindamycin Phosphate (Cleocin Pb) 600 mg in 50 mls @ 100 mls/hr IV Q8HR [facility] Stop: 09/09/17 20:59 Last Admin: 07/17/17 15:32 Dose: 100 mls/hr Sodium Chloride (Nacl 0.9%) 1,000 mls @ 30 mls/hr IV .Q24H [facility] Stop: 09/12/17 15:27 Last Admin: 07/15/17 00:40 Dose: 30 mls/hr Furosemide 100 mg/ Sodium (Chloride) 100 mls @ 5 mls/hr IV TITR [facility] Stop: 09/13/17 12:59 Last Admin: 07/17/17 09:51 Dose: 5 mls/hr Insulin Aspart (Novolog Insulin Sliding Scale) 0 units SUBQ ACHS [facility] PRN Reason: Protocol Stop: 09/08/17 16:29 Last Admin: 07/17/17 11:50 Dose: 5 units Insulin Detemir (Levemir Insulin) 14 units SUBQ HS [facility] PRN Reason: Protocol Stop: 09/12/17 20:59 Last Admin: 07/16/17 21:09 Dose: 14 units Lactobacillus Rhamnosus (Culturelle 15b) 1 each PO DAILY [facility] Stop: 09/14/17 08:59 Last Admin: 07/17/17 09:46 Dose: 1 each Miscellaneous (Vte Chemical Prophylaxis Screen/ Admission) 1 [facility] PRN PRN PRN Reason: PROTOCOL Stop: 09/08/17 15:14 Miscellaneous (Vancomycin Iv Per Pharmacy) 1 [facility] PRN [facility] Stop: 09/09/17 17:29 Miscellaneous (Probiotic Screen) 1 [facility] PRN PRN PRN Reason: PROTOCOL Stop: 09/13/17 11:59 Pantoprazole Sodium (Protonix) 40 mg PO DAILY [facility] Stop: 09/09/17 08:59 Last Admin: 07/17/17 09:46 Dose: 40 mg Quetiapine Fumarate (Seroquel) 50 mg PO HS [facility] PRN Reason: Protocol Stop: 09/08/17 20:59 Last Admin: 07/17/17 00:18 Dose: 50 mg Tamsulosin HCl (Flomax) 0.8 mg PO HS [facility] Stop: 09/08/17 20:59 Last Admin: 07/17/17 00:17 Dose: 0.8 mg Warfarin Sodium (Coumadin Per Pharmacy) 1 [facility] PRN PRN; Protocol PRN Reason: RX MONITORING Stop: 09/09/17 12:39 Warfarin Sodium (Coumadin) 3 mg PO C [facility] Stop: 07/17/17 23:00 Last Admin: 07/17/17 15:39 Dose: 3 mg General: Alert, No acute distress HEENT: Atraumatic, Mucous membr. moist/pink Neck: Supple, +2 carotid pulse wo bruit Cardiovascular: Regular rate, Normal S1, Normal S2 Lungs: Other (rhonchi, some congestion) Abdomen: Bowel sounds, Soft, Other (intact GT) Extremities: Edema, Other (Improving redness and edema of left leg, with some blister and papulas.) Neurological: Sensation intact, Other (Non ambulatory) Skin: Other (Redness of left leg, edema, papulalas and decoloration of skin), no Rash Psych/Mental Status: Other ( confused, not oriented) Assessment/Plan - Problem List Patient Problems: All Active Problems LEFT LOWER LEG REDNESS, SWELLING PAIN (Acute) - Assessment Assessment: JUSTINA Left LE Cellulitis ALOS 2/2 meds,Met Enceph, 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 ESS Htn decomp CHF Outlet Obstruction - Plan Plan: Lab - Result Diagrams 07/12/17 05:05 07/12/17 05:05 Current Medications Acetaminophen (Tylenol) 650 mg PO Q6HR PRN PRN Reason: TEMP >100 Stop: 09/08/17 19:00 Albuterol/Ipratropium (Duoneb Neb) 3 ml HHN Q6HRT [facility] Stop: 09/09/17 18:59 Last Admin: 07/12/17 13:41 Dose: 3 ml Albuterol/Ipratropium (Duoneb Neb) 3 ml HHN Q2H PRN PRN Reason: wheezing Stop: 09/09/17 14:14 Aspirin (Aspirin Chewable) 81 mg PO DAILY [facility] Stop: 09/09/17 08:59 Last Admin: 07/12/17 08:45 Dose: 81 mg Benazepril HCl (Lotensin) 10 mg PO DAILY [facility] Stop: 09/09/17 08:59 Last Admin: 07/12/17 08:46 Dose: 10 mg Citalopram Hydrobromide (Celexa) 20 mg PO DAILY [facility] PRN Reason: Protocol Stop: 09/09/17 08:59 Last Admin: 07/12/17 08:46 Dose: 20 mg Clonazepam (Klonopin) 1 mg PO HS [facility] Stop: 09/08/17 20:59 Last Admin: 07/11/17 22:28 Dose: 1 mg Diltiazem HCl (Cardizem) 60 mg PO Q6HR [facility] Stop: 09/09/17 17:59 Last Admin: 07/12/17 13:58 Dose: 60 mg Piperacillin Sod/Tazobactam (Sod 3.375 gm/ Sodium Chloride) 50 mls @ 100 mls/ hr IV Q8HR [facility] Stop: 09/08/17 12:59 Last Infusion: 07/12/17 13:00 Dose: Infused Sodium Chloride (Nacl 0.9%) 1,000 mls @ 90 mls/hr IV .Q11H7M [facility] Stop: 09/08/17 13:14 Last Admin: 07/12/17 04:59 Dose: 90 mls/hr Clindamycin Phosphate (Cleocin Pb) 600 mg in 50 mls @ 100 mls/hr IV Q8HR [facility] Stop: 09/09/17 20:59 Last Admin: 07/12/17 14:05 Dose: 100 mls/hr Vancomycin HCl 1 gm/ Sodium (Chloride) 250 mls @ 165 mls/hr IV Q12H [facility] Stop: 09/10/17 08:59 Last Infusion: 07/12/17 14:10 Dose: Infused Insulin Aspart (Novolog Insulin Sliding Scale) 0 units SUBQ ACHS [facility] PRN Reason: Protocol Stop: 09/08/17 16:29 Last Admin: 07/12/17 13:52 Dose: 6 units Miscellaneous (Vte Chemical Prophylaxis Screen/ Admission) 1 [facility] PRN PRN PRN Reason: PROTOCOL Stop: 09/08/17 15:14 Miscellaneous (Vancomycin Iv Per Pharmacy) 1 [facility] PRN [facility] Stop: 09/09/17 17:29 Pantoprazole Sodium (Protonix) 40 mg PO DAILY [facility] Stop: 09/09/17 08:59 Last Admin: 07/12/17 08:45 Dose: 40 mg Quetiapine Fumarate (Seroquel) 50 mg PO HS [facility] PRN Reason: Protocol Stop: 09/08/17 20:59 Last Admin: 07/11/17 22:28 Dose: 50 mg Tamsulosin HCl (Flomax) 0.8 mg PO HS [facility] Stop: 09/08/17 20:59 Last Admin: 07/11/17 22:28 Dose: 0.8 mg Warfarin Sodium (Coumadin Per Pharmacy) 1 [facility] PRN PRN; Protocol PRN Reason: RX MONITORING Stop: 09/09/17 12:39 Lab - Result Diagrams 07/17/17 06:23 07/17/17 06:23 kidney fnc worse @ 76/3.2; request US, UA f/u cultures continue Vanco. clinda, Zosyn incidental finding brain mass f/u electrolytes, cbc now has wheezing but less CXR shows worsening CHF DC IVF, start feeding switch to Lasix drip plus albumin infusion BNP increased from 584 to 944 will need cardiac echo Left leg less edema & erythema neli. 600 ml urine obtained after [place] was inserted even thou US did no reveal any hydronephrosis thus pt. has some type of outlet obstruction Prostate? f/u electrolytes, cbc, CXR discussed w/ relatives @ bedside Nutritional Asmnt/Malnutr-PDOC - Dietary Evaluation Malnutrition Findings (Please click <Entered> for more info): Nutritional Asmnt/Malnutrition Start: 07/12/17 15: 11 Text: Status: Complete Freq: Document 07/12/17 15:11 BERNARDO (Rec: 07/12/17 15:24 LCCHELE [email or web address]) Nutritional Asmnt/Malnutrition Patient General Information Nutritional Screening High Risk Diagnosis sepsis, secondary to cellulitis Pertinent Medical Hx/Surgical Hx CAD, CHF, HTN, dementia, schizophrenia, weakness, chronic renal insuff, DM, redness of both legs. Subjective Information Pt seen sleeping at time of visit. Per [employer], pt ate about 50% of breakfast, very slowly. Pt had no lunch yet d/t sleeping. Per nurse note, RN feed pt with pudding and jello with milk shake in the afternoon. Per ST to put patient NPO if lethargic to avoid aspiration noted. Current Diet Order/ Nutrition Support [id number], mech soft chopped Pertinent Medications novolog, protonix, piperacillin, seroquel, nacl 0 .9%, vancomycin Pertinent Labs 3*19 BUN 37, Glucose 261, POC 247-312 3 A1c 7.6 Nutritional Hx/Data Height 1.65 m Height (Calculated Centimeters) 165.1 Current Weight (lbs) 87.543 kg Weight (Calculated Kilograms) 87.5 Weight (Calculated Grams) 33153.3 [place] Body Weight 136 Body Mass Index (BMI) 32.1 Weight Status Obese GI Symptoms GI Symptoms None Last BM 48 Difficult in: None Skin Integrity/Comment: pressure ulcer to left heel, reddened to left lower extremity (cellulitis), maceration to left foot, pressure area to right foot Current %PO Poor (25-49%) Estimated Nutritional Goals BEE in Kcals: Adj wt of IBW Calories/Kcals/Kg 25-30 Kcals Calculated 9439-9689 Protein: Adj wt of IBW Protein g/k-1.2 Protein Calculated 68-82 Fluid: ml 1700-2040ml (1ml/kcal) Nutritional Problem 2. Problem Problem increased nutrition needs ( protein) Etiology increased metabolic demand for wound healing Signs/Symptoms: pressure ulcer 1. Problem Problem altered nutrition related labs Etiology DM Signs/Symptoms: Glucose 261, POC 247-312, A1c 7.6 Intervention/Recommendation Comments 1. Recommend nectar thickned liquid considering risk of aspiration. recommend swallow eval again when pt is more wake up. 2. Consider Boost BID to supplement nutrition. 3. Monitor PO intake, wt, labs and skin integrity 4. F/U as high risk in 2-3 days, 07/14-07/15 Expected Outcomes/Goals Expected Outcomes/Goals 1. PO intake to meet at least 75% of nutritional needs. 2. Wt stability, skin to remain intact, labs to approach WNL.
--- NOTE | 2017-07-17 18:52 | Consultation ---
DATE OF CONSULTATION: 07/17/[address] Nava. Thank you very much, Dr. Nava, for this consultation. HISTORY OF PRESENT ILLNESS: This is an 86-year-old male, who came with cellulitis of the left leg, some cough and congestion, was found to have bibasilar effusion and suspect this is pneumonia, CHF as well. The patient is being treated for cellulitis and continues to have swelling in the left leg and erythema. PAST MEDICAL HISTORY: History of hypertension, diabetes, dementia, BPH. SOCIAL HISTORY: According to family, the patient is not a smoker. PHYSICAL EXAMINATION: GENERAL: Some weakness and fatigue. CARDIOVASCULAR: No chest pain. RESPIRATORY: Some cough. No shortness of breath. GASTROINTESTINAL: No nausea or vomiting. PHYSICAL EXAMINATION GENERAL: Awake, alert, not in acute distress. VITAL SIGNS: Temperature is 96.8, pulse is 73, respirations 16, blood pressure is 144/77, saturation 100%. HEENT: Atraumatic, normocephalic. Pupils are equal and reactive to light and accommodation. Ears, nose and throat are normal. NECK: Supple. No JVD. CHEST: There are a few rhonchi in bases. HEART: Regular rhythm. ABDOMEN: Soft. EXTREMITIES: Shows edema and erythema on the left leg. DIAGNOSTIC DATA: Chest x-ray, bibasilar infiltrate. LABORATORY DATA: WBC is 7.8, hemoglobin is 11.0, hematocrit is 32.5, platelets is 340. Sodium is 145, potassium is 4.1, BUN is 76, creatinine is 3.2. IMPRESSION: 1. This is an 86-year-old male with pneumonia. 2. Left leg cellulitis. 3. Rule out deep venous thrombosis. 4. Renal failure. 5. Diabetes mellitus. PLAN: 1. Venous Doppler of lower extremities. 2. Antibiotics. 3. Follow up chest x-ray, supportive care and nebulizer treatment. Thank you very much for this consultation. Case discussed with the patient's family at the bedside. JOB# [id number]
[2017-07-17] MEDS: Insulin Detemir 100 units/mL 10mL Vial SUBQ SCH (21:55)
--- NOTE | 2017-07-17 23:57 | Infectious Disease Prog Note ---
Infectious Disease Subjective - Review of Systems Service Date: 07/17/17 Subjective: No new change, no fever. Infectious Disease Objective - Results Result Diagrams: 07/18/17 06:17 07/18/17 06:17 Recent Labs: Laboratory Last Values WBC 7.8 Th/cmm (4.8-10.8) 07/17/17 06:23 RBC 3.46 Mil/cmm (3.80-5.80) L 07/17/17 06:23 Hgb 11.0 gm/dL (12-16) L 07/17/17 06:23 Hct 32.5 % (41.0-60) L 07/17/17 06:23 MCV 94.0 fl (80-99) 07/17/17 06:23 MCH 31.9 pg (27.0-31.0) H 07/17/17 06:23 MCHC Differential 33.9 pg (28.0-36.0) 07/17/17 06:23 RDW 15.0 % (11.5-20.0) 07/17/17 06:23 Plt Count 340 Th/cmm (150-400) 07/17/17 06:23 MPV 8.8 fl 07/17/17 06:23 Neutrophils % 82.7 % (40.0-80.0) H 07/17/17 06:23 Band Neutrophils % 1 % (0-10) 07/15/17 05:20 Lymphocytes % 8.9 % (20.0-50.0) L 07/17/17 06:23 Monocytes % 7.2 % (2.0-10.0) 07/17/17 06:23 Eosinophils % 1.2 % (0.0-5.0) 07/17/17 06:23 Basophils % 0.0 % (0.0-2.0) 07/17/17 06:23 Neutrophils (Manual) 93 % (40-80) H 07/15/17 05:20 Lymphocytes 3 % (20-50) L 07/15/17 05:20 Monocytes 3 % (2-10) 07/15/17 05:20 Basophils 1 % (0-3) 07/10/17 10:49 Platelet Estimate ADEQUATE (NORMAL) 07/15/17 05:20 Eos Smear Source URINE 07/12/17 00:00 Eos Smear Total Cells NONE SEEN (NONE SEEN) 07/12/17 00:00 PT 11.7 SECONDS (9.5-11.5) H 07/17/17 06:23 INR 1.12 (0.5-1.4) 07/17/17 06:23 PTT (Actin FS) 28.1 SECONDS (26.0-38.0) 07/16/17 05:45 Sodium 145 mEq/L (136-145) 07/17/17 06:23 Potassium 4.1 mEq/L (3.5-5.1) 07/17/17 06:23 Chloride 112 mEq/L (98-107) H 07/17/17 06:23 Carbon Dioxide 22.3 mEq/L (21.0-31.0) 07/17/17 06:23 Anion Gap 14.8 (7.0-16.0) 07/17/17 06:23 BUN 76 mg/dL (7-25) H 07/17/17 06:23 Creatinine 3.2 mg/dL (0.7-1.3) H 07/17/17 06:23 Est GFR ( Amer) TNP 07/17/17 06:23 Est GFR (Non-Af Amer) TNP 07/17/17 06:23 BUN/Creatinine Ratio 23.8 07/17/17 06:23 Glucose 191 mg/dL (70-105) H 07/17/17 06:23 POC Glucose 176 MG/DL (70 - 105) H 07/17/17 21:53 Hemoglobin A1c % 7.6 % (4.0-6.0) H 07/10/17 10:49 Whole Bld Lactic Acid 1.12 mmol/L (0.60-1.99) 07/11/17 14:30 Calcium 8.7 mg/dL (8.6-10.3) 07/17/17 06:23 Phosphorus 3.5 mg/dL (2.5-5.0) 07/12/17 05:05 Magnesium 2.4 mg/dL (1.9-2.7) 07/12/17 05:05 Total Bilirubin 0.6 mg/dL (0.3-1.0) 07/17/17 06:23 AST 14 U/L (13-39) 07/17/17 06:23 ALT 29 U/L (7-52) 07/17/17 06:23 Alkaline Phosphatase 166 U/L (34-104) H 07/17/17 06:23 B-Natriuretic Peptide 944.0 pg/mL (5.0-100.0) H 07/15/17 05:20 Total Protein 6.3 gm/dL (6.0-8.3) 07/17/17 06:23 Albumin 2.7 gm/dL (4.2-5.5) L 07/17/17 06:23 Globulin 3.6 gm/dL 07/17/17 06:23 Albumin/Globulin Ratio 0.8 (1.0-1.8) L 07/17/17 06:23 TSH 0.20 uIU/ml (0.34-5.60) L 07/11/17 06:19 Urine Source MIDSTREAM 07/16/17 17:00 Urine Color YELLOW 07/16/17 17:00 Urine Clarity HAZY (CLEAR) 07/16/17 17:00 Urine pH 5.5 (4.6 - 8.0) 07/16/17 17:00 Ur Specific [place] 1.010 (1.005-1.030) 07/16/17 17:00 Urine Protein NEGATIVE mg/dL (NEGATIVE) 07/16/17 17:00 Urine Glucose (UA) NEGATIVE mg/dL (NEGATIVE) 07/16/17 17:00 Urine Ketones NEGATIVE mg/dL (NEGATIVE) 07/16/17 17:00 Urine Blood MODERATE (NEGATIVE) H 07/16/17 17:00 Urine Nitrate NEGATIVE (NEGATIVE) 07/16/17 17:00 Urine Bilirubin NEGATIVE (NEGATIVE) 07/16/17 17:00 Urine Urobilinogen 0.2 E.U./dL (0.2 - 1.0) 07/16/17 17:00 Ur Leukocyte Esterase NEGATIVE (NEGATIVE) 07/16/17 17:00 Urine RBC 5-10 /hpf (0-5) H 07/16/17 17:00 Urine WBC 0-2 /hpf (0-5) 07/16/17 17:00 Ur Epithelial Cells OCCASIONAL /lpf (FEW) 07/16/17 17:00 Urine Bacteria NONE SEEN /hpf (NONE SEEN) 07/16/17 17:00 Ur Random Sodium 22 mmol/L 07/12/17 00:00 Urine Creatinine 156.0 mg/dl (39.0-259.0) 07/12/17 00:00 Urine Microalbumin 50.6 07/11/17 06:00 Microalb/Creat Ratio 51.9 07/11/17 06:00 Vancomycin Trough 17.1 ug/mL (10-20) 07/14/17 08:00 Random Vancomycin 32.7 ug/mL (5.0-40.0) 07/16/17 05:45 - Physical Exam Vitals and I&O: Vital Signs Temp 96.8 F 07/17/17 08:00 Pulse 68 07/17/17 18:25 Resp 18 07/17/17 22:00 BP 144/77 07/17/17 09:46 Pulse Ox 97 07/17/17 18:25 Intake & Output 07/17/17 07/17/17 07/18/17 06:59 18:59 06:59 Intake Total 200 120 Output Total 1000 Balance 200 -880 Weight (lbs) 93.894 kg Intake: Intake, IV Amount 200 100 Clindamycin 600mg/50mL 100 50 600 mg In 50 ml @ 100 mls /hr IV Q8HR [facility] Rx#: [id number] Piperacillin Sodium/ 100 50 Tazobact 3.375 gm In Sodium Chloride 0.9% 50 ml @ 100 mls/hr IV Q8HR [facility] Rx#:[id number] Oral 20 Output: Urine 1000 Other: # Bowel Movements 1 Stool Characteristics Soft Soft Soft Brown Brown Brown Weight Source Bedscale Active Medications: Current Medications Acetaminophen (Tylenol) 650 mg PO Q6HR PRN PRN Reason: TEMP >100 Stop: 09/08/17 19:00 Albuterol/Ipratropium (Duoneb Neb) 3 ml HHN Q6HRT [facility] Stop: 09/09/17 18:59 Last Admin: 07/17/17 18:25 Dose: 3 ml Albuterol/Ipratropium (Duoneb Neb) 3 ml HHN Q2H PRN PRN Reason: wheezing Stop: 09/09/17 14:14 Last Admin: 07/13/17 22:41 Dose: 3 ml Aspirin (Aspirin Chewable) 81 mg PO DAILY [facility] Stop: 09/09/17 08:59 Last Admin: 07/17/17 09:46 Dose: 81 mg Carvedilol (Coreg) 25 mg PO DAILY [facility] Stop: 09/12/17 08:59 Last Admin: 07/17/17 09:46 Dose: 25 mg [place] Oil/[place] Balsam/Trypsin (Venelex) 1 appl TP DAILY [facility] Stop: 09/11/17 09:59 Last Admin: 07/17/17 09:46 Dose: 1 appl Citalopram Hydrobromide (Celexa) 20 mg PO DAILY [facility] PRN Reason: Protocol Stop: 09/09/17 08:59 Last Admin: 07/17/17 09:46 Dose: 20 mg Clonazepam (Klonopin) 1 mg PO HS [facility] Stop: 09/08/17 20:59 Last Admin: 07/17/17 21:45 Dose: 1 mg Diltiazem HCl (Cardizem) 60 mg PO Q6HR [facility] Stop: 09/12/17 00:00 Last Admin: 07/17/17 17:46 Dose: 60 mg Piperacillin Sod/Tazobactam (Sod 3.375 gm/ Sodium Chloride) 50 mls @ 100 mls/ hr IV Q8HR [facility] Stop: 09/08/17 12:59 Last Admin: 07/17/17 22:27 Dose: 100 mls/hr Clindamycin Phosphate (Cleocin Pb) 600 mg in 50 mls @ 100 mls/hr IV Q8HR [facility] Stop: 09/09/17 20:59 Last Admin: 07/17/17 21:36 Dose: 100 mls/hr Furosemide 100 mg/ Sodium (Chloride) 100 mls @ 5 mls/hr IV TITR [facility] Stop: 09/13/17 12:59 Last Admin: 07/17/17 09:51 Dose: 5 mls/hr Insulin Aspart (Novolog Insulin Sliding Scale) 0 units SUBQ ACHS [facility] PRN Reason: Protocol Stop: 09/08/17 16:29 Last Admin: 07/17/17 21:54 Dose: 3 units Insulin Detemir (Levemir Insulin) 14 units SUBQ HS [facility] PRN Reason: Protocol Stop: 09/12/17 20:59 Last Admin: 07/17/17 21:55 Dose: 14 units Lactobacillus Rhamnosus (Culturelle 15b) 1 each PO DAILY [facility] Stop: 09/14/17 08:59 Last Admin: 07/17/17 09:46 Dose: 1 each Miscellaneous (Vte Chemical Prophylaxis Screen/ Admission) 1 [facility] PRN PRN PRN Reason: PROTOCOL Stop: 09/08/17 15:14 Miscellaneous (Vancomycin Iv Per Pharmacy) 1 [facility] PRN [facility] Stop: 09/09/17 17:29 Miscellaneous (Probiotic Screen) 1 [facility] PRN PRN PRN Reason: PROTOCOL Stop: 09/13/17 11:59 Pantoprazole Sodium (Protonix) 40 mg PO DAILY [facility] Stop: 09/09/17 08:59 Last Admin: 07/17/17 09:46 Dose: 40 mg Quetiapine Fumarate (Seroquel) 50 mg PO HS [facility] PRN Reason: Protocol Stop: 09/08/17 20:59 Last Admin: 07/17/17 21:45 Dose: 50 mg Tamsulosin HCl (Flomax) 0.8 mg PO HS [facility] Stop: 09/08/17 20:59 Last Admin: 07/17/17 21:45 Dose: 0.8 mg Warfarin Sodium (Coumadin Per Pharmacy) 1 [facility] PRN PRN; Protocol PRN Reason: RX MONITORING Stop: 09/09/17 12:39 General: no acute distress, well developed, well nourished HEENT: atraumatic, normocephalic, PERRLA Neck: no supple, no thyromegaly Cardiovascular: S1S2, regular Lungs: clear to percussion, crackles Abdomen: soft, no tender, no distended, no rebound Extremities: other (left leg swollen and red, there is some sloughing of skin nad blister formations. pustules present.), no cyanosis, no clubbing, no edema Neurological: awake, alert, oriented Skin: intact Infectious Disease Assmt/Plan - Problem List Patient Problems: All Active Problems LEFT LOWER LEG REDNESS, SWELLING PAIN (Acute) - Assessment Assessment: 1. Leukocytosis suspect sepsis. 2. Left leg cellulitis, may have peripheral artery disease. There is a chance of the skin to turn necrotic. overall some improvement. 3. Diabetes mellitus type 2. 4. Peripheral artery disease. 5. Hypertension. 6. Severe dementia. 7. COPD. 8. CHF. 9. pneumonia. 10. JUSTINA. - Plan Plan: Change antibiotics to zyvox and zosyn. MRI of the right foot and leg Nutritional Asmnt/Malnutr-PDOC - Dietary Evaluation Malnutrition Findings (Please click <Entered> for more info): Nutritional Asmnt/Malnutrition Start: 07/12/17 15: 11 Text: Status: Complete Freq: Document 07/12/17 15:11 BERNARDO (Rec: 07/12/17 15:24 [email or web address]) Nutritional Asmnt/Malnutrition Patient General Information Nutritional Screening High Risk Diagnosis sepsis, secondary to cellulitis Pertinent Medical Hx/Surgical Hx CAD, CHF, HTN, dementia, schizophrenia, weakness, chronic renal insuff, DM, redness of both legs. Subjective Information Pt seen sleeping at time of visit. Per NURSE PLASTICS, pt ate about 50% of breakfast, very slowly. Pt had no lunch yet d/t sleeping. Per nurse note, RN feed pt with pudding and jello with milk shake in the afternoon. Per ST to put patient NPO if lethargic to avoid aspiration noted. Current Diet Order/ Nutrition Support [id number], mech soft chopped Pertinent Medications novolog, protonix, piperacillin, seroquel, nacl 0 .9%, vancomycin Pertinent Labs 3*19 BUN 37, Glucose 261, POC 247-312 3 A1c 7.6 Nutritional Hx/Data Height 1.65 m Height (Calculated Centimeters) 165.1 Current Weight (lbs) 87.543 kg Weight (Calculated Kilograms) 87.5 Weight (Calculated Grams) 06599.3 [place] Body Weight 136 Body Mass Index (BMI) 32.1 Weight Status Obese GI Symptoms GI Symptoms None Last BM 348 Difficult in: None Skin Integrity/Comment: pressure ulcer to left heel, reddened to left lower extremity (cellulitis), maceration to left foot, pressure area to right foot Current %PO Poor (25-49%) Estimated Nutritional Goals BEE in Kcals: Adj wt of IBW Calories/Kcals/Kg 25-30 Kcals Calculated 2165-9516 Protein: Adj wt of IBW Protein g/k-1.2 Protein Calculated 68-82 Fluid: ml 1700-2040ml (1ml/kcal) Nutritional Problem 2. Problem Problem increased nutrition needs ( protein) Etiology increased metabolic demand for wound healing Signs/Symptoms: pressure ulcer 1. Problem Problem altered nutrition related labs Etiology DM Signs/Symptoms: Glucose 261, POC 247-312, A1c 7.6 Intervention/Recommendation Comments 1. Recommend nectar thickned liquid considering risk of aspiration. recommend swallow eval again when pt is more wake up. 2. Consider Boost BID to supplement nutrition. 3. Monitor PO intake, wt, labs and skin integrity 4. F/U as high risk in 2-3 days, 07/14-07/15 Expected Outcomes/Goals Expected Outcomes/Goals 1. PO intake to meet at least 75% of nutritional needs. 2. Wt stability, skin to remain intact, labs to approach WNL.
[2017-07-18] MEDS: Diltiazem 30 mg Tab PO SCH ×4 (01:02→18:42)
[2017-07-18] MEDS: Albuterol/Ipratropium Neb 3 ML AERS HHN SCH ×4 (01:06→19:30)
[2017-07-18] MEDS ORDERED: Piperacillin Sodium/Tazobact 2.25 gm Vial IV ONE (04:27)
[2017-07-18 06:35] LABS: % EOSINOPHILS 1.3 % (0.0-5.0); % LYMPHOCYTES 9.8 % (20.0-50.0); % MONOCYTES 4.5 % (2.0-10.0); % NEUTROPHILS 83.4 % (40.0-80.0); BASOPHILE ABSOLUTE 0.1 Th/cumm (0-0.2); EOSINOPHILE ABSOLUTE 0.1 Th/cmm (0.1-0.4); HEMATOCRIT 33.4 % (41.0-60); HEMOGLOBIN 11.1 gm/dL (12-16); LYMPHOCYTE ABSOLUTE 0.9 Th/cmm (1.5-3.0); MEAN CELL VOLUME 94.8 fl (80-99); MEAN CORPUSCULAR HEMOGLOBIN 31.5 pg (27.0-31.0); MEAN CORPUSCULAR HGB CONC 33.2 pg (28.0-36.0); MONOCYTE ABSOLUTE 0.4 Th/cmm (0.3-1.0); NEUTROPHILE ABSOLUTE 7.3 Th/cmm (1.8-8.0); PLATELET COUNT 328 Th/cmm (150-400); RED BLOOD COUNT 3.52 Mil/cmm (3.80-5.80); RED CELL DISTRIBUTION WIDTH 15.1 % (11.5-20.0); WHITE BLOOD COUNT 8.8 Th/cmm (4.8-10.8)
[2017-07-18 06:48] LABS: INR 1.09 (0.5-1.4); PROTHROMBIN TIME (TEST) 11.4 SECONDS (9.5-11.5)
[2017-07-18 06:59] LABS: ALB/GLOB RATIO 0.8 (1.0-1.8); ALBUMIN 2.9 gm/dL (4.2-5.5); ALKALINE PHOSPHATASE 158 U/L (34-104); ANION GAP 12.9 (7.0-16.0); BILIRUBIN,TOTAL 0.5 mg/dL (0.3-1.0); BUN - UREA NITROGEN 76 mg/dL (7-25); CALCIUM SERUM 8.8 mg/dL (8.6-10.3); CARBON DIOXIDE 25.8 mEq/L (21.0-31.0); CHLORIDE 112 mEq/L (98-107); CREATININE - SERUM 3.4 mg/dL (0.7-1.3); GLUCOSE 226 mg/dL (70-105); POTASSIUM SERUM 3.7 mEq/L (3.5-5.1); SGOT 10 U/L (13-39); SGPT/ALT 23 U/L (7-52); SODIUM SERUM 147 mEq/L (136-145); TOTAL PROTEIN,SERUM 6.5 gm/dL (6.0-8.3)
--- NOTE | 2017-07-18 08:28 | GI Progress Note ---
Subjective - Review of Systems Service Date: 07/18/17 Subjective: GI NOTE Events noted. Conrado tube feeds 30. Objective - Results Result Diagrams: 07/18/17 06:17 07/18/17 06:17 Recent Labs: Laboratory Last Values WBC 8.8 Th/cmm (4.8-10.8) 07/18/17 06:17 RBC 3.52 Mil/cmm (3.80-5.80) L 07/18/17 06:17 Hgb 11.1 gm/dL (12-16) L 07/18/17 06:17 Hct 33.4 % (41.0-60) L 07/18/17 06:17 MCV 94.8 fl (80-99) 07/18/17 06:17 MCH 31.5 pg (27.0-31.0) H 07/18/17 06:17 MCHC Differential 33.2 pg (28.0-36.0) 07/18/17 06:17 RDW 15.1 % (11.5-20.0) 07/18/17 06:17 Plt Count 328 Th/cmm (150-400) 07/18/17 06:17 MPV 9.0 fl 07/18/17 06:17 Neutrophils % 83.4 % (40.0-80.0) H 07/18/17 06:17 Band Neutrophils % 1 % (0-10) 07/15/17 05:20 Lymphocytes % 9.8 % (20.0-50.0) L 07/18/17 06:17 Monocytes % 4.5 % (2.0-10.0) 07/18/17 06:17 Eosinophils % 1.3 % (0.0-5.0) 07/18/17 06:17 Basophils % 1.0 % (0.0-2.0) 07/18/17 06:17 Neutrophils (Manual) 93 % (40-80) H 07/15/17 05:20 Lymphocytes 3 % (20-50) L 07/15/17 05:20 Monocytes 3 % (2-10) 07/15/17 05:20 Basophils 1 % (0-3) 07/10/17 10:49 Platelet Estimate ADEQUATE (NORMAL) 07/15/17 05:20 Eos Smear Source URINE 07/12/17 00:00 Eos Smear Total Cells NONE SEEN (NONE SEEN) 07/12/17 00:00 PT 11.4 SECONDS (9.5-11.5) 07/18/17 06:17 INR 1.09 (0.5-1.4) 07/18/17 06:17 PTT (Actin FS) 28.1 SECONDS (26.0-38.0) 07/16/17 05:45 Sodium 147 mEq/L (136-145) H 07/18/17 06:17 Potassium 3.7 mEq/L (3.5-5.1) 07/18/17 06:17 Chloride 112 mEq/L (98-107) H 07/18/17 06:17 Carbon Dioxide 25.8 mEq/L (21.0-31.0) 07/18/17 06:17 Anion Gap 12.9 (7.0-16.0) 07/18/17 06:17 BUN 76 mg/dL (7-25) H 07/18/17 06:17 Creatinine 3.4 mg/dL (0.7-1.3) H 07/18/17 06:17 Est GFR ( Amer) TNP 07/18/17 06:17 Est GFR (Non-Af Amer) TNP 07/18/17 06:17 BUN/Creatinine Ratio 22.4 07/18/17 06:17 Glucose 226 mg/dL (70-105) H 07/18/17 06:17 POC Glucose 206 MG/DL (70 - 105) H 07/18/17 06:22 Hemoglobin A1c % 7.6 % (4.0-6.0) H 07/10/17 10:49 Whole Bld Lactic Acid 1.12 mmol/L (0.60-1.99) 07/11/17 14:30 Calcium 8.8 mg/dL (8.6-10.3) 07/18/17 06:17 Phosphorus 3.5 mg/dL (2.5-5.0) 07/12/17 05:05 Magnesium 2.4 mg/dL (1.9-2.7) 07/12/17 05:05 Total Bilirubin 0.5 mg/dL (0.3-1.0) 07/18/17 06:17 AST 10 U/L (13-39) L 07/18/17 06:17 ALT 23 U/L (7-52) 07/18/17 06:17 Alkaline Phosphatase 158 U/L (34-104) H 07/18/17 06:17 B-Natriuretic Peptide 944.0 pg/mL (5.0-100.0) H 07/15/17 05:20 Total Protein 6.5 gm/dL (6.0-8.3) 07/18/17 06:17 Albumin 2.9 gm/dL (4.2-5.5) L 07/18/17 06:17 Globulin 3.6 gm/dL 07/18/17 06:17 Albumin/Globulin Ratio 0.8 (1.0-1.8) L 07/18/17 06:17 TSH 0.20 uIU/ml (0.34-5.60) L 07/11/17 06:19 Urine Source MIDSTREAM 07/16/17 17:00 Urine Color YELLOW 07/16/17 17:00 Urine Clarity HAZY (CLEAR) 07/16/17 17:00 Urine pH 5.5 (4.6 - 8.0) 07/16/17 17:00 Ur Specific [place] 1.010 (1.005-1.030) 07/16/17 17:00 Urine Protein NEGATIVE mg/dL (NEGATIVE) 07/16/17 17:00 Urine Glucose (UA) NEGATIVE mg/dL (NEGATIVE) 07/16/17 17:00 Urine Ketones NEGATIVE mg/dL (NEGATIVE) 07/16/17 17:00 Urine Blood MODERATE (NEGATIVE) H 07/16/17 17:00 Urine Nitrate NEGATIVE (NEGATIVE) 07/16/17 17:00 Urine Bilirubin NEGATIVE (NEGATIVE) 07/16/17 17:00 Urine Urobilinogen 0.2 E.U./dL (0.2 - 1.0) 07/16/17 17:00 Ur Leukocyte Esterase NEGATIVE (NEGATIVE) 07/16/17 17:00 Urine RBC 5-10 /hpf (0-5) H 07/16/17 17:00 Urine WBC 0-2 /hpf (0-5) 07/16/17 17:00 Ur Epithelial Cells OCCASIONAL /lpf (FEW) 07/16/17 17:00 Urine Bacteria NONE SEEN /hpf (NONE SEEN) 07/16/17 17:00 Ur Random Sodium 22 mmol/L 07/12/17 00:00 Urine Creatinine 156.0 mg/dl (39.0-259.0) 07/12/17 00:00 Urine Microalbumin 50.6 07/11/17 06:00 Microalb/Creat Ratio 51.9 07/11/17 06:00 Vancomycin Trough 17.1 ug/mL (10-20) 07/14/17 08:00 Random Vancomycin 19.4 ug/mL (5.0-40.0) 07/18/17 06:17 - Physical Exam Vitals and I&O: Vital Signs Temp 97.2 F 07/18/17 04:00 Pulse 75 07/18/17 06:59 Resp 16 07/18/17 06:59 BP 160/79 07/18/17 06:36 Pulse Ox 99 07/18/17 06:59 Intake & Output 07/17/17 07/18/17 07/18/17 18:59 06:59 18:59 Intake Total 120 460 Output Total 1000 2000 Balance -880 -1540 Weight (lbs) 93.894 kg 92.533 kg Intake: Intake, IV Amount 100 Clindamycin 600mg/50mL 50 600 mg In 50 ml @ 100 mls /hr IV Q8HR [facility] Rx#: [id number] Piperacillin Sodium/ 50 Tazobact 3.375 gm In Sodium Chloride 0.9% 50 ml @ 100 mls/hr IV Q8HR [facility] Rx#:[id number] Oral 20 Tube Feeding 260 Other 200 Output: Urine 1000 2000 Other: # Bowel Movements 1 1 Stool Characteristics Soft Soft Brown Brown Weight Source Bedscale Bedscale Active Medications: Current Medications Acetaminophen (Tylenol) 650 mg PO Q6HR PRN PRN Reason: TEMP >100 Stop: 09/08/17 19:00 Albuterol/Ipratropium (Duoneb Neb) 3 ml HHN Q6HRT [facility] Stop: 09/09/17 18:59 Last Admin: 07/18/17 06:54 Dose: 3 ml Albuterol/Ipratropium (Duoneb Neb) 3 ml HHN Q2H PRN PRN Reason: wheezing Stop: 09/09/17 14:14 Last Admin: 07/13/17 22:41 Dose: 3 ml Aspirin (Aspirin Chewable) 81 mg PO DAILY [facility] Stop: 09/09/17 08:59 Last Admin: 07/17/17 09:46 Dose: 81 mg Carvedilol (Coreg) 25 mg PO DAILY [facility] Stop: 09/12/17 08:59 Last Admin: 07/17/17 09:46 Dose: 25 mg [place] Oil/Bhut[place] Balsam/Trypsin (Venelex) 1 appl TP DAILY [facility] Stop: 09/11/17 09:59 Last Admin: 07/17/17 09:46 Dose: 1 appl Citalopram Hydrobromide (Celexa) 20 mg PO DAILY [facility] PRN Reason: Protocol Stop: 09/09/17 08:59 Last Admin: 07/17/17 09:46 Dose: 20 mg Clonazepam (Klonopin) 1 mg PO HS [facility] Stop: 09/08/17 20:59 Last Admin: 07/17/17 21:45 Dose: 1 mg Diltiazem HCl (Cardizem) 60 mg PO Q6HR [facility] Stop: 09/12/17 00:00 Last Admin: 07/18/17 06:35 Dose: 60 mg Furosemide 100 mg/ Sodium (Chloride) 100 mls @ 5 mls/hr IV TITR [facility] Stop: 09/13/17 12:59 Last Admin: 07/17/17 09:51 Dose: 5 mls/hr Linezolid (Zyvox) 600 mg in 300 mls @ 300 mls/hr IV Q12HR [facility] Stop: 09/16/17 08:59 Piperacillin Sod/Tazobactam (Sod 2.25 gm/ Sodium Chloride) 50 mls @ 100 mls/hr IV Q8HR [facility] Stop: 09/16/17 04:59 Last Admin: 07/18/17 04:39 Dose: 100 mls/hr Insulin Aspart (Novolog Insulin Sliding Scale) 0 units SUBQ ACHS [facility] PRN Reason: Protocol Stop: 09/08/17 16:29 Last Admin: 07/17/17 21:54 Dose: 3 units Insulin Detemir (Levemir Insulin) 14 units SUBQ HS [facility] PRN Reason: Protocol Stop: 09/12/17 20:59 Last Admin: 07/17/17 21:55 Dose: 14 units Lactobacillus Rhamnosus (Culturelle 15b) 1 each PO DAILY [facility] Stop: 09/14/17 08:59 Last Admin: 07/17/17 09:46 Dose: 1 each Miscellaneous (Vte Chemical Prophylaxis Screen/ Admission) 1 [facility] PRN PRN PRN Reason: PROTOCOL Stop: 09/08/17 15:14 Miscellaneous (Probiotic Screen) 1 [facility] PRN PRN PRN Reason: PROTOCOL Stop: 09/13/17 11:59 Pantoprazole Sodium (Protonix) 40 mg PO DAILY [facility] Stop: 09/09/17 08:59 Last Admin: 07/17/17 09:46 Dose: 40 mg Quetiapine Fumarate (Seroquel) 50 mg PO HS [facility] PRN Reason: Protocol Stop: 09/08/17 20:59 Last Admin: 07/17/17 21:45 Dose: 50 mg Tamsulosin HCl (Flomax) 0.8 mg PO HS [facility] Stop: 09/08/17 20:59 Last Admin: 07/17/17 21:45 Dose: 0.8 mg Warfarin Sodium (Coumadin Per Pharmacy) 1 [facility] PRN PRN; Protocol PRN Reason: RX MONITORING Stop: 09/09/17 12:39 General: No acute distress Neck: Supple Cardiovascular: Regular rate Lungs: Other (rhonchi, some congestion) Abdomen: Bowel sounds, Soft, Other (intact GT) Skin: no Rash Assessment/Plan - Problem List Patient Problems: All Active Problems LEFT LOWER LEG REDNESS, SWELLING PAIN (Acute) - Assessment Assessment: IMPRESSION: 1. Dysphagia/anorexia - s/p PEG insertion. 2. Dementia. RECS: 1. Advance GT feeds as conrado. 2. GT care. 3. Continue meds. 4. Monitor labs.
--- NOTE | 2017-07-18 09:23 | Consultation ---
DATE OF CONSULTATION: 07/13/2017 SURGICAL CONSULT REFERRING PHYSICIAN: Dr. Nava. REASON FOR CONSULTATION: Cellulitis, both legs. Thank you for referring this patient to me. HISTORY OF PRESENT ILLNESS: This is an 86-year-old male from a longterm, who was admitted because of cellulitis involving both legs, worse on the right side. PAST MEDICAL HISTORY: Includes hypertension, CHF, coronary artery disease, dementia, schizophrenia and diabetes. The patient is essentially bedridden. LABORATORY STUDIES: On admission, the WBC is elevated to 14,800, hemoglobin of 9.9. The neutrophils is 93%. BUN is 55, creatinine 2.0. Blood sugar was 252 on admission. Liver function test shows elevation of the alkaline phosphatase and BNP is 944. PHYSICAL EXAMINATION: The patient is nonverbal. There is cellulitis involving the left leg below the knee and some blister formation involving the left foot and an ulcer in the left heel. The right leg has minimal cellulitis. Pedal pulses not palpable on either ankles. Ultrasound did not show DVT. The arterial studies shows monophasic waveform in the left superficial femoral artery and down. Ideally, an arteriogram should be done, but in view of the elevation in BUN and creatinine, I will defer doing this and the advanced state of the patient's inability to ambulate mitigate this likewise. We will order local wound care. JOB# [id number]
[2017-07-18] MEDS: Linezolid 600mg/300mL 600 MG/300 ML BAG IV SCH ×2 (09:47→22:44)
[2017-07-18] MEDS: Venelex 60gm Tube TP SCH (09:48)
[2017-07-18] MEDS: Aspirin 81mg Chewable Tab PO SCH (09:48)
[2017-07-18] MEDS: Lactobacillus Rhamnosus GG 15 Billion CFU CAP.SPRINK PO SCH (09:49)
[2017-07-18] MEDS: Pantoprazole 40 mg EC Tab PO SCH (09:49)
[2017-07-18] MEDS: INSULIN ASPART SLIDING SCALE 100 UNITS/ML UNIT SUBQ SCH ×4 (09:55→21:48)
--- NOTE | 2017-07-18 10:34 | Diagnostic Imaging Report ---
Renal ultrasound HISTORY: Acute renal disease. COMPARISON: None Technique: Sonography of the kidneys and urinary bladder was performed in multiple planes. FINDINGS: The right kidney measures 11.5 x 5.8 cm. Left kidney measures 11.2 x 5.4 cm. No evidence of focal lesions or hydronephrosis. There is increased echogenicity of both kidneys. There is area of thickening along the right side of the urinary bladder. This area measures 4.5 x 2.5 cm. The urinary bladder prevoid volume is 109 mL's. The prostate gland does not appear enlarged. IMPRESSION: No evidence of hydronephrosis. Increased echogenicity of the kidneys which may be due to underlying medical renal disease. Area of thickening along the right side of the urinary bladder wall measuring 4.5 x 2.5 cm. Differential diagnoses includes a mass/neoplastic process, debris or clot. The significance of this finding should be correlated with patient's clinical findings. Possible trace free fluid in the pelvis.
--- NOTE | 2017-07-18 10:35 | Diagnostic Imaging Report ---
CHEST X-RAY: AP view INDICATION: CHF COMPARISON: 07/17/2017 FINDINGS: Findings of CHF are seen with bilateral effusions and left-sided infiltrates. Cardiomegaly is noted. Exam is limited due to rotation. IMPRESSION: CHF with bilateral small effusions and left lung infiltrates. Cardiomegaly.
--- NOTE | 2017-07-18 10:40 | Diagnostic Imaging Report ---
Left foot 3 views Indication: Pain rule out fracture Comparison: none Findings: No evidence of an acute fracture or significant focal soft tissue swelling. Mild degenerative changes are noted. Diffuse atherosclerosis is noted. Impression: No evidence of an acute fracture. Mild degenerative changes. Diffuse atherosclerosis. In the setting of trauma, if clinical symptoms persist and there is continued concern for an occult fracture, follow up exams in 5-7 days is suggested.
--- NOTE | 2017-07-18 16:15 | General Progress Note ---
Subjective - Review of Systems Service Date: 07/18/17 Subjective: more awake, interacting, comfortable Objective - Results Result Diagrams: 07/18/17 06:17 07/18/17 06:17 Recent Labs: Laboratory Last Values WBC 8.8 Th/cmm (4.8-10.8) 07/18/17 06:17 RBC 3.52 Mil/cmm (3.80-5.80) L 07/18/17 06:17 Hgb 11.1 gm/dL (12-16) L 07/18/17 06:17 Hct 33.4 % (41.0-60) L 07/18/17 06:17 MCV 94.8 fl (80-99) 07/18/17 06:17 MCH 31.5 pg (27.0-31.0) H 07/18/17 06:17 MCHC Differential 33.2 pg (28.0-36.0) 07/18/17 06:17 RDW 15.1 % (11.5-20.0) 07/18/17 06:17 Plt Count 328 Th/cmm (150-400) 07/18/17 06:17 MPV 9.0 fl 07/18/17 06:17 Neutrophils % 83.4 % (40.0-80.0) H 07/18/17 06:17 Band Neutrophils % 1 % (0-10) 07/15/17 05:20 Lymphocytes % 9.8 % (20.0-50.0) L 07/18/17 06:17 Monocytes % 4.5 % (2.0-10.0) 07/18/17 06:17 Eosinophils % 1.3 % (0.0-5.0) 07/18/17 06:17 Basophils % 1.0 % (0.0-2.0) 07/18/17 06:17 Neutrophils (Manual) 93 % (40-80) H 07/15/17 05:20 Lymphocytes 3 % (20-50) L 07/15/17 05:20 Monocytes 3 % (2-10) 07/15/17 05:20 Basophils 1 % (0-3) 07/10/17 10:49 Platelet Estimate ADEQUATE (NORMAL) 07/15/17 05:20 Eos Smear Source URINE 07/12/17 00:00 Eos Smear Total Cells NONE SEEN (NONE SEEN) 07/12/17 00:00 PT 11.4 SECONDS (9.5-11.5) 07/18/17 06:17 INR 1.09 (0.5-1.4) 07/18/17 06:17 PTT (Actin FS) 28.1 SECONDS (26.0-38.0) 07/16/17 05:45 Sodium 147 mEq/L (136-145) H 07/18/17 06:17 Potassium 3.7 mEq/L (3.5-5.1) 07/18/17 06:17 Chloride 112 mEq/L (98-107) H 07/18/17 06:17 Carbon Dioxide 25.8 mEq/L (21.0-31.0) 07/18/17 06:17 Anion Gap 12.9 (7.0-16.0) 07/18/17 06:17 BUN 76 mg/dL (7-25) H 07/18/17 06:17 Creatinine 3.4 mg/dL (0.7-1.3) H 07/18/17 06:17 Est GFR ( Amer) TNP 07/18/17 06:17 Est GFR (Non-Af Amer) TNP 07/18/17 06:17 BUN/Creatinine Ratio 22.4 07/18/17 06:17 Glucose 226 mg/dL (70-105) H 07/18/17 06:17 POC Glucose 241 MG/DL (70 - 105) H 07/18/17 13:23 Hemoglobin A1c % 7.6 % (4.0-6.0) H 07/10/17 10:49 Whole Bld Lactic Acid 1.12 mmol/L (0.60-1.99) 07/11/17 14:30 Calcium 8.8 mg/dL (8.6-10.3) 07/18/17 06:17 Phosphorus 3.5 mg/dL (2.5-5.0) 07/12/17 05:05 Magnesium 2.4 mg/dL (1.9-2.7) 07/12/17 05:05 Total Bilirubin 0.5 mg/dL (0.3-1.0) 07/18/17 06:17 AST 10 U/L (13-39) L 07/18/17 06:17 ALT 23 U/L (7-52) 07/18/17 06:17 Alkaline Phosphatase 158 U/L (34-104) H 07/18/17 06:17 B-Natriuretic Peptide 944.0 pg/mL (5.0-100.0) H 07/15/17 05:20 Total Protein 6.5 gm/dL (6.0-8.3) 07/18/17 06:17 Albumin 2.9 gm/dL (4.2-5.5) L 07/18/17 06:17 Globulin 3.6 gm/dL 07/18/17 06:17 Albumin/Globulin Ratio 0.8 (1.0-1.8) L 07/18/17 06:17 TSH 0.20 uIU/ml (0.34-5.60) L 07/11/17 06:19 Urine Source MIDSTREAM 07/16/17 17:00 Urine Color YELLOW 07/16/17 17:00 Urine Clarity HAZY (CLEAR) 07/16/17 17:00 Urine pH 5.5 (4.6 - 8.0) 07/16/17 17:00 Ur Specific [place] 1.010 (1.005-1.030) 07/16/17 17:00 Urine Protein NEGATIVE mg/dL (NEGATIVE) 07/16/17 17:00 Urine Glucose (UA) NEGATIVE mg/dL (NEGATIVE) 07/16/17 17:00 Urine Ketones NEGATIVE mg/dL (NEGATIVE) 07/16/17 17:00 Urine Blood MODERATE (NEGATIVE) H 07/16/17 17:00 Urine Nitrate NEGATIVE (NEGATIVE) 07/16/17 17:00 Urine Bilirubin NEGATIVE (NEGATIVE) 07/16/17 17:00 Urine Urobilinogen 0.2 E.U./dL (0.2 - 1.0) 07/16/17 17:00 Ur Leukocyte Esterase NEGATIVE (NEGATIVE) 07/16/17 17:00 Urine RBC 5-10 /hpf (0-5) H 07/16/17 17:00 Urine WBC 0-2 /hpf (0-5) 07/16/17 17:00 Ur Epithelial Cells OCCASIONAL /lpf (FEW) 07/16/17 17:00 Urine Bacteria NONE SEEN /hpf (NONE SEEN) 07/16/17 17:00 Ur Random Sodium 22 mmol/L 07/12/17 00:00 Urine Creatinine 156.0 mg/dl (39.0-259.0) 07/12/17 00:00 Urine Microalbumin 50.6 07/11/17 06:00 Microalb/Creat Ratio 51.9 07/11/17 06:00 Vancomycin Trough 17.1 ug/mL (10-20) 07/14/17 08:00 Random Vancomycin 19.4 ug/mL (5.0-40.0) 07/18/17 06:17 - Physical Exam Vitals and I&O: Vital Signs Temp 96.9 F 07/18/17 12:00 Pulse 114 07/18/17 13:40 Resp 16 07/18/17 12:18 BP 147/66 07/18/17 12:00 Pulse Ox 98 07/18/17 12:18 Intake & Output 07/17/17 07/18/17 07/18/17 18:59 06:59 18:59 Intake Total 120 460 Output Total 1000 2000 Balance -880 -1540 Weight (lbs) 93.894 kg 92.533 kg Intake: Intake, IV Amount 100 Clindamycin 600mg/50mL 50 600 mg In 50 ml @ 100 mls /hr IV Q8HR [facility] Rx#: [id number] Piperacillin Sodium/ 50 Tazobact 3.375 gm In Sodium Chloride 0.9% 50 ml @ 100 mls/hr IV Q8HR [facility] Rx#:[id number] Oral 20 Tube Feeding 260 Other 200 Output: Urine 1000 2000 Other: # Bowel Movements 1 1 Stool Characteristics Soft Soft Brown Brown Weight Source Bedscale Bedscale Active Medications: Current Medications Acetaminophen (Tylenol) 650 mg PO Q6HR PRN PRN Reason: TEMP >100 Stop: 09/08/17 19:00 Albuterol/Ipratropium (Duoneb Neb) 3 ml HHN Q6HRT [facility] Stop: 09/09/17 18:59 Last Admin: 07/18/17 12:18 Dose: 3 ml Albuterol/Ipratropium (Duoneb Neb) 3 ml HHN Q2H PRN PRN Reason: wheezing Stop: 09/09/17 14:14 Last Admin: 07/13/17 22:41 Dose: 3 ml Aspirin (Aspirin Chewable) 81 mg PO DAILY [facility] Stop: 09/09/17 08:59 Last Admin: 07/18/17 09:48 Dose: 81 mg Carvedilol (Coreg) 25 mg PO DAILY [facility] Stop: 09/12/17 08:59 Last Admin: 07/18/17 09:49 Dose: 25 mg [place] Oil/[place] Balsam/Trypsin (Venelex) 1 appl TP DAILY [facility] Stop: 09/11/17 09:59 Last Admin: 07/18/17 09:48 Dose: 1 appl Citalopram Hydrobromide (Celexa) 20 mg PO DAILY [facility] PRN Reason: Protocol Stop: 09/09/17 08:59 Last Admin: 07/18/17 09:49 Dose: 20 mg Clonazepam (Klonopin) 1 mg PO HS [facility] Stop: 09/08/17 20:59 Last Admin: 07/17/17 21:45 Dose: 1 mg Diltiazem HCl (Cardizem) 60 mg PO Q6HR [facility] Stop: 09/12/17 00:00 Last Admin: 07/18/17 13:40 Dose: 60 mg Furosemide 100 mg/ Sodium (Chloride) 100 mls @ 5 mls/hr IV TITR [facility] Stop: 09/13/17 12:59 Last Admin: 07/17/17 09:51 Dose: 5 mls/hr Linezolid (Zyvox) 600 mg in 300 mls @ 300 mls/hr IV Q12HR [facility] Stop: 09/16/17 08:59 Last Admin: 07/18/17 09:47 Dose: 300 mls/hr Piperacillin Sod/Tazobactam (Sod 2.25 gm/ Sodium Chloride) 50 mls @ 100 mls/hr IV Q8HR [facility] Stop: 09/16/17 04:59 Last Admin: 07/18/17 04:39 Dose: 100 mls/hr Insulin Aspart (Novolog Insulin Sliding Scale) 0 units SUBQ ACHS [facility] PRN Reason: Protocol Stop: 09/08/17 16:29 Last Admin: 07/18/17 13:39 Dose: 5 units Insulin Detemir (Levemir Insulin) 14 units SUBQ HS [facility] PRN Reason: Protocol Stop: 09/12/17 20:59 Last Admin: 07/17/17 21:55 Dose: 14 units Lactobacillus Rhamnosus (Culturelle 15b) 1 each PO DAILY [facility] Stop: 09/14/17 08:59 Last Admin: 07/18/17 09:49 Dose: 1 each Miscellaneous (Vte Chemical Prophylaxis Screen/ Admission) 1 [facility] PRN PRN PRN Reason: PROTOCOL Stop: 09/08/17 15:14 Miscellaneous (Probiotic Screen) 1 [facility] PRN PRN PRN Reason: PROTOCOL Stop: 09/13/17 11:59 Pantoprazole Sodium (Protonix) 40 mg PO DAILY [facility] Stop: 09/09/17 08:59 Last Admin: 07/18/17 09:49 Dose: 40 mg Quetiapine Fumarate (Seroquel) 50 mg PO HS [facility] PRN Reason: Protocol Stop: 09/08/17 20:59 Last Admin: 07/17/17 21:45 Dose: 50 mg Tamsulosin HCl (Flomax) 0.8 mg PO HS [facility] Stop: 09/08/17 20:59 Last Admin: 07/17/17 21:45 Dose: 0.8 mg Warfarin Sodium (Coumadin Per Pharmacy) 1 [facility] PRN PRN; Protocol PRN Reason: RX MONITORING Stop: 09/09/17 12:39 General: No acute distress HEENT: Atraumatic, Mucous membr. moist/pink Neck: Supple Cardiovascular: Regular rate Lungs: Other (rhonchi, some congestion) Abdomen: Bowel sounds, Soft, Other (intact GT) Extremities: Edema, Other (less erythema, edema, w/ wrinkles left foot) Neurological: Sensation intact, Other (Non ambulatory) Skin: no Rash Psych/Mental Status: Other ( confused, not oriented) Assessment/Plan - Problem List Patient Problems: All Active Problems LEFT LOWER LEG REDNESS, SWELLING PAIN (Acute) - Assessment Assessment: JUSTINA Left LE Cellulitis ALOS 2/2 meds,Met Enceph, 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 ESS Htn decomp CHF Outlet Obstruction W/ Hx of BPH Bladder mass/neoplastic, debris, or clot - Plan Plan: Lab - Result Diagrams 07/12/17 05:05 07/12/17 05:05 Current Medications Acetaminophen (Tylenol) 650 mg PO Q6HR PRN PRN Reason: TEMP >100 Stop: 09/08/17 19:00 Albuterol/Ipratropium (Duoneb Neb) 3 ml HHN Q6HRT [facility] Stop: 09/09/17 18:59 Last Admin: 07/12/17 13:41 Dose: 3 ml Albuterol/Ipratropium (Duoneb Neb) 3 ml HHN Q2H PRN PRN Reason: wheezing Stop: 09/09/17 14:14 Aspirin (Aspirin Chewable) 81 mg PO DAILY [facility] Stop: 09/09/17 08:59 Last Admin: 07/12/17 08:45 Dose: 81 mg Benazepril HCl (Lotensin) 10 mg PO DAILY [facility] Stop: 09/09/17 08:59 Last Admin: 07/12/17 08:46 Dose: 10 mg Citalopram Hydrobromide (Celexa) 20 mg PO DAILY [facility] PRN Reason: Protocol Stop: 09/09/17 08:59 Last Admin: 07/12/17 08:46 Dose: 20 mg Clonazepam (Klonopin) 1 mg PO HS [facility] Stop: 09/08/17 20:59 Last Admin: 07/11/17 22:28 Dose: 1 mg Diltiazem HCl (Cardizem) 60 mg PO Q6HR [facility] Stop: 09/09/17 17:59 Last Admin: 07/12/17 13:58 Dose: 60 mg Piperacillin Sod/Tazobactam (Sod 3.375 gm/ Sodium Chloride) 50 mls @ 100 mls/ hr IV Q8HR [facility] Stop: 09/08/17 12:59 Last Infusion: 07/12/17 13:00 Dose: Infused Sodium Chloride (Nacl 0.9%) 1,000 mls @ 90 mls/hr IV .Q11H7M [facility] Stop: 09/08/17 13:14 Last Admin: 07/12/17 04:59 Dose: 90 mls/hr Clindamycin Phosphate (Cleocin Pb) 600 mg in 50 mls @ 100 mls/hr IV Q8HR [facility] Stop: 09/09/17 20:59 Last Admin: 07/12/17 14:05 Dose: 100 mls/hr Vancomycin HCl 1 gm/ Sodium (Chloride) 250 mls @ 165 mls/hr IV Q12H [facility] Stop: 09/10/17 08:59 Last Infusion: 07/12/17 14:10 Dose: Infused Insulin Aspart (Novolog Insulin Sliding Scale) 0 units SUBQ ACHS [facility] PRN Reason: Protocol Stop: 09/08/17 16:29 Last Admin: 07/12/17 13:52 Dose: 6 units Miscellaneous (Vte Chemical Prophylaxis Screen/ Admission) 1 [facility] PRN PRN PRN Reason: PROTOCOL Stop: 09/08/17 15:14 Miscellaneous (Vancomycin Iv Per Pharmacy) 1 ea PRN [facility] Stop: 09/09/17 17:29 Pantoprazole Sodium (Protonix) 40 mg PO DAILY [facility] Stop: 09/09/17 08:59 Last Admin: 07/12/17 08:45 Dose: 40 mg Quetiapine Fumarate (Seroquel) 50 mg PO HS [facility] PRN Reason: Protocol Stop: 09/08/17 20:59 Last Admin: 07/11/17 22:28 Dose: 50 mg Tamsulosin HCl (Flomax) 0.8 mg PO HS [facility] Stop: 09/08/17 20:59 Last Admin: 07/11/17 22:28 Dose: 0.8 mg Warfarin Sodium (Coumadin Per Pharmacy) 1 [facility] PRN PRN; Protocol PRN Reason: RX MONITORING Stop: 09/09/17 12:39 Lab - Result Diagrams 07/18/17 06:17 07/18/17 06:17 kidney fnc worse @ 76/3.4; request US, UA f/u cultures continue Vanco. clinda, Zosyn incidental finding brain mass f/u electrolytes, cbc now has wheezing but less CXR shows worsening CHF DC IVF, start feeding switch to Lasix drip plus albumin infusion BNP increased from 584 to 944 will need cardiac echo Left leg less edema & erythema neli. 600 ml urine obtained after [place] was inserted even thou US did no reveal any hydronephrosis thus pt. has some type of outlet obstruction Prostate? f/u electrolytes, cbc, CXR discussed w/ daughter @ bedside UOP since this am neli 1600ml Nutritional Asmnt/Malnutr-PDOC - Dietary Evaluation Malnutrition Findings (Please click <Entered> for more info): Nutritional Asmnt/Malnutrition Start: 07/12/17 15: 11 Text: Status: Complete Freq: Document 07/12/17 15:11 LCHENG (Rec: 07/12/17 15:24 [email or web address] [id number]) Nutritional Asmnt/Malnutrition Patient General Information Nutritional Screening High Risk Diagnosis sepsis, secondary to cellulitis Pertinent Medical Hx/Surgical Hx CAD, CHF, HTN, dementia, schizophrenia, weakness, chronic renal insuff, DM, redness of both legs. Subjective Information Pt seen sleeping at time of visit. Per DRIVE THRU ORDER TAKER, pt ate about 50% of breakfast, very slowly. Pt had no lunch yet d/t sleeping. Per nurse note, RN feed pt with pudding and jello with milk shake in the afternoon. Per ST to put patient NPO if lethargic to avoid aspiration noted. Current Diet Order/ Nutrition Support [id number], mech soft chopped Pertinent Medications novolog, protonix, piperacillin, seroquel, nacl 0 .9%, vancomycin Pertinent Labs 3*19 BUN 37, Glucose 261, POC 247-312 07/10 A1c 7.6 Nutritional Hx/Data Height 1.65 m Height (Calculated Centimeters) 165.1 Current Weight (lbs) 87.543 kg Weight (Calculated Kilograms) 87.5 Weight (Calculated Grams) 17262.3 [place] Body Weight 136 Body Mass Index (BMI) 32.1 Weight Status Obese GI Symptoms GI Symptoms None Last BM Difficult in: None Skin Integrity/Comment: pressure ulcer to left heel, reddened to left lower extremity (cellulitis), maceration to left foot, pressure area to right foot Current %PO Poor (25-49%) Estimated Nutritional Goals BEE in Kcals: Adj wt of IBW Calories/Kcals/Kg 25-30 Kcals Calculated 0870-5305 Protein: Adj wt of IBW Protein g/k-1.2 Protein Calculated 68-82 Fluid: ml 1700-2040ml (1ml/kcal) Nutritional Problem 2. Problem Problem increased nutrition needs ( protein) Etiology increased metabolic demand for wound healing Signs/Symptoms: pressure ulcer 1. Problem Problem altered nutrition related labs Etiology DM Signs/Symptoms: Glucose 261, POC 247-312, A1c 7.6 Intervention/Recommendation Comments 1. Recommend nectar thickned liquid considering risk of aspiration. recommend swallow eval again when pt is more wake up. 2. Consider Boost BID to supplement nutrition. 3. Monitor PO intake, wt, labs and skin integrity 4. F/U as high risk in 2-3 days, 07/14-07/15 Expected Outcomes/Goals Expected Outcomes/Goals 1. PO intake to meet at least 75% of nutritional needs. 2. Wt stability, skin to remain intact, labs to approach WNL.
[2017-07-18] MEDS: Insulin Detemir 100 units/mL 10mL Vial SUBQ SCH (21:53)
--- NOTE | 2017-07-18 23:37 | Infectious Disease Prog Note ---
Infectious Disease Subjective - Review of Systems Service Date: 07/18/17 Subjective: No new change, no fever. Infectious Disease Objective - Results Result Diagrams: 07/18/17 06:17 07/18/17 06:17 Recent Labs: Laboratory Last Values WBC 8.8 Th/cmm (4.8-10.8) 07/18/17 06:17 RBC 3.52 Mil/cmm (3.80-5.80) L 07/18/17 06:17 Hgb 11.1 gm/dL (12-16) L 07/18/17 06:17 Hct 33.4 % (41.0-60) L 07/18/17 06:17 MCV 94.8 fl (80-99) 07/18/17 06:17 MCH 31.5 pg (27.0-31.0) H 07/18/17 06:17 MCHC Differential 33.2 pg (28.0-36.0) 07/18/17 06:17 RDW 15.1 % (11.5-20.0) 07/18/17 06:17 Plt Count 328 Th/cmm (150-400) 07/18/17 06:17 MPV 9.0 fl 07/18/17 06:17 Neutrophils % 83.4 % (40.0-80.0) H 07/18/17 06:17 Band Neutrophils % 1 % (0-10) 07/15/17 05:20 Lymphocytes % 9.8 % (20.0-50.0) L 07/18/17 06:17 Monocytes % 4.5 % (2.0-10.0) 07/18/17 06:17 Eosinophils % 1.3 % (0.0-5.0) 07/18/17 06:17 Basophils % 1.0 % (0.0-2.0) 07/18/17 06:17 Neutrophils (Manual) 93 % (40-80) H 07/15/17 05:20 Lymphocytes 3 % (20-50) L 07/15/17 05:20 Monocytes 3 % (2-10) 07/15/17 05:20 Basophils 1 % (0-3) 07/10/17 10:49 Platelet Estimate ADEQUATE (NORMAL) 07/15/17 05:20 Eos Smear Source URINE 07/12/17 00:00 Eos Smear Total Cells NONE SEEN (NONE SEEN) 07/12/17 00:00 PT 11.4 SECONDS (9.5-11.5) 07/18/17 06:17 INR 1.09 (0.5-1.4) 07/18/17 06:17 PTT (Actin FS) 28.1 SECONDS (26.0-38.0) 07/16/17 05:45 Sodium 147 mEq/L (136-145) H 07/18/17 06:17 Potassium 3.7 mEq/L (3.5-5.1) 07/18/17 06:17 Chloride 112 mEq/L (98-107) H 07/18/17 06:17 Carbon Dioxide 25.8 mEq/L (21.0-31.0) 07/18/17 06:17 Anion Gap 12.9 (7.0-16.0) 07/18/17 06:17 BUN 76 mg/dL (7-25) H 07/18/17 06:17 Creatinine 3.4 mg/dL (0.7-1.3) H 07/18/17 06:17 Est GFR ( Amer) TNP 07/18/17 06:17 Est GFR (Non-Af Amer) TNP 07/18/17 06:17 BUN/Creatinine Ratio 22.4 07/18/17 06:17 Glucose 226 mg/dL (70-105) H 07/18/17 06:17 POC Glucose 315 MG/DL (70 - 105) H 07/18/17 21:11 Hemoglobin A1c % 7.6 % (4.0-6.0) H 07/10/17 10:49 Whole Bld Lactic Acid 1.12 mmol/L (0.60-1.99) 07/11/17 14:30 Calcium 8.8 mg/dL (8.6-10.3) 07/18/17 06:17 Phosphorus 3.5 mg/dL (2.5-5.0) 07/12/17 05:05 Magnesium 2.4 mg/dL (1.9-2.7) 07/12/17 05:05 Total Bilirubin 0.5 mg/dL (0.3-1.0) 07/18/17 06:17 AST 10 U/L (13-39) L 07/18/17 06:17 ALT 23 U/L (7-52) 07/18/17 06:17 Alkaline Phosphatase 158 U/L (34-104) H 07/18/17 06:17 B-Natriuretic Peptide 944.0 pg/mL (5.0-100.0) H 07/15/17 05:20 Total Protein 6.5 gm/dL (6.0-8.3) 07/18/17 06:17 Albumin 2.9 gm/dL (4.2-5.5) L 07/18/17 06:17 Globulin 3.6 gm/dL 07/18/17 06:17 Albumin/Globulin Ratio 0.8 (1.0-1.8) L 07/18/17 06:17 TSH 0.20 uIU/ml (0.34-5.60) L 07/11/17 06:19 Urine Source MIDSTREAM 07/16/17 17:00 Urine Color YELLOW 07/16/17 17:00 Urine Clarity HAZY (CLEAR) 07/16/17 17:00 Urine pH 5.5 (4.6 - 8.0) 07/16/17 17:00 Ur Specific [place] 1.010 (1.005-1.030) 07/16/17 17:00 Urine Protein NEGATIVE mg/dL (NEGATIVE) 07/16/17 17:00 Urine Glucose (UA) NEGATIVE mg/dL (NEGATIVE) 07/16/17 17:00 Urine Ketones NEGATIVE mg/dL (NEGATIVE) 07/16/17 17:00 Urine Blood MODERATE (NEGATIVE) H 07/16/17 17:00 Urine Nitrate NEGATIVE (NEGATIVE) 07/16/17 17:00 Urine Bilirubin NEGATIVE (NEGATIVE) 07/16/17 17:00 Urine Urobilinogen 0.2 E.U./dL (0.2 - 1.0) 07/16/17 17:00 Ur Leukocyte Esterase NEGATIVE (NEGATIVE) 07/16/17 17:00 Urine RBC 5-10 /hpf (0-5) H 07/16/17 17:00 Urine WBC 0-2 /hpf (0-5) 07/16/17 17:00 Ur Epithelial Cells OCCASIONAL /lpf (FEW) 07/16/17 17:00 Urine Bacteria NONE SEEN /hpf (NONE SEEN) 07/16/17 17:00 Ur Random Sodium 22 mmol/L 07/12/17 00:00 Urine Creatinine 156.0 mg/dl (39.0-259.0) 07/12/17 00:00 Urine Microalbumin 50.6 07/11/17 06:00 Microalb/Creat Ratio 51.9 07/11/17 06:00 Vancomycin Trough 17.1 ug/mL (10-20) 07/14/17 08:00 Random Vancomycin 19.4 ug/mL (5.0-40.0) 07/18/17 06:17 - Physical Exam Vitals and I&O: Vital Signs Temp 97.1 F 07/18/17 16:00 Pulse 90 07/18/17 19:52 Resp 17 07/18/17 20:00 BP 121/66 07/18/17 16:00 Pulse Ox 98 07/18/17 19:52 Intake & Output 07/18/17 07/18/17 07/19/17 06:59 18:59 06:59 Intake Total 460 50 550 Output Total 2000 Balance -1540 50 550 Weight (lbs) 92.533 kg 92.533 kg Intake: Intake, IV Amount 50 550 Linezolid 600mg/300mL 600 300 mg In 300 ml @ 300 mls/ hr IV Q12HR [facility] Rx#: [id number] Piperacillin Sodium/ 50 Tazobact 2.25 gm In Sodium Chloride 0.9% 50 ml @ 100 mls/hr IV Q8HR [facility] Rx#:[id number] Tube Feeding 260 Other 200 Output: Urine 2000 Other: # Voids 2,600 # Bowel Movements 1 Stool Characteristics Soft Brown Weight Source Bedscale Bedscale Active Medications: Current Medications Acetaminophen (Tylenol) 650 mg PO Q6HR PRN PRN Reason: TEMP >100 Stop: 09/08/17 19:00 Albuterol/Ipratropium (Duoneb Neb) 3 ml HHN Q6HRT [facility] Stop: 09/09/17 18:59 Last Admin: 07/18/17 19:30 Dose: 3 ml Albuterol/Ipratropium (Duoneb Neb) 3 ml HHN Q2H PRN PRN Reason: wheezing Stop: 09/09/17 14:14 Last Admin: 07/13/17 22:41 Dose: 3 ml Aspirin (Aspirin Chewable) 81 mg PO DAILY [facility] Stop: 09/09/17 08:59 Last Admin: 07/18/17 09:48 Dose: 81 mg Carvedilol (Coreg) 25 mg PO DAILY [facility] Stop: 09/12/17 08:59 Last Admin: 07/18/17 09:49 Dose: 25 mg [place] Oil/[place] Balsam/Trypsin (Venelex) 1 appl TP DAILY [facility] Stop: 09/11/17 09:59 Last Admin: 07/18/17 09:48 Dose: 1 appl Citalopram Hydrobromide (Celexa) 20 mg PO DAILY [facility] PRN Reason: Protocol Stop: 09/09/17 08:59 Last Admin: 07/18/17 09:49 Dose: 20 mg Clonazepam (Klonopin) 1 mg PO HS [facility] Stop: 09/08/17 20:59 Last Admin: 07/18/17 21:13 Dose: 1 mg Diltiazem HCl (Cardizem) 60 mg PO Q6HR [facility] Stop: 09/12/17 00:00 Last Admin: 07/18/17 18:42 Dose: Not Given Furosemide 100 mg/ Sodium (Chloride) 100 mls @ 5 mls/hr IV TITR [facility] Stop: 09/13/17 12:59 Last Admin: 07/17/17 09:51 Dose: 5 mls/hr Linezolid (Zyvox) 600 mg in 300 mls @ 300 mls/hr IV Q12HR [facility] Stop: 09/16/17 08:59 Last Admin: 07/18/17 22:44 Dose: 300 mls/hr Piperacillin Sod/Tazobactam (Sod 2.25 gm/ Sodium Chloride) 50 mls @ 100 mls/hr IV Q8HR [facility] Stop: 09/16/17 04:59 Last Admin: 07/18/17 21:15 Dose: 100 mls/hr Insulin Aspart (Novolog Insulin Sliding Scale) 0 units SUBQ ACHS [facility] PRN Reason: Protocol Stop: 09/08/17 16:29 Last Admin: 07/18/17 21:48 Dose: 9 units Insulin Detemir (Levemir Insulin) 14 units SUBQ HS [facility] PRN Reason: Protocol Stop: 09/12/17 20:59 Last Admin: 07/18/17 21:53 Dose: Not Given Lactobacillus Rhamnosus (Culturelle 15b) 1 each PO DAILY [facility] Stop: 09/14/17 08:59 Last Admin: 07/18/17 09:49 Dose: 1 each Miscellaneous (Vte Chemical Prophylaxis Screen/ Admission) 1 [facility] PRN PRN PRN Reason: PROTOCOL Stop: 09/08/17 15:14 Miscellaneous (Probiotic Screen) 1 [facility] PRN PRN PRN Reason: PROTOCOL Stop: 09/13/17 11:59 Pantoprazole Sodium (Protonix) 40 mg PO DAILY [facility] Stop: 09/09/17 08:59 Last Admin: 07/18/17 09:49 Dose: 40 mg Quetiapine Fumarate (Seroquel) 50 mg PO HS [facility] PRN Reason: Protocol Stop: 09/08/17 20:59 Last Admin: 07/18/17 21:13 Dose: 50 mg Tamsulosin HCl (Flomax) 0.8 mg PO HS [facility] Stop: 09/08/17 20:59 Last Admin: 07/18/17 21:13 Dose: 0.8 mg Warfarin Sodium (Coumadin Per Pharmacy) 1 [facility] PRN PRN; Protocol PRN Reason: RX MONITORING Stop: 09/09/17 12:39 General: no acute distress, well developed, well nourished HEENT: atraumatic, normocephalic, PERRLA, EOMI, moist mucous membrane Neck: supple, no thyromegaly Cardiovascular: S1S2, regular Lungs: clear to auscultation bilaterally, clear to percussion Abdomen: soft, no tender, no distended Extremities: no cyanosis, no clubbing Neurological: awake, alert, oriented Infectious Disease Assmt/Plan - Problem List Patient Problems: All Active Problems LEFT LOWER LEG REDNESS, SWELLING PAIN (Acute) - Assessment Assessment: 1. Leukocytosis suspect sepsis. 2. Left leg cellulitis, may have peripheral artery disease. There is a chance of the skin to turn necrotic. overall some improvement. 3. Diabetes mellitus type 2. 4. Peripheral artery disease. 5. Hypertension. 6. Severe dementia. 7. COPD. 8. CHF. 9. pneumonia. 10. JUSTINA. - Plan Plan: Change antibiotics to zyvox and zosyn. MRI of the right foot and leg Nutritional Asmnt/Malnutr-PDOC - Dietary Evaluation Malnutrition Findings (Please click <Entered> for more info): Nutritional Asmnt/Malnutrition Start: 07/12/17 15: 11 Text: Status: Complete Freq: Document 07/12/17 15:11 LCHENG (Rec: 07/12/17 15:24 [email or web address] [id number]) Nutritional Asmnt/Malnutrition Patient General Information Nutritional Screening High Risk Diagnosis sepsis, secondary to cellulitis Pertinent Medical Hx/Surgical Hx CAD, CHF, HTN, dementia, schizophrenia, weakness, chronic renal insuff, DM, redness of both legs. Subjective Information Pt seen sleeping at time of visit. Per [employer], pt ate about 50% of breakfast, very slowly. Pt had no lunch yet d/t sleeping. Per nurse note, RN feed pt with pudding and jello with milk shake in the afternoon. Per ST to put patient NPO if lethargic to avoid aspiration noted. Current Diet Order/ Nutrition Support [id number], mech soft chopped Pertinent Medications novolog, protonix, piperacillin, seroquel, nacl 0 .9%, vancomycin Pertinent Labs 3*19 BUN 37, Glucose 261, POC 247-312 3 A1c 7.6 Nutritional Hx/Data Height 1.65 m Height (Calculated Centimeters) 165.1 Current Weight (lbs) 87.543 kg Weight (Calculated Kilograms) 87.5 Weight (Calculated Grams) 91358.3 [place] Body Weight 136 Body Mass Index (BMI) 32.1 Weight Status Obese GI Symptoms GI Symptoms None Last BM Difficult in: None Skin Integrity/Comment: pressure ulcer to left heel, reddened to left lower extremity (cellulitis), maceration to left foot, pressure area to right foot Current %PO Poor (25-49%) Estimated Nutritional Goals BEE in Kcals: Adj wt of IBW Calories/Kcals/Kg 25-30 Kcals Calculated 4646-3902 Protein: Adj wt of IBW Protein g/k-1.2 Protein Calculated 68-82 Fluid: ml 1700-2040ml (1ml/kcal) Nutritional Problem 2. Problem Problem increased nutrition needs ( protein) Etiology increased metabolic demand for wound healing Signs/Symptoms: pressure ulcer 1. Problem Problem altered nutrition related labs Etiology DM Signs/Symptoms: Glucose 261, POC 247-312, A1c 7.6 Intervention/Recommendation Comments 1. Recommend nectar thickned liquid considering risk of aspiration. recommend swallow eval again when pt is more wake up. 2. Consider Boost BID to supplement nutrition. 3. Monitor PO intake, wt, labs and skin integrity 4. F/U as high risk in 2-3 days, 07/14-07/15 Expected Outcomes/Goals Expected Outcomes/Goals 1. PO intake to meet at least 75% of nutritional needs. 2. Wt stability, skin to remain intact, labs to approach WNL.
[2017-07-19] MEDS: Diltiazem 30 mg Tab PO SCH ×5 (00:15→13:12)
[2017-07-19] MEDS: Albuterol/Ipratropium Neb 3 ML AERS HHN SCH ×3 (00:17→13:25)
[2017-07-19 06:08] LABS: % BASOPHILS 0.4 % (0.0-2.0); % EOSINOPHILS 1.6 % (0.0-5.0); % LYMPHOCYTES 11.1 % (20.0-50.0); % MONOCYTES 4.3 % (2.0-10.0); % NEUTROPHILS 82.6 % (40.0-80.0); EOSINOPHILE ABSOLUTE 0.2 Th/cmm (0.1-0.4); HEMATOCRIT 33.9 % (41.0-60); HEMOGLOBIN 11.3 gm/dL (12-16); LYMPHOCYTE ABSOLUTE 1.1 Th/cmm (1.5-3.0); MEAN CELL VOLUME 94.2 fl (80-99); MEAN CORPUSCULAR HEMOGLOBIN 31.4 pg (27.0-31.0); MEAN CORPUSCULAR HGB CONC 33.3 pg (28.0-36.0); MEAN PLATELET VOLUME 8.9 fl; MONOCYTE ABSOLUTE 0.4 Th/cmm (0.3-1.0); NEUTROPHILE ABSOLUTE 7.9 Th/cmm (1.8-8.0); PLATELET COUNT 324 Th/cmm (150-400); RED CELL DISTRIBUTION WIDTH 14.7 % (11.5-20.0); WHITE BLOOD COUNT 9.6 Th/cmm (4.8-10.8)
[2017-07-19 06:19] LABS: INR 1.04 (0.5-1.4); PROTHROMBIN TIME (TEST) 10.8 SECONDS (9.5-11.5)
[2017-07-19 06:28] LABS: ALB/GLOB RATIO 0.8 (1.0-1.8); ALBUMIN 2.8 gm/dL (4.2-5.5); ALKALINE PHOSPHATASE 157 U/L (34-104); ANION GAP 11.5 (7.0-16.0); BILIRUBIN,TOTAL 0.4 mg/dL (0.3-1.0); BUN - UREA NITROGEN 70 mg/dL (7-25); CALCIUM SERUM 8.7 mg/dL (8.6-10.3); CHLORIDE 111 mEq/L (98-107); CREATININE - SERUM 3.1 mg/dL (0.7-1.3); GLUCOSE 275 mg/dL (70-105); POTASSIUM SERUM 3.5 mEq/L (3.5-5.1); SGOT 9 U/L (13-39); SGPT/ALT 19 U/L (7-52); SODIUM SERUM 148 mEq/L (136-145); TOTAL PROTEIN,SERUM 6.3 gm/dL (6.0-8.3)
[2017-07-19] MEDS: Aspirin 81mg Chewable Tab PO SCH ×2 (09:00→13:08)
[2017-07-19] MEDS: Pantoprazole 40 mg EC Tab PO SCH ×2 (09:00→13:07)
[2017-07-19] MEDS: INSULIN ASPART SLIDING SCALE 100 UNITS/ML UNIT SUBQ SCH ×2 (09:36→13:09)
--- NOTE | 2017-07-19 09:36 | GI Progress Note ---
Subjective - Review of Systems Service Date: 07/19/17 Subjective: Tolerated feeds over the weekend Objective - Results Result Diagrams: 07/19/17 05:55 07/19/17 05:55 Recent Labs: Laboratory Last Values WBC 9.6 Th/cmm (4.8-10.8) 07/19/17 05:55 RBC 3.60 Mil/cmm (3.80-5.80) L 07/19/17 05:55 Hgb 11.3 gm/dL (12-16) L 07/19/17 05:55 Hct 33.9 % (41.0-60) L 07/19/17 05:55 MCV 94.2 fl (80-99) 07/19/17 05:55 MCH 31.4 pg (27.0-31.0) H 07/19/17 05:55 MCHC Differential 33.3 pg (28.0-36.0) 07/19/17 05:55 RDW 14.7 % (11.5-20.0) 07/19/17 05:55 Plt Count 324 Th/cmm (150-400) 07/19/17 05:55 MPV 8.9 fl 07/19/17 05:55 Neutrophils % 82.6 % (40.0-80.0) H 07/19/17 05:55 Band Neutrophils % 1 % (0-10) 07/15/17 05:20 Lymphocytes % 11.1 % (20.0-50.0) L 07/19/17 05:55 Monocytes % 4.3 % (2.0-10.0) 07/19/17 05:55 Eosinophils % 1.6 % (0.0-5.0) 07/19/17 05:55 Basophils % 0.4 % (0.0-2.0) 07/19/17 05:55 Neutrophils (Manual) 93 % (40-80) H 07/15/17 05:20 Lymphocytes 3 % (20-50) L 07/15/17 05:20 Monocytes 3 % (2-10) 07/15/17 05:20 Basophils 1 % (0-3) 07/10/17 10:49 Platelet Estimate ADEQUATE (NORMAL) 07/15/17 05:20 Eos Smear Source URINE 07/12/17 00:00 Eos Smear Total Cells NONE SEEN (NONE SEEN) 07/12/17 00:00 PT 10.8 SECONDS (9.5-11.5) 07/19/17 05:55 INR 1.04 (0.5-1.4) 07/19/17 05:55 PTT (Actin FS) 28.1 SECONDS (26.0-38.0) 07/16/17 05:45 Sodium 148 mEq/L (136-145) H 07/19/17 05:55 Potassium 3.5 mEq/L (3.5-5.1) 07/19/17 05:55 Chloride 111 mEq/L (98-107) H 07/19/17 05:55 Carbon Dioxide 29.0 mEq/L (21.0-31.0) 07/19/17 05:55 Anion Gap 11.5 (7.0-16.0) 07/19/17 05:55 BUN 70 mg/dL (7-25) H 07/19/17 05:55 Creatinine 3.1 mg/dL (0.7-1.3) H 07/19/17 05:55 Est GFR ( Amer) TNP 07/19/17 05:55 Est GFR (Non-Af Amer) TNP 07/19/17 05:55 BUN/Creatinine Ratio 22.6 07/19/17 05:55 Glucose 275 mg/dL (70-105) H 07/19/17 05:55 POC Glucose 273 MG/DL (70 - 105) H 07/19/17 05:27 Hemoglobin A1c % 7.6 % (4.0-6.0) H 07/10/17 10:49 Whole Bld Lactic Acid 1.12 mmol/L (0.60-1.99) 07/11/17 14:30 Calcium 8.7 mg/dL (8.6-10.3) 07/19/17 05:55 Phosphorus 3.5 mg/dL (2.5-5.0) 07/12/17 05:05 Magnesium 2.4 mg/dL (1.9-2.7) 07/12/17 05:05 Total Bilirubin 0.4 mg/dL (0.3-1.0) 07/19/17 05:55 AST 9 U/L (13-39) L 07/19/17 05:55 ALT 19 U/L (7-52) 07/19/17 05:55 Alkaline Phosphatase 157 U/L (34-104) H 07/19/17 05:55 B-Natriuretic Peptide 989.0 pg/mL (5.0-100.0) H 07/19/17 05:55 Total Protein 6.3 gm/dL (6.0-8.3) 07/19/17 05:55 Albumin 2.8 gm/dL (4.2-5.5) L 07/19/17 05:55 Globulin 3.5 gm/dL 07/19/17 05:55 Albumin/Globulin Ratio 0.8 (1.0-1.8) L 07/19/17 05:55 TSH 0.20 uIU/ml (0.34-5.60) L 07/11/17 06:19 Urine Source MIDSTREAM 07/16/17 17:00 Urine Color YELLOW 07/16/17 17:00 Urine Clarity HAZY (CLEAR) 07/16/17 17:00 Urine pH 5.5 (4.6 - 8.0) 07/16/17 17:00 Ur Specific [place] 1.010 (1.005-1.030) 07/16/17 17:00 Urine Protein NEGATIVE mg/dL (NEGATIVE) 07/16/17 17:00 Urine Glucose (UA) NEGATIVE mg/dL (NEGATIVE) 07/16/17 17:00 Urine Ketones NEGATIVE mg/dL (NEGATIVE) 07/16/17 17:00 Urine Blood MODERATE (NEGATIVE) H 07/16/17 17:00 Urine Nitrate NEGATIVE (NEGATIVE) 07/16/17 17:00 Urine Bilirubin NEGATIVE (NEGATIVE) 07/16/17 17:00 Urine Urobilinogen 0.2 E.U./dL (0.2 - 1.0) 07/16/17 17:00 Ur Leukocyte Esterase NEGATIVE (NEGATIVE) 07/16/17 17:00 Urine RBC 5-10 /hpf (0-5) H 07/16/17 17:00 Urine WBC 0-2 /hpf (0-5) 07/16/17 17:00 Ur Epithelial Cells OCCASIONAL /lpf (FEW) 07/16/17 17:00 Urine Bacteria NONE SEEN /hpf (NONE SEEN) 07/16/17 17:00 Ur Random Sodium 22 mmol/L 07/12/17 00:00 Urine Creatinine 156.0 mg/dl (39.0-259.0) 07/12/17 00:00 Urine Microalbumin 50.6 07/11/17 06:00 Microalb/Creat Ratio 51.9 07/11/17 06:00 Vancomycin Trough 17.1 ug/mL (10-20) 07/14/17 08:00 Random Vancomycin 19.4 ug/mL (5.0-40.0) 07/18/17 06:17 - Physical Exam Vitals and I&O: Vital Signs Temp 97.3 F 07/19/17 04:00 Pulse 72 07/19/17 07:23 Resp 18 07/19/17 07:23 BP 147/95 07/19/17 04:00 Pulse Ox 99 07/19/17 07:23 Intake & Output 07/18/17 07/19/17 07/19/17 18:59 06:59 18:59 Intake Total 50 950 Output Total 1500 Balance 50 -550 Weight (lbs) 92.533 kg 92.533 kg Intake: Intake, IV Amount 50 950 Linezolid 600mg/300mL 600 600 mg In 300 ml @ 300 mls/ hr IV Q12HR [facility] Rx#: [id number] Piperacillin Sodium/ 50 100 Tazobact 2.25 gm In Sodium Chloride 0.9% 50 ml @ 100 mls/hr IV Q8HR [facility] Rx#:[id number] Output: Urine 1500 Other: # Voids 2,600 # Bowel Movements 1 Weight Source Bedscale Bedscale Active Medications: Current Medications Acetaminophen (Tylenol) 650 mg PO Q6HR PRN PRN Reason: TEMP >100 Stop: 09/08/17 19:00 Albuterol/Ipratropium (Duoneb Neb) 3 ml HHN Q6HRT [facility] Stop: 09/09/17 18:59 Last Admin: 07/19/17 07:23 Dose: 3 ml Albuterol/Ipratropium (Duoneb Neb) 3 ml HHN Q2H PRN PRN Reason: wheezing Stop: 09/09/17 14:14 Last Admin: 07/13/17 22:41 Dose: 3 ml Aspirin (Aspirin Chewable) 81 mg PO DAILY [facility] Stop: 09/09/17 08:59 Last Admin: 07/18/17 09:48 Dose: 81 mg Carvedilol (Coreg) 25 mg PO DAILY [facility] Stop: 09/12/17 08:59 Last Admin: 07/18/17 09:49 Dose: 25 mg [place] Oil/[place] Balsam/Trypsin (Venelex) 1 appl TP DAILY [facility] Stop: 09/11/17 09:59 Last Admin: 07/18/17 09:48 Dose: 1 appl Citalopram Hydrobromide (Celexa) 20 mg PO DAILY [facility] PRN Reason: Protocol Stop: 09/09/17 08:59 Last Admin: 07/18/17 09:49 Dose: 20 mg Clonazepam (Klonopin) 1 mg PO HS [facility] Stop: 09/08/17 20:59 Last Admin: 07/18/17 21:13 Dose: 1 mg Diltiazem HCl (Cardizem) 60 mg PO Q6HR [facility] Stop: 09/12/17 00:00 Last Admin: 07/19/17 05:50 Dose: Not Given Furosemide 100 mg/ Sodium (Chloride) 100 mls @ 5 mls/hr IV TITR [facility] Stop: 09/13/17 12:59 Last Admin: 07/17/17 09:51 Dose: 5 mls/hr Linezolid (Zyvox) 600 mg in 300 mls @ 300 mls/hr IV Q12HR [facility] Stop: 09/16/17 08:59 Last Infusion: 07/19/17 06:04 Dose: Infused Piperacillin Sod/Tazobactam (Sod 2.25 gm/ Sodium Chloride) 50 mls @ 100 mls/hr IV Q8HR [facility] Stop: 09/16/17 04:59 Last Infusion: 07/19/17 06:04 Dose: Infused Insulin Aspart (Novolog Insulin Sliding Scale) 0 units SUBQ ACHS [facility] PRN Reason: Protocol Stop: 09/08/17 16:29 Last Admin: 07/18/17 21:48 Dose: 9 units Insulin Detemir (Levemir Insulin) 14 units SUBQ HS [facility] PRN Reason: Protocol Stop: 09/12/17 20:59 Last Admin: 07/18/17 21:53 Dose: Not Given Lactobacillus Rhamnosus (Culturelle 15b) 1 each PO DAILY [facility] Stop: 09/14/17 08:59 Last Admin: 07/18/17 09:49 Dose: 1 each Miscellaneous (Vte Chemical Prophylaxis Screen/ Admission) 1 [facility] PRN PRN PRN Reason: PROTOCOL Stop: 09/08/17 15:14 Miscellaneous (Probiotic Screen) 1 [facility] PRN PRN PRN Reason: PROTOCOL Stop: 09/13/17 11:59 Pantoprazole Sodium (Protonix) 40 mg PO DAILY [facility] Stop: 09/09/17 08:59 Last Admin: 07/18/17 09:49 Dose: 40 mg Quetiapine Fumarate (Seroquel) 50 mg PO HS [facility] PRN Reason: Protocol Stop: 09/08/17 20:59 Last Admin: 07/18/17 21:13 Dose: 50 mg Tamsulosin HCl (Flomax) 0.8 mg PO HS [facility] Stop: 09/08/17 20:59 Last Admin: 07/18/17 21:13 Dose: 0.8 mg Warfarin Sodium (Coumadin Per Pharmacy) 1 [facility] PRN PRN; Protocol PRN Reason: RX MONITORING Stop: 09/09/17 12:39 General: No acute distress HEENT: Atraumatic, Mucous membr. moist/pink Neck: Supple Cardiovascular: Regular rate Lungs: Other (rhonchi, some congestion) Abdomen: Bowel sounds, Soft, Other (intact GT) Extremities: Edema, Other (less erythema, edema, w/ wrinkles left foot) Neurological: Sensation intact, Other (Non ambulatory) Skin: no Rash Psych/Mental Status: Other ( confused, not oriented) - Procedures Procedures: Procedures Procedure Code Date EGD PLACE GASTROSTOMY TUBE 76972 07/10/17 INSERTION OF FEEDING DEVICE INTO STOMACH, PERC APPROACH [id number] 07/10/17 Assessment/Plan - Problem List Patient Problems: All Active Problems LEFT LOWER LEG REDNESS, SWELLING PAIN (Acute) - Assessment Assessment: IMPRESSION: 1. Dysphagia/anorexia - s/p PEG insertion. 2. Dementia. RECS: 1. Advance GT feeds as conrado. 2. GT care. 3. Continue meds. 4. Monitor labs. GI to see as needed, please call with any questions
[2017-07-19] MEDS: Linezolid 600mg/300mL 600 MG/300 ML BAG IV SCH (09:49)
[2017-07-19] MEDS ORDERED: Venelex 60gm Tube TP ONE (11:22)
--- NOTE | 2017-07-19 11:36 | General Progress Note ---
Subjective - Review of Systems Service Date: 07/19/17 Subjective: more awake, interacting, comfortable Objective - Results Result Diagrams: 07/19/17 05:55 07/19/17 05:55 Recent Labs: Laboratory Last Values WBC 9.6 Th/cmm (4.8-10.8) 07/19/17 05:55 RBC 3.60 Mil/cmm (3.80-5.80) L 07/19/17 05:55 Hgb 11.3 gm/dL (12-16) L 07/19/17 05:55 Hct 33.9 % (41.0-60) L 07/19/17 05:55 MCV 94.2 fl (80-99) 07/19/17 05:55 MCH 31.4 pg (27.0-31.0) H 07/19/17 05:55 MCHC Differential 33.3 pg (28.0-36.0) 07/19/17 05:55 RDW 14.7 % (11.5-20.0) 07/19/17 05:55 Plt Count 324 Th/cmm (150-400) 07/19/17 05:55 MPV 8.9 fl 07/19/17 05:55 Neutrophils % 82.6 % (40.0-80.0) H 07/19/17 05:55 Band Neutrophils % 1 % (0-10) 07/15/17 05:20 Lymphocytes % 11.1 % (20.0-50.0) L 07/19/17 05:55 Monocytes % 4.3 % (2.0-10.0) 07/19/17 05:55 Eosinophils % 1.6 % (0.0-5.0) 07/19/17 05:55 Basophils % 0.4 % (0.0-2.0) 07/19/17 05:55 Neutrophils (Manual) 93 % (40-80) H 07/15/17 05:20 Lymphocytes 3 % (20-50) L 07/15/17 05:20 Monocytes 3 % (2-10) 07/15/17 05:20 Basophils 1 % (0-3) 07/10/17 10:49 Platelet Estimate ADEQUATE (NORMAL) 07/15/17 05:20 Eos Smear Source URINE 07/12/17 00:00 Eos Smear Total Cells NONE SEEN (NONE SEEN) 07/12/17 00:00 PT 10.8 SECONDS (9.5-11.5) 07/19/17 05:55 INR 1.04 (0.5-1.4) 07/19/17 05:55 PTT (Actin FS) 28.1 SECONDS (26.0-38.0) 07/16/17 05:45 Sodium 148 mEq/L (136-145) H 07/19/17 05:55 Potassium 3.5 mEq/L (3.5-5.1) 07/19/17 05:55 Chloride 111 mEq/L (98-107) H 07/19/17 05:55 Carbon Dioxide 29.0 mEq/L (21.0-31.0) 07/19/17 05:55 Anion Gap 11.5 (7.0-16.0) 07/19/17 05:55 BUN 70 mg/dL (7-25) H 07/19/17 05:55 Creatinine 3.1 mg/dL (0.7-1.3) H 07/19/17 05:55 Est GFR ( Amer) TNP 07/19/17 05:55 Est GFR (Non-Af Amer) TNP 07/19/17 05:55 BUN/Creatinine Ratio 22.6 07/19/17 05:55 Glucose 275 mg/dL (70-105) H 07/19/17 05:55 POC Glucose 273 MG/DL (70 - 105) H 07/19/17 05:27 Hemoglobin A1c % 7.6 % (4.0-6.0) H 07/10/17 10:49 Whole Bld Lactic Acid 1.12 mmol/L (0.60-1.99) 07/11/17 14:30 Calcium 8.7 mg/dL (8.6-10.3) 07/19/17 05:55 Phosphorus 3.5 mg/dL (2.5-5.0) 07/12/17 05:05 Magnesium 2.4 mg/dL (1.9-2.7) 07/12/17 05:05 Total Bilirubin 0.4 mg/dL (0.3-1.0) 07/19/17 05:55 AST 9 U/L (13-39) L 07/19/17 05:55 ALT 19 U/L (7-52) 07/19/17 05:55 Alkaline Phosphatase 157 U/L (34-104) H 07/19/17 05:55 B-Natriuretic Peptide 989.0 pg/mL (5.0-100.0) H 07/19/17 05:55 Total Protein 6.3 gm/dL (6.0-8.3) 07/19/17 05:55 Albumin 2.8 gm/dL (4.2-5.5) L 07/19/17 05:55 Globulin 3.5 gm/dL 07/19/17 05:55 Albumin/Globulin Ratio 0.8 (1.0-1.8) L 07/19/17 05:55 TSH 0.20 uIU/ml (0.34-5.60) L 07/11/17 06:19 Urine Source MIDSTREAM 07/16/17 17:00 Urine Color YELLOW 07/16/17 17:00 Urine Clarity HAZY (CLEAR) 07/16/17 17:00 Urine pH 5.5 (4.6 - 8.0) 07/16/17 17:00 Ur Specific Loman 1.010 (1.005-1.030) 07/16/17 17:00 Urine Protein NEGATIVE mg/dL (NEGATIVE) 07/16/17 17:00 Urine Glucose (UA) NEGATIVE mg/dL (NEGATIVE) 07/16/17 17:00 Urine Ketones NEGATIVE mg/dL (NEGATIVE) 07/16/17 17:00 Urine Blood MODERATE (NEGATIVE) H 07/16/17 17:00 Urine Nitrate NEGATIVE (NEGATIVE) 07/16/17 17:00 Urine Bilirubin NEGATIVE (NEGATIVE) 07/16/17 17:00 Urine Urobilinogen 0.2 E.U./dL (0.2 - 1.0) 07/16/17 17:00 Ur Leukocyte Esterase NEGATIVE (NEGATIVE) 07/16/17 17:00 Urine RBC 5-10 /hpf (0-5) H 07/16/17 17:00 Urine WBC 0-2 /hpf (0-5) 07/16/17 17:00 Ur Epithelial Cells OCCASIONAL /lpf (FEW) 07/16/17 17:00 Urine Bacteria NONE SEEN /hpf (NONE SEEN) 07/16/17 17:00 Ur Random Sodium 22 mmol/L 07/12/17 00:00 Urine Creatinine 156.0 mg/dl (39.0-259.0) 07/12/17 00:00 Urine Microalbumin 50.6 07/11/17 06:00 Microalb/Creat Ratio 51.9 07/11/17 06:00 Vancomycin Trough 17.1 ug/mL (10-20) 07/14/17 08:00 Random Vancomycin 19.4 ug/mL (5.0-40.0) 07/18/17 06:17 - Physical Exam Vitals and I&O: Vital Signs Temp 97.3 F 07/19/17 04:00 Pulse 72 07/19/17 07:23 Resp 18 07/19/17 07:23 BP 147/95 07/19/17 04:00 Pulse Ox 99 07/19/17 07:23 Intake & Output 07/18/17 07/19/17 07/19/17 18:59 06:59 18:59 Intake Total 50 950 Output Total 1500 Balance 50 -550 Weight (lbs) 92.533 kg 92.533 kg Intake: Intake, IV Amount 50 950 Linezolid 600mg/300mL 600 600 mg In 300 ml @ 300 mls/ hr IV Q12HR [facility] Rx#: [id number] Piperacillin Sodium/ 50 100 Tazobact 2.25 gm In Sodium Chloride 0.9% 50 ml @ 100 mls/hr IV Q8HR [facility] Rx#:[id number] Output: Urine 1500 Other: # Voids 2,600 # Bowel Movements 1 Weight Source Bedscale Bedscale Active Medications: Current Medications Acetaminophen (Tylenol) 650 mg PO Q6HR PRN PRN Reason: TEMP >100 Stop: 09/08/17 19:00 Albuterol/Ipratropium (Duoneb Neb) 3 ml HHN Q6HRT [facility] Stop: 09/09/17 18:59 Last Admin: 07/19/17 07:23 Dose: 3 ml Albuterol/Ipratropium (Duoneb Neb) 3 ml HHN Q2H PRN PRN Reason: wheezing Stop: 09/09/17 14:14 Last Admin: 07/13/17 22:41 Dose: 3 ml Aspirin (Aspirin Chewable) 81 mg PO DAILY [facility] Stop: 09/09/17 08:59 Last Admin: 07/18/17 09:48 Dose: 81 mg Carvedilol (Coreg) 25 mg PO DAILY [facility] Stop: 09/12/17 08:59 Last Admin: 07/18/17 09:49 Dose: 25 mg Thatcher Oil/Maldivian Balsam/Trypsin (Venelex) 1 appl TP DAILY [facility] Stop: 09/11/17 09:59 Last Admin: 07/18/17 09:48 Dose: 1 appl Citalopram Hydrobromide (Celexa) 20 mg PO DAILY [facility] PRN Reason: Protocol Stop: 09/09/17 08:59 Last Admin: 07/18/17 09:49 Dose: 20 mg Clonazepam (Klonopin) 1 mg PO HS [facility] Stop: 09/08/17 20:59 Last Admin: 07/18/17 21:13 Dose: 1 mg Diltiazem HCl (Cardizem) 60 mg PO Q6HR [facility] Stop: 09/12/17 00:00 Last Admin: 07/19/17 05:50 Dose: Not Given Furosemide 100 mg/ Sodium (Chloride) 100 mls @ 5 mls/hr IV TITR [facility] Stop: 09/13/17 12:59 Last Admin: 07/17/17 09:51 Dose: 5 mls/hr Linezolid (Zyvox) 600 mg in 300 mls @ 300 mls/hr IV Q12HR [facility] Stop: 09/16/17 08:59 Last Admin: 07/19/17 09:49 Dose: 300 mls/hr Piperacillin Sod/Tazobactam (Sod 2.25 gm/ Sodium Chloride) 50 mls @ 100 mls/hr IV Q8HR [facility] Stop: 09/17/17 12:59 Insulin Aspart (Novolog Insulin Sliding Scale) 0 units SUBQ ACHS [facility] PRN Reason: Protocol Stop: 09/08/17 16:29 Last Admin: 07/19/17 09:36 Dose: Not Given Insulin Detemir (Levemir Insulin) 14 units SUBQ HS [facility] PRN Reason: Protocol Stop: 09/12/17 20:59 Last Admin: 07/18/17 21:53 Dose: Not Given Lactobacillus Rhamnosus (Culturelle 15b) 1 each PO DAILY [facility] Stop: 09/14/17 08:59 Last Admin: 07/18/17 09:49 Dose: 1 each Miscellaneous (Vte Chemical Prophylaxis Screen/ Admission) 1 ea [facility] PRN PRN PRN Reason: PROTOCOL Stop: 09/08/17 15:14 Miscellaneous (Probiotic Screen) 1 ea PRN PRN PRN Reason: PROTOCOL Stop: 09/13/17 11:59 Pantoprazole Sodium (Protonix) 40 mg PO DAILY [facility] Stop: 09/09/17 08:59 Last Admin: 07/18/17 09:49 Dose: 40 mg Quetiapine Fumarate (Seroquel) 50 mg PO HS [facility] PRN Reason: Protocol Stop: 09/08/17 20:59 Last Admin: 07/18/17 21:13 Dose: 50 mg Tamsulosin HCl (Flomax) 0.8 mg PO HS [facility] Stop: 09/08/17 20:59 Last Admin: 07/18/17 21:13 Dose: 0.8 mg Warfarin Sodium (Coumadin Per Pharmacy) 1 [facility] PRN PRN; Protocol PRN Reason: RX MONITORING Stop: 09/09/17 12:39 Warfarin Sodium (Coumadin) 5 mg PO C ONE Stop: 07/19/17 13:01 General: Alert, No acute distress HEENT: Atraumatic, Mucous membr. moist/pink Neck: Supple, +2 carotid pulse wo bruit Cardiovascular: Regular rate, Normal S1, Normal S2 Lungs: Other (rhonchi, some congestion) Abdomen: Bowel sounds, Soft, Other (intact GT) Extremities: Other (less erythema, edema, w/ wrinkles left foot) Neurological: Sensation intact, Other (Non ambulatory) Skin: no Rash Psych/Mental Status: Other ( confused, not oriented) - Procedures Procedures: Procedures Procedure Code Date EGD PLACE GASTROSTOMY TUBE 54236 07/10/17 INSERTION OF FEEDING DEVICE INTO STOMACH, PERC APPROACH [id number] 07/10/17 Assessment/Plan - Problem List Patient Problems: All Active Problems LEFT LOWER LEG REDNESS, SWELLING PAIN (Acute) - Assessment Assessment: JUSTINA Left LE Cellulitis ALOS 2/2 meds,Met Enceph, 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, debris, or clot acute decomp diastolic CHF - Plan Plan: Lab - Result Diagrams 07/12/17 05:05 07/12/17 05:05 Current Medications Acetaminophen (Tylenol) 650 mg PO Q6HR PRN PRN Reason: TEMP >100 Stop: 09/08/17 19:00 Albuterol/Ipratropium (Duoneb Neb) 3 ml HHN Q6HRT [facility] Stop: 09/09/17 18:59 Last Admin: 07/12/17 13:41 Dose: 3 ml Albuterol/Ipratropium (Duoneb Neb) 3 ml HHN Q2H PRN PRN Reason: wheezing Stop: 09/09/17 14:14 Aspirin (Aspirin Chewable) 81 mg PO DAILY [facility] Stop: 09/09/17 08:59 Last Admin: 07/12/17 08:45 Dose: 81 mg Benazepril HCl (Lotensin) 10 mg PO DAILY [facility] Stop: 09/09/17 08:59 Last Admin: 07/12/17 08:46 Dose: 10 mg Citalopram Hydrobromide (Celexa) 20 mg PO DAILY [facility] PRN Reason: Protocol Stop: 09/09/17 08:59 Last Admin: 07/12/17 08:46 Dose: 20 mg Clonazepam (Klonopin) 1 mg PO HS [facility] Stop: 09/08/17 20:59 Last Admin: 07/11/17 22:28 Dose: 1 mg Diltiazem HCl (Cardizem) 60 mg PO Q6HR [facility] Stop: 09/09/17 17:59 Last Admin: 07/12/17 13:58 Dose: 60 mg Piperacillin Sod/Tazobactam (Sod 3.375 gm/ Sodium Chloride) 50 mls @ 100 mls/ hr IV Q8HR [facility] Stop: 09/08/17 12:59 Last Infusion: 07/12/17 13:00 Dose: Infused Sodium Chloride (Nacl 0.9%) 1,000 mls @ 90 mls/hr IV .Q11H7M [facility] Stop: 09/08/17 13:14 Last Admin: 07/12/17 04:59 Dose: 90 mls/hr Clindamycin Phosphate (Cleocin Pb) 600 mg in 50 mls @ 100 mls/hr IV Q8HR [facility] Stop: 09/09/17 20:59 Last Admin: 07/12/17 14:05 Dose: 100 mls/hr Vancomycin HCl 1 gm/ Sodium (Chloride) 250 mls @ 165 mls/hr IV Q12H [facility] Stop: 09/10/17 08:59 Last Infusion: 07/12/17 14:10 Dose: Infused Insulin Aspart (Novolog Insulin Sliding Scale) 0 units SUBQ ACHS [facility] PRN Reason: Protocol Stop: 09/08/17 16:29 Last Admin: 07/12/17 13:52 Dose: 6 units Miscellaneous (Vte Chemical Prophylaxis Screen/ Admission) 1 ea PRN PRN PRN Reason: PROTOCOL Stop: 09/08/17 15:14 Miscellaneous (Vancomycin Iv Per Pharmacy) 1 ea PRN [facility] Stop: 09/09/17 17:29 Pantoprazole Sodium (Protonix) 40 mg PO DAILY [facility] Stop: 09/09/17 08:59 Last Admin: 07/12/17 08:45 Dose: 40 mg Quetiapine Fumarate (Seroquel) 50 mg PO HS [facility] PRN Reason: Protocol Stop: 09/08/17 20:59 Last Admin: 07/11/17 22:28 Dose: 50 mg Tamsulosin HCl (Flomax) 0.8 mg PO HS [facility] Stop: 09/08/17 20:59 Last Admin: 07/11/17 22:28 Dose: 0.8 mg Warfarin Sodium (Coumadin Per Pharmacy) 1 [facility] PRN PRN; Protocol PRN Reason: RX MONITORING Stop: 09/09/17 12:39 Lab - Result Diagrams 07/19/17 05:55 07/19/17 05:55 kidney fnc slightly improved w/ BUN/CR of 70/3.1; request US, UA f/u cultures continue Vanco. clinda, Zosyn incidental finding brain mass now has wheezing but less CXR shows worsening CHF DC IVF, start feeding switch to Lasix drip plus albumin infusion BNP increased from 584 to 944 Left leg less edema & erythema neli. 600 ml urine obtained after Delacruz was inserted even thou US did no reveal any hydronephrosis thus pt. has some type of outlet obstruction Prostate? f/u electrolytes, cbc, CXR discussed w/ daughter @ bedside aware Na 148 Nutritional Asmnt/Malnutr-PDOC - Dietary Evaluation Malnutrition Findings (Please click <Entered> for more info): Nutritional Asmnt/Malnutrition Start: 07/12/17 15: 11 Text: Status: Complete Freq: Document 07/12/17 15:11 LCHENG (Rec: 07/12/17 15:24 LCHENG [id number]) Nutritional Asmnt/Malnutrition Patient General Information Nutritional Screening High Risk Diagnosis sepsis, secondary to cellulitis Pertinent Medical Hx/Surgical Hx CAD, CHF, HTN, dementia, schizophrenia, weakness, chronic renal insuff, DM, redness of both legs. Subjective Information Pt seen sleeping at time of visit. Per [employer], pt ate about 50% of breakfast, very slowly. Pt had no lunch yet d/t sleeping. Per nurse note, RN feed pt with pudding and jello with milk shake in the afternoon. Per ST to put patient NPO if lethargic to avoid aspiration noted. Current Diet Order/ Nutrition Support [id number], mech soft chopped Pertinent Medications novolog, protonix, piperacillin, seroquel, nacl 0 .9%, vancomycin Pertinent Labs 3 BUN 37, Glucose 261, POC 247-312 07/10 A1c 7.6 Nutritional Hx/Data Height 1.65 m Height (Calculated Centimeters) 165.1 Current Weight (lbs) 87.543 kg Weight (Calculated Kilograms) 87.5 Weight (Calculated Grams) 19474.3 [place] Body Weight 136 Body Mass Index (BMI) 32.1 Weight Status Obese GI Symptoms GI Symptoms None Last BM Difficult in: None Skin Integrity/Comment: pressure ulcer to left heel, reddened to left lower extremity (cellulitis), maceration to left foot, pressure area to right foot Current %PO Poor (25-49%) Estimated Nutritional Goals BEE in Kcals: Adj wt of IBW Calories/Kcals/Kg 25-30 Kcals Calculated 4816-7030 Protein: Adj wt of IBW Protein g/k-1.2 Protein Calculated 68-82 Fluid: ml 1700-2040ml (1ml/kcal) Nutritional Problem 2. Problem Problem increased nutrition needs ( protein) Etiology increased metabolic demand for wound healing Signs/Symptoms: pressure ulcer 1. Problem Problem altered nutrition related labs Etiology DM Signs/Symptoms: Glucose 261, POC 247-312, A1c 7.6 Intervention/Recommendation Comments 1. Recommend nectar thickned liquid considering risk of aspiration. recommend swallow eval again when pt is more wake up. 2. Consider Boost BID to supplement nutrition. 3. Monitor PO intake, wt, labs and skin integrity 4. F/U as high risk in 2-3 days, 07/14-07/15 Expected Outcomes/Goals Expected Outcomes/Goals 1. PO intake to meet at least 75% of nutritional needs. 2. Wt stability, skin to remain intact, labs to approach WNL.
[2017-07-19] MEDS: Venelex 60gm Tube TP SCH (11:47)
[2017-07-19] MEDS: Lactobacillus Rhamnosus GG 15 Billion CFU CAP.SPRINK PO SCH ×2 (11:48→13:08)
--- NOTE | 2017-07-19 12:04 | Operative Report ---
DATE OF SURGERY: PREOPERATIVE DIAGNOSES: 1. Cellulitis, left leg. 2. Ulcer, left heel. 3. Severe peripheral vascular disease. 4. Azotemia. 5. Schizophrenia. 6. Diabetes mellitus. POSTOPERATIVE DIAGNOSES: 1. Cellulitis, left leg. 2. Ulcer, left heel. 3. Severe peripheral vascular disease. 4. Azotemia. 5. Schizophrenia. 6. Diabetes mellitus. OPERATION DONE: 1. Excisional debridement, left leg cellulitis. 2. Excisional debridement, left heel ulcer stage 3, size 2 x 2 cm. OPERATIVE FINDINGS: Mostly skin loss of the anterior left leg consisting of bullae formation in the underlying subepidermal tissue appeared to be viable. SURGEON: Annette May MD. ANESTHESIA: MAC. ANESTHESIOLOGIST: [place]. ESTIMATED BLOOD LOSS: None. PROCEDURE: The patient was given IV sedation. The left leg was prepped with Betadine and draped the bullae and the anterior leg from the knee down to the ankle was stripped with the use of forceps and sponges to effect a clean area throughout. Only few ulcers were debrided sharply with scissors. Venelex was applied over the whole area. The patient tolerated the procedure well. JOB# [id number]
--- NOTE | 2017-07-19 13:10 | General Progress Note ---
Subjective - Review of Systems Service Date: 07/19/17 Subjective: Patient is more awake today, confused, not oriented, responding question. Objective - Results Result Diagrams: 07/19/17 05:55 07/19/17 05:55 Recent Labs: Laboratory Last Values WBC 9.6 Th/cmm (4.8-10.8) 07/19/17 05:55 RBC 3.60 Mil/cmm (3.80-5.80) L 07/19/17 05:55 Hgb 11.3 gm/dL (12-16) L 07/19/17 05:55 Hct 33.9 % (41.0-60) L 07/19/17 05:55 MCV 94.2 fl (80-99) 07/19/17 05:55 MCH 31.4 pg (27.0-31.0) H 07/19/17 05:55 MCHC Differential 33.3 pg (28.0-36.0) 07/19/17 05:55 RDW 14.7 % (11.5-20.0) 07/19/17 05:55 Plt Count 324 Th/cmm (150-400) 07/19/17 05:55 MPV 8.9 fl 07/19/17 05:55 Neutrophils % 82.6 % (40.0-80.0) H 07/19/17 05:55 Band Neutrophils % 1 % (0-10) 07/15/17 05:20 Lymphocytes % 11.1 % (20.0-50.0) L 07/19/17 05:55 Monocytes % 4.3 % (2.0-10.0) 07/19/17 05:55 Eosinophils % 1.6 % (0.0-5.0) 07/19/17 05:55 Basophils % 0.4 % (0.0-2.0) 07/19/17 05:55 Neutrophils (Manual) 93 % (40-80) H 07/15/17 05:20 Lymphocytes 3 % (20-50) L 07/15/17 05:20 Monocytes 3 % (2-10) 07/15/17 05:20 Basophils 1 % (0-3) 07/10/17 10:49 Platelet Estimate ADEQUATE (NORMAL) 07/15/17 05:20 Eos Smear Source URINE 07/12/17 00:00 Eos Smear Total Cells NONE SEEN (NONE SEEN) 07/12/17 00:00 PT 10.8 SECONDS (9.5-11.5) 07/19/17 05:55 INR 1.04 (0.5-1.4) 07/19/17 05:55 PTT (Actin FS) 28.1 SECONDS (26.0-38.0) 07/16/17 05:45 Sodium 148 mEq/L (136-145) H 07/19/17 05:55 Potassium 3.5 mEq/L (3.5-5.1) 07/19/17 05:55 Chloride 111 mEq/L (98-107) H 07/19/17 05:55 Carbon Dioxide 29.0 mEq/L (21.0-31.0) 07/19/17 05:55 Anion Gap 11.5 (7.0-16.0) 07/19/17 05:55 BUN 70 mg/dL (7-25) H 07/19/17 05:55 Creatinine 3.1 mg/dL (0.7-1.3) H 07/19/17 05:55 Est GFR ( Amer) TNP 07/19/17 05:55 Est GFR (Non-Af Amer) TNP 07/19/17 05:55 BUN/Creatinine Ratio 22.6 07/19/17 05:55 Glucose 275 mg/dL (70-105) H 07/19/17 05:55 POC Glucose 273 MG/DL (70 - 105) H 07/19/17 05:27 Hemoglobin A1c % 7.6 % (4.0-6.0) H 07/10/17 10:49 Whole Bld Lactic Acid 1.12 mmol/L (0.60-1.99) 07/11/17 14:30 Calcium 8.7 mg/dL (8.6-10.3) 07/19/17 05:55 Phosphorus 3.5 mg/dL (2.5-5.0) 07/12/17 05:05 Magnesium 2.4 mg/dL (1.9-2.7) 07/12/17 05:05 Total Bilirubin 0.4 mg/dL (0.3-1.0) 07/19/17 05:55 AST 9 U/L (13-39) L 07/19/17 05:55 ALT 19 U/L (7-52) 07/19/17 05:55 Alkaline Phosphatase 157 U/L (34-104) H 07/19/17 05:55 B-Natriuretic Peptide 989.0 pg/mL (5.0-100.0) H 07/19/17 05:55 Total Protein 6.3 gm/dL (6.0-8.3) 07/19/17 05:55 Albumin 2.8 gm/dL (4.2-5.5) L 07/19/17 05:55 Globulin 3.5 gm/dL 07/19/17 05:55 Albumin/Globulin Ratio 0.8 (1.0-1.8) L 07/19/17 05:55 TSH 0.20 uIU/ml (0.34-5.60) L 07/11/17 06:19 Urine Source MIDSTREAM 07/16/17 17:00 Urine Color YELLOW 07/16/17 17:00 Urine Clarity HAZY (CLEAR) 07/16/17 17:00 Urine pH 5.5 (4.6 - 8.0) 07/16/17 17:00 Ur Specific [place] 1.010 (1.005-1.030) 07/16/17 17:00 Urine Protein NEGATIVE mg/dL (NEGATIVE) 07/16/17 17:00 Urine Glucose (UA) NEGATIVE mg/dL (NEGATIVE) 07/16/17 17:00 Urine Ketones NEGATIVE mg/dL (NEGATIVE) 07/16/17 17:00 Urine Blood MODERATE (NEGATIVE) H 07/16/17 17:00 Urine Nitrate NEGATIVE (NEGATIVE) 07/16/17 17:00 Urine Bilirubin NEGATIVE (NEGATIVE) 07/16/17 17:00 Urine Urobilinogen 0.2 E.U./dL (0.2 - 1.0) 07/16/17 17:00 Ur Leukocyte Esterase NEGATIVE (NEGATIVE) 07/16/17 17:00 Urine RBC 5-10 /hpf (0-5) H 07/16/17 17:00 Urine WBC 0-2 /hpf (0-5) 07/16/17 17:00 Ur Epithelial Cells OCCASIONAL /lpf (FEW) 07/16/17 17:00 Urine Bacteria NONE SEEN /hpf (NONE SEEN) 07/16/17 17:00 Ur Random Sodium 22 mmol/L 07/12/17 00:00 Urine Creatinine 156.0 mg/dl (39.0-259.0) 07/12/17 00:00 Urine Microalbumin 50.6 07/11/17 06:00 Microalb/Creat Ratio 51.9 07/11/17 06:00 Vancomycin Trough 17.1 ug/mL (10-20) 07/14/17 08:00 Random Vancomycin 19.4 ug/mL (5.0-40.0) 07/18/17 06:17 - Physical Exam Vitals and I&O: Vital Signs Temp 97.3 F 07/19/17 04:00 Pulse 72 07/19/17 07:23 Resp 17 07/19/17 08:00 BP 147/95 07/19/17 04:00 Pulse Ox 99 07/19/17 07:23 Intake & Output 07/18/17 07/19/17 07/19/17 18:59 06:59 18:59 Intake Total 50 950 Output Total 1500 Balance 50 -550 Weight (lbs) 92.533 kg 92.533 kg Intake: Intake, IV Amount 50 950 Linezolid 600mg/300mL 600 600 mg In 300 ml @ 300 mls/ hr IV Q12HR COUNT INCLUDES THE [facility] Rx#: [id number] Piperacillin Sodium/ 50 100 Tazobact 2.25 gm In Sodium Chloride 0.9% 50 ml @ 100 mls/hr IV Q8HR COUNT INCLUDES THE [facility] Rx#:[id number] Output: Urine 1500 Other: # Voids 2,600 # Bowel Movements 1 Weight Source Bedscale Bedscale Active Medications: Current Medications Acetaminophen (Tylenol) 650 mg PO Q6HR PRN PRN Reason: TEMP >100 Stop: 09/08/17 19:00 Albuterol/Ipratropium (Duoneb Neb) 3 ml HHN Q6HRT COUNT INCLUDES THE [facility] Stop: 09/09/17 18:59 Last Admin: 07/19/17 07:23 Dose: 3 ml Albuterol/Ipratropium (Duoneb Neb) 3 ml HHN Q2H PRN PRN Reason: wheezing Stop: 09/09/17 14:14 Last Admin: 07/13/17 22:41 Dose: 3 ml Aspirin (Aspirin Chewable) 81 mg PO DAILY COUNT INCLUDES THE [facility] Stop: 09/09/17 08:59 Last Admin: 07/18/17 09:48 Dose: 81 mg Carvedilol (Coreg) 25 mg PO DAILY [facility] Stop: 09/12/17 08:59 Last Admin: 07/19/17 09:00 Dose: Not Given [place] Oil/[place] Balsam/Trypsin (Venelex) 1 appl TP DAILY [facility] Stop: 09/11/17 09:59 Last Admin: 07/19/17 11:47 Dose: Not Given Citalopram Hydrobromide (Celexa) 20 mg PO DAILY [facility] PRN Reason: Protocol Stop: 09/09/17 08:59 Last Admin: 07/18/17 09:49 Dose: 20 mg Clonazepam (Klonopin) 1 mg PO HS COUNT INCLUDES THE [facility] Stop: 09/08/17 20:59 Last Admin: 07/18/17 21:13 Dose: 1 mg Diltiazem HCl (Cardizem) 60 mg PO Q6HR [facility] Stop: 09/12/17 00:00 Last Admin: 07/19/17 05:50 Dose: Not Given Furosemide 100 mg/ Sodium (Chloride) 100 mls @ 5 mls/hr IV TITR [facility] Stop: 09/13/17 12:59 Last Admin: 07/17/17 09:51 Dose: 5 mls/hr Linezolid (Zyvox) 600 mg in 300 mls @ 300 mls/hr IV Q12HR COUNT INCLUDES THE [facility] Stop: 09/16/17 08:59 Last Admin: 07/19/17 09:49 Dose: 300 mls/hr Piperacillin Sod/Tazobactam (Sod 2.25 gm/ Sodium Chloride) 50 mls @ 100 mls/hr IV Q8HR COUNT INCLUDES THE [facility] Stop: 09/17/17 12:59 Insulin Aspart (Novolog Insulin Sliding Scale) 0 units SUBQ ACHS [facility] PRN Reason: Protocol Stop: 09/08/17 16:29 Last Admin: 07/19/17 09:36 Dose: Not Given Insulin Detemir (Levemir Insulin) 14 units SUBQ HS COUNT INCLUDES THE [facility] PRN Reason: Protocol Stop: 09/12/17 20:59 Last Admin: 07/18/17 21:53 Dose: Not Given Lactobacillus Rhamnosus (Culturelle 15b) 1 each PO DAILY COUNT INCLUDES THE [facility] Stop: 09/14/17 08:59 Last Admin: 07/19/17 11:48 Dose: Not Given Miscellaneous (Vte Chemical Prophylaxis Screen/ Admission) 1 ea PRN PRN PRN Reason: PROTOCOL Stop: 09/08/17 15:14 Miscellaneous (Probiotic Screen) 1 [facility] PRN PRN PRN Reason: PROTOCOL Stop: 09/13/17 11:59 Pantoprazole Sodium (Protonix) 40 mg PO DAILY [facility] Stop: 09/09/17 08:59 Last Admin: 07/18/17 09:49 Dose: 40 mg Quetiapine Fumarate (Seroquel) 50 mg PO HS [facility] PRN Reason: Protocol Stop: 09/08/17 20:59 Last Admin: 07/18/17 21:13 Dose: 50 mg Tamsulosin HCl (Flomax) 0.8 mg PO HS [facility] Stop: 09/08/17 20:59 Last Admin: 07/18/17 21:13 Dose: 0.8 mg Warfarin Sodium (Coumadin Per Pharmacy) 1 [facility] PRN PRN; Protocol PRN Reason: RX MONITORING Stop: 09/09/17 12:39 General: Alert, Cooperative, No acute distress HEENT: Atraumatic, Mucous membr. moist/pink Neck: Supple, +2 carotid pulse wo bruit Cardiovascular: Regular rate, Normal S1, Normal S2 Lungs: Clear to auscultation, Other Abdomen: Bowel sounds, Soft, Other (intact GT) Extremities: Other (Leg is cover with blanka, but there some spaces witout blanka and look with less erythema and edema) Neurological: Other (Non ambulatory) Skin: Other (Left leg is cover with blanka, less edema), no Rash Psych/Mental Status: Other ( confused, not oriented) - Procedures Procedures: Procedures Procedure Code Date EGD PLACE GASTROSTOMY TUBE 95529 07/10/17 INSERTION OF FEEDING DEVICE INTO STOMACH, PERC APPROACH [id number] 07/10/17 Assessment/Plan - Problem List Patient Problems: All Active Problems LEFT LOWER LEG REDNESS, SWELLING PAIN (Acute) - Assessment Assessment: Current Active Problems Problem Status Onset LEFT LOWER LEG REDNESS, SWELLING PAIN Acute Patient is more awake today, calm, confused. Redness and edema of leg improving , he just came from OR debridament was done. today WBC is normal, creatinine decreasing. Lungs sound less congested. BNP continue increasing. DX: sepsis, AKF over CKF, HTN, non compensated CHF, DM, Dementia, PVD, BPH, A-fib, Dhysphagia, Cerebral mass. - Plan Plan: Patient in IV NS, Vanco, Clyndomicin and sozyn, Insulin sliding scale and SNF meds. Lasix drip and albumin. PEG in place. Leg debridament done, Follow by ID , Cardio, Psychiatry, GI, Pulmonology, Surgery and Nephro. PEG in place. Leg MRI requested. Speech evaluation requested. Yesterday I had a meting with all family to explain patient's condition and prognosis. Will continue to monitor Nutritional Asmnt/Malnutr-PDOC - Dietary Evaluation Malnutrition Findings (Please click <Entered> for more info): Nutritional Asmnt/Malnutrition Start: 07/12/17 15: 11 Text: Status: Complete Freq: Document 07/12/17 15:11 ARJUN (Rec: 07/12/17 15:24 ARJUN [id number]) Nutritional Asmnt/Malnutrition Patient General Information Nutritional Screening High Risk Diagnosis sepsis, secondary to cellulitis Pertinent Medical Hx/Surgical Hx CAD, CHF, HTN, dementia, schizophrenia, weakness, chronic renal insuff, DM, redness of both legs. Subjective Information Pt seen sleeping at time of visit. Per [employer], pt ate about 50% of breakfast, very slowly. Pt had no lunch yet d/t sleeping. Per nurse note, RN feed pt with pudding and jello with milk shake in the afternoon. Per ST to put patient NPO if lethargic to avoid aspiration noted. Current Diet Order/ Nutrition Support [id number], [facility] soft chopped Pertinent Medications novolog, protonix, piperacillin, seroquel, nacl 0 .9%, vancomycin Pertinent Labs 3*19 BUN 37, Glucose 261, POC 247-312 3 A1c 7.6 Nutritional Hx/Data Height 1.65 m Height (Calculated Centimeters) 165.1 Current Weight (lbs) 87.543 kg Weight (Calculated Kilograms) 87.5 Weight (Calculated Grams) 47643.3 [place] Body Weight 136 Body Mass Index (BMI) 32.1 Weight Status Obese GI Symptoms GI Symptoms None Last BM Difficult in: None Skin Integrity/Comment: pressure ulcer to left heel, reddened to left lower extremity (cellulitis), maceration to left foot, pressure area to right foot Current %PO Poor (25-49%) Estimated Nutritional Goals BEE in Kcals: Adj wt of IBW Calories/Kcals/Kg 25-30 Kcals Calculated 0638-6914 Protein: Adj wt of IBW Protein g/k-1.2 Protein Calculated 68-82 Fluid: ml 1700-2040ml (1ml/kcal) Nutritional Problem 2. Problem Problem increased nutrition needs ( protein) Etiology increased metabolic demand for wound healing Signs/Symptoms: pressure ulcer 1. Problem Problem altered nutrition related labs Etiology DM Signs/Symptoms: Glucose 261, POC 247-312, A1c 7.6 Intervention/Recommendation Comments 1. Recommend nectar thickned liquid considering risk of aspiration. recommend swallow eval again when pt is more wake up. 2. Consider Boost BID to supplement nutrition. 3. Monitor PO intake, wt, labs and skin integrity 4. F/U as high risk in 2-3 days, 07/14-07/15 Expected Outcomes/Goals Expected Outcomes/Goals 1. PO intake to meet at least 75% of nutritional needs. 2. Wt stability, skin to remain intact, labs to approach WNL.
--- NOTE | 2017-07-19 15:16 | Discharge Summary ---
General Discharge Summary - Discharge Summary Date of Admission: 07/10/17 Admitting Diagnosis: Sepsis, CKF, HTN, DM, BPH, Dementia Patient Problems: All Active Problems LEFT LOWER LEG REDNESS, SWELLING PAIN (Acute) Discharge Date: 07/19/17 Discharge Diagnosis: Sepsis secondary to cellulites resolved, AKF over CKF, DM, HTN, uncompensated CHF, A-fib, PVD, BPD, Dysphagia, Cerebral mass. Laboratory Findings: Laboratory Results - last 24 hr 07/18/17 07/18/17 07/19/17 16:41 21:11 05:27 WBC RBC Hgb Hct MCV MCH MCHC Differential RDW Plt Count MPV Neutrophils % Lymphocytes % Monocytes % Eosinophils % Basophils % PT INR Sodium Potassium Chloride Carbon Dioxide Anion Gap BUN Creatinine Est GFR ( Amer) Est GFR (Non-Af Amer) BUN/Creatinine Ratio Glucose POC Glucose 326 H 315 H 273 H Calcium Total Bilirubin AST ALT Alkaline Phosphatase B-Natriuretic Peptide Total Protein Albumin Globulin Albumin/Globulin Ratio 07/19/17 07/19/17 07/19/17 05:55 05:55 05:55 WBC 9.6 RBC 3.60 L Hgb 11.3 L Hct 33.9 L MCV 94.2 MCH 31.4 H MCHC Differential 33.3 RDW 14.7 Plt Count 324 MPV 8.9 Neutrophils % 82.6 H Lymphocytes % 11.1 L Monocytes % 4.3 Eosinophils % 1.6 Basophils % 0.4 PT 10.8 INR 1.04 Sodium 148 H Potassium 3.5 Chloride 111 H Carbon Dioxide 29.0 Anion Gap 11.5 BUN 70 H Creatinine 3.1 H Est GFR ( Amer) TNP Est GFR (Non-Af Amer) TNP BUN/Creatinine Ratio 22.6 Glucose 275 H POC Glucose Calcium 8.7 Total Bilirubin 0.4 AST 9 L ALT 19 Alkaline Phosphatase 157 H B-Natriuretic Peptide Total Protein 6.3 Albumin 2.8 L Globulin 3.5 Albumin/Globulin Ratio 0.8 L 07/19/17 07/19/17 05:55 13:05 WBC RBC Hgb Hct MCV MCH MCHC Differential RDW Plt Count MPV Neutrophils % Lymphocytes % Monocytes % Eosinophils % Basophils % PT INR Sodium Potassium Chloride Carbon Dioxide Anion Gap BUN Creatinine Est GFR ( Amer) Est GFR (Non-Af Amer) BUN/Creatinine Ratio Glucose POC Glucose 297 H Calcium Total Bilirubin AST ALT Alkaline Phosphatase B-Natriuretic Peptide 989.0 H Total Protein Albumin Globulin Albumin/Globulin Ratio Hospital Course: Patient came with Sepsis (high WBC), AKF over CKF (high creatinine), Bilateral pulmonary infiltrated, CHF and later he presented A-fib. Swallow evaluation was done and he did not pass and PEG was placed. Head CT was done and was found that patient has a brain tumor. Patient improved with treatment. Treatment: He received AB (Vanco, Sozyn and clindamycin), Breathing treatment, Lasix and albumina, Cardizem, Carbedilol, and he was continue with SNF meds. Debridament of left leg was done. Condition at Discharge: Stable Disposition: TRANSFER TO ACUTE HOSP Home Medications: Home Medication Medication Instructions Recorded Type Acetaminophen [Tylenol] 650 mg PO Q6HR PRN 07/10/17 History Aspirin [Aspirin Chewable] 81 mg PO DAILY 07/10/17 History Citalopram Hydrobromide 20 mg PO DAILY 07/10/17 History [Citalopram HBr] Clonazepam [Clonazepam*] 1 mg PO HS 07/10/17 History QUEtiapine Fumarate [SEROquel] 50 mg PO HS 07/10/17 History Tamsulosin [Flomax] 0.8 mg PO HS 07/10/17 History Albuterol/Ipratropium Neb [Duoneb 3 ml HHN Q6HRT aers 07/19/17 Rx Neb] Balsam [place] Oil [Venelex] 1 appl TP DAILY appl 07/19/17 Rx Carvedilol [Coreg] 25 mg PO DAILY tab 07/19/17 Rx Diltiazem [Cardizem*] 60 mg PO Q6HR tab 07/19/17 Rx Insulin Aspart Sliding Scale 0 units SUBQ ACHS unit 07/19/17 Rx [NovoLOG INSULIN SLIDING SCALE] Insulin Detemir [Levemir Insulin] 14 units SUBQ HS vial 07/19/17 Rx Lactobacillus Rhamnosus GG 15B 1 each PO DAILY cap.sprink 07/19/17 Rx [Culturelle 15B] Linezolid 600mg/300mL [Zyvox] 600 mg IV Q12HR bag 07/19/17 Rx Pantoprazole [Protonix] 40 mg PO DAILY ect 07/19/17 Rx Piperacillin Sodium/Tazobact 2.25 gm IV Q8HR vial 07/19/17 Rx [Zosyn] Warfarin per Pharmacy [Coumadin 1 ea [facility] PRN PRN misc 07/19/17 Rx Per Pharmacy] Inpatient Medications: Current Medications Acetaminophen (Tylenol) 650 mg PO Q6HR PRN PRN Reason: TEMP >100 Stop: 09/08/17 19:00 Albuterol/Ipratropium (Duoneb Neb) 3 ml HHN Q6HRT [facility] Stop: 09/09/17 18:59 Last Admin: 07/19/17 13:25 Dose: 3 ml Albuterol/Ipratropium (Duoneb Neb) 3 ml HHN Q2H PRN PRN Reason: wheezing Stop: 09/09/17 14:14 Last Admin: 07/13/17 22:41 Dose: 3 ml Aspirin (Aspirin Chewable) 81 mg PO DAILY [facility] Stop: 09/09/17 08:59 Last Admin: 07/19/17 13:08 Dose: 81 mg Carvedilol (Coreg) 25 mg PO DAILY [facility] Stop: 09/12/17 08:59 Last Admin: 07/19/17 13:13 Dose: 25 mg [place] Oil/[place] Balsam/Trypsin (Venelex) 1 appl TP DAILY [facility] Stop: 09/11/17 09:59 Last Admin: 07/19/17 11:47 Dose: Not Given Citalopram Hydrobromide (Celexa) 20 mg PO DAILY [facility] PRN Reason: Protocol Stop: 09/09/17 08:59 Last Admin: 07/19/17 13:07 Dose: 20 mg Clonazepam (Klonopin) 1 mg PO HS [facility] Stop: 09/08/17 20:59 Last Admin: 07/18/17 21:13 Dose: 1 mg Diltiazem HCl (Cardizem) 60 mg PO Q6HR [facility] Stop: 09/12/17 00:00 Last Admin: 07/19/17 13:12 Dose: 60 mg Furosemide 100 mg/ Sodium (Chloride) 100 mls @ 5 mls/hr IV TITR [facility] Stop: 09/13/17 12:59 Last Admin: 07/17/17 09:51 Dose: 5 mls/hr Linezolid (Zyvox) 600 mg in 300 mls @ 300 mls/hr IV Q12HR [facility] Stop: 09/16/17 08:59 Last Admin: 07/19/17 09:49 Dose: 300 mls/hr Piperacillin Sod/Tazobactam (Sod 2.25 gm/ Sodium Chloride) 50 mls @ 100 mls/hr IV Q8HR [facility] Stop: 09/17/17 12:59 Last Admin: 07/19/17 13:14 Dose: 100 mls/hr Insulin Aspart (Novolog Insulin Sliding Scale) 0 units SUBQ ACHS [facility] PRN Reason: Protocol Stop: 09/08/17 16:29 Last Admin: 07/19/17 13:09 Dose: 7 units Insulin Detemir (Levemir Insulin) 14 units SUBQ HS [facility] PRN Reason: Protocol Stop: 09/12/17 20:59 Last Admin: 07/18/17 21:53 Dose: Not Given Lactobacillus Rhamnosus (Culturelle 15b) 1 each PO DAILY [facility] Stop: 09/14/17 08:59 Last Admin: 07/19/17 13:08 Dose: 1 each Miscellaneous (Vte Chemical Prophylaxis Screen/ Admission) 1 ea PRN PRN PRN Reason: PROTOCOL Stop: 09/08/17 15:14 Miscellaneous (Probiotic Screen) 1 ea PRN PRN PRN Reason: PROTOCOL Stop: 09/13/17 11:59 Pantoprazole Sodium (Protonix) 40 mg PO DAILY [facility] Stop: 09/09/17 08:59 Last Admin: 07/19/17 13:07 Dose: 40 mg Quetiapine Fumarate (Seroquel) 50 mg PO HS [facility] PRN Reason: Protocol Stop: 09/08/17 20:59 Last Admin: 07/18/17 21:13 Dose: 50 mg Tamsulosin HCl (Flomax) 0.8 mg PO HS [facility] Stop: 09/08/17 20:59 Last Admin: 07/18/17 21:13 Dose: 0.8 mg Warfarin Sodium (Coumadin Per Pharmacy) 1 [facility] PRN PRN; Protocol PRN Reason: RX MONITORING Stop: 09/09/17 12:39 Consults and Follow-Up: Wu Nava [Primary Care Provider] - Consulting Speciality: Cardiac, Pulmonary, Surgery, Infectious Disease, Psychology Instructions: Cellulitis, Gastrostomy Tube, Adult
--- NOTE | 2017-07-19 21:28 | Progress Notes ---
DATE: 07/19/2017 Case was discussed with staff of the patient, reviewed records. The patient continues to be confused, unpredictable, impulsive, and needing redirection. Continues to be unable to make safe plan for self-care or participate in meaningful conversation. No side effects with the medications, no sedation, no nausea, and no extrapyramidal symptoms. I would recommend to continue his medication, needs follow up with the psychiatrist upon discharge. He continues to be on Celexa 20 mg a day, clonazepam 1 mg at bedtime, and Seroquel 50 mg at bedtime. Thank you very much for allowing me to participate in the care of this most interesting gentleman. JOB# [id number]
--- NOTE | 2017-07-21 12:11 | Pathology Report ---
[id number] Collection date: 07/19/2017 Surgeon: Dr. Sary May Specimen Description: Debrided tissue, left leg. Gross Description: Received in formalin are multiple thin strips of bric[place] skin and soft tissue ranging from 1.5 to 14.5 cm in length x less than 1 mm in thickness. Safety And Occupational Health Manager sections are submitted in one cassette. Microscopic Description: The histologic sections show superficial portions of hyperkeratotic skin with areas of acute suppurative inflammation and necrosis consisting of large collections of neutrophils with a degenerated background and focal ulceration. Diagnosis: Superficial skin showing suppurative inflammation and necrosis, consistent with debridement of left leg ulcer. [facility]# [id number] [facility]
== END 2017-07-19 15:22 | disposition short-term general hospital (02) | DRG 871 ==
LOC: ER 10:04 → MSI 12:08 → TELE 07-11 08:35
PROVIDERS: ADMIT General Practice; ATTEND General Practice
PROC: 0DH68UZ Insertion of Feeding Device into Stomach, Via Natural or Artificial Opening Endoscopic (ICD-10-PCS; principal; 2017-07-16)
PROC: 0HBNXZZ Excision of Left Foot Skin, External Approach (ICD-10-PCS; 2017-07-19)
PROC: 0HBLXZZ Excision of Left Lower Leg Skin, External Approach (ICD-10-PCS; 2017-07-19)
DX: A41.9 Sepsis, unspecified organism (principal); G93.41 Metabolic encephalopathy; I50.33 Acute on chronic diastolic (congestive) heart failure; N17.9 Acute kidney failure, unspecified; J18.9 Pneumonia, unspecified organism; R13.10 Dysphagia, unspecified; I13.0 Hypertensive heart and chronic kidney disease with heart failure and stage 1 through stage 4 chronic kidney disease, or unspecified chronic kidney disease; E11.51 Type 2 diabetes mellitus with diabetic peripheral angiopathy without gangrene; E11.22 Type 2 diabetes mellitus with diabetic chronic kidney disease; F02.81 Dementia in other diseases classified elsewhere, unspecified severity, with behavioral disturbance; L03.116 Cellulitis of left lower limb; F03.91 Unspecified dementia, unspecified severity, with behavioral disturbance; J44.0 Chronic obstructive pulmonary disease with (acute) lower respiratory infection; L97.428 Non-pressure chronic ulcer of left heel and midfoot with other specified severity; E11.621 Type 2 diabetes mellitus with foot ulcer; I25.119 Atherosclerotic heart disease of native coronary artery with unspecified angina pectoris; G93.9 Disorder of brain, unspecified; I48.91 Unspecified atrial fibrillation; N18.9 Chronic kidney disease, unspecified; N40.0 Benign prostatic hyperplasia without lower urinary tract symptoms; F20.9 Schizophrenia, unspecified; G20 Parkinson's disease; E03.9 Hypothyroidism, unspecified; E05.90 Thyrotoxicosis, unspecified without thyrotoxic crisis or storm; K21.9 Gastro-esophageal reflux disease without esophagitis; Z79.82 Long term (current) use of aspirin; Z79.4 Long term (current) use of insulin
CPT/HCPCS: 36415-UA; 70450-TC; 71045-TC; 73630-TC-LT; 76770-TC; 80053-TC; 80202-TC; 81001-TC; 81015-TC; 82043-90; 82570-TC; 82947-TC; 82948-90; 83036-90; 83605; 83735-TC; 83880-TC; 84100-TC; 84300-TC; 84443-TC; 85007-TC; 85025-TC; 85027-TC; 85610-TC; 85730-TC; 87070-90; 87075-90; 87086-90; 87205-90; 93005; 93925-TC; 93970-TC-50; 94640; 94760; J0696; J1644; J1815; J1940; J2020; J2543; J2920; J3370; J3430; J7030; J7040; P9047; V2790; X3401; X5958; Z7506; Z7610